=== PATIENT | female | born 1975 | race Caucasian/White ===

== ENCOUNTER 2025-03-15 09:39 | Outpatient (OUT) | payer OTHER, SELFPAY ==
[2025-03-15 10:03] LABS: Basophils Percent Auto 0.3 % (0.2-2.0); Eosinophils Absolute Auto 0.2 10^3/uL (0.0-0.7); Eosinophils Percent Auto 1.8 % (0.9-7.0); Hematocrit 34.8 % (36.0-48.0); Hemoglobin 11.6 g/dL (12.0-16.0); Immature Granulocytes Abs Auto 0.03 10^3/uL (0.00-0.03); Immature Granulocytes Pct Auto 0.3 % (0.0-0.5); Lymphocytes Percent Auto 34.4 % (20.5-60.0); Mean Corpuscular HGB Conc 33.3 g/dL (29.9-35.2); Mean Corpuscular Hemoglobin 28.9 pg (26.7-34.0); Mean Corpuscular Volume 86.6 fL (81.0-99.0); Mean Platelet Volume 9.9 fL (9.5-13.5); Monocytes Absolute Auto 0.4 10^3/uL (0.3-0.8); Monocytes Percent Auto 4.2 % (1.7-12.0); Neutrophils Absolute Auto 5.2 10^3/uL (1.4-6.5); Platelet Count 254 10^3/uL (150-450); Red Blood Count 4.02 10^6/uL (4.20-5.40); Red Cell Distribution Width 14.3 % (11.0-15.0); White Blood Count 8.8 10^3/uL (4.0-11.0)
[2025-03-15 10:27] LABS: Alanine Aminotransferase 31 U/L (14-59); Albumin Globulin Ratio 0.9; Albumin Level 3.1 g/dL (3.4-5.0); Alkaline Phosphatase 91 U/L (46-116); Anion Gap 11.4; Aspartate Amino Transferase 18 U/L (15-37); Bilirubin Total 0.3 mg/dL (0.2-1.0); Calcium 8.6 mg/dL (8.5-10.1); Carbon Dioxide 28.8 mmol/L (21.0-32.0); Chloride 105 mmol/L (98-107); Chol HDL Ratio 2.9; Cholesterol 168 mg/dL (<=200); Estimated GFR (African America >60 (>=60 mL/min/1.73m^2); Estimated GFR (Non-African Ame >60 (>=60 mL/min/1.73m^2); Globulin 3.4 g/dL; Glucose 112 mg/dL (74-106); HDL Cholesterol 57 mg/dL (40-60); LDL Cholesterol Calculated 90.8 mg/dL; Potassium 4.2 mmol/L (3.5-5.1); Sodium 141 mmol/L (136-145); Total Protein 6.5 g/dL (6.4-8.2); Triglycerides 101 mg/dL (<=150); VLDL CHOLESTEROL 20.2 mg/dL
== END 2025-03-15 09:40 | disposition home or self-care (01) ==
LOC: LAB 09:43
PROVIDERS: PCP Family Medicine; Visit Provider Physician Assistant
DX: Z13.1 Encounter for screening for diabetes mellitus (principal); Z13.0 Encounter for screening for diseases of the blood and blood-forming organs and certain disorders involving the immune mechanism; Z13.6 Encounter for screening for cardiovascular disorders
CPT/HCPCS: 36415; 80053; 80061; 85025

== ENCOUNTER 2025-09-03 23:17 | Emergency (ER) | payer OTHER, SELFPAY ==
[2025-09-03 23:27] VITALS: BP 167/80; PULSE 82; TEMP 36.8; O2SAT 98; BMI 46.2
--- OUTSIDE RECORDS SUMMARY | 2025-09-03 23:31 | XMS_ITS | CCD ---
Author Organization [facility] Team Providers Care Stonework Supervisor Name Role Phone JOHNNY CAMILO Attending Unavailable ELMIRA, DR KERN Primary Care Unavailable TON, JOHNNY Admitting Unavailable BURBANK, DR STEFANIA Mccloud Consulting Unavailable JOHNNY CAMILO Consulting Unavailable MISC, DR ELIAS Attending Unavailable MISC, DR ELIAS Consulting Unavailable ELMIRA, DR KERN Primary Care Unavailable MISC, DR ELIAS Admitting Unavailable Johnny Camilo Unavailable DO Cornelio Ku Primary Care Provider ULISSES Ibarra Attending Provider Cornelio Ku Unavailable DO Cornelio Ku Primary Care Provider [phone] DO Cornelio Ku Attending Provider Unavailable Unavailable Tawnya, Dr. Katarzyna Randall Admitting Unava ilmariangel Hopson, Dr. Katarzyna Randall Attending Unava bindu Cummins Jr, Dr. Mary Winkler Referring U navailable Elmira, Dr. Cornelio Segovia Primary Care Unavaila anjel Hopson, Dr. Katarzyna Randall Attending Unava ilmariangel Ku, Dr. Cornelio Segovia Primary Care Unavaila anjel Hopson, Dr. Katarzyna Randall Attending Unava ilmariangel Ku, Dr. Cornelio Segovia Primary Care Unavaila anjel Ku, Dr. Cornelio Segovia Primary Care Unavaila anjel Hopson, Dr. Katarzyna Randall Attending Unava ilable Taty, Ms. Judd Novoa Attending Un available Elmira, Dr. Cornelio Segovia Primary Care Unavailtiffani Hopson, Dr. Katarzyna Randall Referring Unava ilable Strange-Gierlach, Ms. Judd Novoa Attending Un available Elmira, Dr. Cornelio Segovia Primary Care Unavaila ble Tawnya, Dr. Katarzyna Randall Referring Unava ilable Strange-Gierlach, MsRadha Judd E Attending Un available Placido Disla, Dr. Mary Winkler Referring U navailable Elmira, Dr. Cornelio Segovia Primary Care Unavaila ble Tawnya, Dr. Katarzyna Randall Referring Unava ilable Strange-Gierlach, MsRadha Judd E Attending Un available Elmira, Dr. Cornelio Segovia Primary Care Unavaila ble Strange-Gierlach, MsRadha Hunterie E Attending Un available Elmira, Dr. Cornelio Segovia Primary Care Unavaila ble Tawnya, Dr. Katarzyna Randall Referring Unava ilable Tawnya, Dr. Katarzyna Randall Attending Unava ilable Elmira, Dr. Cornelio Segovia Primary Care Unavaila ble Tawnya, Dr. Katarzyna Randall Attending Unava ilable Elmira, Dr. Cornelio Segovia Primary Care Unavaila ble Tawnya, Dr. Katarzyna Randall Attending Unava ilable Elmira, Dr. Cornelio Segovia Primary Care Unavaila ble Tawnya, Dr. Katarzyna Randall Attending Unava ilable Elmira, Dr. Cornelio Segovia Primary Care Unavaila ble Tawnya, Dr. Katarzyna Randall Referring Unava ilable Tawnya, Dr. Katarzyna Randall Attending Unava ilable Placido Disla, Dr. Mary Winkler Referring U navailable Elmira, Dr. Cornelio Segovia Primary Care Unavaila ble Tawnya, Dr. Katarzyna Randall Referring Unava ilable Tawnya, Dr. Katarzyna Randall Attending Unava ilable Elmira, Dr. Cornelio Segovia Primary Care Unavaila ble JAVIER PEARSON Attending Unavailable Stefania Bartlett Unavailable MD Stefania Bartlett Attending Provider DO Cornelio Ku Primary Care Provider [phone] CORNELIO KU Referring Unavailable CORNELIO KU Attending Unavailable Cornelio Ku DO Primary Care Provider [phone] DO Cornelio Ku Primary Care Provider DO Richie Ku Attending Provider [phone] Cornelio Ku DO Primary Care Provider Matoe Grover Unavailable Adrienne Lerma RN Unavailable Unavailable DEIDRA ENCISO Attending Unavailable CORNELIO KU [facility] Unavailable KATARZYNA HOPSON Attending Unavailable CORNELIO KU Primary Care Unavailable DO Cornelio Ku Primary Care Provider DO Cornelio Ivy Attending Provider Cornelio Ku [facility] Care Unavailable Richie Ku Admitting Unavailable Richie Ku Attending Unavailable Stefania Bartlett Attending Unavailable Cornelio Ku [facility] Unavailable Stefania Bartlett Admitting Unavailable Stefania Bartlett Attending Unavailable Cornelio Ku [facility] Care Unavailable Stefania Bartlett Admitting Unavailable Cornelio Ivy Admitting Unavailable Cornelio Ivy Attending Unavailable Cornelio Ku [facility] Unavailable Cornelio Ku DO Unavailable Edwardo Nielsen DO Unavailable DEIDRA ENCISO Admitting Unavailable DEIDRA ENCISO Attending Unavailable CORNELIO KU [facility] Unavailable DEIDRA ENCISO Referring Unavailable CORNELIO KU [facility] Unavailable DEIDRA ENCISO Referring Unavailable ELMIRACORNELIO [facility] Unavailable [place] CORNELIO LUCA [facility] Unavailable DEIDRA ENCISO Attending Unavailable CORNELIO KU [facility] Unavailable JUDD SPEARS Attending UnavaCORNELIO [facility] Unavailable RICHIE KU Referring Unavailable JAMES, MATEO Valenzuela Attending Unavailable IBARRA, MATEO M Referring Unavailable CORNELIO KU Attending Unavailable RICHIE KU Attending Unavailable CORNELIO KU Attending Unavailable CORNELIO IVY Attending Unavailable [facility] Attending Unavailable IBARRA, MATEO M Referring Unavailable LALA GALINDO Attending Unavailable IBARRA, MATEO M Referring Unavailable IBARRA, MATEO M Attending Unavailable [facility] Attending Unavailable IBARRA, MATEO M Referring Unavailable TIFFANI CHANDRA Attending Unavailable IBARRA, MATEO M Referring Unavailable CORNELIO KU Attending Unavailable IBARRA, MATEO Valenzuela Attending Unavailable TIFFANI CHANDRA Attending Unavailable IBARRA, MATEO M Referring Unavailable LALA GALINDO Attending Unavailable IBARRA, MATEO M Referring Unavailable [facility] Attending Unavailable IBARRA, MATEO M Referring Unavailable KELBLEY, TIFFANI Attending Unavailable IBARRA, MATEO M Referring Unavailable RUSHER, HORACIO S Attending Unavailable IBARRA, MATEO M Referring Unavailable RUSHER, HORACIO S Referring Unavailable RUSHER, HORACIO S Referring Unavailable BRLALA MARC Attending Unavailable IBARRA, MATEO M Referring Unavailable KELBLEY, TIFFANI Attending Unavailable IBARRA, MATEO M Referring Unavailable KELBLEY, TIFFANI Attending Unavailable IBARRA, MATEO M Referring Unavailable KELBLEY, TIFFANI Attending Unavailable IBARRA, MATEO M Referring Unavailable RUSHER, HORACIO S Attending Unavailable IBARRA, MATEO M Attending Unavailable IBARRA, MATEO M Referring Unavailable Chucky Cárdenas. Attending Unavailable Cornelio Ku DO Primary Care Provider [phone] JAMILA GOMEZ Attending Unavailable CORNELIO KU Referring Unavailable CORNELIO KU Primary Care Unavailable CORNELIO KU Referring Unavailable CORNELIO KU Primary Care Unavailable Allergies Allergy Classification Reported Allergen(s) Allergy Type Date of Onset Reaction(s) Facility Macrolides (antibiotic) (1 source) Erythromycin; Translations: [ERYTHROMYCIN] Drug Allergy 08-22-20 23 [facility] 3 Repository NSAIDs (1 source) Diclofenac; Translations: [DICLOFENAC SODIUM] Drug Allergy 08-26-20 23 [facility] 3 Repository Sulfonamides (antibiotic) (1 source) Sulfonamides (Antibiotic); Translations: [SULFA (SULFONAMIDE ANTIBIOTICS)] Drug Allergy 08-22-20 23 [facility] 3 Repository (20 sources) Erythromycin; Translations: [ERYTHROMYCIN BASE] Drug Allergy 07-17-20 13 Rash [facility] Repository (1 source) Sulfonamides (Antibiotic) Drug allergy (disorder) 07-17-20 13 [facility] Repository (20 sources) Erythromycin; Translations: [ERYTHROMYCIN] Drug Allergy 03-14-20 16 Rash [facility] (3 sources) Sulfamethoxazole Drug Allergy 09-03-20 23 Unknown [facility] (19 sources) Sulfonamides (Antibiotic); Translations: [Sulfa (Sulfonamide Antibiotics)] Allergy to substance 03-14-20 16 Unknown, Swelling, Other (See Comments) [facility] (20 sources) Diclofenac; Translations: [DICLOFENAC SODIUM] Drug Allergy 08-26-20 23 GI intolerance, GI Disturbance [facility] (20 sources) Sulfonamides (Antibiotic) Drug Allergy 03-14-20 16 Swelling, Unknown [facility] (1 source) Erythromycin Drug Allergy 09-03-20 [facility] Repository (1 source) Sulfamethoxazole Drug Allergy 09-03-20 [facility] Repository (1 source) Sulfonamides (Antibiotic); Translations: [sulfa drugs] Propensity to adverse reactions (disorder) [facility] Repository Medications Current Medications Medication Drug Class(es) Dates Sig (Normalized) Sig (Original) acetaminophen 325 mg oral tablet (15 sources) Start: 01-17-2024 take 1.5 tablets by mouth every six hours for pain acetaminophen (Tylenol) 325 mg tablet Indications: Cervical radiculopathy Take 1.5 tablets (487.5 mg) by mouth every 6 hours if needed for moderate pain (4 - 6). 30 tablet 01/17/2024 Active Start: 01-16-2024 take 1 tablet by chris th every six hours 650 mg, oral, Every 6 hours, First dose on Bernice 01/16/24 at 1700, Phase II/On Unit If ordered PRN for pain, nurse is permitted to administer this medication for higher pain scores based on patient preference? Yes Start: 12-07-2023 End: 12-07-2023 acetaminophen (Tylenol) tabl et 650 mg Start: 01-16-2018 End: 01-17-2024 acetaminophen (Tylenol) 325 mg tablet Take 500 mg by mouth every 4 hours if needed for moderate pain (4 - 6). 0 01/16/2018 01/17/2024 Discontinued (Reorder) Start: 01-16-2018 take 2 tablets by mo hih every four hours Acetaminophen (Tylenol) 325 mg Tablet Active 650 MG PO Q4H January 16, 2018 1:00am acetaminophen 325 mg / butalbital 50 mg / caffeine 40 mg oral capsule (6 sources) Barbiturate, Central Nervous System Stimulant, Methylxanthine Start: 01-16-2018 take 1 capsule by mouth every four hours Cvxjxtcgjw-Powlbvjzhdpmg-Yivr Active 1 CAP PO Q4H January 16, 2018 1:00am benzocaine 15 mg / menthol 3.6 mg oral lozenge (1 source) Standardized Chemical Allergen Start: 01-16-2024 1 lozenge, Mouth/Throat, Maureen ry 2 hour PRN, sore throat, Starting on Bernice 01/16/24 at 1632, Phase II/On Unit cetirizine hydrochloride 10 mg oral tablet (20 sources) Histamine-1 Receptor Antagonist Start: 08-12-2024 End: 07-20-2025 take 1 tablet by mouth in the morning cetirizine (ZyrTEC) 10 mg tablet Take 1 tablet (10 mg total) by mouth in the morning. 07/20/2025 Active Start: 08-05-2023 End: 08-04-2024 take 1 tablet by mouth in the morning cetirizine (ZyrTEC) 10 MG tablet Indications: History of seasonal allergies Take 1 tablet (10 mg) by mouth in the morning. 90 tablet 3 08/05/2023 08/04/2024 Active Start: 10-12-2022 Cetirizine HCl - 10 MG Oral Tablet Quantity: 90 Refills: 0 Ordered: 18-Apr-2023 DO Start : 12-Oct-2022 Active citalopram 20 mg oral tablet (20 sources) Serotonin Reuptake Inhibitor Start: 01-16-2024 take 40 mg by mouth once daily 40 mg, oral, Daily, First dose on Bernice 01/16/24 at 1700, Phase II/On Unit Start: 12-20-2022 Citalopram Hyd robromide 40 MG Oral Tablet Quantity: 90 Refills: 0 Ordered: 05-Apr-2023 DO Start : 20-Dec-2022 Active Start: 01-16-2018 take 40 mg by mouth once daily Citalopram Active 40 MG PO Daily January 16, 2018 1:00am take 0.5 tablet by m outh every twenty-four hours Citalopram Hydrobromide 40 MG 0.5 tablet Orally Once a day Active cyclobenzaprine hydrochloride 10 mg oral tablet (20 sources) Muscle Relaxant Start: 02-03-2025 End: 08-04-2025 cyclobenzaprine (Flexeril) 10 MG tablet Indications: Muscle spasm Take 1 tablet (10 mg) by mouth 3 (three) times a day as needed for muscle spasms (q8hrs) 30 tablet 02/03/2025 08/04/2025 Discontinued Start: 01-16-2024 take 1 tablet by [facility] three times daily as needed for muscle spasms cyclobenzaprine (Flexeril) 10 mg tablet Indications: muscle spasm Take 1 tablet (10 mg) by mouth 3 times a day as needed for muscle spasms. 30 tablet 01/17/2024 Active Start: 07-10-2022 End: 12-07-2023 cyclobenzaprine (Flexeril) t ablet 10 mg take 2 tablets by mo ut three times daily as needed for muscle spasms cyclobenzaprine (FLEXERIL) 5 mg tablet Take 2 tablets (10 mg total) by mouth 3 (three) times a day as needed for muscle spasms. Active docusate sodium 50 mg / sennosides, longterm 8.6 mg oral tablet (4 sources) Start: 01-16-2024 take 2 tablets by mouth twice daily for pain sennosides-docusate sodium (Hawa-Colace) 8.6-50 mg tablet Indications: Cervical radiculopathy Take 2 tablets by mouth 2 times a day. Take while using oxycodone for post operative pain to prevent GI upset 30 tablet 01/17/2024 Active fluticasone propionate 0.05 mg/actuat metered dose nasal spray (20 sources) Corticosteroid Start: 11-09-2024 take 1-2 spray(s) nasal route in the morning fluticasone propionate (FLONASE) 50 mcg/actuation nasal spray Administer 1-2 sprays into each nostril in the morning. 11/09/2024 Active glucagon (rdna) 1 mg injection (1 source) Antihypoglycemic Agent Start: 01-16-2024 1 mg, intramuscular, Every 15 min PRN, low blood sugar - see comments, For blood glucose less than or equal to 70 mg/dL and no IV access, Starting on Bernice 01/16/24 at 1632, Phase II/On Unit Give until blood glucose is 100 mg/dL or greater. If patient DOES NOT HAVE secure IV access & patient is unconscious, NPO or is unable to eat or drink. 50 ml glucose 500 mg/ml prefilled syringe (2 sources) Start: 01-16-2024 25 g, intravenous, Every 15 min PRN, For blood glucose less than or equal to 40 mg/dL, Starting on Bernice 01/16/24 at 1632, Phase II/On Unit May repeat until blood glucose level reaches 100 mg/dL or greater. Push 2 - 3 mL/minute if patient has secure IV access. Start: 01-16-2024 0.3 g/kg/hr 11 2 kg (336 mL/hr), intravenous, Once as needed, For blood glucose less than 70 mg/dL after 30 minutes of intervention. Discontinue once blood glucose reaches 100 mg/dL., Starting on Bernice 01/16/24 at 1632, For 1 dose, Phase II/On Unit Discontinue once blood glucose reaches 100 mg/dL. 1 ml heparin sodium, porcine 5000 unt/ml injection (1 source) Unfractionated Heparin, Anti-coagulant Start: 01-17-2024 inject 5000 [IU] by subcutaneous injection every eight hours 5,000 Units, subcutaneous, Every 8 hours scheduled, First dose on Sat01/17/24 at 0600, Phase II/On Unit hydroCHLOROthiazide 25 mg oral tablet (7 sources) Thiazide Diuretic Start: 01-17-2024 hydroCHLOROthiazide (HYDRODiuril) tablet 12.5 mg Start: 12-29-2020 take 25 mg by mouth once [place] chlorothiazide Active 25 MG PO Once December 29, 2020 1:00am hydroCHLOROthiazide 25 mg / lisinopril 20 mg oral tablet (3 sources) Thiazide Diuretic, Angiotensin Converting Enzyme Inhibitor End: 11-09-2024 lisinopril-hydroCHLOROthiazi de 20-25 MG tablet 1 (one) time each day at the same time 11/09/2024 Discontinued take 1 tablet by chris every twenty-four hours Lisinopril-hydroCHLOROthiazide 10-12.5 M G 1 tablet Orally Once a day Active hydroCHLOROthiazide 12.5 mg / losartan potassium 100 mg oral tablet (20 sources) Thiazide Diuretic, Angiotensin 2 Receptor Sahil Start: 03-22-2025 take 1 tablet by mouth once in the morning losartan-hydroCHLOROthiazide (HYZAAR) 100-12.5 mg per tablet Take 1 tablet by mouth in the morning. 03/22/2025 Active Start: 03-22-2025 losartan-hydro CHLOROthiazide (Hyzaar) 100-12.5 MG tablet Indications: Primary hypertension TAKE 1 TABLET DAILY 90 tablet 3 03/22/2025 Active Start: 02-28-2024 losartan-hydro CHLOROthiazide (Hyzaar) 100-12.5 MG tablet Indications: Primary hypertension (CMS/HCC) TAKE 1 TABLET DAILY 90 tablet 3 02/28/2024 Active Start: 12-11-2023 take 1 tablet by chris once daily losartan-hydroCHLOROthiazide (Hyzaar) 100-12.5 MG tablet Indications: Primary hypertension (CMS/HCC) 1 tablet po once a day 30 tablet 0 12/11/2023 Active Start: 02-27-2023 Losartan Gulshan porter-HCTZ 100-12.5 MG Oral Tablet Quantity: 90 Refills: 0 Ordered: 27-Feb-2023 DO Start : 27-Feb-2023 Active 1 ml HYDROmorphone hydrochloride 1 mg/ml cartridge (2 sources) Opioid Agonist Start: 01-16-2024 take 0.2 mg intravenously every four hours as needed 0.2 mg, intravenous, Every 4 hours PRN, pain breakthrough, use oral first and only use IV if oral is ineffective or cannot take oral. Use as first line if no PO med ordered., Starting on Bernice 01/16/24 at 1632, Phase II/On Unit Start: 01-16-2024 End: 01-16-2024 HYDROmorphone (Dilaudid) inj ection 0.5 mg hydrOXYzine hydrochloride 25 mg oral tablet (20 sources) Antihistamine Start: 08-16-2025 take 1 tablet by mouth once daily as needed for anxiety hydrOXYzine (ATARAX) 25 mg tablet Take 1 tablet (25 mg total) by mouth daily as needed for anxiety. 08/16/2025 Active Start: 09-18-2023 hydrOXYzine HC l (Atarax) 25 MG tablet 1-2 tabs as needed for anxiety 09/18/2023 Active hyoscyamine sulfate 0.125 mg sublingual tablet (20 sources) Start: 04-23-2024 take 1 tablet by mouth every six hours hyoscyamine (Levsin/SL) 0.125 MG SL tablet Indications: Abdominal cramping Take 1 tablet (125 mcg) by mouth every 6 (six) hours if needed for cramping or diarrhea 45 tablet 1 04/23/2024 Active ibuprofen 800 mg oral tablet (13 sources) Nonsteroidal Anti-inflammatory Drug Start: 01-16-2018 End: 01-17-2024 Ibuprofen Active 800 MG PO As Directed January 16, 2018 1:00am lamoTRIgine 200 mg oral tablet (20 sources) Mood Stabilizer, Anti-epileptic Agent Start: 01-20-2023 lamoTRIgine 200 MG Oral Tablet Quantity: 90 Refills: 0 Ordered: 20-Jan-2023 DO Start : 20-Jan-2023 Active Start: 01-16-2018 take 200 mg by mouth once marcelle y Lamotrigine Active 200 MG PO Daily January 16, 2018 1:00am take 1 tablet by chris th every twenty-four hours lamoTRIgine ER 200 MG 1 tablet Orally Once a day Active lidocaine hydrochloride 20 mg/ml mucous membrane topical solution (6 sources) Antiarrhythmic, Amide Local Anesthetic Start: 08-25-2024 End: 08-30-2024 lidocaine (Xylocaine) 2 % solution Indications: Tongue pain Take 1.3 mL by mouth in the morning and 1.3 mL at noon and 1.3 mL in the evening. Take before meals. Do all this for 5 days. 20 mL 08/25/2024 08/30/2024 Active Start: 01-16-2024 apply 1 dose transde rmal route once daily 1 patch, transdermal, Administer over 12 Hours, Daily, First dose on Bernice 01/16/24 at 1700, Phase II/On Unit Apply to posterior neck. Patch will remain on for 12 hours, then removed for [address] patch directly over any surgical incisions or wounds. Start: 12-07-2023 lidocaine 4 % patch 1 patch loratadine 10 mg oral tablet (1 source) Start: 01-16-2024 take 10 mg by mouth once daily 10 mg, oral, Daily, First dose on Bernice 01/16/24 at 1700, Phase II/On Unit losartan potassium 100 mg oral tablet (1 source) Angiotensin 2 Receptor Sahil Start: 01-17-2024 losartan (Cozaar) tablet 100 mg lurasidone hydrochloride 40 mg oral tablet (8 sources) Atypical Antipsychotic Start: 01-16-2018 take 1 tablet by mouth once daily at bedtime Lurasidone (Latuda) 40 mg tablet Active 40 MG PO Daily at bedtime January 16, 2018 1:00am meloxicam 15 mg oral tablet (20 sources) Nonsteroidal Anti-inflammatory Drug Start: 07-29-2024 End: 07-29-2025 take 1 tablet by mouth in the morning meloxicam (MOBIC) 15 mg tablet Take 1 tablet (15 mg total) by mouth in the morning. 06/09/2025 Active 24 hr metFORMIN hydrochloride 750 mg extended release oral tablet (20 sources) Biguanide Start: 06-28-2025 End: 06-28-2026 take 1 tablet by mouth once daily at breakfast metFORMIN XR (GLUCOPHAGE XR) 750 mg 24 hr tablet Take 1 tablet (750 mg total) by mouth daily with breakfast. 06/28/2025 06/28/2026 Active Start: 06-28-2025 End: 06-28-2026 take 1 tablet by mouth every twenty-four hours at mealtime metFORMIN XR (Glucophage-XR) 750 MG 24 hr tablet Indications: Pre-diabetes Take 1 tablet (750 mg) by mouth in the evening. Take with meals Do not crush, chew, or split. 90 tablet 1 06/28/2025 06/28/2026 Active Start: 03-26-2025 End: 03-26-2026 take 1 tablet by mouth in the morning metFORMIN (Glucophage) 500 MG tablet Indications: Pre-diabetes Take 1 tablet (500 mg) by mouth in the morning and 1 tablet (500 mg) in the evening. Take with meals. 60 tablet 2 03/26/2025 06/28/2025 Discontinued (Med list cleanup) Start: 01-16-2018 End: 05-12-2020 take 500 mg by mouth twice daily Metformin Discontinue d 500 MG PO Twice daily January 16, 2018 1:00am May 12, 2020 11:38pm 24 hr mirabegron 25 mg extended release oral tablet (20 sources) beta3-Adrenergic Agonist Start: 04-24-2022 Myrbe triq 25 MG Oral Tablet Extended Release 24 Hour Quantity: 90 Refills: 0 Ordered: 18-Apr-2023 DO Start : 24-Apr-2022 Active Start: 01-16-2018 End: 07-29-2024 Myrbetriq 25 MG 24 hr tablet Indications: Urinary urgency TAKE 1 TABLET DAILY 90 tablet 3 07/22/2023 07/29/2024 Discontinued montelukast 10 mg oral tablet (6 sources) Leukotriene Receptor Antagonist Start: 01-16-2018 take 10 mg by mouth once daily Montelukast Active 10 MG PO Daily January 16, 2018 1:00am Naloxone (1 source) Opioid Antagonist Start: 01-16-2024 0.2 mg, intravenous, Every 5 min PRN, respiratory depression, Starting on Bernice 01/16/24 at 1632, Phase II/On Unit If respiratory rate is less than 8 breaths/minute or patient is difficult to arouse stop any narcotics and contact physician. Administer slow IV push. Repeat as ordered until patient's respiratory rate is greater than 12 breaths/minute. omeprazole 40 mg delayed release oral capsule (20 sources) Proton Pump Inhibitor Start: 11-13-2024 End: 11-13-2025 take 1 capsule by mouth once daily before breakfast omeprazole (PriLOSEC) 40 mg capsule Take 1 capsule (40 mg total) by mouth every morning before breakfast. 11/13/2024 11/13/2025 Active Start: 10-05-2024 take 1 capsule by mo uth before mealtime omeprazole (PriLOSEC) [address] capsule Indications: Gastroesophageal reflux disease without esophagitis Take 1 capsule (40 mg) by mouth in the morning. Take before meals. Do not crush or chew.. 14 capsule 10/05/2024 Active Start: 10-14-2023 End: 10-13-2024 omeprazole (PriLOSEC) [address] capsule Indications: Gastroesophageal reflux disease without esophagitis TAKE 1 CAPSULE IN THE MORNING BEFORE A MEAL (DO NOT CRUSH OR CHEW) 90 capsule 3 04/13/2024 Active take 1 capsule by mo uth once daily omeprazole (PriLOSEC) [address] capsule Take 1 capsule (10 mg) by mouth once daily. Active Ondansetron (1 source) Serotonin-3 Receptor Antagonist Start: 01-16-2024 take 1 tablet by mouth every eight hours as needed ondansetron (Zofran) tablet 4 mg oxybutynin chloride 5 mg oral tablet (1 source) Cholinergic Muscarinic Antagonist Start: 01-16-2024 take 5 mg by mouth twice daily 5 mg, oral, 2 times daily, First dose on Bernice 01/16/24 at 2100, Phase II/On Unit oxyCODONE hydrochloride 5 mg oral tablet (7 sources) Opioid Agonist Start: 01-16-2024 take 1 tablet by mouth every four hours as needed 10 mg, oral, Every 4 hours PRN, pain severe (7-10), first line, Starting on Bernice 01/16/24 at 1632, Phase II/On Unit If ordered PRN for pain, nurse is permitted to administer this medication for higher pain scores based on patient preference? Yes Start: 01-16-2024 take 1 tablet by chris th every four hours as needed 5 mg, oral, Every 4 hours PRN, pain moderate (4-6), first line, Starting on Bernice 01/16/24 at 1632, Phase II/On Unit If ordered PRN for pain, nurse is permitted to administer this medication for higher pain scores based on patient preference? Yes Start: 01-16-2024 take 1 tablet by chris th every four hours as needed 2.5 mg, oral, Every 4 hours PRN, pain mild (1-3), first line, Starting on Bernice 01/16/24 at 1632, Phase II/On Unit If ordered PRN for pain, nurse is permitted to administer this medication for higher pain scores based on patient preference? Yes Start: 01-16-2024 End: 01-16-2024 take 1 tablet by mouth every six hours for pain oxyCODONE (Roxicodone) 5 mg immediate release tablet Indications: Cervical radiculopathy Take 1 tablet (5 mg) by mouth every 6 hours if needed for severe pain (7 - 10) (ICD 10: G89.18). 28 tablet 01/17/2024 Active oxygen (O2) therapy (1 source) Start: 01-16-2024 inhalation, Continuous PRN - O2/gases, other, Starting on Bernice 01/16/24 at 1632, Phase II/On Unit Titrate supplemental oxygen to maintain SpO2 greater than or equal to 92 Device: Nasal Cannula Rate in liters per minute: 2 LPM Keep O2 Sat Above: 92% pantoprazole 20 mg delayed release oral tablet (1 source) Proton Pump Inhibitor Start: 01-17-2024 take 20 mg by mouth once daily before breakfast 20 mg, oral, Daily before breakfast, First dose on Sat01/17/24 at 0700, Phase II/On Unit Do not crush, chew, or split. polyethylene glycol 3350 69274 mg powder for oral solution (1 source) Osmotic Laxative Start: 01-16-2024 17 g, oral, 2 times daily, First dose on Bernice 01/16/24 at 2100, Phase II/On Unit Bowel Regimen - for prevention of constipation. predniSONE 10 mg oral tablet (10 sources) Start: 07-15-2025 End: 08-04-2025 take 1 tablet by mouth three times daily at mealtime predniSONE (Deltasone) 10 MG tablet Indications: Spasm of thoracic back muscle 1 po tid with food x 4 days 12 tablet 07/15/2025 08/04/2025 Discontinued Start: 02-03-2025 End: 02-09-2025 take 2 tablets by mouth once daily, then take 1 tablet by mouth once daily predniSONE (Deltasone) 20 MG tablet Indications: Chronic left shoulder pain Take 2 tablets (40 mg) by mouth Daily for 4 days, THEN 1 tablet (20 mg) Daily for 3 days. 11 tablet 02/03/2025 02/09/2025 Active predniSONE Activ e Promethazine (1 source) Phenothiazine Start: 01-16-2024 take 1 tablet by mouth every six hours as needed promethazine (Phenergan) tablet 25 mg Completed/Discontinued Medications Medication Drug Class(es) Dates Sig (Normalized) Sig (Original) calcium carbonate 1250 mg oral tablet (6 sources) Start: 8 End: 0 take 1 tablet by mouth once daily Calcium Carbonate (Calcium 500) 500 mg calcium (1,250 mg) Tablet Discontinued 500 MG PO Daily January 16, 2018 1:00am May 12, 2020 11:37pm calcium chloride 0.0014 meq/ml / potassium chloride 0.004 meq/ml / sodium chloride 0.103 meq/ml / sodium lactate 0.028 meq/ml injectable solution (1 source) Start: 4 End: 4 lactated Ringer's infusion chlorhexidine gluconate 1.2 mg/ml mouthwash (3 sources) Start: 4 End: 4 chlorhexidine (Peridex) 0.12 % solution Indications: Preoperative examination Swish and spit 15 mL night before surgery and morning of surgery 473 mL 0 12/30/2023 01/17/2024 Discontinued (Stop Taking at Discharge) 12 hr dextromethorphan hydrobromide 60 mg / guaiFENesin 1200 mg extended release oral tablet (4 sources) Uncompetitive U-kxnmgh-N-asparta te Receptor Antagonist, Sigma-1 Agonist Start: 4 End: 5 dextromethorphan-guai FENesin (MUCINEX DM MAX STRENGTH) 60-1200 MG 12 hr tablet Indications: Viral upper respiratory infection Take 1 tablet by mouth every 12 (twelve) hours if needed (BID) 20 tablet 11/09/2024 02/03/2025 Discontinued methylPREDNISolone (18 sources) Corticosteroid Start: 4 End: 5 methylPREDNISolone (Medrol Dospak) 4 MG tablets Indications: Posterior tibial tendinitis of right lower extremity Take as directed on package. 21 tablet 09/18/2024 02/03/2025 Discontinued Start: 09-18-2024 methylPREDNISo lone (Medrol Dospak) 4 MG tablets Indications: Posterior tibial tendinitis of right lower extremity Take as directed on package. 21 tablet 09/18/2024 Active Psyllium (2 sources) Metamucil 1 tab Oral Not-Taking 1000 ml sodium chloride 9 mg/ml injection (1 source) Start: 01-16-20 End: 01-17-20 24 take 75 mL intravenously every hour 75 mL/hr, intravenous, Continuous, Starting on Bernice 01/16/24 at 1700, For 12 hours, Phase II/On Unit Convert IV to saline lock when taking oral fluids. traMADol hydrochloride 50 mg oral tablet (6 sources) Opioid Agonist Start: 01-25-20 End: 05-12-20 20 take 50 mg by mouth every four hours Tramadol Discontinued 50 MG PO Q4H 30 January 24, 2018 1:00am May 12, 2020 11:38pm Triamcinolone (1 source) Corticosteroid Start: 09-28-20 21 Kenalog -40 mg Sep, 40 mg Problems Active Problems Problem Classification Problem Date Documented Da te Episodic/Chronic Abdominal pain (20 sources) Abdominal pain; Translations: [Abdominal pain, unspecified site] Onset: 4 05-13-2020 Episodic Acquired foot deformities (4 sources) Acquired varus deformity of right ankle; Translations: [Valgus deformity, not elsewhere classified, right ankle] 09-18-2024 Episodic Anxiety disorders (20 sources) Social phobia; Translations: [Social phobia] Onset: 4 01-16-2024 Chronic Diabetes mellitus without complication (4 sources) Prediabetes; Translations: [Prediabetes] 03-26-2025 Episodic Diseases of mouth; excluding dental (4 sources) Inflammatory disease of mucous membrane; Translations: [Oral mucositis (ulcerative), unspecified] 08-25-2024 Episodic Esophageal disorders (20 sources) Gastroesophageal reflux disease; Translations: [Gastro-esophageal reflux disease without esophagitis] Onset: 0 04-29-2023 Chronic Essential hypertension (20 sources) Hypertensive disorder; Translations: [Essential (primary) hypertension] Onset: 1 12-29-2020 Chronic Mood disorders (20 sources) Mood disorder; Translations: [Mood disorder NOS] Onset: 6 Resolved: 3 Chronic Osteoarthritis (2 sources) Primary gonarthrosis, bilateral; Translations: [Bilateral primary osteoarthritis of knee] 05-31-2025 Chronic Other circulatory disease (8 sources) Feeling of lump in throat; Translations: [Other symptoms involving head and neck] Episodic Other connective tissue disease (1 source) Calcific tendinitis of left shoulder; Translations: [Calcific tendinitis of left shoulder] Onset: 3 Episodic Other connective tissue disease (1 source) Pain in left arm; Translations: [Pain in left arm] 12-07-2023 Episodic Other connective tissue disease (4 sources) Tendinitis of right posterior tibial tendon; Translations: [Posterior tibial tendinitis, right leg] 09-18-2024 Episodic Other connective tissue disease (2 sources) Spasm; Translations: [Other muscle spasm] 02-03-2025 Episodic Other connective tissue disease (2 sources) Lateral epicondylitis of right humerus; Translations: [Lateral epicondylitis, right elbow] 08-04-2025 Episodic Other ear and sense organ disorders (20 sources) Sensorineural hearing loss, unilateral, left ear, with unrestricted hearing on the contralateral side; Translations: [Sensorineural hearing loss (SNHL) of left ear with unrestricted hearing of right ear] Onset: 3 Chronic Other ear and sense organ disorders (20 sources) Cochlear prosthesis in situ; Translations: [Other postprocedural status] Onset: 4 04-21-2024 Chronic Other ear and sense organ disorders (1 source) Sensorineural hearing loss, bilateral; Translations: [Sensorineural hearing loss, bilateral] Onset: 3 Chronic Other ear and sense organ disorders (3 sources) Cochlear implant status; Translations: [Cochlear implant status] Onset: 3 Chronic Other ear and sense organ disorders (1 source) Unspecified sensorineural hearing loss; Translations: [Unspecified sensorineural hearing loss] Onset: 3 Chronic Other ear and sense organ disorders (20 sources) Hearing difficulty; Translations: [Unspecified hearing loss, bilateral] Onset: 3 04-29-2023 Chronic Other ear and sense organ disorders (20 sources) Unspecified hearing loss, left ear; Translations: [Unspecified hearing loss] Onset: 3 04-29-2023 Chronic Other gastrointestinal disorders (2 sources) Irritable bowel syndrome; Translations: [IBS (irritable bowel syndrome)] Chronic Other gastrointestinal disorders (20 sources) Irritable bowel syndrome with diarrhea; Translations: [Irritable bowel syndrome with diarrhea] Onset: 4 05-20-2024 Chronic Other gastrointestinal disorders (2 sources) Diarrhea, unspecified; Translations: [DIARRHEA UNSPECIFIED] Onset: 1 Episodic Other gastrointestinal disorders (2 sources) Constipation; Translations: [Constipation, unspecified] Episodic Other gastrointestinal disorders (2 sources) Diarrhea; Translations: [Diarrhea] Episodic Other gastrointestinal disorders (2 sources) Difficulty swallowing solids; Translations: [Dysphagia, unspecified] 08-04-2025 Episodic Other gastrointestinal disorders (2 sources) Dysphagia; Translations: [Dysphagia, unspecified] 08-09-2025 Episodic Other gastrointestinal disorders (2 sources) Heartburn; Translations: [Heartburn] Onset: 5 08-26-2025 Episodic Other injuries and conditions due to external causes (14 sources) H/O: fracture; Translations: [Personal history of (healed) traumatic fracture] 08-27-2024 Episodic Other lower respiratory disease (2 sources) Cough; Translations: [Cough, unspecified type] 11-09-2024 Episodic Other nervous system disorders (1 source) Other chronic pain; Translations: [Other chronic pain] Onset: 3 Chronic Other nervous system disorders (2 sources) Difficulty walking; Translations: [Difficulty in walking, not elsewhere classified] 09-18-2024 Chronic Other nervous system disorders (1 source) Other symbolic dysfunctions; Translations: [Other symbolic dysfunctions] Onset: 3 Episodic Other non-traumatic joint disorders (19 sources) Chronic ankle pain; Translations: [Pain in right ankle and joints of right foot] 08-25-2024 Episodic Other non-traumatic joint disorders (2 sources) Instability of joint of right ankle; Translations: [Other instability, right ankle] 09-18-2024 Episodic Other non-traumatic joint disorders (2 sources) Chronic pain of left upper limb; Translations: [Pain in left shoulder] 02-03-2025 Episodic Other non-traumatic joint disorders (2 sources) Pain in elbow; Translations: [Pain in right elbow] 08-04-2025 Episodic Other nutritional; endocrine; and metabolic disorders (1 source) Morbid (severe) obesity due to excess calories; Translations: [Morbid (severe) obesity due to excess calories] Onset: 3 Chronic Other nutritional; endocrine; and metabolic disorders (2 sources) Body mass index (BMI) 40.0-44.9, adult; Translations: [Body mass index [BMI] 40.0-44.9, adult] Onset: 3 Chronic Other nutritional; endocrine; and metabolic disorders (5 sources) Body mass index 40+ - severely obese; Translations: [Body mass index (BMI) 40.0-44.9, adult] 05-31-2025 Chronic Other nutritional; endocrine; and metabolic disorders (20 sources) Morbid obesity; Translations: [Morbid (severe) obesity due to excess calories] Onset: 3 04-29-2023 Chronic Other screening for suspected conditions (not mental disorders or infectious disease) (20 sources) Patient encounter status; Translations: [Encounter for screening for malignant neoplasm of colon] Onset: 4 05-20-2024 Episodic Other upper respiratory disease (20 sources) Seasonal allergic rhinitis; Translations: [Other seasonal allergic rhinitis] Onset: 1 04-29-2023 Chronic Other upper respiratory infections (4 sources) Sore throat symptom; Translations: [Acute pharyngitis, unspecified] 11-09-2024 Episodic Residual codes; unclassified (20 sources) Obstructive sleep apnea syndrome; Translations: [Obstructive sleep apnea (adult) (pediatric)] Onset: 3 04-29-2023 Chronic Residual codes; unclassified (1 source) Sleep apnea; Translations: [Sleep apnea, unspecified] Chronic Residual codes; unclassified (1 source) Obstructive sleep apnea (adult) (pediatric) Chronic Residual codes; unclassified (1 source) Obstructive sleep apnea (adult)(pediatric); Translations: [Obstructive sleep apnea (adult) (pediatric)] Onset: 3 Chronic Residual codes; unclassified (1 source) Other specified health status Episodic Residual codes; unclassified (1 source) Family history of epilepsy and other diseases of the nervous system Episodic Unclassified (3 sources) CONTACT W/AND (SUSP) EXPOS COVID-19; Translations: [CONTACT W/AND (SUSP) EXPOS COVID-19] Onset: 1 Unclassified (4 sources) Patient has spine surgery Onset: 4 12-16-2023 Unclassified (1 source) Encounter for screening mammogram for malignant neoplasm of breast; Translations: [Encounter for screening mammogram for malignant neoplasm of breast] Onset: 4 Unclassified (1 source) Autogenerated Problem Onset: 5 08-26-2025 Past or Other Problems Problem Classification Problem Date Documented Date Episodic/Chronic Allergic reactions (1 source) Allergy status to sulfonamides status; Translations: [Allergy status to sulfonamides] Onset: 01-02-2023 Episodic Complications of surgical procedures or medical care (20 sources) Under anesthesia; Translations: [Unintended awareness under general anesthesia during procedure, initial encounter] Onset: 01-16-2024 01-16-2024 Episodic Genitourinary symptoms and ill-defined conditions (20 sources) Genuine stress incontinence; Translations: [Stress incontinence (female) (male)] Onset: 04-23-2017 Resolved: 04-08-2024 04-29-2023 Chronic Genitourinary symptoms and ill-defined conditions (20 sources) Dysuria; Translations: [Dysuria] Onset: 04-10-2021 Resolved: 05-10-2025 04-29-2023 Episodic Headache; including migraine (20 sources) Chronic headache disorder; Translations: [Chronic headache disorder] Onset: 04-23-2024 12-29-2020 Episodic Menstrual disorders (20 sources) Dysmenorrhea; Translations: [Dysmenorrhea, unspecified] Onset: 01-07-2018 Resolved: 04-08-2024 04-29-2023 Chronic Other ear and sense organ disorders (20 sources) Asymmetrical sensorineural hearing loss; Translations: [Sensorineural hearing loss, asymmetrical] Onset: 08-22-2023 Resolved: 04-08-2024 08-22-2023 Chronic Other ear and sense organ disorders (20 sources) Sudden idiopathic hearing loss; Translations: [Sudden idiopathic hearing loss, left ear] Onset: 04-29-2023 04-29-2023 Episodic Other ear and sense organ disorders (20 sources) Tinnitus of left ear; Translations: [Tinnitus, left ear] Onset: 04-29-2023 04-29-2023 Episodic Other nervous system disorders (20 sources) Symbolic dysfunction; Translations: [Other symbolic dysfunction] Onset: 08-22-2023 Resolved: 05-10-2025 08-22-2023 Episodic Other non-traumatic joint disorders (20 sources) Pain in left shoulder; Translations: [Pain in joint, shoulder region] Onset: 09-28-2021 Resolved: 09-28-2021 Episodic Other non-traumatic joint disorders (20 sources) Hip pain; Translations: [Pain in left hip] Onset: 04-23-2024 04-13-2022 Episodic Otitis media and related conditions (20 sources) Acute serous otitis media of left ear; Translations: [Acute serous otitis media, left ear] Onset: 04-29-2023 04-29-2023 Episodic Residual codes; unclassified (1 source) Acquired absence of other specified parts of digestive tract; Translations: [Acquired absence of other specified parts of digestive tract] Onset: 01-02-2023 Episodic Residual codes; unclassified (1 source) Acquired absence of both cervix and uterus; Translations: [Acquired absence of both cervix and uterus] Onset: 01-02-2023 Episodic Spondylosis; intervertebral disc disorders; other back problems (20 sources) Radiculopathy, cervical region; Translations: [Pain in thoracic spine] Onset: 09-28-2021 Resolved: 11-04-2021 Episodic Unclassified (1 source) CONTACT W/AND (SUSP) EXPOS COVID-19; Translations: [CONTACT W/AND (SUSP) EXPOS COVID-19] Onset: 10-31-2021 Results Test Name Value Interpretation Reference Range Facility ALL CBC WITH AUTO DIFFon BASOPHILS ABSOLUTE AUTO 0 [facility] Basophils/100 WBC (Bld) 0.3 % 0.2 - 2.0 % [facility] Eosinophils/100 WBC (Bld) 1.8 % 0.9 - 7.0 % [facility] Erythrocyte distribution width (RBC) [Ratio] 14.3 % 11.0 - 15.0 % [facility] Hematocrit (Bld) [Volume fraction] 34.8 % Low 36.0 - 48.0 % [facility] Hemoglobin (Bld) [Mass/Vol] 11.6 g/dL Low 12.0 - 16.0 g/dL [facility] IMMATURE GRANULOCYTES ABS AUTO 0.03 [facility] Immature granulocytes/100 WBC (Bld) 0.3 % 0.0 - 0.5 % [facility] Interpretation and review of laboratory results Abnormal [facility] LYMPHOCYTES ABSOLUTE AUTO 3 [facility] Lymphocytes/100 WBC (Bld) 34.4 % 20.5 - 60.0 % [facility] MCH (RBC) [Entitic mass] 28.9 pg 26.7 - 34.0 pg [facility] MCHC (RBC) [Mass/Vol] 33.3 g/dL 29.9 - 35.2 g/dL [facility] MCV (RBC) [Entitic vol] 86.6 fL 81.0 - 99.0 fL [facility] MONOCYTES ABSOLUTE AUTO 0.4 [facility] Monocytes/100 WBC (Bld) 4.2 % 1.7 - 12.0 % [facility] NEUTROPHILS ABSOLUTE AUTO 5.2 [facility] Neutrophils/100 WBC (Bld) 59 % 43.0 - 75.0 % [facility] Platelet mean volume (Bld) [Entitic vol] 9.9 fL 9.5 - 13.5 fL [facility] TBH EO # 0.2 [facility]H PLT [address] [facility] RBC 4.02 Low [facility] TB WBC 8.8 [facility] XR SHOULDER 2+ VIEWS LEFTon 02-03-2025 XR SHOULDER 2+ VIEWS LEFT Exam: XR SHOULDER 2+ VIEWS LEFT Reason for exam: Chronic left pain, no injury Prior comparative studies: None Findings: No separation or dislocation is apparent. No fracture, malalignment or subluxation is apparent. Osseous density is normal. Impression: 1. No acute osseous abnormality identified. Dictated on: 02/03/2025 3:40 PM This report has been electronically signed and approved by the interpreting radiologist. Normal Not Available BI MAMMOGRAM SCREENING TOMOS YNTHESIS BILATERALon 01-08-2025 BI MAMMOGRAM SCREENING TOMOSYNTHESIS BILATERAL This is a summary report. The complete report is available in the patient's medical record. If you cannot access the medical record, please contact the sending organization for a detailed fax or copy. Examination: BI MAMMOGRAM SCREENING TOMOSYNTHESIS BILATERAL Clinical History: screening Technique: Screening digital mammography study of both breasts was performed with 2-D and 3-D tomosynthesis imaging. Study was compared to the prior exam dated 12/19/2023. Findings: There is no evidence of interval dominant spiculated mass, grouped microcalcifications, or skin thickening which would be suggestive of malignancy. Scattered benign-appearing nodular densities bilaterally similar to the prior study. A few benign-appearing calcifications are noted bilaterally. Axillary lymph nodes are noted bilaterally and appear grossly unremarkable IMPRESSION: Impression: No specific evidence of malignancy seen in either breast. BIRADS 2 - Benign Findings DENSITY: There are scattered areas of fibroglandular density. FOLLOW-UP: Routine Screening Mammogram ELECTRONICALLY SIGNED BY: Sriram Harris M.D. Normal Not Available Comment on above: Order Comment: Us or spot compression prn Laboratory - Microbiology an d Antimicrobial susceptibilityon 11-09-2024 SARS-CoV-2 (COVID-19) RNA JAE+probe Ql (Unsp spec) Negative [facility] S. pyogenes Ag Ql (Throat) Negative Negative, None Detected [facility] No Panel Informationon 11-09 FLU A Negative [facility] FLU B Negative [facility] Interpretation and review of laboratory results Normal [facility] Interpretation and review of laboratory results Normal [facility] No Panel Informationon 09-18 Radiology Study observation (narrative) [facility] XR Ankle - right 2 [facility] 1 Imaging Result: AP and lateral views reveal no acute fractures or dislocations. Talus appears well seated within the ankle mortise. There is an ossicle over the anterior lateral fibula consistent with previous injury. Decreased calcaneal inclination and increased talar declination, N/C J fault. Large enthesophyte at the insertion of the plantar fascia. Os trigonum noted over the posterior talar process. First ray elevation. Mild osteophyte over the dorsal 1st metatarsal head. [facility] XR Foot - right 3 [facility] Imaging Result: AP, medial oblique, calcaneal axial views are weight-bearing. Slight rearfoot valgus of about 5 degrees. Approximately 60 percent talar head uncoverage. No fractures or dislocations noted. [facility] Saeed 07-23-2024 L Specimen: [id number] Received: 07/23/24 Status: YESICA Panda Num: [id number] Spec Type: Surgical Subm Dr: Cornelio Ivy DO Tissues: A Colon Biopsy (RNDM COL BX) Procedures: HE/2, Gross/Micro L4 Age/ Patient Sex Location Account Attending Physician Darvin Chaves 49/F [place] [id number] Cornelio Ivy DO SPEC NUM: [id number] RECD: 07/23/24 STATUS: YESICA PANDA NUM: [id number] SANGEETHA: 07/23/[address]: Cornelio Ivy DO ENTERED: 07/23/[address] [facility] [address]: Nilay [facility] SPEC TYPE: Surgical DEPT: S ENTERED BY: [id number] RECV BY: [id number] ORDERED: HE/2, Gross/Micro L4 ORDERED: HE/2, Gross/Micro L4 Pathological Diagnosis Random colon biopsy: -Benign colonic mucosa without microscopic colitis, glandular dysplasia, or any other specific type colitis identified Clinical Information Diarrhea, IBS Gross Description The specimen was received in formalin with the patient's name and random colon biopsy are 4 underwood portions of soft tissue ranging in size from 0.2 to 0.4 cm in greatest dimension. The specimen is entirely submitted in cassette A1. Microscopic Description Microscopic examinations are performed supporting the above interpretation Specimen: [id number] Received: 07/23/24 Status: YESICA Panda Num: [id number] Spec Type: Surgical Subm Dr: Cornelio Ivy DO Tissues: A Colon Biopsy (RNDM COL BX) Procedures: CONCHITA/Crow, Gross/Micro L4 Patient: Darvin Chaves [id number] (Continued) Specimen: [id number] Received: 07/23/24 (Continued) Signed (signature on file) Arsen Leary MD 08/03/24 1935 Specimen: [id number] Received: 07/23/24 Status: YESICA Panda Num: [id number] Spec Type: Surgical Subm Dr: Cornelio Ivy DO Tissues: A Colon Biopsy (RNDM COL BX) Procedures: Eleno VALENCIA/Gil L4 Patient: Darvin Chaves [id number] (Continued) Specimen: [id number] Received: 07/23/24 (Continued) CPT Codes 04962 Specimen: [id number] Received: 07/23/24 Status: YESIAC Panda Num: [id number] Spec Type: Surgical Subm Dr: Cornelio Ivy DO Tissues: A Colon Biopsy (RNDM COL BX) Procedures: Eleno VALENCIA/Micro L4 Patient: Darvin Chaves [id number] (Continued) Signed (signature on file) Rachid-Angel Leary MD 08/03/24 193 Normal [facility] Basic metabolic 2000 panelon 01-17-2024 Anion gap [Moles/Vol] 11 mmol/L 10 - 2 0 mmol/L [facility] Calcium [Mass/Vol] 8.7 mg/dL 8.6 - 10. 6 mg/dL [facility] Chloride [Moles/Vol] 104 mmol/L 98 - 10 7 mmol/L [facility] CO2 [Moles/Vol] 29 mmol/L 21 - 32 mmol/L [facility] Creatinine [Mass/Vol] 0.66 mg/dL 0.50 - 1.05 mg/dL [facility] eGFR - PINF [facility] Comment on above: Calculations of atif mated GFR are performed using the 2020 CKD-EPI Study Refit equation without the race variable for the IDMS-Traceable creatinine methods. https://jasn.asnjournals.org/content//ASN.75637 06709 Glucose [Mass/Vol] 110 mg/dL High 74 - 99 mg/dL [facility] Interpretation and review of laboratory results Abnormal [facility] Potassium [Moles/Vol] 3.9 mmol/L 3.5 - 5.3 mmol/L [facility] Sodium [Moles/Vol] 140 mmol/L 136 - 145 mmol/L [facility] Urea nitrogen [Mass/Vol] 10 mg/dL 6 - 23 mg/dL [facility] Anion gap [Moles/Vol] 11 mmol/L Normal 10-20 [facility] Comment on above: Performed By: #### 2 4321-2 #### YUE Delarosa ([id number]) [facility] ([facility]) [id number] [place] [address] 10953 Calcium [Mass/Vol] 8.7 mg/dL Normal 8.6-10.6 [facility] Comment on above: Performed By: #### 2 4321-2 #### YUE Delarosa ([id number]) [facility] ([facility]) [id number] [place] [address] 17944 Chloride [Moles/Vol] 104 mmol/L Normal 98-107 [facility] Comment on above: Performed By: #### 2 4321-2 #### YUE Delarosa ([id number]) [facility] ([facility]) [id number] [place] [address] 34291 CO2 [Moles/Vol] 29 mmol/L Normal 21-32 [facility] Comment on above: Performed By: #### 2 4321-2 #### YUE Delarosa ([id number]) [facility] ([facility]) [id number] [place] [address] 11191 Creatinine [Mass/Vol] 0.66 mg/dL Normal 0.50-1.05 [facility] Comment on above: Performed By: #### 2 4321-2 #### YUE Delarosa ([id number]) [facility] [facility] ([facility]) [address] [place] [address] 54868 GFR/1.73 sq M.predicted MDRD (S/P/Bld) [Vol rate/Area] mL/min/{1.73_m2} Normal >60 [facility] Comment on above: Result Comment: Calc ulations of estimated GFR are performed using the 2020 CKD-EPI Study Refit equation without the race variable for the IDMS-Traceable creatinine methods. https://jasn.asnjournals.org/content//ASN.47368 81517 Performed By: #### 2 4321-2 #### YUE Delarosa ([id number]) [facility] ([facility]) [address] [place] [address] Glucose [Mass/Vol] 110 mg/dL High 74-99 [facility] Comment on above: Performed By: #### 2 4321-2 #### YUE Delarosa ([id number]) [facility] ([facility]) [address] [place] [address] 83937 Potassium [Moles/Vol] 3.9 mmol/L Normal 3.5-5.3 [facility] Comment on above: Performed By: #### 2 4321-2 #### YUE WOOD L ([id number]) [facility] ([facility]) [id number] [place] [address] 66885 Sodium [Moles/Vol] 140 mmol/L Normal 136-145 [facility] Comment on above: Performed By: #### 2 4321-2 #### YUE WOOD L ([id number]) [facility] ([facility]) [address] [place] [address] 31824 Urea nitrogen [Mass/Vol] 10 mg/dL Normal 6-23 [facility] Comment on above: Performed By: #### 2 4321-2 #### YUE WOOD L ([id number]) [facility] ([facility]) [address] [place] [address] 93838 CBC panel Auto (Bld)on 01-17 Erythrocyte distribution width (RBC) [Ratio] 13.3 % 11.5 - 14.5 % [facility] [place] [facility] Hematocrit (Bld) [Volume fraction] 33.2 % Low 36.0 - 46.0 % [facility] [place] [facility] Hemoglobin (Bld) [Mass/Vol] 11.0 g/dL Low 12.0 - 16.0 g/dL [facility] [place] [facility] Interpretation and review of laboratory results Abnormal [facility] MCH (RBC) [Entitic mass] 29.8 pg 26.0 - 34.0 pg [facility] [place] [facility] MCHC (RBC) [Mass/Vol] 33.1 g/dL 32.0 - 36.0 g/dL [facility] [place] [facility] MCV (RBC) [Entitic vol] 90 fL 80 - 100 fL [facility] [place] [facility] Nucleated RBC/100 WBC (Bld) [Ratio] 0.0 % [facility] [place] [facility] Platelets (Bld) [#/Vol] 287 10*3/uL [facility] [place] [facility] RBC (Bld) [#/Vol] 3.69 10*6/uL Low [facility] WBC (Bld) [#/Vol] 12.6 10*3/uL High [facility] Erythrocyte distribution width (RBC) [Ratio] 13.3 % Normal 11.5-14.5 [facility] Comment on above: Performed By: #### 3 4529-8 #### YUE Delarosa ([id number]) [facility] ([facility]) [address] [place] [address] 73987 Hematocrit (Bld) [Volume fraction] 33.2 % Low 36.0-46.0 [facility] Comment on above: Performed By: #### 3 4529-8 #### YUE Delarosa ([id number]) [facility] ([facility]) [address] [place] [address] 44785 Hemoglobin (Bld) [Mass/Vol] 11.0 g/dL Low 12.0-16.0 [facility] Comment on above: Performed By: #### 3 4529-8 #### YUE Delarosa ([id number]) [facility] ([facility]) [address] [place] [address] 84094 MCH (RBC) [Entitic mass] 29.8 pg Normal 26.0-34.0 [facility] Comment on above: Performed By: #### 3 4529-8 #### YUE Delarosa ([id number]) [facility] ([facility]) [address] [place] [address] MCHC (RBC) [Mass/Vol] 33.1 g/dL Normal 32.0-36.0 [facility] Comment on above: Performed By: #### 3 4529-8 #### YUE Delarosa ([id number]) [facility] ([facility]) [address] [place] [address] 25052 MCV (RBC) [Entitic vol] 90 fL Normal 80-100 [facility] Comment on above: Performed By: #### 3 4529-8 #### YUE Delarosa ([id number]) [facility] ([facility]) [address] [place] [address] 03398 Nucleated RBC/100 WBC (Bld) [Ratio] 0.0 /100 WBCs Normal 0.0-0.0 [facility] Comment on above: Performed By: #### 3 4529-8 #### YUE Delarosa ([id number]) [facility] ([facility]) [address] [place] [address] 15935 Platelets (Bld) [#/Vol] 287 x10*3/uL Normal 150-450 [facility] Comment on above: Performed By: #### 3 4529-8 #### YUE Delarosa ([id number]) [facility] ([facility]) [address] [place] [address] 41321 RBC (Bld) [#/Vol] 3.69 x10*6/uL Low 4.00-5.20 [facility] Comment on above: Performed By: #### 3 4529-8 #### YUE Delarosa ([id number]) [facility] ([facility]) [address] [place] [address] 79200 WBC (Bld) [#/Vol] 12.6 x10*3/uL High 4.4-11.3 [facility] Comment on above: Performed By: #### 3 4529-8 #### YUE Delarosa ([id number]) [facility] ([facility]) [address] [place], [place] [id number] CT CERVICAL SPINE WO IV CONT Stefani 01-16-2024 CT CERVICAL SPINE WO IV CONTRAST Interpreted By: Barrie Osborne and Tonny Rojas STUDY: CT CERVICAL SPINE WO IV CONTRAST; 01/16/2024 4:26 pm INDICATION: Signs/Symptoms:cervical foraminotomy. COMPARISON: MRI cervical spine 10/23/2023. ACCESSION NUMBER(S): [id number] ORDERING CLINICIAN: ARNALDO MUNROE TECHNIQUE: Axial noncontrast images of the cervical, thoracic and lumbar spine with coronal and sagittal reconstructed images. FINDINGS: CRANIOCERVICAL JUNCTION: Intact. ALIGNMENT: There is mild straightening of the normal cervical lordosis. Alignment is otherwise maintained. VERTEBRAE: There is interval postoperative change corresponding to left C6-C7 partial facetectomy with far left lateral laminectomy and suspected discectomy/C7 foraminotomy. No acute fracture. Vertebral body heights are maintained. SPINAL CANAL/INTERVERTEBRAL DISCS/NEURAL FORAMINA: Beam hardening artifact limits delineation of the thecal sac within the mid and lower cervical regions. There is similar posterior disc osteophyte components involving the C4-C7 levels with varying degrees of spinal stenosis, better assessed on comparison MRI examination. Aforementioned postoperative change with likely mild residual osseous neural foraminal narrowing at the left C6-C7 level. PREVERTEBRAL SOFT TISSUES: Scattered foci of subcutaneous emphysema and stranding within the posterior paraspinal soft tissues at the level of C4 through C6, likely postsurgical. Partially visualized left cochlear implant. IMPRESSION: Postoperative change corresponding to left C6-C7 partial facetectomy, laminectomy, and reported foraminotomy. Suspect mild residual osseous neural foraminal narrowing secondary to disc osteophyte components. No acute osseous abnormality. I personally reviewed the images/study and I agree with the findings as stated by Resident Bob Lancaster. This study was interpreted at [facility], [place], [place]. MACRO: None. Signed by: Barrie Osborne 01/16/2024 7:03 PM Dictation workstation: [id number] Normal [facility] CT Cervical spine WO contras ton 01-16-2024 Postoperative change corresponding to left C6-C7 partial facetectomy, laminectomy, and reported foraminotomy. Suspect mild residual osseous neural foraminal narrowing secondary to disc osteophyte components. No acute osseous abnormality. I personally reviewed the images/study and I agree with the findings as stated by Resident Bob Lancaster. This study was interpreted at [facility], [place], [place]. MACRO: None. Signed by: Barrie Osborne 01/16/2024 7:03 PM Dictation workstation: [id number] MMODAL Interpreted By: Barrie Lazo and Ebai Jerky STUDY: CT CERVICAL SPINE WO IV CONTRAST; 01/16/2024 4:26 pm INDICATION: Signs/Symptoms:cervical foraminotomy. COMPARISON: MRI cervical spine 10/23/2023. ACCESSION NUMBER(S): [id number] ORDERING CLINICIAN: ARNALDO MUNROE TECHNIQUE: Axial noncontrast images of the cervical, thoracic and lumbar spine with coronal and sagittal reconstructed images. FINDINGS: CRANIOCERVICAL JUNCTION: Intact. ALIGNMENT: There is mild straightening of the normal cervical lordosis. Alignment is otherwise maintained. VERTEBRAE: There is interval postoperative change corresponding to left C6-C7 partial facetectomy with far left lateral laminectomy and suspected discectomy/C7 foraminotomy. No acute fracture. Vertebral body heights are maintained. SPINAL CANAL/INTERVERTEBRAL DISCS/NEURAL FORAMINA: Beam hardening artifact limits delineation of the thecal sac within the mid and lower cervical regions. There is similar posterior disc osteophyte components involving the C4-C7 levels with varying degrees of spinal stenosis, better assessed on comparison MRI examination. Aforementioned postoperative change with likely mild residual osseous neural foraminal narrowing at the left C6-C7 level. PREVERTEBRAL SOFT TISSUES: Scattered foci of subcutaneous emphysema and stranding within the posterior paraspinal soft tissues at the level of C4 through C6, likely postsurgical. Partially visualized left cochlear implant. MMODAL Barrie Osborne MD - 01/16/2024 Interpreted By: Barrie Osborne and Ebai Jerky STUDY: CT CERVICAL SPINE WO IV CONTRAST; 01/16/2024 4:26 pm INDICATION: Signs/Symptoms:cervical foraminotomy. COMPARISON: MRI cervical spine 10/23/2023. ACCESSION NUMBER(S): [id number] ORDERING CLINICIAN: ARNALDO MUNROE TECHNIQUE: Axial noncontrast images of the cervical, thoracic and lumbar spine with coronal and sagittal reconstructed images. FINDINGS: CRANIOCERVICAL JUNCTION: Intact. ALIGNMENT: There is mild straightening of the normal cervical lordosis. Alignment is otherwise maintained. VERTEBRAE: There is interval postoperative change corresponding to left C6-C7 partial facetectomy with far left lateral laminectomy and suspected discectomy/C7 foraminotomy. No acute fracture. Vertebral body heights are maintained. SPINAL CANAL/INTERVERTEBRAL DISCS/NEURAL FORAMINA: Beam hardening artifact limits delineation of the thecal sac within the mid and lower cervical regions. There is similar posterior disc osteophyte components involving the C4-C7 levels with varying degrees of spinal stenosis, better assessed on comparison MRI examination. Aforementioned postoperative change with likely mild residual osseous neural foraminal narrowing at the left C6-C7 level. PREVERTEBRAL SOFT TISSUES: Scattered foci of subcutaneous emphysema and stranding within the posterior paraspinal soft tissues at the level of C4 through C6, likely postsurgical. Partially visualized left cochlear implant. IMPRESSION: Postoperative change corresponding to left C6-C7 partial facetectomy, laminectomy, and reported foraminotomy. Suspect mild residual osseous neural foraminal narrowing secondary to disc osteophyte components. No acute osseous abnormality. I personally reviewed the images/study and I agree with the findings as stated by Resident Bob Lancaster. This study was interpreted at [place], [place]. MACRO: None. Signed by: Barrie Osborne 01/16/2024 7:03 PM Dictation workstation: [id number] [facility] [place] [facility] Work Phone: Radiology Study observation (narrative) [facility] [place] [facility] Work Phone: CT Cervical spine WO contras tOrdered By: Barrie Osborne on 01-16-2024 [facility] [place] [facility] Work Phone: FL FLUORO IMAGES NO CHARGEon 01-16-2024 FL FLUORO IMAGES NO CHARGE These images are not reportable by radiology and will not be interpreted by Radiologists. Normal [facility] XR tomography Unspecified xin dy regionon 01-16-2024 These images are not reportable by radiology and will not be interpreted by Radiologists. IMAGING ALL CBC WITH AUTO DIFFon Erythrocyte distribution width (RBC) [Ratio] 13.5 % 11.5 - 14.5 % [facility] Hematocrit (Bld) [Volume fraction] 39.8 % 36.0 - 46.0 % [facility] Hemoglobin (Bld) [Mass/Vol] 13.0 g/dL 12.0 - 16.0 g/dL [facility] MCH (RBC) [Entitic mass] 29.5 pg 26.0 - 34.0 pg [facility] MCHC (RBC) [Mass/Vol] 32.7 g/dL 32.0 - 36.0 g/dL [facility] MCV (RBC) [Entitic vol] 90 fL 80 - 100 fL [facility] NUCLEATED RBC 0.0 [facility] PLT 310 [facility] RBC 4.41 [facility] WBC 8.9 [facility] Original Ordering Provider: CHIARA WEEKS CLINISYMALENA [facility] Basic metabolic 2000 panelon 12-30-2023 Anion gap [Moles/Vol] 16 mmol/L Normal 10-20 [facility] Comment on above: Performed By: #### 2 4321-2 #### YUE Delarosa ([id number]) [facility] ([facility]) [address] [place] [address] 12893 Calcium [Mass/Vol] 9.5 mg/dL Normal 8.6-10.6 [facility] Comment on above: Performed By: #### 2 4321-2 #### YUE Delarosa ([id number]) [facility] ([facility]) [address] [place] [address] 13932 Chloride [Moles/Vol] 101 mmol/L Normal 98-107 [facility] Comment on above: Performed By: #### 2 4321-2 #### YUE Delarosa ([id number]) [facility] ([facility]) [address] [place] [address] 18175 CO2 [Moles/Vol] 30 mmol/L Normal 21-32 [facility] Comment on above: Performed By: #### 2 4321-2 #### YUE Delarosa ([id number]) [facility] ([facility]) [address] [place] [address] Creatinine [Mass/Vol] 0.64 mg/dL Normal 0.50-1.05 [facility] Comment on above: Performed By: #### 2 4321-2 #### YUE Delarosa ([id number]) [facility] ([facility]) [address] [place] [address] 42690 GFR/1.73 sq M.predicted MDRD (S/P/Bld) [Vol rate/Area] mL/min/{1.73_m2} Normal >60 [facility] Comment on above: Result Comment: Calc ulations of estimated GFR are performed using the 2020 CKD-EPI Study Refit equation without the race variable for the IDMS-Traceable creatinine methods. https://jasn.asnjournals.org/content/early/ASN.83416 55115 Performed By: #### 2 4321-2 #### YUE Delarosa ([id number]) [facility] ([facility]) [address] [place] [address] 68689 Glucose [Mass/Vol] 103 mg/dL High 74-99 [facility] Comment on above: Performed By: #### 2 4321-2 #### YUE Delarosa ([id number]) [facility] ([facility]) [address] [place] [address] 71976 Potassium [Moles/Vol] 4.3 mmol/L Normal 3.5-5.3 [facility] Comment on above: Performed By: #### 2 4321-2 #### YUE Delarosa ([id number]) [facility] ([facility]) [address] [place] [address] 77222 Sodium [Moles/Vol] 143 mmol/L Normal 136-145 [facility] Comment on above: Performed By: #### 2 4321-2 #### YUE Delarosa ([id number]) [facility] ([facility]) [address] [place] [address] 65067 Urea nitrogen [Mass/Vol] 16 mg/dL Normal 6-23 [facility] Comment on above: Performed By: #### 2 4321-2 #### YUE SCHMOTZER L ([id number]) [facility] ([facility]) [address] [place] [address] 91536 Blood type and Indirect anti body screen panel (Bld)on 12-30-2023 ABO group Nom (Bld) O Normal [facility] Comment on above: Order Comment: Revie w your Rh Negative female patient's potential need for Rh Immune Globulin (RhIg)administration. Performed By: #### 3 4532-2 #### YUE Delarosa ([id number]) [facility] ([facility]) [address] [place] [address] 14572 Blood group antibody screen Ql Negative [facility] Comment on above: Order Comment: Revie w your Rh Negative female patient's potential need for Rh Immune Globulin (RhIg)administration. Performed By: #### 3 4532-2 #### YUE Delarosa ([id number]) [facility] ([facility]) [address] [place] [address] 36708 D Ag Ql (Bld) Negative Normal [facility] Comment on above: Order Comment: Revie w your Rh Negative female patient's potential need for Rh Immune Globulin (RhIg)administration. Performed By: #### 3 4532-2 #### YUE Delarosa ([id number]) [facility] ([facility]) [address] [place] [address] 91295 CBC panel Auto (Bld)on 12-30 Erythrocyte distribution width (RBC) [Ratio] 13.5 % Normal 11.5-14.5 [facility] Comment on above: Performed By: #### 5 8410-2 #### YUE Delarosa ([id number]) [facility] ([facility]) [address] [place] [address] 75184 Hematocrit (Bld) [Volume fraction] 39.8 % Normal 36.0-46.0 [facility] Comment on above: Performed By: #### 5 8410-2 #### YUE Delarosa ([id number]) [facility] ([facility]) [address] [place] [address] 35360 Hemoglobin (Bld) [Mass/Vol] 13.0 g/dL Normal 12.0-16.0 [facility] Comment on above: Performed By: #### 5 8410-2 #### YUE Delarosa ([id number]) [facility] ([facility]) [address] [place] [address] 68263 MCH (RBC) [Entitic mass] 29.5 pg Normal 26.0-34.0 [facility] Comment on above: Performed By: #### 5 8410-2 #### YUE Delarosa ([id number]) [facility] ([facility]) [address] [place] [address] 48661 MCHC (RBC) [Mass/Vol] 32.7 g/dL Normal 32.0-36.0 [facility] Comment on above: Performed By: #### 5 8410-2 #### YUE Delarosa ([id number]) [facility] ([facility]) [address] [place] [address] 66311 MCV (RBC) [Entitic vol] 90 fL Normal 80-100 [facility] Comment on above: Performed By: #### 5 8410-2 #### YUE Delarosa ([id number]) [facility] ([facility]) [address] [place] [address] 99500 Nucleated RBC/100 WBC (Bld) [Ratio] 0.0 /100 WBCs Normal 0.0-0.0 [facility] Comment on above: Performed By: #### 5 8410-2 #### YUE Delarosa ([id number]) [facility] ([facility]) [address] [place] [address] 17040 Platelets (Bld) [#/Vol] 310 x10*3/uL Normal 150-450 [facility] Comment on above: Performed By: #### 5 8410-2 #### YUE Delarosa ([id number]) [facility] ([facility]) [address] [place] [address] 49771 RBC (Bld) [#/Vol] 4.41 x10*6/uL Normal 4.00-5.20 [facility] Comment on above: Performed By: #### 5 8410-2 #### YUE Delarosa ([id number]) [facility] ([facility]) [address] [place] [address] WBC (Bld) [#/Vol] 8.9 x10*3/uL Normal 4.4-11.3 [facility] Comment on above: Performed By: #### 5 8410-2 #### YUE Delarosa ([id number]) [facility] ([facility]) [address] [place] [address] HbA1c (Bld) [Mass fraction]o n 12-30-2023 Average glucose Estimated from glycated hemoglobin (Bld) [Mass/Vol] 103 mg/dL Normal Not Established [facility] Comment on above: Order Comment: Diagn osis of Diabetes-Adults Non-Diabetic: < or = 5.6% Increased risk for developing diabetes: 5.7-6.4% Diagnostic of diabetes: > or = 6.5% Monitoring of Diabetes Age (y)....................... Therapeutic Goal (%) Adults: >18.........................<7.0 Pediatrics: 13-18...................<7.5 Pediatrics: 7-12....................<8.0 Pediatrics: 0-6..................... 7.5-8.5 [employer]. Diabetes Care 33(S1), Nov 2009 Performed By: #### 4 548-4 #### YUE Delarosa ([id number]) [facility] ([facility]) [address] [place] [address] Hemoglobin A1c/Hemoglobin.to daniel 12-30-2023 HbA1c (Bld) [Mass fraction] 5.2 % Normal see below [facility] Comment on above: Order Comment: Diagn osis of Diabetes-Adults Non-Diabetic: < or = 5.6% Increased risk for developing diabetes: 5.7-6.4% Diagnostic of diabetes: > or = 6.5% Monitoring of Diabetes Age (y)....................... Therapeutic Goal (%) Adults: >18.........................<7.0 Pediatrics: 13-18...................<7.5 Pediatrics: 7-12....................<8.0 Pediatrics: 0-6..................... 7.5-8.5 [employer]. Diabetes Care 33(S1)Nov 2009 Performed By: #### 4 548-4 #### YUE Delarosa ([id number]) [facility] ([facility]) [address] [place] [address] 78708 PT and aPTT panel Coag (PPP) on 12-30-2023 aPTT Coag (PPP) [Time] 36 s Normal 27-38 [facility] Comment on above: Order Comment: The A PTT is no longer used for monitoring Unfractionated Heparin Therapy. For monitoring Heparin Therapy, use the Heparin Assay. Performed By: #### 3 4529-8 #### YUE Delarosa ([id number]) [facility] ([facility]) [address] [place] [address] 15784 INR Coag (PPP) [Relative time] 1.0 Normal 0.9-1.1 [facility] Comment on above: Order Comment: The A PTT is no longer used for monitoring Unfractionated Heparin Therapy. For monitoring Heparin Therapy, use the Heparin Assay. Performed By: #### 3 4529-8 #### YUE Delarosa ([id number]) [facility] ([facility]) [address] [place] [address] PT Coag (PPP) [Time] 11.3 s Normal 9.8-12.8 [facility] Comment on above: Order Comment: The A PTT is no longer used for monitoring Unfractionated Heparin Therapy. For monitoring Heparin Therapy, use the Heparin Assay. Performed By: #### 3 4529-8 #### YUE Delarosa ([id number]) [facility] ([facility]) [address] [place] [address] Staphylococcus aureus.methic illin resistant isolateon 12-30-2023 MRSA isol Org specific cx Ql (Nose) Test: Staphylococcus aureus/MRSA colonization, Culture Specimen Source: Nares/Axilla/Groin Specimen Type: Swab Specimen Date: 12/30/2023 11:01 AM Result Date: 01/01/2024 7:38 AM Result Status: Final result Abnormal: No Resulting Lab: [facility] [address] [place] [address] CULTURE No Staphylococcus aureus isolated Normal [facility] Comment on above: Performed By: #### 5 2969-3 #### YUE Delarosa ([id number]) [facility] ([facility]) [address] [place], [place] [address] Urinalysis complete W Reflex Culture panel (U)on 12-30-2023 Appearance (U) Clear Normal Clear [facility] Comment on above: Performed By: #### 5 8077-9 #### YUE Delarosa ([id number]) [facility] ([facility]) [address] [place], [place] [address] Bilirubin (U) [Mass/Vol] Negative Normal NEGATIVE [facility] Comment on above: Performed By: #### 5 8077-9 #### YUE Delarosa ([id number]) [facility] ([facility]) [address] [place], [place] [address] Color (U) Yellow Normal Straw, Yellow [facility] Comment on above: Performed By: #### 5 8077-9 #### YUE Delarosa ([id number]) [facility] ([facility]) [address] [place] [address] 15644 Glucose Auto test strip (U) [Mass/Vol] Negative Normal NEGATIVE [facility] Comment on above: Performed By: #### 5 8077-9 #### YUE Delarosa ([id number]) [facility] ([facility]) [address] [place] [address] 91222 Ketones (U) [Mass/Vol] 5 (TRACE) Abnormal NEGATIVE Un [facility] Comment on above: Performed By: #### 5 8077-9 #### YUE Delarosa ([id number]) [facility] ([facility]) [address] [place] [address] 07649 Leukocyte esterase Auto test strip Ql (U) Negative Normal NEGATIVE [facility] Comment on above: Performed By: #### 5 8077-9 #### YUE Delarosa ([id number]) [facility] ([facility]) [address] [place] [address] 58002 Nitrite Auto test strip Ql (U) Negative Normal NEGATIVE [facility] Comment on above: Performed By: #### 5 8077-9 #### YUE Delarosa ([id number]) [facility] ([facility]) [address] [place] [address] 50957 pH (U) 5.0 [pH] Normal 5.0, 5.5, 6.0, 6.5, 7.0, 7.5, 8.0 [facility] Comment on above: Performed By: #### 5 8077-9 #### YUE Delarosa ([id number]) [facility] ([facility]) [address] [place] [address] 12604 Protein (U) [Mass/Vol] Negative Normal NEGATIVE [facility] Comment on above: Performed By: #### 5 8077-9 #### YUE Delarosa ([id number]) [facility] ([facility]) [address] [place] [address] 24928 RBC (U) [#/Vol] Negative Normal NEGATIVE [facility] Comment on above: Performed By: #### 5 8077-9 #### YUE Delarosa ([id number]) [facility] ([facility]) [id number] [place] [address] Specific gravity (U) [Rel density] 1.025 Normal 1.005-1.035 [facility] Comment on above: Performed By: #### 5 8077-9 #### YUE BENNETTMOTZER L ([id number]) [facility] ([facility]) [address] [place] [address] 27896 Urobilinogen (U) [Mass/Vol] mg/dL Normal <2.0 [facility] Comment on above: Performed By: #### 5 8077-9 #### YUE BENNETTMOTZER L ([id number]) [facility] ([facility]) [address] [place] [address] 13744 MM screening mammo BI w/CADo n 12-19-2023 MM screening mammo BI w/CAD [facility] [place] [address] [place] [address] Mammography Report Signed Patient: Darvin Chaves MR#: [id number] 44 : 1975 Acct:[id number] Age/Sex: 48 / F ADM Date: 12/19/23 Loc: MD Room: Type: [facility] Attending Dr: Richie Ku DO Copies to: DO Richie Erazo DO Ordering Provider: Richie Ku DO Date of Service: 12/19/23 MM/MM screening mammo BI w/CAD: SCREENING BILATERAL Screening Full Field digital mammogram with 3-D imaging. Full field digital CC and MLO imaging performed. CAD utilized. COMPARISON: 09/14/2022 HISTORY: Annual screening BREAST COMPOSITION: Scattered fibroglandular densities of the breast parenchyma identified BENIGN BREAST CALCIFICATIONS: Present VASCULAR CALCIFICATIONS: None DEVELOPING ARCHITECTURAL DISTORTION: None DEVELOPING BREAST NODULE: None DEVELOPING MALIGNANT CALCIFICATIONS: None AXILLARY LYMPH NODES: Normal POSTSURGICAL CHANGES: None MM/MM screening mammo BI w/CAD IMPRESSION: No mammographic evidence of malignancy. Routine follow-up recommended in one year. RESULT CODE: 2 Benign Findings(s) DENSITY CODE: 2 (approximately 25-50% glandular) FOLLOW UP: 1YR THE FALSE-NEGATIVE RATE OF MAMMOGRAPHY IS APPROXIMATELY 10%. IMAGING OF A PALPABLE ABNORMALITY MUST BE BASED ON CLINICAL GROUNDS. PATIENT WAS ENTERED INTO A REMINDER SYSTEM WITH A TARGET DUE DATE FOR THE NEXT MAMMOGRAM. Impression dictated by: David Medina M.D.12/19/2023 3:49 PM Dictation Location: [facility] Transcribed By: [facility] 12/19/23 1549 Dictated By: David Medina DO 12/19/23 1548 Signed By: 12/19/23 1549 Normal [facility] No Panel Informationon 12-07 Radiology Study observation (narrative) [facility] Work Phone: XR Cervical spine 4 or 5 Vie wson 12-07-2023 No acute osseous abnormality of the cervical spine. Mild multilevel degenerative changes of the cervical spine. I personally reviewed the images/study and I agree with the findings as stated by Tiffany Garrison MD. This study was interpreted at [place], [place]. MACRO: None Signed by: Pawel Olson 12/07/2023 6:18 PM Dictation workstation: [id number] [facility] Interpreted By: Pawel Kiran and Calo Sean-Matthew STUDY: XR CERVICAL SPINE COMPLETE 4-5 VIEWS; ; 12/07/2023 5:01 pm INDICATION: Signs/Symptoms:L UE decreased ROM. COMPARISON: MR cervical spine 10/23/2020 ACCESSION NUMBER(S): [id number] ORDERING CLINICIAN: AYDEE BERNSTEIN TECHNIQUE: 6 views of the cervical spine were provided. FINDINGS: No acute fracture. There is straightening of normal cervical lordosis which may be related to positioning or muscle spasm. Vertebral body heights are maintained. There is mild multilevel disc height loss, most pronounced at C4-C5 and C5-C6 with associated endplate degenerative changes and osteophyte formation. The prevertebral and paraspinal soft tissues are within normal limits. The visualized lungs are clear. A right cochlear implant device is noted. [facility] Pawel Olson MD - 12/07/2023 Interpreted By: Pawel Olson and Calo Sean-Matthew STUDY: XR CERVICAL SPINE COMPLETE 4-5 VIEWS; ; 12/07/2023 5:01 pm INDICATION: Signs/Symptoms:L UE decreased ROM. COMPARISON: MR cervical spine 10/23/2020 ACCESSION NUMBER(S): [id number] ORDERING CLINICIAN: AYDEE BERNSTEIN TECHNIQUE: 6 views of the cervical spine were provided. FINDINGS: No acute fracture. There is straightening of normal cervical lordosis which may be related to positioning or muscle spasm. Vertebral body heights are maintained. There is mild multilevel disc height loss, most pronounced at C4-C5 and C5-C6 with associated endplate degenerative changes and osteophyte formation. The prevertebral and paraspinal soft tissues are within normal limits. The visualized lungs are clear. A right cochlear implant device is noted. IMPRESSION: No acute osseous abnormality of the cervical spine. Mild multilevel degenerative changes of the cervical spine. I personally reviewed the images/study and I agree with the findings as stated by Tiffany Garrison MD. This study was interpreted at [place], [place]. MACRO: None Signed by: Pawel Olson 12/07/2023 6:18 PM Dictation workstation: [id number] [facility] [place] [facility] Work Phone: XR Cervical spine 4 or 5 Vie wsOrdered By: Pawel Olson on 12-07-2023 [facility] Work Phone: XR Shoulder - left 2 Viewson 12-07-2023 Findings which may b e seen in the setting of calcific tendinitis. Mild osteoarthrosis of the acromioclavicular and glenohumeral joints. I personally reviewed the images/study and I agree with the findings as stated by Tiffany Garrison MD. This study was interpreted at [place], [place]. MACRO: None Signed by: Pawel Olson 12/07/2023 6:19 PM Dictation workstation: [id number] [facility] Interpreted By: Pawel Kiran and Calo Sean-Matthew STUDY: XR SHOULDER LEFT 2+ VIEWS; ; 12/07/2023 5:01 pm INDICATION: Signs/Symptoms:L shoulder pain. COMPARISON: None. ACCESSION NUMBER(S): [id number] ORDERING CLINICIAN: AYDEE BERNSTEIN TECHNIQUE: Three views of the left shoulder were provided. FINDINGS: No acute fracture or malalignment. Glenohumeral and acromioclavicular alignment is maintained. There are mild degenerative changes of the glenohumeral and clavicular joints. The coracoclavicular distance is within normal limits. There are coarse calcifications about the greater tuberosity of the humerus. The visualized left lung is clear. No radiopaque foreign body. [facility] Pawel Olson MD - 12/07/2023 Interpreted By: Pawel Olson and Calo Sean-Matthew STUDY: XR SHOULDER LEFT 2+ VIEWS; ; 12/07/2023 5:01 pm INDICATION: Signs/Symptoms:L shoulder pain. COMPARISON: None. ACCESSION NUMBER(S): [id number] ORDERING CLINICIAN: AYDEE BERNSTEIN TECHNIQUE: Three views of the left shoulder were provided. FINDINGS: No acute fracture or malalignment. Glenohumeral and acromioclavicular alignment is maintained. There are mild degenerative changes of the glenohumeral and clavicular joints. The coracoclavicular distance is within normal limits. There are coarse calcifications about the greater tuberosity of the humerus. The visualized left lung is clear. No radiopaque foreign body. IMPRESSION: Findings which may be seen in the setting of calcific tendinitis. Mild osteoarthrosis of the acromioclavicular and glenohumeral joints. I personally reviewed the images/study and I agree with the findings as stated by Tiffany Garrison MD. This study was interpreted at [place], [place]. MACRO: None Signed by: Pawel Olson 12/07/2023 6:19 PM Dictation workstation: [id number] [facility] [place] [facility] Work Phone: [facility] Work Phone: MR Cervical spine WO contras ton 10-24-2023 Degenerative changes most pronounced at C4-7. MACRO: None Signed by: Adam Colby 10/24/2023 10:52 AM Dictation workstation: [id number] MMODAL Interpreted By: Adam Mata, STUDY: MR CERVICAL SPINE WO IV CONTRAST; 10/23/2023 8:13 pm INDICATION: Signs/Symptoms: Cervical radiculopathy. COMPARISON: None. ACCESSION NUMBER(S): [id number] ORDERING CLINICIAN: TIARRA MULLER TECHNIQUE: Sagittal T1, T2, STIR, axial T1 and axial T2 weighted images were acquired through the cervical spine. Image quality is degraded by susceptibility artifact and RIZWAN limitations related to the patient's cochlear implant. FINDINGS: Alignment: There is straightening of the normal cervical lordosis, the alignment is preserved. Vertebrae/Intervertebral Discs: The vertebral bodies demonstrate expected height. Degenerative endplate changes without associated marrow edema. Multilevel loss of normal disc T2 signal and disc height. Cord: Multilevel mild mass effect on the ventral cord, no abnormal cord signal at any level. C1-C2: The cervicomedullary junction appears unremarkable. There is no central canal stenosis. C2-C3: Disc osteophyte complex with mild spinal canal narrowing. C3-C4: Disc osteophyte complex and facet and uncovertebral hypertrophy with moderate spinal canal narrowing and mild left neural foramen narrowing. C4-C5: Disc osteophyte complex and facet and uncovertebral hypertrophy with severe spinal canal narrowing as well as mild left and moderate right neural foramen narrowing. C5-C6: Disc osteophyte complex and facet and uncovertebral hypertrophy with severe spinal canal narrowing and mild bilateral neural foramen narrowing. C6-C7: Disc osteophyte complex and facet and uncovertebral hypertrophy with moderate spinal canal narrowing and severe left neural foramen narrowing. C7-T1: There is no posterior disc contour abnormality. There is no significant central canal or neural foraminal stenosis. The upper thoracic vertebrae and spinal canal are unremarkable. The prevertebral and posterior paraspinous soft tissues are within normal limits. MMODAL Adam Colby M D PhD - 10/24/2023 Interpreted By: Adam Colby, STUDY: MR CERVICAL SPINE WO IV CONTRAST; 10/23/2023 8:13 pm INDICATION: Signs/Symptoms: Cervical radiculopathy. COMPARISON: None. ACCESSION NUMBER(S): [id number] ORDERING CLINICIAN: TIRARA MULLER TECHNIQUE: Sagittal T1, T2, STIR, axial T1 and axial T2 weighted images were acquired through the cervical spine. Image quality is degraded by susceptibility artifact and RIZWAN limitations related to the patient's cochlear implant. FINDINGS: Alignment: There is straightening of the normal cervical lordosis, the alignment is preserved. Vertebrae/Intervertebral Discs: The vertebral bodies demonstrate expected height. Degenerative endplate changes without associated marrow edema. Multilevel loss of normal disc T2 signal and disc height. Cord: Multilevel mild mass effect on the ventral cord, no abnormal cord signal at any level. C1-C2: The cervicomedullary junction appears unremarkable. There is no central canal stenosis. C2-C3: Disc osteophyte complex with mild spinal canal narrowing. C3-C4: Disc osteophyte complex and facet and uncovertebral hypertrophy with moderate spinal canal narrowing and mild left neural foramen narrowing. C4-C5: Disc osteophyte complex and facet and uncovertebral hypertrophy with severe spinal canal narrowing as well as mild left and moderate right neural foramen narrowing. C5-C6: Disc osteophyte complex and facet and uncovertebral hypertrophy with severe spinal canal narrowing and mild bilateral neural foramen narrowing. C6-C7: Disc osteophyte complex and facet and uncovertebral hypertrophy with moderate spinal canal narrowing and severe left neural foramen narrowing. C7-T1: There is no posterior disc contour abnormality. There is no significant central canal or neural foraminal stenosis. The upper thoracic vertebrae and spinal canal are unremarkable. The prevertebral and posterior paraspinous soft tissues are within normal limits. IMPRESSION: Degenerative changes most pronounced at C4-7. MACRO: None Signed by: Adam Colby 10/24/2023 10:52 AM Dictation workstation: [id number] [facility] Work Phone: MR Cervical spine WO contras tOrdered By: Adam Colby on 10-24-2023 [facility] Work Phone: MR Cervical spine WO contras ton 10-23-2023 Radiology Study observation (narrative) [facility] Work Phone: XR CHEST PORTABLEon 08-10-20 23 XR CHEST PORTABLE EXAMINATION: ONE XRAY VIEW OF THE CHEST; TWO XRAY VIEWS OF THE LEFT SCAPULA 08/08/2023 7:44 am COMPARISON: None HISTORY: ORDERING SYSTEM PROVIDED HISTORY: pain left upper scapula area TECHNOLOGIST PROVIDED HISTORY: Pain left upper scapula area Reason for Exam: Anterior chest pain and posterior left shoulder pain FINDINGS: Chest: Heart size and pulmonary vessels are within normal limits. Lungs appear clear. No focal infiltrates are seen. No significant pleural effusions. There is minimal calcification adjacent to the left humeral head suggesting rotator cuff calcific tendinitis. Left scapula: No convincing evidence of acute fracture. There may be minimal spurring of the coracoid. Bone mineralization appears intact. IMPRESSION: No acute cardiopulmonary process. No acute osseous abnormality of the left scapula. Suspect calcific tendinitis of the left rotator cuff. Interpreted by: MD Manuel Junior MD Ravi P Kodali, MD Signed by: Manuel Nick MD 08/10/23 Final result Normal [facility] XR SCAPULA LEFT (COMPLETE)on 08-10-2023 XR SCAPULA LEFT (COMPLETE) EXAMINATION: ONE XRAY VIEW OF THE CHEST; TWO XRAY VIEWS OF THE LEFT SCAPULA 08/08/2023 7:44 am COMPARISON: None HISTORY: ORDERING SYSTEM PROVIDED HISTORY: pain left upper scapula area TECHNOLOGIST PROVIDED HISTORY: Pain left upper scapula area Reason for Exam: Anterior chest pain and posterior left shoulder pain FINDINGS: Chest: Heart size and pulmonary vessels are within normal limits. Lungs appear clear. No focal infiltrates are seen. No significant pleural effusions. There is minimal calcification adjacent to the left humeral head suggesting rotator cuff calcific tendinitis. Left scapula: No convincing evidence of acute fracture. There may be minimal spurring of the coracoid. Bone mineralization appears intact. IMPRESSION: No acute cardiopulmonary process. No acute osseous abnormality of the left scapula. Suspect calcific tendinitis of the left rotator cuff. Interpreted by: Manuel Nick MD Signed by: Manuel Nick MD 08/10/23 Final result Normal [facility] Troponinon 08-08-2023 Troponin, High Sens <6 Normal 0-14 [facility] Comment on above: Result Comment: High Sensitivity Troponin values cannot be compared with other Troponin methodologies. Performed By: #### T ALVERTO #### [facility] [address] 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 Monitor home program. Patient instructed to call if problems. Assessment Patient was seen today for an aural rehab therapy post cochlear implant activation on 01/15/23. SEVERE auditory skills deficits Therapy is warranted to increase auditory skills to improve overall communication skills. Patient uses bilateral cochlear implants. Left Cochlear Implant Surgery: 01/02/23 Left Cochlear Implant Activation: 01/15/23 Surgeon: Dr. Katarzyna Hopson Reason For Visit An interactive audio and video telecommunication system which permits real time communications between the patient (at the originating site) and provider (at the distant site) was utilized to provide this telehealth service. Verbal consent was requested and obtained from DARVIN CHAVES on this date, 07/17/2023 03:30 PM , for a telehealth visit. Adult Risk Screening There are no spiritual/cultural practices/values/needs that are important to know Initial Fall Risk Screening: DARVIN has not fallen in the last 6 months. Insurance Insurance reviewed Visit number: 5 Onset Date: 2022 Subjective Living Environment: home - patient lives with , 2 kids. Patient arrival: independent Patient arrived on time to today's appointment. Patient continues to practice home programming by streaming CI to phone and talking to her sister. Patient reports she is able to follow 50-75% of the conversation. Patient reports her sister tends to talk fast at times and will give her verbal reminders to slow down, which helps. Patient reports wearing CI during all waking hours. 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 Objective Progress to date: group home goals: Patient will increase awareness of speech sounds during conversation with 70% accuracy in 6 months. Short term goals: Goal 1: Patient will repeat words from a known category in quiet with 70% accuracy in 3-6 months. Established: 03/26/23 Progress: Goal Mastered Status: Goal Mastered Goal 2: Patient will comprehend phrases in quiet with 70% accuracy in 3-6 months. Established: 03/26/23 Progress: Unknown topic without background noise- 70%, with background noise- 50% Status: Newly introduced Goal 3: Patient will Identify minimal pairs differing in manner, voice, and place of articulation in quiet with 70% accuracy in 3-6 months. Established: 03/26/23 Progress: Did not target Status: NA Treatment Time in clinic started at 3:30 pm Time in clinic ended at 4:15 pm Total time in clinic is 45 minutes. Provided to: patient Home programming: Apps (HEARoes), CHEPE Talks, Streaming with sister on phone- 04/30/23, 05/29/23 Streaming when appropriate, plugging R ear when possible at home- 05/29/23 Setting up TV streamer, CHEPE talks, and audio books 07/17/23 Response to education: verbalized understanding and demonstrated understanding Patient/caregiver verbalized understanding and agreement: yes CPT Code 88552 Treatment of speech, language AND voice MX 95 Signatures Jade Jensen M.A., CCC-UNISAW OPERATOR [facility] Cert. 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 Monitor home program. Patient instructed to call if problems. Assessment Patient was seen today for an aural rehab therapy post cochlear implant activation on 01/15/23. SEVERE auditory skills deficits Therapy is warranted to increase auditory skills to improve overall communication skills. Patient uses bilateral cochlear implants. Left Cochlear Implant Surgery: 01/02/23 Left Cochlear Implant Activation: 01/15/23 Surgeon: Dr. Katarzyna Hopson Reason For Visit An interactive audio and video telecommunication system which permits real time communications between the patient (at the originating site) and provider (at the distant site) was utilized to provide this telehealth service. Verbal consent was requested and obtained from DARVIN CHAVES on this date, 2023 03:45 PM , for a telehealth visit. Adult Risk Screening There are no spiritual/cultural practices/values/needs that are important to know Initial Fall Risk Screening: DARVIN has not fallen in the last 6 months. Insurance Insurance reviewed Visit number: 4 Onset Date: 2022 Subjective Living Environment: home - patient lives with , 2 kids. Patient arrival: independent Patient arrived on time to today's appointment. Patient reports wearing CI during all waking hours. Patient continues to practice streaming with CI during daily phone calls with sister. Patient reports beginning to take phone calls with streaming to CI at work. Patient reports using forward focus in loud environments, reports it is helping with speech/language comprehension. Patient notes an increase since last session. Clinician noted a big increase in understanding during streaming on this date (with no visual cues). Clinician continues to educate the patient on the importance of wear time, following up with appointments, and practicing home programming. 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 Short term goals: Goal 1: Patient will repeat words from a known category in quiet with 70% accuracy in 3-6 months. Established: 03/26/23 Progress: 60% Status: Newly initiated Goal 2: Patient will comprehend phrases in quiet with 70% accuracy in 3-6 months. Established: 03/26/23 Progress: known topic- 70%; unknown topic: 60% with repetition, clinician observed an increase in speech understanding on this date. Status: Newly introduced Goal 3: Patient will Identify minimal pairs differing in manner, voice, and place of articulation in quiet with 70% accuracy in 3-6 months. Established: 03/26/23 Progress: Did not target Status: NA Treatment Time in clinic started at 3:45 pm Time in clinic ended at 4:25 pm Total time in clinic is 40 minutes. Provided to: patient Home programming: Apps (HEARoes), CHEPE Talks, Streaming with sister on phone- 04/30/23, 05/29/23 Streaming when appropriate, plugging R ear when possible at home- 05/29/23 Response to education: verbalized understanding and demonstrated understanding Patient/caregiver verbalized understanding and agreement: yes CPT Code 12941 Treatment of speech, language AND voice MX 95 Signatures Jade Jensen M.A., CCC-UNISAW OPERATOR [facility] Cert. 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 Monitor home program. Patient instructed to call if problems. Assessment Patient was seen today for an aural rehab therapy post cochlear implant activation on 01/15/23. SEVERE auditory skills deficits Therapy is warranted to increase auditory skills to improve overall communication skills. Patient uses bilateral cochlear implants. Left Cochlear Implant Surgery: 01/02/23 Left Cochlear Implant Activation: 01/15/23 Surgeon: Dr. Katarzyna Hopson Reason For Visit An interactive audio and video telecommunication system which permits real time communications between the patient (at the originating site) and provider (at the distant site) was utilized to provide this telehealth service. Verbal consent was requested and obtained from DARVIN CHAVES on this date, 06/12/2023 03:45 PM , for a telehealth visit. Adult Risk Screening There are no spiritual/cultural practices/values/needs that are important to know Initial Fall Risk Screening: DARVIN has not fallen in the last 6 months. Insurance Insurance reviewed Visit number: 3 Onset Date: 2022 Subjective Living Environment: home - patient lives with , 2 kids. Patient arrival: independent Patient arrived on time to today's appointment. Patient reports practicing streaming by having phone conversations with sister. Patient reports seeing an increase in understanding during streaming when topic is known. Patient reports most recent audiology visit went well, requested to turn down the implant. Patient reports an increase in word understanding from prior audiology appointments (went from 12% to 24%). Patient reports overall understanding speech better with implant. Objective Progress to date: group home goals: Patient will increase awareness of speech sounds during conversation with 70% accuracy in 6 months. Short term goals: Goal 1: Patient will repeat words from a known category in quiet with 70% accuracy in 3-6 months. Established: 03/26/23 Progress: Targeted- streamed- 66%, Known topics: colors, food, animals (lists of 3). Status: Newly initiated Goal 2: Patient will comprehend phrases in quiet with 70% accuracy in 3-6 months. Established: 03/26/23 Progress: Common Phrases in quiet- 85%, patient knew topic Status: Newly introduced Goal 3: Patient will Identify minimal pairs differing in manner, voice, and place of articulation in quiet with 70% accuracy in 3-6 months. Established: 03/26/23 Progress: Not targeting at this time. Patient targeted spondees; 100% in quiet Status: NA Treatment Time in clinic started at 3:45 pm Time in clinic ended at 4:25 pm Total time in clinic is 40 minutes. Provided to: patient Home programming: Apps ([email or web address]), CHEPE Talks, Streaming with sister on phone- 04/30/23, 05/29/23 Streaming when appropriate, plugging R ear when possible at home- 05/29/23 Response to education: verbalized understanding and demonstrated understanding Patient/caregiver verbalized understanding and agreement: yes CPT Code 72704 Treatment of speech, language AND voice MX 95 Signatures Jade Jensen M.A. CCC-UNISAW OPERATOR [facility] Cert. AVEd Electronically signed by : Jade Jensen CCC-UNISAW OPERATOR; Jun 12 2023 4:39PM EST (Author) Normal US Toxicology Office Visit (Audiology)on 06-03-2023 Follow-up visit Diagnoses/Problems Sensorineural hearing loss (SNHL) of left ear with unrestricted hearing of right ear (389.15) (H90.42) Cochlear implant status (V45.89) (Z96.21) Patient Discussion/Summary Positive stimulation was obtained on electrodes 1-22. A reliable psychophysical map was defined in the CAROLYN speech processing strategy. Appropriate behavior was observed when the Maps were tested. Patient was encouraged to direct stream or use a contralateral earplug when participating in auditory training techniques. Performance verification reveals satisfactory aided benefit from the cochlear implant system. Will email Cochlear to [employer] for TV Streamer to be sent directly to recipient. TREATMENT PLAN 1.Utilize the Nucleus CI632 Cochlear Implant System and the [id number] speech processor daily using the most tolerated program. 2.Return for remapping and optimization of the [id number] speech processor as scheduled in approximately 6 months in order to optimize the psychophysical CAROLYN map. 3.Utilize aural rehabilitation/auditory training techniques at home to improve speech understanding ability. Continue formal auditory training through this facility as directed. 4.Return to Dr. Hopson as directed for medical management. [id number] Chief Complaint Cochlear implant - fourth stimulation Adult Risk ScreeningThere are no spiritual/cultural practices/values/needs that are important to know Initial Fall Risk Screening: DARVIN has not fallen in the last 6 months. DARVIN does not have a fear of falling. She does not need assistance with sitting, standing or walking. Does not need assistance walking in her home. She does not need assistance in an unfamiliar setting. The patient is not using an assistive device. Reference Documentation See scanned note Procedure Note: audiogram. History of Present Illness Darvin Chaves was seen for the fourth stimulation and programming of her Nucleus CI632 cochlear implant at the left ear, used in conjunction with the [id number] ear level speech processor. She presents with a unilateral left sudden hearing loss. Ms. Chaves underwent the surgical implantation of the CI632 cochlear implant at the left ear on 01/02/2023. Post operative course remains unremarkable. Please see medical records for further medical history. Ms. Chaves reports there is a background humming sound that is too loud. SHe reports holding a phone call with her sister successfully streaming to the implant only. Ms. Chaves would like to redeem her Plus One for a TV Streamer. Patient's preferred language: [place]an Preferred language of the parent, legal guardian or surrogate decision-maker of this minor or incapacitated patient: [place]an No overt signs of domestic violence/neglect/abuse. Pain not interfering with optimal level of function or ability to assess and/or treat. Pain Scale rank: 0/10 No referral made to primary care provider (PCP). Factors/Barriers influencing patient's ability to complete assessment or learn: none. Person taught: patient. Readiness to learn: no barriers. Results of Teaching/Counseling: verbalize recall / understanding and teaching complete. 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) Sensorineural hearing loss (SNHL) of left ear with unrestricted hearing of right ear (389.15) (H90.42) Sensorineural hearing loss, asymmetrical (389.16) (H90.3) Allergies No Known Drug Allergies Recorded By: Yue Slade; 10/30/2022 4:29:20 PM Current Meds Medication NameInstruction Cetirizine HCl - 10 MG Oral Tablet Citalopram Hydrobromide 40 MG Oral Tablet lamoTRIgine 200 MG Oral Tablet Losartan Potassium-HCTZ 100-12.5 MG Oral Tablet Myrbetriq 25 MG Oral Tablet Extended Release 24 Hour Prevnar 13 Intramuscular Suspensionadminister as directed Results/Data Impedances were evaluated using the ear level [id number] speech processor for intra-cochlear electrodes 1-22 in common ground (CG), Monopolar 1 (MP1), Monopolar 2 (MP2) and MP1+2 stimulation modes. Satisfactory impedances were found for all electrodes, in each stimulation mode. The [id number] processor remains programmed in an MP1+2 stimulation mode using an CAROLYN speech processing strategy, 8 cindy and a 900 Hz stimulation rate. Electrodes 1-22 remain activated. Using standard techniques, a psychophysical map was created with good reliability. No facial nerve stimulation was observed. C- levels increased slightly overall. T-levels were reduced globally due to complaint of constant humming sound. Patient reported improved comfort following adjustments. Functional gain was assessed while patient wore the [id number] processor in P1 following reprogramming. Responses to narrowband noise ranged from 20-40 dBHL for 250-6000 Hz. Word discrimination was assessed using CNC words and [employer] sentences presented at 55 dBHL via re (more content not included)... 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 Monitor home program. Patient instructed to call if problems. Assessment Patient was seen today for an aural rehab therapy post cochlear implant activation on 01/15/23. SEVERE auditory skills deficits Therapy is warranted to increase auditory skills to improve overall communication skills. Patient uses bilateral cochlear implants. Left Cochlear Implant Surgery: 2/8/23 Left Cochlear Implant Activation: 01/15/23 Surgeon: Dr. Katarzyna Hopson Reason For Visit An interactive audio and video telecommunication system which permits real time communications between the patient (at the originating site) and provider (at the distant site) was utilized to provide this telehealth service. Verbal consent was requested and obtained from DARVIN CHAVES on this date, 05/29/2023 03:45 PM , for a telehealth visit. Adult Risk Screening There are no spiritual/cultural practices/values/needs that are important to know Initial Fall Risk Screening: DARVIN has not fallen in the last 6 months. Insurance Insurance reviewed Visit number: 2 Onset Date: 2022 Subjective Living Environment: home - patient lives with , 2 kids. Patient arrival: independent Patient arrived on time to today's session. Patient reports picking up more sound with CI. Clinician and patient reviewed home programming practices- such as: calling sister, streaming, and practicing target words with a known subject. Patient has appointment with Audiology on the to review TV streamer. Clinician recommended following up with Cochlear as well for technology assistance. Patient further reports wearing CI during all waking hours- with some listening breaks prior to bed. Patient reports no issues with charging or changes at home. Today's session was the first session with streaming- trouble shooting occurred. Objective Progress to date: group home goals: Patient will increase awareness of speech sounds during conversation with 70% accuracy in 6 months. Short term goals: Goal 1: Patient will repeat words from a known category in quiet with 70% accuracy in 3-6 months. Established: 03/26/23 Progress: Targeted- streamed- 60% food categories, fruit categories, animal categories; continuing to practice at home Status: Newly initiated Goal 2: Patient will comprehend phrases in quiet with 70% accuracy in 3-6 months. Established: 03/26/23 Progress: Did not target Status: NA Goal 3: Patient will Identify minimal pairs differing in manner, voice, and place of articulation in quiet with 70% accuracy in 3-6 months. Established: 03/26/23 Progress: Did not target due to time, continue to target at home with apps and calling sister Status: Newly introduced Treatment Time in clinic started at 3:45 pm Time in clinic ended at 4:35 pm Total time in clinic is 50 minutes. Provided to: patient Home programming: Apps ([employer]), CHEPE Talks, Streaming with sister on phone- 04/30/23, 05/29/23 Streaming when appropriate, plugging R ear when possible at home- 05/29/23 Response to education: verbalized understanding and demonstrated understanding Patient/caregiver verbalized understanding and agreement: yes CPT Code 46655 Treatment of speech, language AND voice Signatures Jade Jensen M.A., CCC-UNISAW OPERATOR [facility] Cert. 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 Monitor home program. Patient instructed to call if problems. Assessment Patient was seen today for an aural rehab therapy post cochlear implant activation on 01/15/23. SEVERE auditory skills deficits Therapy is warranted to increase auditory skills to improve overall communication skills. Patient uses bilateral cochlear implants. Left Cochlear Implant Surgery: 01/02/23 Left Cochlear Implant Activation: 01/15/23 Surgeon: Dr. Katarzyna Hopson Allergies Medication No Known Drug Allergies Recorded By: Yue Slade; 10/30/2022 4:29:20 PM Adult Risk Screening There are no spiritual/cultural practices/values/needs that are important to know Initial Fall Risk Screening: DARVIN has not fallen in the last 6 months. Insurance Insurance reviewed Visit number: 1 Onset Date: 2022 Subjective Living Environment: home - patient lives with , 2 kids. Patient arrival: independent Patient arrived on time for today's appointment. Today's appointment was scheduled for a virtual visit due to patient's distance and streaming abilities. Patient was seen in person due to forgetting the appointment was virtual. Patient reports beginning to hear sounds and some words with implant. Patient reports using apps have improved ability to identify or notice sounds with implanted ear. Patient reports wearing CI majority of the day- sometime taking off during phone conversations. Patient reports inconsistent connection with CI and phone during phone calls. Clinician recommended deleting and re- loading tyrel to phone. Patient did not bring phone to session on this date. Clinician recommended additional follow up with audiology if issue persists. Patient brought mini mkie to session on this date- mini mike was . Clinician educated patient on the importance of using the mini mike in everyday activities to support implant. Clinician continues to recommend home programming with apps, CHEPE Talks, and phone conversations (streaming) with sister. Patient scheduled follow up appointment to be virtual- in order to stream to CI. Objective Progress to date: group home goals: Patient will increase awareness of speech sounds during conversation with 70% accuracy in 6 months. Short term goals: Goal 1: Patient will repeat words from a known category in quiet with 70% accuracy in 3-6 months. Established: 03/26/23 Progress: Did not target Status: NA Goal 2: Patient will comprehend phrases in quiet with 70% accuracy in 3-6 months. Established: 03/26/23 Progress: Did not target Status: NA Goal 3: Patient will Identify minimal pairs differing in manner, voice, and place of articulation in quiet with 70% accuracy in 3-6 months. Established: 03/26/23 Progress: in quiet: 80% with repetition. Patient showed increased difficulty identifying minimal pairs differing by place of articulation. Status: Newly introduced Treatment Time in clinic started at 4:30 pm Time in clinic ended at 5:15 pm Total time in clinic is 45 minutes. Provided to: patient Home programming: Apps ([employer]), CHEPE Talks, Streaming with sister on phone- 04/30/23 Response to education: verbalized understanding and demonstrated understanding Patient/caregiver verbalized understanding and agreement: yes CPT Code 76211 Treatment of speech, language AND voice Signatures Jade Jensen M.A. CCC-UNISAW OPERATOR [facility] Cert. AVEd Electronically signed by : Jade Jensen CCC-UNISAW OPERATOR; May 01 2023 1:04PM EST (Author) Normal Touchworks Established Visit (Otolaryng ology)on 04-23-2023 Established Visit (Otolaryngology) Diagnoses/Problems Cochlear implant status (V45.89) (Z96.21) Sensorineural hearing loss, asymmetrical (389.16) (H90.3) Globus sensation (784.99) (R09.89) Patient Discussion/Summary Welcome to Dr. Hopson?s clinic. We are here to assist you through your ENT care at [facility]. Dr. Hopson is an Ear surgeon. This means that she specializes in taking care of patients with complex ear problems. Dr. Hopson's office number is [phone]. While you may see her at a satellite office, she has a team committed to help meet your healthcare needs at [facility]'s [facility]. This number is the most direct way to communicate with the office. Samantha is Dr. Hopson?s statistical secretary and she answers the office phone from 8am-4pm Sat-Sat. She can help you with many general questions and information. Questions that she cannot answer will be directed to the appropriate staff. You may need to leave a message. In this case, someone from the team will call you back. Joseluis is Dr. Hopson?s primary nurse and can be reached by calling the office. Joseluis is in clinic with Dr. Santos on Mondays and Tuesdays. Non-urgent calls will be returned on non-clinic days typically . Sometimes, other team members will also be involved in your care. These people may include dieticians, social workers, speech therapists, quiller machine fixer, neurologist, and physical therapist. Dr. Hopson will provide these referrals as needed. Please let her know if you would like to request a specific referral. For your convenience, Dr. Hopson sees patients at several [facility] locations including [facility] and [facility] at the main campus of [facility]. While we try to make your appointments as convenient as possible, occasionally a visit to another location may be necessary to provide the best care for you. We look forward to working with you to meet your healthcare goals. Dr. Hopson makes every effort to run on time for your appointments. Therefore, if you are more than 30 minutes late unrelated to a scan or another appointment such therapy or audio you will have to reschedule. This note is prepared by Juanita Alegria acting as Katarzyna Hopson MD. All medical record entries made by the Scribe were at my direction and personally dictated by me. I have reviewed the chart and agree that the record accurately reflects my personal performance of the history, physical exam, assessment, plan, and diagnosis. I have also personally directed, reviewed, and agree with the discharge instructions. Katarzyna Hopson MD. Provider Impressions 47 year old female with a history of left sensorineural hearing loss s/p left cochlear implant on 01/02/23. She is starting to brass pickler words with her implant. She does have a globus sensation when she wakes up each morning, she typically coughs until she's able to bring up the mucous. - Would bring up globus sensation/cough to primary care provider - Advised to get mole skin to put on battery compartment of cochlear implant, it is pushing on her cartilage - RTC in 1 year, can be done virtually This note was scribed by Juanita Alegria. I have reviewed the documentation and approve the documentation. Chief Complaint left cochlear implant management History of Present IllnessDarvin is a 47 year old female with a hx of left sensorineural hearing loss s/p left cochlear implant on 01/02/23. She is starting to brass pickler words, she was at a satding Saturday evening and picked someone up from across the room. She's waking up daily with a globus sensation, she typically coughs until she's able to bring it up. She doesn't feel it's in her chest but rather her throat. Recall 01/15/23: Darvin is a 47 year old female with a history of left sensorineural hearing loss s/p left cochlear implant on 01/02/23. No major issues since surgery. She does have numbness of the upper auricle and discomfort/soreness into the left posterior neck. Denies any fevers or drainage from the incision site. Has an appointment with audiology following today's visit. Recall 10/30/22: Darvin is a 47 yo female referred here today by Dr. Mary Cummins for CI evaluation. She reports developed sudden SNHL in the left ear earlier this year. She has been seen and evaluated by Dr. Vela who prescribed oral steroids and performed 3 separate intratympanic injections of the ear without improvement. She reports difficulty in speech understanding. She denies otalgia, otorrhea, prior ear surgery, prior ear issues. Had some balance issues at the time of hearing loss that resolved. MRI negative for retrocochlear pathology. Review of Systems ENT and Constitutional systems have been reviewed and are negative for complaint except what is stated in the HPI and/or Past Medical History. 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 Short term goals: Goal 1: Patient will repeat words from a known category in quiet with 70% accuracy in 3-6 months. Established: 03/26/23 Progress: NA Status: NA Goal 2: Patient will comprehend phrases in quiet with 70% accuracy in 3-6 months. Established: 03/26/23 Progress: NA Status: NA Goal 3: Patient will Identify minimal pairs differing in manner, voice, and place of articulation in quiet with 70% accuracy in 3-6 months. Established: 03/26/23 Progress: NA Status: NA Recommendations for therapeutic intervention: Patient given home program targeting goal(s) 1, 2. Prognosis: good Factors affecting prognosis: none Discussed plan of care with: patient Discussed risks/benefits with patient/caregiver Patient/caregiver agreeable with plan of care Motivation/Expectations: Patient/caregiver was educated regarding appropriate motivation and expectations for a cochlear implant and cochlear implant process and demonstrates appropriate motivation and expectations regarding follow-up with therapy and possible outcomes following a cochlear implant. Plan of care was developed with input and agreement by the patient. Assessment Assessment Summary: Patient was seen today for an aural rehab evaluation post cochlear implant activation on 01/15/23. SEVERE auditory skills deficits Therapy is warranted to increase auditory skills to improve overall communication skills. 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 DARVIN does not have a fear of falling. She does not need assistance with sitting, standing or walking. Does not need assistance walking in her home. She does not need assistance in an unfamiliar setting. The patient is not using an assistive device. Pain Scale: On a scale of 0 to 10, the patient rates the pain at 0. Insurance Insurance reviewed Visit number: EVALUATION Onset Date: 2022 Subjective Living Environment: home - patient lives with and two kids. Language at home: Spoken [place]an Surgical Dressing Maker present: no Patient arrival: independent Evaluation: Reason for referral: Patient was seen today for an aural rehab evaluation post cochlear implant activation on 01/15/23. Referring Provider: Audiology: Dr. Judd Jesus, ENT: Dr. Katarzyna Hopson Prior level of function: decreased function Baseline observations: Hearing loss: sudden (happened all at once) Duration of hearing loss: Since May 2022 Current Amplification: worn during evaluation, see below Left ear: cochlear implant (initial stimulation date: 01/15/23) Right ear: none Amplification worn: whenever awake Objective Auditory skill assessment: Amplification used: left Pre-feature identification contrasts (PRE FICS): 1 vs 2 Syllables 100 % 1 vs 3 Syllables 100 % Same Number Syllables 100 % Presence vs Absence 100 % Continuous vs Interrupted 100 % Long vs Short 100 % Total Percentage = 100 % [employer] rehabilitation manual screening and exercises: Sentence length identification 100 % Phrase length identification 100 % Common phrases test(CPT): 100 % in quiet 90 % in environmental noise 90 % in competing speech noise Minimal pairs test (MPT): Voicing 7/8 [address]anner 7/[address] 6/[address] 7/8 Vowel height 7/8 Total score 34/40 Speech articulation assessment: Speech articulation was not formally tested secondary to no concerns. Informal assessment revealed no errors Patient arrived to today's evaluation on time. Patient has unilateral SNHL and uses a CI on her left side. Patient plugged right ear during today's evaluation. Clinician sat on patient's CI side and used mini mike. Patient reported hearing some sound through plugged ear. Clinician and patient discussed follow up therapy through virtual services/telehealth due to distance and streaming. Patient is in agreement with plan of care. Clinician provided categories, fill in the blank sentences, and common questions for home programming. Patient discussed practicing home programming with (more content not included)... Normal [place] Toxicology Office Visit (Audiology)on 03-06-2023 Follow-up visit Diagnoses/Problems Sensorineural hearing loss (SNHL) of left ear with unrestricted hearing of right ear (389.15) (H90.42) Cochlear implant status (V45.89) (Z96.21) Patient Discussion/Summary Positive stimulation was obtained on electrodes 1-22. A reliable psychophysical map was defined in the CAROLYN speech processing strategy. Appropriate behavior was observed when the Maps were tested. Patient was encouraged to direct stream or use a contralateral earplug when participating in auditory training techniques. Recommendations for auditory training at home were discussed, as well as making an appointment for formal auditory training through this facility. This is scheduled for 03/26/23. Reviewed and demonstrated Mini Microphone again today for direct streaming and isolating the cochlear implant ear. TREATMENT PLAN 1.Utilize the Nucleus CI632 Cochlear Implant System and the [id number] speech processor daily using the most tolerated program. 2.Return for remapping and optimization of the [id number] speech processor as scheduled in approximately 3 months in order to optimize the psychophysical CAROLYN map. 3.Utilize aural rehabilitation/auditory training techniques at home to improve speech understanding ability. Initiate formal auditory training through this facility as discussed. Scheduled on .Return to Dr. Hopson as directed for medical management. [id number] Chief Complaint Cochlear implant - third stimulation Adult Risk ScreeningThere are no spiritual/cultural practices/values/needs that are important to know Initial Fall Risk Screening: DARVIN has not fallen in the last 6 months. DARVIN does not have a fear of falling. She does not need assistance with sitting, standing or walking. Does not need assistance walking in her home. She does not need assistance in an unfamiliar setting. The patient is not using an assistive device. Reference Documentation See scanned note Procedure Note: audiogram. History of Present Illness Darvin Chaves was seen for the third stimulation and programming of her Nucleus CI632 cochlear implant at the left ear, used in conjunction with the [id number] ear level speech processor. She presents with a unilateral left sudden hearing loss. Ms. Chaves underwent the surgical implantation of the CI632 cochlear implant at the left ear on 01/02/2023. Post operative course remains unremarkable. Please see medical records for further medical history. Ms. 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 She reports improved retention of the processor with the 5i magnet recently requested. Ms. Chaves reports she has heard a few words through the implant recently, but it feeling somewhat discouraged with her progress thus far. Patient's preferred language: [place] Preferred language of the parent, legal guardian or surrogate decision-maker of this minor or incapacitated patient: [place] No overt signs of domestic violence/neglect/abuse. Pain not interfering with optimal level of function or ability to assess and/or treat. Pain Scale rank: 0/10 No referral made to primary care provider (PCP). Factors/Barriers influencing patient's ability to complete assessment or learn: none. Person taught: patient. Readiness to learn: no barriers. Results of Teaching/Counseling: verbalize recall / understanding and teaching complete. Active Problems Blood tests prior to treatment or procedure (V72.63) (Z01.812) Cochlear implant status (V45.89) (Z96.21) Sensorineural hearing loss (SNHL) of left ear with unrestricted hearing of right ear (389.15) (H90.42) Allergies No Known Drug Allergies Recorded By: Yue Slade; 10/30/2022 4:29:20 PM Current Meds Medication NameInstruction Prevnar 13 Intramuscular Suspensionadminister as directed Results/Data Impedances were evaluated using the ear level [id number] speech processor for intra-cochlear electrodes 1-22 in common ground (CG), Monopolar 1 (MP1), Monopolar 2 (MP2) and MP1+2 stimulation modes. Satisfactory impedances were found for all electrodes, in each stimulation mode. The [id number] processor remains programmed in an MP1+2 stimulation mode using an CAROLYN speech processing strategy, 8 cindy and a 900 Hz stimulation rate. Electrodes 1-22 remain activated. Using standard techniques, a psychophysical map was created with good reliability. No facial nerve stimulation was observed. T- and C- levels increased significantly overall. Patient reported improved sound detection following adjustments. Functional gain was assessed while patient wore the [id number] processor in P1 following reprogramming. Responses to narrowband noise ranged from 25-35 dBHL for 250-6000 Hz. Word discrimination was assessed using CNC words presented at 55 dBHL via recorded text. A score of 12% correct was obtained for CNC words. [address] via insert earphone. Datalogging = 11 hrs/day mostly in loudest P4 Signatures Electronically sign (more content not included)... Normal [place] Toxicology Office Visit (Audiology)on 02-06-2023 Follow-up visit Diagnoses/Problems Sensorineural hearing loss (SNHL) of left ear with unrestricted hearing of right ear (389.15) (H90.42) Cochlear implant status (V45.89) (Z96.21) Patient Discussion/Summary Positive stimulation was obtained on electrodes 1-22. A reliable psychophysical map was defined in the CAROLYN speech processing strategy. Appropriate behavior was observed when the Maps were tested. Restarting the patient's Android phone seemed to improve connectivity to the [employer] Tyrel. SHe was encouraged to uninstall and reinstall the Tyrel should further issues arise. Patient was encouraged to direct stream or use a contralateral earplug when participating in auditory training techniques. Recommendations for auditory training at home were discussed, as well as making an appointment for formal auditory training through this facility. Will order a 5i magnet with cover to be sent directly to patient for swap, as 4i is not strong enough. TREATMENT PLAN 1.Utilize the Nucleus CI632 Cochlear Implant System and the [id number] speech processor daily moving through progressive programs P1-P4 as tolerated. 2.Return for remapping and optimization of the [id number] speech processor as scheduled in approximately 4 weeks in order to optimize the psychophysical CAROLYN map. 3.Utilize aural rehabilitation/auditory training techniques at home to improve speech understanding ability. Initiate formal auditory training through this facility as discussed. Will attempt to coordinate visit on 03/06. 4.Return to Dr. Hopson as directed for medical management. [id number] Chief Complaint Cochlear implant - second stimulation Adult Risk ScreeningThere are no spiritual/cultural practices/values/needs that are important to know Initial Fall Risk Screening: DARVIN has not fallen in the last 6 months. DARVIN does not have a fear of falling. She does not need assistance with sitting, standing or walking. Does not need assistance walking in her home. She does not need assistance in an unfamiliar setting. The patient is not using an assistive device. History of Present Illness Darvin Chaves was seen for the second stimulation and programming of her Nucleus CI632 cochlear implant at the left ear, used in conjunction with the YK8984 ear level speech processor. She presents with a unilateral left sudden hearing loss. Ms. Chaves underwent the surgical implantation of the CI632 cochlear implant at the left ear on 01/02/2023. Post operative course remains unremarkable. Please see medical records for further medical history. Ms. 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 She reports difficulty with retention of the processor. Ms. Chaves reports she is not hearing words or speech yet, only sounds. She further reports the [employer] Tyrel connection has been intermittent. Patient's preferred language: [place] Preferred language of the parent, legal guardian or surrogate decision-maker of this minor or incapacitated patient: [place] No overt signs of domestic violence/neglect/abuse. Pain not interfering with optimal level of function or ability to assess and/or treat. Pain Scale rank: 0/10 No referral made to primary care provider (PCP). Factors/Barriers influencing patient's ability to complete assessment or learn: none. Person taught: patient. Readiness to learn: no barriers. Results of Teaching/Counseling: verbalize recall / understanding and teaching complete. Active Problems Blood tests prior to treatment or procedure (V72.63) (Z01.812) Cochlear implant status (V45.89) (Z96.21) Sensorineural hearing loss (SNHL) of left ear with unrestricted hearing of right ear (389.15) (H90.42) Allergies No Known Drug Allergies Recorded By: Yue Slade; 10/30/2022 4:29:20 PM Current Meds Medication NameInstruction Prevnar 13 Intramuscular Suspensionadminister as directed Results/Data Impedances were evaluated using the ear level [id number] speech processor for intra-cochlear electrodes 1-22 in common ground (CG), Monopolar 1 (MP1), Monopolar 2 (MP2) and MP1+2 stimulation modes. Satisfactory impedances were found for all electrodes, in each stimulation mode. The [id number] processor remains rogrammed in an MP1+2 stimulation mode using an CAROLYN speech processing strategy, 8 cindy and a 900 Hz stimulation rate. Electrodes 1-22 remain activated. Using standard techniques, a psychophysical map was created with good reliability. No facial nerve stimulation was observed. Progressive maps were created and programmed with increments of 3 clinical units. C-levels were swept for comfort in loudest listening program. Datalogging = 11.3 hrs/day mostly in loudest P4 Signatures Electronically signed by : Candi Jenkins; Feb 06 2023 1:49PM EST (Author) Normal [place] Toxicology Established Visit (Otolaryng ology)on 01-15-2023 Established Visit (Otolaryngology) Diagnoses/Problems Sensorineural hearing loss (SNHL) of left ear with unrestricted hearing of right ear (389.15) (H90.42) Cochlear implant status (V45.89) (Z96.21) Patient Discussion/Summary Welcome to Dr. Hopson?s clinic. We are here to assist you through your ENT care at [facility]. Dr. Hopson is an Ear surgeon. This means that she specializes in taking care of patients with complex ear problems. Dr. Hopson's office number is [phone]. While you may see her at a satellite office, she has a team committed to help meet your healthcare needs at [facility]'s main campus. This number is the most direct way to communicate with the office. Samantha is Dr. Hopson?s statistical secretary and she answers the office phone from 8am-4pm Sat-Sat. She can help you with many general questions and information. Questions that she cannot answer will be directed to the appropriate staff. You may need to leave a message. In this case, someone from the team will call you back. Joseluis is Dr. Hopson?s primary nurse and can be reached by calling the office. Joseluis is in clinic with Dr. Santos on Mondays and Tuesdays. Non-urgent calls will be returned on non-clinic days typically . Sometimes, other team members will also be involved in your care. These people may include dieticians, social workers, speech therapists, quiller machine fixer, neurologist, and physical therapist. Dr. Hopson will provide these referrals as needed. Please let her know if you would like to request a specific referral. For your convenience, Dr. Hopson sees patients at several [facility] locations including [facility] and [facility] at the main campus [facility]. While we try to make your appointments as convenient as possible, occasionally a visit to another location may be necessary to provide the best care for you. We look forward to working with you to meet your healthcare goals. Dr. Hopson makes every effort to run on time for your appointments. Therefore, if you are more than 30 minutes late unrelated to a scan or another appointment such therapy or audio you will have to reschedule. Provider Impressions 47 year old female with a history of left sensorineural hearing loss s/p left cochlear implant(CI632) on 01/02/23. Expected post-op resolving dizziness and auricle numbness. -Follow up with audiology as scheduled for activation -Follow up in 3 months -Ok to return to work Chief Complaint postoperative visit History of Present IllnessDarvin is a 47 year old female with a history of left sensorineural hearing loss s/p left cochlear implant on 01/02/23. No major issues since surgery. She does have numbness of the upper auricle and discomfort/soreness into the left posterior neck. Denies any fevers or drainage from the incision site. Has an appointment with audiology following today's visit. Recall 10/30/22: Darvin is a 47 yo female referred here today by Dr. Mary Cummins for CI evaluation. She reports developed sudden SNHL in the left ear earlier this year. She has been seen and evaluated by Dr. Vela who prescribed oral steroids and performed 3 separate intratympanic injections of the ear without improvement. She reports difficulty in speech understanding. She denies otalgia, otorrhea, prior ear surgery, prior ear issues. Had some balance issues at the time of hearing loss that resolved. MRI negative for retrocochlear pathology. Review of Systems ENT and Constitutional systems have been reviewed and are negative for complaint except what is stated in the HPI and/or Past Medical History. Active Problems Blood tests prior to treatment or procedure (V72.63) (Z01.812) Sensorineural hearing loss (SNHL) of left ear with unrestricted hearing of right ear (389.15) (H90.42) Allergies No Known Drug Allergies Recorded By: Yue Slade; 10/30/2022 4:29:20 PM Current Meds Medication NameInstruction Prevnar 13 Intramuscular Suspensionadminister as directed Physical Exam Constitutional General appearance: Healthy-appearing, well-nourished, well groomed, in no acute distress. Ability to communicate: Normal communication without aids, normal voice quality. Head and face: Atraumatic with no masses, lesions, or scarring. Facial strength: Normal strength and symmetry, no synkinesis or facial tic. Ears Otoscopic examination: Right: TM intact, no middle ear effusion Left: hemotympanum present, postauricular incision c/d/i, no erythema or drainage, slight proptosis Attending Note Trainee role: Resident Trainee discussed patient with Dr. Hopson I saw and evaluated the patient. I personally obtained the nesbitt and critical portions of the history and physical exam or was physically present for nesbitt and critical portions performed by the trainee. I reviewed the trainee's documentation and discussed the patient with the trainee. I agree with the trainee's medical decision making, as documented on the trainee's note. 'Score (more content not included)... Normal [facility] Office Visit (Audiology)on 0 01-15-2023 Follow-up visit Diagnoses/Problems Sensorineural hearing loss (SNHL) of left ear with unrestricted hearing of right ear (389.15) (H90.42) Cochlear implant status (V45.89) (Z96.21) Patient Discussion/Summary Positive stimulation was obtained on electrodes 1-22. A reliable psychophysical map was defined in the CAROLYN speech processing strategy. Appropriate behavior was observed when the Maps were tested. Ms. Chaves and her were oriented to the speech processor, remote control and accessories. She was also given written and recorded instructional materials. All equipment will be registered electronically. The Nucleus Smart Tyrel was downloaded on patient's Android phone and the processor was paired and connected. Use of the Tyrel was reviewed today. The Mini Microphone was paired and reviewed today as well. Patient was encouraged to direct stream or use a contralateral earplug when participating in auditory training techniques. TREATMENT PLAN 1.Utilize the Nucleus CI632 Cochlear Implant System and the ZF0850 speech processor daily moving through progressive programs P1-P4 as tolerated. 2.Return for remapping and optimization of the [id number] speech processor as scheduled in approximately 3 weeks in order to optimize the psychophysical CAROLYN map. 3.Utilize aural rehabilitation/auditory training techniques at home to improve speech understanding ability. Initiate formal auditory training through this facility as discussed. 4.Return to Dr. Hopson as directed for medical management. [id number] Chief Complaint Cochlear implant - initial activation Adult Risk ScreeningThere are no spiritual/cultural practices/values/needs that are important to know Initial Fall Risk Screening: DARVIN has not fallen in the last 6 months. DARVIN does not have a fear of falling. She does not need assistance with sitting, standing or walking. Does not need assistance walking in her home. She does not need assistance in an unfamiliar setting. The patient is not using an assistive device. History of Present Illness Darvin Chaves was seen for the initial stimulation and programming of her Nucleus CI632 cochlear implant at the left ear, used in conjunction with the CB4133 ear level speech processor. She presents with a unilateral left sudden hearing loss. Ms. Chaves underwent the surgical implantation of the CI632 cochlear implant at the left ear on 01/02/2023. Post operative course remains unremarkable. Please see medical records for further medical history. Ms. 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 Patient's preferred language: [place] Preferred language of the parent, legal guardian or surrogate decision-maker of this minor or incapacitated patient: [place] No overt signs of domestic violence/neglect/abuse. Pain not interfering with optimal level of function or ability to assess and/or treat. Pain Scale rank: 0/10 No referral made to primary care provider (PCP). Factors/Barriers influencing patient's ability to complete assessment or learn: none. Person taught: patient. Readiness to learn: no barriers. Results of Teaching/Counseling: verbalize recall / understanding and teaching complete. Active Problems Blood tests prior to treatment or procedure (V72.63) (Z01.812) Cochlear implant status (V45.89) (Z96.21) Sensorineural hearing loss (SNHL) of left ear with unrestricted hearing of right ear (389.15) (H90.42) Allergies No Known Drug Allergies Recorded By: Yue Slade; 10/30/2022 4:29:20 PM Current Meds Medication NameInstruction Prevnar 13 Intramuscular Suspensionadminister as directed Results/Data Impedances were evaluated using the [employer] [id number] speech processor for intra-cochlear electrodes 1-22 in common ground (CG), Monopolar 1 (MP1), Monopolar 2 (MP2) and MP1+2 stimulation modes. Satisfactory impedances were found for all electrodes, in each stimulation mode. The [id number] processor and remote control were dispensed with all associated equipment and accessories. The processor was programmed in an MP1+2 stimulation mode using an CAROLYN speech processing strategy, 8 cindy and a 900 Hz stimulation rate. Electrodes 1-22 were activated. Using population mean, a map was created. No facial nerve stimulation was observed. Progressive maps were created and programmed with increments of 5 clinical units. C-levels were swept for comfort in loudest listening program. Signatures Electronically signed by : Candi Jenkins CCC-A; Jan 15 2023 12:50PM EST (Author) Normal [place] Toxicology Tobacco Screening.on 023 Adult depression screening assessment No [facility] 5391 Work Phone: Fall risk assessment a) No falls within the last year [facility] 5991 Work Phone: Tobacco use status [facility] b) No [facility]-Otolaryn [facility]ology-[facility] 1766 Work Phone: Order Reconciliationon 01-02 Order Reconciliation Page 1 Discharge Reconciliation Document Reconciliation Type: Discharge requested on behalf of Mo Anne (Resident) done by Mo Anne ( (Resident)) Discharge - Reconciliation: 02-Jan-2023 10:39 by: Mo Anne ( (Resident)) Current OrdersDateHOME MEDICATIONS AT DISCHARGE DateReconciliation Comment/ Additional Information Acetaminophen Tablet (TYLENOL)DOSE = 650 mg Oral Every 4 Hours, PRN Pain - Mild (1-3) (PACU) when able to take OralStop After 1 DosesClinician Notes: Hawa-operative order ONLY 02-Jan-2023 07:47 Acetaminophen is not required HYDROmorphone Injectable (DILAUDID)DOSE = 0.2 mg IntraVenous Push Every 5 Minutes, PRN Pain - Mod (4-6) (PACU) if unable to take oralClinician Notes: Hawa-operative order ONLYMax total of 4 mg regardless of dose. 02-Jan-2023 07:47 HYDROmorphone Injectable is not required HYDROmorphone Injectable (DILAUDID)DOSE = 0.4 mg IntraVenous Push Every 5 Minutes, PRN Pain - Severe (7-10) (PACU)Clinician Notes: Hawa-operative order ONLYMax total of 4 mg regardless of dose. 02-Jan-2023 07:47 HYDROmorphone Injectable is not required Lactated Ringers Infusion IV Bag Volume = 1,000 mL Run at: 50 mL/hr IntraVenous Clinician Notes: [facility]a-operative order ONLY 02-Jan-2023 07:47 Lactated Ringers Infusion is not required Ondansetron Injectable (ZOFRAN)DOSE = 4 mg IntraVenous Push Once, PRN PONV, first lineClinician Notes: [facility]a-operative order ONLY 02-Jan-2023 07:47 Ondansetron Injectable is not required oxyCODONE Immediate Release Tablet (OXYIR, ROXICODONE)DOSE = 5 mg Oral Every 4 Hours, PRN Pain - Mod (4-6) (PACU) when able to take OralStop After 1 DosesClinician Notes: Hawa-operative order ONLY 02-Jan-2023 07:47 oxyCODONE Immediate Release is not required Promethazine IV Piggy Back in Sodium Chloride 0.9% 50 mL (PHENERGAN)DOSE = 6.25 mg Once, PRN persistent PONV if first line ineffectiveRecommended Infusion Time: 15 minute(s)Clinician Notes: [facility]a-operative order ONLY 02-Jan-2023 07:47 Promethazine IV Piggy Back is not required Home Medications Added During Discharge Reconciliation Activity as Tolerated 02-Jan-2023, Routine, Assistance Level: None, Restrictions: None, Limit your activities and rest today. Additional Patient Instructions Additional post-operative instructions were given to the patient by the provider in the pre-op office visit Additional Patient Instructions Do not consume alcoholic beverages for 24 hours. Additional Patient Instructions Do not engage in sports, heavy work or lifting. Additional Patient Instructions Do not make important decisions or sign any important documents for the next 24 hours. Additional Patient Instructions Do not smoke for 24 hours. Additional Patient Instructions It is recommended that a responsible adult remain with you for the next 24 hours as you may be light headed/dizzy. Additional Patient Instructions Please follow instructions on post-op handout. Additional Patient Instructions Remove Dressing. Call Physician For: excessive bleeding (slow general oozing that completely soaks dressing or fresh bright red bleeding) or bleeding that will not stop. Apply pressure to the area and elevate. Call Physician For: persistant nausea and/or vomiting Over 24 hours Call Physician For: signs and sypmtoms of infection Increased redness or swelling at incision site, increased pain/tenderness at surgical site, increased temperature greater than 100 degress, increasing and/or progressive drainage from surgical site, and/or unusual odor from surgical site. cephalexin 500 mg oral tablet 1 tab(s) orally 2 times a day Diet Regular Special Instructions: Liquids and light meals today, regular diet tomorrow. Discharge Discharge Diagnosis< H90.5 Acquired sensorineural hearing loss Discharge Provider, Katarzyna Hopson Discharge Disposition : .Home Condition at Discharge: Satisfactory Discharge Communication Instructions for Nursing Only: Remove IV prior to discharge from hospital. Do not remove any midline, if present, without an order from the provider. Discharge Instructions - PHR After your discharge from the hospital, two Summary of Care Documents will be available online in your Personal Health Record (PHR). 1.Consolidated-Clinical Document Architecture (C-CDA) Patient Discharge Summary This document is a summary of your hospital stay to be kept for your reference.2.C-CDA Visit Summary This document is a summary of your hospital stay to be shared with your follow-up providers (doctor, supervisor dried yeast, physical therapist, etc.). Follow Up with Dr. Hopson in 2 Weeks 01/15 at 9:45am at [facility] May shower Do not submerge incision/ear underwater. Post Procedure Discharge Criteria Criteria: Easily arousable / responding appropriately; Significant complications are absent; SpO2 = or > 92%, or if SpO2 < 92%, maintains within 2% of baseline; (more content not included)... Normal [facility] Patient Profile - Preop v3on 01-02-2023 Patient Profile - Preop v3 Patient Profile - Preop: Initial Info: Patient DemographicsName: DARVIN CHAVES Date: 1975 [address] [place] [address] Primary Phone [phone] How to be AddressedSue Spoken Language PreferredEnglish Stated Reason for Admission left side cochlear implant Primary Contact Name and NumberJerio Chaves [phone] Medications Brought to Hospitalno General Health: Weight in kg117.5 kilogram(s) Weight in lnl299 pound(s) Weight Methodactual (measured) Scale Typestanding Height in feet5 feet Height in inches5.94 inch(es) Height in cm167.4 centimeter(s) Height Methodstated BMI (kg/m2)41.93 square meter Patient or Family Member Reaction to Anesthesiano previous reaction Blood Avoidance/Restrictionsnon e Previous Transfusion Reactionnot applicable Health Mgmt: Symptoms/Conditions Managed at HomeHEENT (head, eyes, ears, nose, throat); cardiovascular; respiratory Are You no (1) Are You Currently Breastfeedingno Barriers to Managing Healthnone Relationship/Environ: Lives Withspouse; dependent child(phuong) Living Arrangementshouse Resource/Environmental Concernsnone Anticipated [facility] [facility] Anticipated at Transitionnone Tobacco Use: Tobacco Useno Pre-op Checklist: Arrival [id number] Arrival Time06:55 Procedure Typeleft cochlear implant NPOyes Last Food [id number] 00:00 Last Clear Fluid [id number] 00:00 ID Band On Patientpatient ID (name), allergy Consent Signedpending H&P Completepending Anesthesia Assessment Completedpending EKG Performedsee results tab Chest X-Ray Performedsee results tab Preop Antibioticsnot ordered Beta-sahil Commentn/a COVID 19 Results in Last 7 daysn/a Glucose Resultn/a Type and Screen Resultedn/a HCG Urine TestN/A Chlorhexadine Bath Givennot applicable Nasal Antiseptic Appliednot applicable Soap and Water Bath the Night Before Surgerynot applicable Hair Washed with Shampoonot applicable Bowel Prepno Surgical Site Infection Preventionyes Pain Scales and Managementyes Additional Information: Information Review: Allergies, Home Meds and Significant Events have been Reviewed and Verified with Patient/Familyyes Significant Events: 02-Jan-2023 sensorineural hearing loss: Past Medical History, Active 02-Jan-2023 obstructive sleep apnea: Past Medical History, Active 02-Jan-2023 Hypertension (HTN): Past Medical History, Active Electronic Signatures: Douglas Reddy (GERRY) (Signed 02-Jan-2023 07:22) Authored: Initial Info, General Health, Health Mgmt, Relationship/Environ, Tobacco Use, Pre-op Checklist, Additional Information Last Updated: 02-Jan-2023 07:22 by Douglas Reddy (GERRY) References: 1. Data Referenced From History and Physical - Surgery > 30 days 02-Jan-2023 06:14 Normal [facility] Activated partial thrombopla stin time (aPTT) in platelet poor plasma by coagulation aOrdered By: Cornelio Ku on 12-28-2022 aPTT Coag (PPP) [Time] 32.4 s 25.1-36.5 [facility] Albumin [Mass/volume] in Ser um or PlasmaOrdered By: Cornelio Ku on 12-28-2022 Albumin [Mass/Vol] 3.6 g/dL 3.2-5.5 [facility] Basophils Auto (Bld) [#/Vol] Ordered By: Cornelio Ku on 12-28-2022 Basophils (Bld) [#/Vol] 0.1 10*3/uL 0.0-0.2 [facility] Basophils/100 WBC Auto (Bld) Ordered By: Cornelio Ku on 12-28-2022 Basophils/100 WBC (Bld) 0.5 % . [facility] Creatinine and Glomerular fi ltration rate.predicted panel (S/P/Bld)Ordered By: Cornelio Ku on 12-28-2022 Creatinine [Mass/Vol] 0.69 mg/dL 0.44-1.03 [facility] Eosinophils Auto (Bld) [#/Vo l]Ordered By: Cornelio Ku on 12-28-2022 Eosinophils (Bld) [#/Vol] 0.2 10*3/uL 0.0-0.45 [facility] Eosinophils/100 WBC Auto (Bl d)Ordered By: Cornelio Ku on 12-28-2022 Eosinophils/100 WBC (Bld) 2.2 % . [facility] Erythrocyte distribution wid th Auto (RBC) [Ratio]Ordered By: Cornelio Ku on 12-28-2022 Erythrocyte distribution width (RBC) [Ratio] 15.0 % 11.9-15.3 [facility] Estimated glomerular filtrat ion rate (GFR) non- AmericanOrdered By: Cornelio Ku on 12-28-2022 GFR/1.73 sq M.predicted among non-blacks MDRD (S/P/Bld) [Vol rate/Area] > 60 mL/Min [facility] Globulin Calc (S) [Mass/Vol] Ordered By: Cornelio Ku on 12-28-2022 Globulin (S) [Mass/Vol] 2.6 g/dL [facility] Hematocrit Auto (Bld) [Volum e fraction]Ordered By: Cornelio Ku on 12-28-2022 Hematocrit (Bld) [Volume fraction] 36.3 % 34.0-46.4 [facility] Hemoglobin [Mass/volume] in BloodOrdered By: Cornelio Ku on 12-28-2022 Hemoglobin (Bld) [Mass/Vol] 12.2 g/dL 11.8-15.4 [facility] Laboratory - CoagulationOrde red By: Cornelio Ku on 12-28-2022 PT Coag (PPP) [Time] 11.7 s 9.0-12.9 [facility] Leukocytes [#/volume] correc chepe for nucleated erythrocytes in Blood by Automated counOrdered By: Cornelio Ku on 12-28-2022 WBC corrected for nucl RBC Auto (Bld) [#/Vol] 10.5 10*3/uL 3.8-11.6 [facility] Lymphocytes Auto (Bld) [#/Vo l]Ordered By: Cornelio Ku on 12-28-2022 Lymphocytes (Bld) [#/Vol] 4.4 10*3/uL 1.00-4.8 [facility] Lymphocytes/100 WBC Auto (Bl d)Ordered By: Cornelio Ku on 12-28-2022 Lymphocytes/100 WBC (Bld) 42.2 % . [facility] MCH Auto (RBC) [Entitic mass ]Ordered By: Cornelio Ku on 12-28-2022 MCH (RBC) [Entitic mass] 29.0 pg 24.7-34.3 [facility] MCHC Auto (RBC) [Mass/Vol]Or dered By: Cornelio Ku on 12-28-2022 MCHC (RBC) [Mass/Vol] 33.7 g/dL 32.0-35.0 [facility] MCV Auto (RBC) [Entitic vol] Ordered By: Cornelio Ku on 12-28-2022 MCV (RBC) [Entitic vol] 86.0 fL 80-100 [facility] Monocytes Auto (Bld) [#/Vol] Ordered By: Cornelio Ku on 12-28-2022 Monocytes (Bld) [#/Vol] 0.4 10*3/uL 0.0-0.8 [facility] Monocytes/100 WBC Auto (Bld) Ordered By: Cornelio Ku on 12-28-2022 Monocytes/100 WBC (Bld) 3.5 % . [facility] Neutrophils Auto (Bld) [#/Vo l]Ordered By: Cornelio Ku on 12-28-2022 Neutrophils (Bld) [#/Vol] 5.4 10*3/uL 1.8-7.7 [facility] Neutrophils/100 WBC Auto (Bl d)Ordered By: Cornelio Ku on 12-28-2022 Neutrophils/100 WBC (Bld) 51.6 % . [facility] No Panel InformationOrdered By: Cornelio Ku on 12-28-2022 Estimated GFR () > 60 mL/Min [facility] Comment on above: GFR estimated refere nce range: According to KDOQI guidelines, <60 ml/min/1.73m2 is sufficient to diagnose a patient with chronic kidney disease. Pharmacy Creatinine Clearance (Chem N/A [facility] Nucleated erythrocytes [Pres ence] in Blood by Automated countOrdered By: Cornelio Ku on 12-28-2022 Nucleated RBC Auto Ql (Bld) 0.0 /100{WBC} 0-0.5 [facility] Platelet mean volume Auto (B ld) [Entitic vol]Ordered By: Cornelio Ku on 12-28-2022 Platelet mean volume (Bld) [Entitic vol] 8.5 fL 6.3-10.7 [facility] Platelet poor plasma interna tional normalized ratio (INR) by coagulation assay (relatOrdered By: Cornelio Ku on 12-28-2022 INR Coag (PPP) [Relative time] 1.0 {INR} [facility] Comment on above: INR Therapeutic Rang e A) Pre- and Peroperative OAT started two weeks before surgery. NOT HIP SURGERY: 1.5 - 2.5 HIP SURGERY: 2 - 3B) Primary and secondary prevention of venous THROMBOSIS: 2 - 3C) Active venous thrombosis, pulmonary embolismand prevention of recurrent venous thrombosis: 2 - 3D) Prevention of arterial thromboembolismincluding patients with mechanical heart valves: 3 - 4.5 Platelets Auto (Bld) [#/Vol] Ordered By: Cornelio Ku on 12-28-2022 Platelets (Bld) [#/Vol] 291 10*3/uL 150-450 [facility] Protein [Mass/volume] in Ser um or PlasmaOrdered By: Cornelio Ku on 12-28-2022 Protein [Mass/Vol] 6.2 g/dL 6.1-7.9 [facility] RBC Auto (Bld) [#/Vol]Ordere d By: Cornelio Ku on 12-28-2022 RBC (Bld) [#/Vol] 4.22 10*6/uL 3.60-5.00 [facility] Serum or plasma alanine mathews otransferase measurement without P-5'-P (enzymatic activiOrdered By: Cornelio Ku on 12-28-2022 ALT No additional P-5'-P [Catalytic activity/Vol] 19 U/L 10-60 [facility] Serum or plasma albumin/glob ulin mass ratioOrdered By: Cornelio Ku on 12-28-2022 Albumin/Globulin [Mass ratio] 1.4 {ratio} [facility] Serum or plasma alkaline aly sphatase measurement (enzymatic activity/volume)Ordered By: Cornelio Ku on 12-28-2022 ALP [Catalytic activity/Vol] 80 U/L 32-92 [facility] Serum or plasma anion gap de terminationOrdered By: Cornelio Ku on 12-28-2022 Anion gap [Moles/Vol] 9.8 mmol/L 6.0-15.0 [facility] Serum or plasma aspartate am inotransferase measurement (enzymatic activity/volume)Ordered By: Cornelio Ku on 12-28-2022 AST [Catalytic activity/Vol] 14 U/L 10-42 [facility] Serum or plasma calcium paul urement (mass/volume)Ordered By: Cornelio Ku on 12-28-2022 Calcium [Mass/Vol] 8.8 mg/dL 8.2-10.2 [facility] Serum or plasma chloride megan surement (moles/volume)Ordered By: Cornelio Ku on 12-28-2022 Chloride [Moles/Vol] 101 mmol/L 95-114 [facility] Serum or plasma glucose paul urement (mass/volume)Ordered By: Cornelio Ku on 12-28-2022 Glucose [Mass/Vol] 106 mg/dL 70-100 [facility] Comment on above: ADA recommended refe rence rangeRandom Glucose Reference Range is dependent on time and content of last meal. Glucose of more than 200 mg/dL in a nonstressed, ambulatory subject supports the diagnosis of Diabetes Mellitus. Serum or plasma potassium me asurement (moles/volume)Ordered By: Cornelio Ku on 12-28-2022 Potassium [Moles/Vol] 4.3 mmol/L 3.5-5.1 [facility] Serum or plasma sodium measu rement (moles/volume)Ordered By: Cornelio Ku on 12-28-2022 Sodium [Moles/Vol] 135 mmol/L 136-146 [facility] Serum or plasma total biliru bin measurement (mass/volume)Ordered By: Cornelio Ku on 12-28-2022 Bilirubin [Mass/Vol] 0.4 mg/dL 0.3-1.2 [facility] Serum or plasma total carbon dioxide measurement (moles/volume)Ordered By: Cornelio Ku on 12-28-2022 CO2 [Moles/Vol] 28.5 mmol/L 22.0-30.0 [facility] Serum or plasma urea nitroge n measurement (mass/volume)Ordered By: Cornelio Ku on 12-28-2022 Urea nitrogen [Mass/Vol] 12 mg/dL 9-23 [facility] WBC Auto (Bld) [#/Vol]Ordere d By: Cornelio Ku on 12-28-2022 WBC (Bld) [#/Vol] 10.5 10*3/uL 3.8-11.6 [facility] Initial Visit (Otolaryngolog y)on 10-30-2022 Initial Visit (Otolaryngology) Diagnoses/Problems Sensorineural hearing loss (SNHL) of left ear with unrestricted hearing of right ear (389.15) (H90.42) Orders Start: Prevnar 13 Intramuscular Suspension (Prevnar 13 Intramuscular Suspension); administer as directed Patient Discussion/Summary Welcome to Dr. Hopson?s clinic. We are here to assist you through your ENT care at [facility]. Dr. Hopson is an Ear surgeon. This means that she specializes in taking care of patients with complex ear problems. Dr. Hopson's office number is [phone]. While you may see her at a satellite office, she has a team committed to help meet your healthcare needs at [facility]'s main campus. This number is the most direct way to communicate with the office. Samantha is Dr. Hopson?s statistical secretary and she answers the office phone from 8am-4pm Mon-Fri. She can help you with many general questions and information. Questions that she cannot answer will be directed to the appropriate staff. You may need to leave a message. In this case, someone from the team will call you back. Joseluis is Dr. Hopson?s primary nurse and can be reached by calling the office. Joseluis is in clinic with Dr. Santos on Mondays and Tuesdays. Non-urgent calls will be returned on non-clinic days typically . Sometimes, other team members will also be involved in your care. These people may include dieticians, social workers, speech therapists, quiller machine fixer, neurologist, and physical therapist. Dr. Hopson will provide these referrals as needed. Please let her know if you would like to request a specific referral. For your convenience, Dr. Hopson sees patients at several [facility] locations including [facility] and [facility] at the main campus [facility]. While we try to make your appointments as convenient as possible, occasionally a visit to another location may be necessary to provide the best care for you. We look forward to working with you to meet your healthcare goals. Dr. Hopson makes every effort to run on time for your appointments. Therefore, if you are more than 30 minutes late unrelated to a scan or another appointment such therapy or audio you will have to reschedule. Provider Impressions 47 yo female referred here today by Dr. Mary Cummins for CI evaluation. She has a history of sudden sensorineural hearing loss which has been unresponsive to oral and intratympanic steroids. Otoscopic examination is normal. Her audiogram shows a severe-profound SNHL in the affected ear with 0% WRS. We discussed alternatives including cross hearing aid, BAHA and CI. She had a BAHA and CI evaluation earlier today and states that she still struggled with speech understanding with a BAHA. She is a good candidate for a CI to restore hearing and sound localization. We discussed risks including bleeding, infection, changes in balance or hearing, device failure, change in taste. She would like to proceed with a left CI. I will see her at the time of surgery. Chief Complaint cochlear implant evaluation History of Present IllnessDarvin is a 47 yo female referred here today by Dr. Mary Cummins for CI evaluation. She reports developed sudden SNHL in the left ear earlier this year. She has been seen and evaluated by Dr. Vela who prescribed oral steroids and performed 3 separate intratympanic injections of the ear without improvement. She reports difficulty in speech understanding. She denies otalgia, otorrhea, prior ear surgery, prior ear issues. Had some balance issues at the time of hearing loss that resolved. MRI negative for retrocochlear pathology. PMH: FRANCISCO on CPAP, bipolar, HTN PSH: Cervical ablation, hysterectomy, cholecystectomy All: erythromycin (rash), sulfa (swelling) FamHx: Mom with hearing aids Review of Systems A comprehensive 10-point review of systems was obtained including constitutional, neurological, HEENT, pulmonary, cardiovascular, genito-urinary, and other pertinent systems and was negative except as noted in the HPI. Active Problems Sensorineural hearing loss (SNHL) of left ear with unrestricted hearing of right ear (389.15) (H90.42) Allergies No Known Drug Allergies Recorded By: Yue Slade; 10/30/2022 4:29:20 PM Vitals Vital Signs Recorded: [id number] 03:14PM Height5 ft 6 in Rrmxdb247 lb BMI Zzogqbbgdm76.8 kg/m2 BSA Calculated2.23 Tobacco Useb) No PHQ-2 #1. Over the last 2 weeks have you felt down, depressed or hopeless? (If yes, answer PHQ-9 below)No PHQ-2 #2. Over the last 2 weeks have you felt little interest or pleasure in doing things? (If yes, answer PHQ-9 below)No Falls Screening (Age 18+)a) No falls within the last year Physical Exam Constitutional General appearance: Healthy-appearing, well-nourished, well groomed, in no acute distress. Ability to communicate: Normal communication without aids, normal voice quality. Head and face: Atraumatic with no masses, lesions, or scarring. Facial strength: Normal s (more content not included)... Normal [facility] Office Visit (Audiology)on 12-31-2021 Follow-up visit Diagnoses/Problems Sensorineural hearing loss (SNHL) of left ear with unrestricted hearing of right ear (389.15) (H90.42) Patient Discussion/Summary Ms. Chaves has a well-documented profound sensorineural hearing loss in the left ear. Due to the lack of benefit from appropriate amplification, she has expressed interest in a cochlear implant. Testing shows poor sentence and word understanding, even with an appropriately programmed hearing aid indicating a severe to profound functional impairment on the left side. The audiologic findings demonstrate that Ms. Chaves has partial residual hearing for tonal stimuli and speech detection with a hearing aid at the left ear, demonstrating that the auditory cranial nerve can be stimulated. However, a hearing aid is not strong enough to provide benefit for speech understanding due to the severity of the hearing loss. On this basis, Ms. Chaves is judged to be an audiologic candidate for a cochlear implant in the LEFT ear. She and her sister have been counseled regarding the post-operative cochlear implant protocol and are properly motivated and able to participate in the post cochlear implant rehabilitation program. Reasonable Expectations and Cochlear Implant Enrollment check sheet were discussed with the patient. She has been given written and recorded information regarding cochlear implant candidacy and protocol. Physical device examples were demonstrated today. Patient is interested in the Cochlear [place] N8 system, likely in [facility]. Final device selection was not completed today, as patient wanted to look over materials. Patient was counseled on the treatment options for single sided deafness (SSD) including a CROS aid system, a BAHA implant or a cochlear implant. She is interested in pursuing a cochlear implant for SSD. Ms. Chaves wishes to achieve a more balanced sound and attempt to restore hearing in her left ear to achieve binaural hearing again. Due to the recent loss of hearing in his right ear, her prognosis with a cochlear implant is favorable. Ms. Chaves also feels due to the challenging listening environments of her job a cochlear implant would provide the most benefit. TREATMENT PLAN: 1.Follow-up with Dr. Hopson regarding test results. 2.From an audiologic standpoint, patient is a candidate for a cochlear implant in the LEFT ear. 3.Further recommendations following surgical consult. [id number] Chief Complaint Cochlear implant evaluation Adult Risk ScreeningThere are no spiritual/cultural practices/values/needs that are important to know Initial Fall Risk Screening: DARVIN has fallen in the last 6 months. She has fallen due to off balance when hearing loss occured. Her fall did not result in injury. DARVIN does not have a fear of falling. She does not need assistance with sitting, standing or walking. Does not need assistance walking in her home. She does not need assistance in an unfamiliar setting. The patient is not using an assistive device. Reference Documentation See scanned note Procedure Note: audiogram and CIQOL AND Resonable expectations. History of Present Illness Darvin Chaves was seen by the Audiology Department for a Cochlear Implant evaluation and counseling. She presents as a 47-year old female with a reported history of sudden left sided hearing loss with onset of 5-6 months ago. Underwent 3 injections at an outside facility with no improvement in hearing noted. Reported left tinnitus with onset of sudden hearing loss, however this has since dissipated. No hearing concerns with right ear. Patient and her sister are here today to learn more about cochlear implants and to determine if she is a candidate. Please refer to medical records for significant medical history Patient's preferred language: [place] Preferred language of the parent, legal guardian or surrogate decision-maker of this minor or incapacitated patient: [place] No overt signs of domestic violence/neglect/abuse. Pain not interfering with optimal level of function or ability to assess and/or treat. Pain Scale rank: 0/10 No referral made to primary care provider (PCP). Factors/Barriers influencing patient's ability to complete assessment or learn: none. Person taught: patient. Readiness to learn: no barriers. Results of Teaching/Counseling: verbalize recall / understanding and teaching complete. Results/Data Otoscopy revealed clear canals bilaterally. Immittance testing revealed normal middle ear function bilaterally. Acoustic reflexes were present at 500 Hz only and were absent at 5403-0147 Hz in the left ear; present at 500-4000 Hz in the right ear. Distortion product otoacoustic emissions (DPOAE?s) were absent for 5487-0872 Hz in the left ear, present for 4554-9285 Hz in the right ear. Responses to pure tone stimuli under insert earphones reveal a severe to profound sensorineural hearing loss in the left ear and normal hearing sensitivity in the right ear. Word discrimination is poor in the left ear (more content not included)... Normal [place] Toxicology Tobacco Screening.on 022 Adult depression screening assessment No [facility] Work Phone: Fall risk assessment a) No falls within the last year [facility] Work Phone: Tobacco use status [facility] b) No [facility] Work Phone: COVID-19 Detected/Not Detect edOrdered By: Mateo Ibarra on 08-30-2022 SARS-CoV-2 (COVID-19) RNA JAE+non-probe Ql (Nph) Not detected Not Detecte [facility] Comment on above: This is a duplicate RP2.1 COVID (PCR) result to be used for statistical tracking purpose only. No Panel InformationOrdered By: Mateo Ibarra on 08-30-2022 Respiratory Panel (PCR) [facility] Covid-19 PCR (CVDTBH)on SARS-CoV-2 (COVID-19) RNA JAE+probe Ql (Unsp spec) Not detected Normal NOT DETECTED [facility] Comment on above: Result Comment: This test is not yet approved or cleared by the [place] FDA. When there are no FDA-approved or cleared tests available, and other criteria are met, FDA can make tests available under an emergency access mechanism called an Emergency Use Authorization (EUA). The EUA for this test is supported by the [place] of Health and Human Service's (HHS's) declaration that circumstances exist to justify the emergency use of in vitro diagnostics for the detection and/or diagnosis of the virus that causes COVID-19. This EUA will remain in effect (meaning this test can be used) for the duration of the COVID-19 declaration justifying emergency of IVDs, unless it is terminated or revoked by FDA (after which the test may no longer be used). When diagnostic testing is negative, the possibility of a false negative should be considered in the context of a patient's recent exposures and the presence of clinical signs and symptoms consistent with SARS-CoV-2. Performed By: #### [facility] #### [facility] [address] [place] [address] Dr. Cristel Leary Vital Signs Date Time Vital Sign Value Performing Clinician Facility 08-26-2025 09:27-0400 Body height 167.6 cm Jamila WAN Work Phone: [facility] 08-26-2025 09:27-0400 Body mass index (BMI) [Ratio] 46.23 kg/m2 Jamila WAN Work Phone: [facility] 08-26-2025 09:27-0400 Body weight 129.91 kg Jamila Gomez 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 Phone: [facility] 08-26-2025 09:27-0400 Diastolic blood pressure 77 mm[Hg] Jamila Gomez 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 Phone: [facility] 08-26-2025 09:27-0400 Heart rate 89 /min Jamila Gomez 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 Phone: [facility] 08-26-2025 09:27-0400 Systolic blood pressure 134 mm[Hg] Jamila Gomez 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 Phone: [facility] 08-04-2025 09:00-0400 Body height 167.6 cm Mateo Ibarra PA Work Phone: [facility] 08-04-2025 09:00-0400 Body mass index (BMI) [Ratio] 46.32 kg/m2 Mateo Ibarra PA Work Phone: [facility] 08-04-2025 09:00-0400 Body temperature 97.59 [degF] Mateo Ibarra PA Work Phone: [facility] 08-04-2025 09:00-0400 Body weight 130.18 kg Mateo Ibarra PA Work Phone: [facility] 08-04-2025 09:00-0400 Diastolic blood pressure 78 mm[Hg] Mateo Ibarra PA Work Phone: [facility] 08-04-2025 09:00-0400 Heart rate 85 /min Mateo Ibarra PA Work Phone: [facility] 08-04-2025 09:00-0400 SaO2% (BldA) [Mass fraction] 96 % Mateo Ibarra PA Work Phone: [facility] 08-04-2025 09:00-0400 Systolic blood pressure 126 mm[Hg] Mateo Ibarra PA Work Phone: [facility] 07-15-2025 14:41-0400 Body height 167.6 cm Cornelio Ku DO Work Phone: [facility] 07-15-2025 14:41-0400 Body mass index (BMI) [Ratio] 46.48 kg/m2 Cornelio Ku DO Work Phone: [facility] 07-15-2025 14:41-0400 Body temperature 97.81 [degF] Cornelio Elmira DO Work Phone: [facility] 07-15-2025 14:41-0400 Body weight 130.64 kg Cornelio Elmira DO Work Phone: [facility] 07-15-2025 14:41-0400 Diastolic blood pressure 70 mm[Hg] Cornelio Elmira DO Work Phone: [facility] 07-15-2025 14:41-0400 Heart rate 92 /min Cornelio Elmira DO Work Phone: [facility] 07-15-2025 14:41-0400 SaO2% (BldA) [Mass fraction] 100 % Cornelio Elmira DO Work Phone: [facility] 07-15-2025 14:41-0400 Systolic blood pressure 128 mm[Hg] Cornelio Elmira DO Work Phone: [facility] 06-28-2025 08:52-0400 Body height 167.6 cm Cornelio Ku DO Work Phone: [facility] 06-28-2025 08:52-0400 Body mass index (BMI) [Ratio] 46.65 kg/m2 Cornelio Elmira DO Work Phone: [facility] 06-28-2025 08:52-0400 Body temperature 98.01 [degF] Cornelio Elmira DO Work Phone: [facility] 06-28-2025 08:52-0400 Body weight 131.09 kg Cornelio Elmira DO Work Phone: [facility] 06-28-2025 08:52-0400 Diastolic blood pressure 80 mm[Hg] Cornelio Ku DO Work Phone: [facility] 06-28-2025 08:52-0400 Heart rate 76 /min Cornelio Ku DO Work Phone: [facility] 06-28-2025 08:52-0400 Systolic blood pressure 122 mm[Hg] Cornelio Ku DO Work Phone: [facility] 05-10-2025 09:48-0400 Body height 167.6 cm Richie Ku DO Work Phone: [facility] 05-10-2025 09:48-0400 Body mass index (BMI) [Ratio] 46.81 kg/m2 Richie Ku DO Work Phone: [facility] 05-10-2025 09:48-0400 Body weight 131.54 kg Richie Ku DO Work Phone: [facility] 05-10-2025 09:48-0400 Diastolic blood pressure 82 mm[Hg] Richie Ku DO Work Phone: [facility] 05-10-2025 09:48-0400 Systolic blood pressure 130 mm[Hg] Richie Ku DO Work Phone: [facility] 03-26-2025 14:28-0400 Body height 167.6 cm Cornelio Ku DO Work Phone: [facility] 03-26-2025 14:28-0400 Body mass index (BMI) [Ratio] 46.48 kg/m2 Cornelio Ku DO Work Phone: [facility] 03-26-2025 14:28-0400 Body temperature 97.39 [degF] Cornelio Ku DO Work Phone: [facility] 03-26-2025 14:28-0400 Body weight 130.64 kg Cornelio Ku DO Work Phone: [facility] 03-26-2025 14:28-0400 Diastolic blood pressure 68 mm[Hg] Cornelio Ku DO Work Phone: [facility] 03-26-2025 14:28-0400 Heart rate 87 /min Cornelio Ku DO Work Phone: [facility] 03-26-2025 14:28-0400 SaO2% (BldA) [Mass fraction] 96 % Cornelio Ku DO Work Phone: [facility] 03-26-2025 14:28-0400 Systolic blood pressure 126 mm[Hg] Cornelio Ku DO Work Phone: [facility] 02-03-2025 15:03-0400 Body height 167.6 cm Mateo Ibarra PA Work Phone: [facility] 02-03-2025 15:03-0400 Body mass index (BMI) [Ratio] 46.81 kg/m2 Mateo Ibarra PA Work Phone: [facility] 02-03-2025 15:03-0400 Body temperature 97.9 [degF] Mateo Ibarra PA Work Phone: [facility] 02-03-2025 15:03-0400 Body weight 131.54 kg Mateo Ibarra PA Work Phone: [facility] 02-03-2025 15:03-0400 Diastolic blood pressure 72 mm[Hg] Mateo Ibarra PA Work Phone: [facility] 02-03-2025 15:03-0400 Heart rate 75 /min Mateo Ibarra PA Work Phone: [facility] 02-03-2025 15:03-0400 SaO2% (BldA) [Mass fraction] 96 % Mateo Ibarra PA Work Phone: [facility] 02-03-2025 15:03-0400 Systolic blood pressure 126 mm[Hg] Mateo Ibarra PA Work Phone: [facility] 11-09-2024 08:41-0500 Body height 167.6 cm Mateo Ibarra PA Work Phone: [facility] 11-09-2024 08:41-0500 Body mass index (BMI) [Ratio] 44.87 kg/m2 Mateo Ibarra PA Work Phone: [facility] 11-09-2024 08:41-0500 Body temperature 97.81 [degF] Mateo Ibarra PA Work Phone: [facility] 11-09-2024 08:41-0500 Body weight 126.1 kg Mateo Ibarra PA Work Phone: [facility] 11-09-2024 08:41-0500 Diastolic blood pressure 76 mm[Hg] Mateo Ibarra PA Work Phone: [facility] 11-09-2024 08:41-0500 Heart rate 81 /min Mateo Ibarra PA Work Phone: [facility] 11-09-2024 08:41-0500 SaO2% (BldA) [Mass fraction] 98 % Mateo Ibarra PA Work Phone: [facility] 11-09-2024 08:41-0500 Systolic blood pressure 130 mm[Hg] Mateo Ibarra PA Work Phone: [facility] 10-20-2024 15:31-0500 Body height 167.6 cm Horacio Sweet DPM Work Phone: [facility] 10-20-2024 15:31-0500 Body mass index (BMI) [Ratio] 43.58 kg/m2 Horacio Rusher DPM Work Phone: [facility] 10-20-2024 15:31-0500 Body weight 122.47 kg Horacio Knighther DPM Work Phone: [facility] 09-18-2024 08:48-0400 Body height 167.6 cm Horacio Rusher DPM Work Phone: [facility] 09-18-2024 08:48-0400 Body mass index (BMI) [Ratio] 43.58 kg/m2 Horacio Rusher DPM Work Phone: [facility] 09-18-2024 08:48-0400 Body weight 122.47 kg Horacio Sweet DPM Work Phone: [facility] 08-25-2024 11:26-0400 Body height 167.6 cm Mateo Ibarra PA Work Phone: [facility] 08-25-2024 11:26-0400 Body mass index (BMI) [Ratio] 44.06 kg/m2 Mateo Ibarra PA Work Phone: [facility] 08-25-2024 11:26-0400 Body temperature 98.4 [degF] Mateo Ibarra PA Work Phone: [facility] 08-25-2024 11:26-0400 Body weight 123.83 kg Mateo Ibarra PA Work Phone: [facility] 08-25-2024 11:26-0400 Diastolic blood pressure 72 mm[Hg] Mateo Ibarra PA Work Phone: [facility] 08-25-2024 11:26-0400 Heart rate 79 /min Mateo Ibarra PA Work Phone: [facility] 08-25-2024 11:26-0400 SaO2% (BldA) [Mass fraction] 99 % Mateo Ibarra PA Work Phone: [facility] 08-25-2024 11:26-0400 Systolic blood pressure 126 mm[Hg] Mateo Ibarra PA Work Phone: [facility] 07-29-2024 10:27-0400 Body height 167.6 cm Mateo Ibarra PA Work Phone: [facility] 07-29-2024 10:27-0400 Body mass index (BMI) [Ratio] 43.58 kg/m2 Mateo Ibarra PA Work Phone: [facility] 07-29-2024 10:27-0400 Body temperature 97.2 [degF] Mateo Ibarra PA Work Phone: [facility] 07-29-2024 10:27-0400 Body weight 122.47 kg Mateo Ibarra PA Work Phone: [facility] 07-29-2024 10:27-0400 Diastolic blood pressure 78 mm[Hg] Mateo Ibarra PA Work Phone: [facility] 07-29-2024 10:27-0400 Heart rate 76 /min Mateo Ibarra PA Work Phone: [facility] 07-29-2024 10:27-0400 SaO2% (BldA) [Mass fraction] 97 % Mateo Ibarra PA Work Phone: [facility] 07-29-2024 10:27-0400 Systolic blood pressure 120 mm[Hg] Mateo Ibarra PA Work Phone: [facility] 02-19-2024 15:04-0400 Body height 167.6 cm Deidra Enciso MD Work Phone: [facility] 02-19-2024 15:04-0400 Body mass index (BMI) [Ratio] 40.84 kg/m2 Deidra Enciso MD Work Phone: [facility] 02-19-2024 15:04-0400 Body weight 114.76 kg Deidra Enciso MD Work Phone: [facility] 02-19-2024 15:04-0400 Diastolic blood pressure 68 mm[Hg] Deidra Enciso MD Work Phone: [facility] 02-19-2024 15:04-0400 Heart rate 84 /min Deidra Enciso MD Work Phone: [facility] 02-19-2024 15:04-0400 Respiratory rate 20 /min Deidra Enciso MD Work Phone: [facility] 02-19-2024 15:04-0400 Systolic blood pressure 111 mm[Hg] Deidra Enciso MD Work Phone: [facility] 01-17-2024 08:17-0500 Body temperature 96.4 [degF] Deidra Enciso MD Work Phone: [facility] 01-17-2024 08:17-0500 Diastolic blood pressure 73 mm[Hg] Deidra Enciso MD Work Phone: [facility] 01-17-2024 08:17-0500 Heart rate 55 /min Deidra Enciso MD Work Phone: [facility] 01-17-2024 08:17-0500 Respiratory rate 18 /min Deidra Enciso MD Work Phone: [facility] 01-17-2024 08:17-0500 SaO2% (BldA) [Mass fraction] 98 % Deidra Enciso MD Work Phone: [facility] 01-17-2024 08:17-0500 Systolic blood pressure 115 mm[Hg] Deidra Enciso MD Work Phone: [facility] 01-16-2024 17:00-0500 Body mass index (BMI) [Ratio] 40.03 kg/m2 Deidra Enciso MD Work Phone: [facility] 01-16-2024 17:00-0500 Body weight 112.49 kg Deidra Enciso MD Work Phone: [facility] 12-07-2023 20:00-0500 Diastolic blood pressure 74 mm[Hg] Lenora Lagos MD Work Phone: [facility] 12-07-2023 20:00-0500 Heart rate 82 /min Lenora Lagos MD Work Phone: [facility] 12-07-2023 20:00-0500 Respiratory rate 18 /min Lenora Lagos MD Work Phone: [facility] 12-07-2023 20:00-0500 SaO2% (BldA) [Mass fraction] 98 % Lenora Lagos MD Work Phone: [facility] 12-07-2023 20:00-0500 Systolic blood pressure 116 mm[Hg] Lenora Lagos MD Work Phone: [facility] 12-07-2023 14:44-0500 Body height 167.6 cm Lenora Lagos MD Work Phone: [facility] 12-07-2023 14:44-0500 Body mass index (BMI) [Ratio] 40.03 kg/m2 Lenora Lagos MD Work Phone: [facility] 12-07-2023 14:44-0500 Body temperature 98.6 [degF] Lenora Lagos MD Work Phone: [facility] 12-07-2023 14:44-0500 Body weight 112.49 kg Lenora Lagos MD Work Phone: [facility] 09-03-2023 08:30-0400 Body height 165.1 cm Stefania Bartlett Other [employer] Other 09-03-2023 08:30-0400 Body mass index (BMI) [Ratio] 44.76 kg/m2 Stefania Dhruv Other [employer] Other 09-03-2023 08:30-0400 Body weight 122.02 kg Stefania Dhruv Other [employer] Other 09-03-2023 08:30-0400 Diastolic blood pressure 78 mm[Hg] Stefania Dhruv Other [facility] Other 09-03-2023 08:30-0400 SaO2% (BldA) [Mass fraction] 98 % Stefania Dhruv Other [employer] Other 09-03-2023 08:30-0400 Systolic blood pressure 140 mm[Hg] Stefania Dhruv Other [employer] Other 04-23-2023 15:20-0400 Body height 167.64 cm Cornelio Ku Work Phone: [facility] Work Phone: 04-23-2023 15:20-0400 Body mass index (BMI) [Ratio] 42.5 kg/m2 Cornelio Ku Work Phone: [facility]jl[facility] Work Phone: 04-23-2023 15:20-0400 Body surface area Derived from formula 2.25 m2 Cornelio Ku Work Phone: IZ[facility]pcvie[facility] Work Phone: 04-23-2023 15:20-0400 Body temperature 97.6 [degF] Cornelio Ku Work Phone: HP[facility]rcw[facility]ifmsdby[facility] Work Phone: 04-23-2023 15:20-0400 Body weight 119.43 kg Cornelio Ku Work Phone: LG[facility]yrhlwuudywjzf[facility] Work Phone: 01-15-2023 09:47-0500 Body height 167.64 cm Cornelio Ku Work Phone: LB[facility]iivgmdenyldjg-Tg[facility] Work Phone: 01-15-2023 09:47-0500 Body mass index (BMI) [Ratio] 41.97 kg/m2 Cornelio Ku Work Phone: AZ[facility]chdyhsekljir[facility] Work Phone: 01-15-2023 09:47-0500 Body surface area Derived from formula 2.24 m2 Cornelio Ku Work Phone: YE[facility]hpfqhkthaeean[facility] Work Phone: 01-15-2023 09:47-0500 Body temperature 98.7 [degF] Cornelio Ku Work Phone: MV-Fazteqdmjplpfl-Ct[facility] 4[facility] Work Phone: 01-15-2023 09:47-0500 Body weight 117.94 kg Cornelio Ku Work Phone: UQ-Tyygcnkagpunrb-Sc[facility] 4[facility] Work Phone: 10-30-2022 15:14-0500 Body height 167.64 cm Cornelio Ku Work Phone: DC-Ttcmevdjo-Afrnwfq 4200 Work Phone: 10-30-2022 15:14-0500 Body mass index (BMI) [Ratio] 41.8 kg/m2 Cornelio Ku Work Phone: CX-Fopidwevb-Zzcrbhd 4200 Work Phone: 10-30-2022 15:14-0500 Body surface area Derived from formula 2.23 m2 Cornelio Ku Work Phone: NK-Rklexrnez-Mxzsvpg 4200 Work Phone: 10-30-2022 15:14-0500 Body weight 117.48 kg Cornelio Ku Work Phone: AG-Hwhgehejb-Bopyfoz 4200 Work Phone: 09-28-2021 15:30-0400 Body height 165.1 cm Johnny Olexa Other [employer] Other 09-28-2021 15:30-0400 Body mass index (BMI) [Ratio] 43.49 kg/m2 Johnny Olexa Other [facility] Other 09-28-2021 15:30-0400 Body weight 118.57 kg Johnny Olexa Other [employer] Other Encounters Encounter Date Encounter Type Care Provider Facility Start: 09-01-2025 End: 09-01-2025 ambulatory CORNELIO KU [facility] Start: 08-26-2025 End: 08-26-2025 Office outpatient new 30 minutes [facility] 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 Phone: [facility] Comment on above: Upper abdominal pain (Primary Dx); Heartburn Start: 08-26-2025 End: 08-26-2025 ambulatory formerly [facility] Start: 08-16-2025 ambulatory Chucky Aguilera lity:Brittany YAO Start: 08-09-2025 End: 08-09-2025 Orders Only Mateo IRENE Work Phone: [facility] 230 Comment on above: Gastroesophageal ref lux disease without esophagitis (Primary Dx); Dysphagia, unspecified type Start: 08-05-2025 ambulatory Chucky Cornejosalas Facilit y:Brittany DH Start: 08-04-2025 End: 08-04-2025 Bamboo flowsheet Mateo Ibarra PA Work Phone: [facility] Start: 08-04-2025 End: 08-04-2025 Bamboo flowsheet Mateo Ibarra PA Work Phone: [facility] Start: 08-04-2025 End: 08-04-2025 Office outpatient visit 25 minutes Mateo IRENE Work Phone: [facility] 230 Comment on above: Right elbow pain (Pr imary Dx); Lateral epicondylitis of right elbow; Left upper quadrant abdominal pain Start: 08-04-2025 End: 08-04-2025 Orders Only Mateo IRENE Work Phone: [facility] 230 Comment on above: Gastroesophageal ref lux disease without esophagitis (Primary Dx); Left upper quadrant abdominal pain; Difficulty swallowing solids Start: 07-19-2025 End: 07-19-2025 Telephone encounter Cornelio Ku DO Work Phone: [facility] [address] Start: 07-15-2025 End: 07-15-2025 Office outpatient visit 25 minutes Cornelio Ku DO Work Phone: [facility] 230 Comment on above: Spasm of thoracic ba ck muscle (Primary Dx) Start: 07-15-2025 End: 07-15-2025 ambulatory CORNELIO KU Not Available Start: 07-15-2025 End: 07-15-2025 Bamboo flowsheet Cornelio Ku DO Work Phone: [facility] [address] Start: 07-15-2025 End: 07-15-2025 Bamboo flowsheet Cornelio Ku DO Work Phone: [facility] [address] Start: 06-28-2025 End: 06-28-2025 Bamboo flowsheet Cornelio Ku DO Work Phone: [facility] Start: 06-28-2025 End: 06-28-2025 Bamboo flowsheet Cornelio Ku DO Work Phone: [facility] Start: 06-28-2025 End: 06-28-2025 Patient encounter status Cornelio Ku DO Work Phone: [facility] Work Phone: Start: 06-28-2025 End: 06-28-2025 Periodic preventive med est patient 40-64yrs Cornelio Ku DO Work Phone: [facility] 230 Comment on above: Routine medical exam (Primary Dx); Pre-diabetes; Obesity, morbid, BMI 40.0-49.9 ([facility]); Primary hypertension Start: 06-28-2025 End: 06-28-2025 ambulatory CORNELIO KU Not Available Start: 05-10-2025 End: 05-10-2025 Patient encounter status Richie Ku DO Work Phone: [facility] Start: 05-10-2025 End: 05-10-2025 Periodic preventive med est patient 40-64yrs Richie Elan Ku DO Work Phone: [facility] Comment on above: Encounter for gyneco logical examination without abnormal finding; Encounter for Papanicolaou smear of vagina; Breast cancer screening by mammogram Start: 05-10-2025 End: 05-10-2025 ambulatory RICHIE KU Not Available Start: 03-26-2025 End: 03-26-2025 Office outpatient visit 25 minutes Cornelio Ku DO Work Phone: [facility] 230 Comment on above: Primary osteoarthrit is of both knees (Primary Dx); Obesity, morbid, BMI 40.0-49.9 ([facility]); Pre-diabetes Start: 03-26-2025 End: 03-26-2025 ambulatory CORNELIO KU Not Available Start: 03-26-2025 End: 03-26-2025 Bamboo flowsheet Cornelio Ku DO Work Phone: [facility] 230 Start: 03-26-2025 End: 03-26-2025 Bamboo flowsheet Cornelio Ku DO Work Phone: [facility] 230 Start: 03-15-2025 End: 03-15-2025 Clinisync Result Encounter Generic External Data Provider [facility] External Department Unsolicited Start: 03-15-2025 End: 03-15-2025 Clinisync Result Encounter Generic External Data Provider [facility] External Department Unsolicited Start: 02-03-2025 End: 02-03-2025 Office outpatient visit 25 minutes [facility] Comment on above: History of neck surg bishop (Primary Dx); Chronic left shoulder pain; Muscle spasm; Screening for deficiency anemia; Screening for diabetes mellitus (DM); Screening for cardiovascular condition; Dysfunction of both eustachian tubes Start: 02-03-2025 End: 02-03-2025 ambulatory MATEO IBARRA Not Available Start: 01-08-2025 End: 01-08-2025 ambulatory RICHIE KU Not Available Start: 12-07-2024 End: 12-07-2024 ambulatory [facility] Start: 11-09-2024 End: 11-09-2024 Bamboo flowsheet Mateo Ibarra PA [facility] Start: 11-09-2024 End: 11-09-2024 Bamboo flowsheet Mateo Ibarra PA [facility] Start: 11-09-2024 End: 11-09-2024 Office outpatient visit 15 minutes Mateo Ibarra PA Work Phone: [facility] 230 Comment on above: Viral upper respirat ory infection (Primary Dx); Sore throat; Cough, unspecified type Start: 11-09-2024 End: 11-09-2024 ambulatory MATEO IBARRA Not Available Start: 10-20-2024 End: 10-20-2024 ambulatory HORACIO SWEET Not Available Start: 10-20-2024 End: 10-20-2024 Office outpatient visit 15 minutes Horacio Sweet DPM Work Phone: [facility] Comment on above: Valgus deformity, no t elsewhere classified, right ankle (Primary Dx); Posterior tibial tendinitis of right lower extremity Start: 10-20-2024 End: 10-20-2024 Bamboo flowsheet Horacio Sweet DPM Work Phone: [facility] Start: 10-20-2024 End: 10-20-2024 Bamboo flowsheet Horacio Sweet DPM Work Phone: [facility] Start: 10-05-2024 End: 10-05-2024 Orders Only Mateo Ibarra PA Work Phone: [facility] 230 Comment on above: Gastroesophageal ref lux disease without esophagitis Start: 10-01-2024 End: 10-01-2024 ambulatory Tiffani Kelbley [employer] [facility] Comment on above: Chronic pain of righ t ankle (Primary Dx); History of fracture of right ankle Start: 09-29-2024 End: 09-29-2024 ambulatory Tiffani Kelbley [employer] [facility] Comment on above: Chronic pain of righ t ankle (Primary Dx); History of fracture of right ankle Start: 09-29-2024 End: 09-29-2024 Bamboo flowsheet Tiffani Kelbley [employer] [employer] [facility] Start: 09-29-2024 End: 09-29-2024 Bamboo flowsheet Tiffani Kelbley [employer] [employer] [facility] Start: 09-24-2024 End: 09-24-2024 ambulatory Tiffani Kelbley [employer] [facility] Comment on above: Chronic pain of righ t ankle (Primary Dx); History of fracture of right ankle Start: 09-24-2024 End: 09-24-2024 Bamboo flowsheet Tiffani Kelbley [employer] [employer] Start: 09-24-2024 End: 09-24-2024 Bamboo flowsheet Tiffani Kelbley [employer] [employer] Start: 09-21-2024 End: 09-21-2024 Bamboo flowsheet Lala Brink [employer] [employer] Start: 09-21-2024 End: 09-21-2024 Bamboo flowsheet Lala Brink [employer] [employer] Start: 09-21-2024 End: 09-21-2024 ambulatory Lala Brink [employer] [facility] Comment on above: Chronic pain of righ t ankle (Primary Dx); History of fracture of right ankle Start: 09-18-2024 End: 09-18-2024 Office outpatient new 45 minutes Horacio Sweet DPM Work Phone: [facility] Comment on above: Posterior tibial ten dinitis of right lower extremity (Primary Dx); Chronic pain of right ankle; Valgus deformity, not elsewhere classified, right ankle; Instability of right ankle joint; Difficulty walking Start: 09-18-2024 End: 09-18-2024 ambulatory HORACIO Luis KONG Not Available Start: 09-17-2024 End: 09-17-2024 Bamboo flowsheet Horacio Sweet DPM Work Phone: [facility] Start: 09-17-2024 End: 09-17-2024 Bamboo flowsheet Horacio Sweet DPM Work Phone: [facility] Start: 09-17-2024 End: 09-17-2024 ambulatory Tiffani Chandra [employer] [facility] Comment on above: Chronic pain of righ t ankle (Primary Dx); History of fracture of right ankle Start: 09-14-2024 End: 09-14-2024 Bamboo flowsheet Luh Almonte PT Work Phone: [facility] Start: 09-14-2024 End: 09-14-2024 Bamboo flowsheet Luh Almonte PT Work Phone: [facility] Start: 09-14-2024 End: 09-14-2024 ambulatory Luh Almonte PT Work Phone: [facility] Comment on above: Chronic pain of righ t ankle (Primary Dx); History of fracture of right ankle Start: 09-07-2024 End: 09-07-2024 Bamboo flowsheet Lala Galindo [employer] [employer] Start: 09-07-2024 End: 09-07-2024 Bamboo flowsheet Lala Galindo [employer] [employer] Start: 09-07-2024 End: 09-07-2024 ambulatory Lala Galindo [employer] [facility] Comment on above: Chronic pain of righ t ankle (Primary Dx); History of fracture of right ankle Start: 09-03-2024 End: 09-03-2024 ambulatory Tiffani Chandra [employer] [facility] Comment on above: Chronic pain of righ t ankle (Primary Dx); History of fracture of right ankle Start: 09-03-2024 End: 09-03-2024 Bamboo flowsheet Tiffani Mcallisterbley [employer] [facility] Start: 09-03-2024 End: 09-03-2024 Bamboo flowsheet Tiffani Mcallisterbley [employer] [employer] Start: 09-01-2024 End: 09-01-2024 ambulatory Tiffani Amayay [employer] [facility] [facility] Comment on above: Chronic pain of righ t ankle (Primary Dx); History of fracture of right ankle Start: 09-01-2024 End: 09-01-2024 Bamboo flowsheet Tiffani Amayay [employer] [employer] Start: 09-01-2024 End: 09-01-2024 Bamboo flowsheet Tiffani Mcallisterbley [employer] [facility] [employer] [facility] Start: 08-27-2024 End: 08-27-2024 ambulatory Luh Almonte PT Work Phone: [facility] Comment on above: Chronic pain of righ t ankle (Primary Dx); History of fracture of right ankle Start: 08-27-2024 End: 08-27-2024 Bamboo flowsheet Luh Almonte PT Work Phone: [facility] Start: 08-27-2024 End: 08-27-2024 Bamboo flowsheet Luh Almonte PT Work Phone: [facility] Start: 08-25-2024 End: 08-25-2024 Bamboo flowsheet Mateo Ibarra PA Work Phone: [facility] Start: 08-25-2024 End: 08-25-2024 Bamboo flowsheet Mateo Ibarra PA Work Phone: [facility] Start: 08-25-2024 End: 08-25-2024 Orders Only Mateo Ibarra PA Work Phone: [facility] Comment on above: Chronic pain of righ t ankle (Primary Dx) Start: 08-25-2024 End: 08-25-2024 Office outpatient visit 15 minutes Mateo IRENE Work Phone: [facility] Comment on above: Chronic pain of righ t ankle (Primary Dx); Mucositis; Gastroesophageal reflux disease without esophagitis; Tongue pain Start: 08-24-2024 End: 08-24-2024 Bamboo flowsheet Lala Brink [employer] [employer] [facility] Start: 08-24-2024 End: 08-24-2024 Bamboo flowsheet Lala Brink [employer] [facility] [employer] Start: 08-24-2024 End: 08-24-2024 ambulatory Lala Brink [employer] [facility] Comment on above: Chronic pain of righ t ankle (Primary Dx); History of fracture of right ankle Start: 08-19-2024 End: 08-19-2024 Bamboo flowsheet Luh Jimenezton PT Work Phone: [facility] Start: 08-19-2024 End: 08-19-2024 Bamboo flowsheet Luh T Blackston PT Work Phone: [facility] Start: 08-19-2024 End: 08-19-2024 ambulatory Luh Alise Barbaraton PT Work Phone: [facility] Comment on above: Chronic pain of righ t ankle (Primary Dx); History of fracture of right ankle Start: 08-13-2024 End: 08-13-2024 Postop follow up visit related to original px Cornelio Ivy DO Work Phone: [facility] Comment on above: Irritable bowel synd laurie with diarrhea (Primary Dx) Start: 08-13-2024 End: 08-13-2024 ambulatory CORNELIO IVY Not Available Start: 07-29-2024 End: 07-29-2024 Bamboo flowsheet Mateo Ibarra PA Work Phone: [facility] Start: 07-29-2024 End: 07-29-2024 Bamboo flowsheet Mateo IRENE Work Phone: [facility] Start: 07-29-2024 End: 07-29-2024 Office outpatient visit 15 minutes Mateo IRENE Work Phone: [facility] 230 Comment on above: Chronic pain of righ t ankle (Primary Dx); History of fracture of right ankle Start: 07-23-2024 End: 07-23-2024 ambulatory DO Cornelio Ku Work Phone: [facility] Work Phone: Start: 07-23-2024 End: 07-23-2024 Departed Referred DO Cornelio Ku Work Phone: 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 (Primary Dx); Cochlear implant in place Start: 02-19-2024 End: 02-19-2024 Postop follow up visit related to original px Deidra Enciso MD Work Phone: [facility] [place] Comment on above: Cervical disc disord er with radiculopathy (Primary Dx) Start: 02-19-2024 End: 02-19-2024 ambulatory DEIDRA Del Angel [facility] Start: 01-29-2024 End: 01-29-2024 ambulatory CORNELIO SEGOVIA [facility] Start: 01-16-2024 End: 01-16-2024 Subsequent hospital visit by physician Chioma [id number] Neurodg Ip Schedule [facility] [place] Start: 01-16-2024 End: 01-16-2024 ambulatory DEIDRA ENCISO [facility] Start: 01-16-2024 End: 01-17-2024 ambulatory DEIDRA Del Angel [facility] Start: 01-16-2024 End: 01-17-2024 Evaluation and management of inpatient Deidra Enciso MD Work Phone: [facility] Florian Saenz Comment on above: Cervical radiculopat hy (Primary Dx); Cervical disc disorder with radiculopathy Start: 12-30-2023 Clinisync Result Encounter Gen edu External Data Provider [facility] External Department Unsolicited Start: 12-30-2023 Clinisync Result Encounter Gen edu External Data Provider [facility] External Department Unsolicited Start: 12-30-2023 End: 12-30-2023 ambulatory DEIDRA Del Angel [facility] Start: 12-30-2023 End: 12-30-2023 Encounter for other preprocedural examination DEIDRA Del Angel [facility] Start: 12-19-2023 End: 12-19-2023 Patient encounter procedure DO Cornelio Ku Work Phone: [facility] Work Phone: Start: 12-19-2023 End: 12-19-2023 ambulatory DO Cornelio Ku Work Phone: [facility] Work Phone: Start: 12-10-2023 End: 12-11-2023 ambulatory DEIDRA Del Angel [facility] Start: 12-07-2023 End: 12-08-2023 Emergency department patient visit Lenora Lagos MD Work Phone: [facility] Comment on above: Left arm pain (Prima ry Dx) Start: 10-23-2023 End: 10-23-2023 Subsequent hospital visit by physician [facility] Comment on above: Radiculopathy, cervi gabriela region Start: 10-14-2023 End: 10-14-2023 ambulatory CORNELIO KU Not Available Start: 09-18-2023 End: 09-18-2023 Patient encounter procedure DO Cornelio Ku Work Phone: [facility] Work Phone: Start: 09-18-2023 End: 09-18-2023 ambulatory DO Cornelio Ku Work Phone: [facility] Work Phone: Start: 09-03-2023 Office outpatient ne w 45 minutes Stefania Bartlett [facility] Start: 09-03-2023 End: 09-03-2023 Patient encounter procedure DO Cornelio Ku Work Phone: [facility] Work Phone: Start: 09-03-2023 End: 09-03-2023 ambulatory DO Cornelio Ku Work Phone: [facility] Other Start: 08-08-2023 End: 08-08-2023 Emergency department patient visit PARMA Elan [facility] Start: 07-17-[address] Cornelio Ku Facility:[id number] Start: 07-17-2023 Patient encounter procedure [facility] [place] Work Phone: Start: [address] Katarzyna Hopson Facility:[id number] Start: 2023 Patient encounter procedure Cornelio Ku Work Phone: [facility] [place] Work Phone: Start: 06-12-2023 Patient encounter procedure [facility]elio Ku [facility] [address] [place] Work Phone: Start: 06-12-[address] Katarzyna Hopson Facility:[id number] Start: 06-03-2023 Patient encounter procedure Cornelio Ku Work Phone: OB-Lkgjhownt-Dthyzxm 4200 Work Phone: Start: 06-03-2023 ambulatory Ms. Judd BrandtCrystalariadne Facility:[id number] Start: 05-29-[address] Katarzyna Hopson Facility:[id number] Start: 04-30-[address] Katarzyna Hopson Facility:[id number] Start: 04-30-2023 Patient encounter procedure Cornelio Ku Work Phone: [facility] Work Phone: Start: 04-23-2023 Office outpatient vi sit 15 minutes Cornelio Ku Work Phone: [facility] Work Phone: Start: 04-23-2023 Patient encounter procedure Cornelio Ku Work Phone: [facility] Work Phone: Start: 04-23-[address] Katarzyna Hopson Facility:[id number] Start: 03-26-2023 FQ visit new patient Cornelio Ku Work Phone: [facility] Work Phone: Start: 03-26-[address] Katarzyna Hopson Facility:[id number] Start: 03-06-2023 Follow-up encounter Cornelio romero Work Phone: IG-Oljiddsqx-Owewoyp 4200 Work Phone: Start: 03-06-2023 ambulatory Ms. Judd GreenealexajermaineRodneyJenycatherineariadne Facility:[id number] Start: 02-06-2023 Follow-up encounter Cornelio romero Work Phone: NE-Mednmgicp-Povthgg 4200 Work Phone: Start: 02-06-2023 ambulatory Ms. Judd BrandtRodneyEdin Facility:[id number] Start: 01-15-2023 Postop follow up vis it related to original px Cornelio Ku Work Phone: IB[facility]onawykgxyjjpt[facility] Work Phone: Start: 01-15-[address] Katarzyna Hopson Facility:[id number] Start: 01-02-2023 End: 01-02-[address] Katarzyna Hopson Facility:[facility] Start: 12-28-2022 End: 12-28-2022 ambulatory DO Cornelio Ku Work Phone: [facility] Work Phone: Start: 12-28-2022 End: 12-28-2022 Patient encounter procedure DO Cornelio Ku Work Phone: [facility]ro[facility] Work Phone: Start: 12-10-2022 AUDIT Cornelio Ku Work Phone: UJ-Ifhwtuepqzkniy-Qecq ell 3300A Work Phone: Start: 10-30-[address] Katarzyna Hopson Facility:[id number] Start: 10-30-2022 [facility] visit new patient Cornelio Ku Work Phone: MG-Tnrozkylp-Ywkwffz 4200 Work Phone: Start: 10-30-2022 ambulatory Ms. Judd BrandtChristinadharmesh Facility:[id number] Start: 08-30-2022 End: 08-30-2022 ambulatory DO Cornelio Ku Work Phone: [facility] Work Phone: Start: 08-30-2022 End: 08-30-2022 Patient encounter procedure DO Cornelio Ku Work Phone: [facility] [place] Start: 10-31-2021 End: 10-31-[address] DOCTOR SOLARES Facility:H1 Start: 09-28-2021 End: 09-29-2021 ambulatory JOHNNY CAMILO Facility:H1 Start: 09-28-2021 Office outpatient ne w 45 minutes Johnny Camilo [facility] [place] [facility] Evaluation finding Cornelio Ku Work Phone: JW-Ucgepvxzecbthh-Sije ell 3300A Work Phone: Procedures Date Procedure Procedure Detail Performing Clinician Start: 03-15-2025 ALL CBC WITH AUTO DIFF Generic External Data Provider Start: 01-08-2025 Mammography Mateo IRENE Work Phone: Start: 11-09-2024 STATUS COVID-19/FLU Mateo IRENE Work Phone: Start: 11-09-2024 Iaadiadoo streptococcus group a Mateo IRENE Work Phone: Start: 09-18-2024 Radiologic examination ankle 2 views Horacio Sweet DPM Work Phone: Start: 07-23-2024 Colonoscopy Richie Ku DO Work Phone: Start: 01-17-2024 INITIATE EXTENDED RECOVERY DEIDRA ENCSIO Start: 01-17-2024 DISCHARGE PATIENT DEIDRA ECNISO Start: 01-17-2024 ACTIVITY DEIDRA ENCISO Start: 01-17-2024 ADULT DISCHARGE DIET DEIDRA ENCISO Start: 01-17-2024 DISCHARGE ACTIVITY DEIDRA ENCISO Start: 01-17-2024 DISCHARGE INSTRUCTIONS DEIDRA ENCISO Start: 01-17-2024 NOTIFY PROVIDER (DO NOT PROMPT FOR PARAMETERS) DEIDRA ENCISO Start: 01-17-2024 Basic metabolic 2000 panel - Serum or Plasma DEIDRA ENCISO Start: 01-17-2024 CBC panel - Blood by Automated count DEIDRA ENCISO Start: 01-17-2024 Basic metabolic panel calcium total Arnaldo Munroe MD Work Phone: Start: 01-16-2024 FULL CODE DEIDRA ENCISO Start: 01-16-2024 CT CERVICAL SPINE WO IV CONTRAST DEIDRA ENCISO Start: 01-16-2024 ADMIT TO INPATIENT DEIDRA ENCISO Start: 01-16-2024 Ct cervical spine w/o contrast material Arnaldo Munroe MD Work Phone: Start: 01-16-2024 PULSE OXIMETRY, CONTINUOUS DEIDRA ENCISO Start: 01-16-2024 FL FLUORO IMAGES NO CHARGE DEIDRA ENCISO Start: 01-16-2024 IOM DEIDRA ENCISO Start: 01-16-2024 PULSE OXIMETRY, CONTINUOUS Gregorylinnjeannette Ansari Work Phone: Start: 01-16-2024 XR tomography Unspecified body region Arnaldo Munroe MD Work Phone: Start: 01-16-2024 End: 01-16-2024 Robertson facetectomy & foramotomy 1 segment cervical Deidra Enciso MD Work Phone: Start: 12-30-2023 Basic metabolic 2000 panel - Serum or Plasma DEIDRA ENCISO Start: 12-30-2023 CBC panel - Blood by Automated count DEIDRA ENCISO Start: 12-30-2023 COAGULATION SCREEN DEIDRA ENCISO Start: 12-30-2023 EXTRA URINE CHING TUBE DEIDRA ENCISO Start: 12-30-2023 Hemoglobin A1c/Hemoglobin.total in Blood DEIDRA ENCISO Start: 12-30-2023 STAPHYLOCOCCUS AUREUS/MRSA COLONIZATION, CULTURE DEIDRA ENCISO Start: 12-30-2023 TYPE AND SCREEN DEIDRA ENCISO Start: 12-30-2023 URINALYSIS WITH REFLEX CULTURE AND MICROSCOPIC DEIDRA ENCISO Start: 12-30-2023 REQUEST FOR PRE-ADMISSION TESTING VISIT DEIDRA ENCISO Start: 12-30-2023 ALL CBC WITH AUTO DIFF Generic External Data Provider Start: 12-19-2023 End: 12-19-2023 Screening mammography of bilateral breasts DO Cornelio uK Work Phone: Start: 12-10-2023 CASE REQUEST OPERATING ROOM DEIDRA ENCISO Start: 12-07-2023 Radex spine cervical 4 or 5 views Aydee Bernstein MD Work Phone: Start: 10-23-2023 Mri spinal canal cervical w/o contrast trina Muller DO Work Phone: Start: 09-14-2022 Mammography [facility] 3 H/O: surgery History of neck surgery Mateo IRENE Work Phone: Respiratory Panel (PCR) DO Orion Ku Work Phone: Plan of Treatment Date Care Activity Detail Author Start: 07-23-2034 Screening for malignant neoplasm of colon [facility] Start: 08-26-2026 Adult BMI Screening Adult BMI Screening [facility] Start: 08-26-2026 Tobacco Screening Tobacco Screening [facility] Start: 05-16-2026 End: 05-16-2026 Patient encounter procedure [facility] Start: 01-09-2026 End: 07-10-2026 DBT Breast - bilateral screening Bilateral screening mammogram with tomosynthesis Imaging Routine Breast cancer screening by mammogram Expected: 01/09/2026, Expires: 07/10/2026 [facility] Comment on above: Expected: 01/09/2026, Expires: Start: 01-08-2026 Screening for malignant neoplasm of breast Mammogram [facility] Start: 12-04-2025 DTaP,Tdap and Td Vaccines (2 - Td or Tdap) DTaP,Tdap and Td Vaccines (2 - Td or Tdap) [facility] Start: 12-04-2025 DTaP/Tdap/Td Vaccines (2 - Td or Tdap) DTaP/Tdap/Td Vaccines (2 - Td or Tdap) [facility] Start: 10-08-2025 End: 10-08-2025 Patient encounter procedure 10/08/2025 2:20 PM EST Off ice Visit [facility] [address] [place] [address] Cornelio Ku, [address] [place] [address] [facility] Start: 10-05-2025 End: 10-05-2025 Patient encounter procedure 10/05/2025 8:40 AM EST Off ice Visit [facility] [address] [place] [address] Cornelio Ku, [address] [place] [address] [facility] Start: 09-27-2025 End: 06-28-2026 Comprehensive metabolic 2000 panel - Serum or Plasma Comprehensive metabolic panel Lab Routine Routine medical exam Primary hypertension Expected: 09/27/2025 (Approximate), Expires: 06/28/2026 [facility] Comment on above: Expected: 09/27/2025 (Approximate), Expi res: 06/28/2026 Start: 09-27-2025 End: 06-28-2026 Hemoglobin a1c with eag Hemoglobin a1c with eag Lab Routine Pre-diabetes Expected: 09/27/2025 (Approximate), Expires: 06/28/2026 [facility] Comment on above: Expected: 09/27/2025 (Approximate), Expi res: 06/28/2026 Start: 09-27-2025 End: 06-28-2026 HEMOGRAM CBC WITHOUT DIFF ([facility]) HEMOGRAM CBC WITHOUT DIFF ([facility]) Lab Routine Routine medical exam Primary hypertension Expected: 09/27/2025 (Approximate), Expires: 06/28/2026 [facility] Work Phone: Comment on above: Expected: 09/27/2025 (Approximate), Expi res: 06/28/2026 Start: 09-27-2025 End: 06-28-2026 Lipid 1996 panel - Serum or Plasma Lipid panel Lab Routine Routine medical exam Primary hypertension Expected: 09/27/2025 (Approximate), Expires: 06/28/2026 [facility] Comment on above: Expected: 09/27/2025 (Approximate), Expi res: 06/28/2026 Start: 09-27-2025 End: 06-28-2026 Microalbumin/Creatinine panel in random Urine Microalbumin / creatinine, urine ratio Lab Routine Pre-diabetes Expected: 09/27/2025 (Approximate), Expires: 06/28/2026 [facility] Comment on above: Expected: 09/27/2025 (Approximate), Expi res: 06/28/2026 Start: 09-09-2025 End: 09-09-2025 Admission to same day surgery center 09/09/2025 8:30 AM EDT - 09/09/2025 9:00 AM EDT Surgery [facility] - Surgery [address] [place] [phone] Denilson Green, [address] [place] [id number] ESOPHAGOGASTRODUODENOSCOPY DIAGNOSTIC [90722 (CPT )] [facility] Comment on above: ESOPHAGOGASTRODUODENOSCOPY DIAGNOSTIC [4 3235 (CPT )] Start: 09-09-2025 End: 09-09-2025 Esophagogastroduodenoscopy transoral diagnostic ESOPHAGOGASTRODUODENOSCOPY DIAGNOSTIC upper abdominal pain 09/09/2025 8:30 AM EDT [facility] Start: 09-09-2025 Subsequent hospital visit by physician 09/09/2025 8:30 AM EDT Hospital Encounter [facility] [address] [place] [phone] Denilson Green DO [address] [place] [id number] [facility] Start: 09-02-2025 End: 09-02-2025 ambulatory 09/02/2025 2:30 PM EDT Suppo rt Visit [facility] Admit [address] [place] [phone] [facility] Pre Admit Start: 08-04-2025 End: 08-04-2025 Patient encounter procedure 08/04/2025 9:00 AM EDT Off [facility] Visit [facility] [address] [place] [address] Mateo Ibarra PA [address] [place] [address] Arrived [facility] 230 Comment on above: Arrived Start: 07-26-2025 COVID-19 Vaccine ( season) COVID-19 Vaccine ( season) [facility] Start: 07-26-2025 Influenza vaccination [facility] Start: 07-15-2025 End: 07-15-2025 Patient encounter procedure 07/15/2025 2:40 PM EDT Off ice Visit [facility] [place] [facility] [address] [place] [phone] Cornelio Ku, DO [address] [place] [address] Arrived [facility] [place] [facility] 230 Comment on above: Arrived Start: 06-28-2025 End: 06-28-2025 Patient encounter procedure [facility] 230 Comment on above: Arrived Start: 05-10-2025 End: 05-10-2025 Patient encounter procedure 05/10/2025 10:00 AM EDT Of fice Visit [facility] [address] [place] [phone] Richie Ku, DO [address] [place] [address] [facility] Start: 03-26-2025 End: 03-26-2025 Patient encounter procedure 03/26/2025 2:20 PM EDT Off ice Visit [facility] [address] [place] [phone] Cornelio Ku, DO [address] [place] [address] Arrived [facility] 230 Comment on above: Arrived Start: 02-03-2025 End: 02-03-2026 CBC W Auto Differential panel - Blood CBC and differential Lab Routine Screening for deficiency anemia Expected: 02/03/2025 (Approximate), Expires: 02/03/2026 [facility] Work Phone: Comment on above: Expected: 02/03/2025 (Approximate), Expi res: 02/03/2026 Start: 02-03-2025 End: 02-03-2026 Comprehensive metabolic 2000 panel - Serum or Plasma Comprehensive metabolic panel Lab Routine Screening for diabetes mellitus (DM) Expected: 02/03/2025 (Approximate), Expires: 02/03/2026 [facility] Comment on above: Expected: 02/03/2025 (Approximate), Expi res: 02/03/2026 Start: 02-03-2025 End: 02-03-2026 Lipid 1996 panel - Serum or Plasma Lipid panel Lab Routine Screening for cardiovascular condition Expected: 02/03/2025 (Approximate), Expires: 02/03/2026 [facility] Comment on above: Expected: 02/03/2025 (Approximate), Expi res: 02/03/2026 Start: 02-03-2025 End: 02-03-2026 XR Shoulder - left 2 Views [facility] Comment on above: Expected: 02/03/2025, Expires: Start: 01-08-2025 End: 01-08-2025 Professional / ancillary services management 01/08/2025 3:00 PM EST Ancillary Procedure [facility] [place] [address] [place] [phone] [facility] [place] Start: 12-30-2024 Diabetes mellitus screening Diabetes Screening [facility] Start: 12-19-2024 Screening for malignant neoplasm of breast Mammogram [facility] Start: 12-07-2024 End: 12-07-2024 Clinical Support 12/07/2024 10:30 AM EST Clinical Support [facility] [address] [facility] [address] [place] [address] Judd Spears, AUD, CCC-A [address] [facility] [place] [address] [facility] Start: 11-09-2024 End: 11-09-2024 Patient encounter procedure 11/09/2024 8:40 AM EST Off ice Visit [facility] [address] [place] [phone] Mateo Ibarra PA [address] [place] [address] Arrived [facility] 230 Comment on above: Arrived Start: 10-19-2024 End: 10-19-2024 Patient encounter procedure 10/19/2024 9:45 AM EST Off ice Visit [facility] [address] [place] [phone] Horacio Sweet, DPM [address] [place] [address] [facility] Start: 10-01-2024 End: 10-01-2024 ambulatory 10/01/2024 3:00 PM EST Treatment [facility] [address] [place] [address] Tiffani Chandra, [employer] [facility] Start: 09-29-2024 End: 09-29-2024 ambulatory 09/29/2024 3:00 PM EST Treatment [facility] [address] [place] [address] Tiffani Chandra, [employer] [facility] Start: 09-24-2024 End: 09-24-2024 ambulatory 09/24/2024 3:00 PM EDT Treatment [facility] [address] [place] [address] Tiffani Chandra, [employer] [facility] [facility] Start: 09-21-2024 End: 09-21-2024 ambulatory 09/21/2024 8:00 AM EDT Treatment [facility] [address] [facility] [address] [place] [address] Lala Galindo, [employer] [facility] [facility] Start: 09-18-2024 End: 09-18-2024 Patient encounter procedure 09/18/2024 8:45 AM EDT Off ice Visit [facility] [address] [place] [phone] Horacio Sweet, MARLOM [address] [place] [address] [facility] Start: 09-17-2024 End: 09-17-2024 ambulatory 09/17/2024 11:30 AM EDT Treatment [facility] [address] [place] [address] Tiffani Chandra, [employer] [facility] [facility] Start: 09-14-2024 End: 09-14-2024 ambulatory 09/14/2024 1:00 PM EDT Treatment [facility] [address] [place] [address] Luh Almonte, PT [address] [place] [address] [facility] Start: 09-07-2024 End: 09-07-2024 ambulatory 09/07/2024 9:30 AM EDT Treatment [facility] [address] [place] [address] Lala Galindo, [employer] [facility] [facility] Start: 09-03-2024 End: 09-03-2024 ambulatory [facility] Comment on above: Chronic pain of right ankle (Primary Dx) ; History of fracture of right ankle Start: 09-01-2024 End: 09-01-2024 ambulatory [facility] Comment on above: Arrived Start: 08-27-2024 End: 08-27-2024 ambulatory [facility] Comment on above: Arrived Start: 08-24-2024 End: 08-24-2024 ambulatory [facility] Comment on above: Arrived Start: 08-19-2024 End: 08-19-2024 ambulatory [facility] Comment on above: Chronic pain of right ankle; History of fracture of right ankle Start: 07-30-2024 End: 07-30-2024 Patient encounter procedure 07/30/2024 4:00 PM EDT Off ice Visit [facility] [address] [facility] [address] [place] [phone] Cornelio Ivy, [address] [facility] [address] [place] [address] [facility] Start: 07-29-2024 End: 09-04-2025 XR Ankle - right 3 Views [facility] Work Phone: Comment on above: Expected: 07/29/2024, Expires: Start: 07-26-2024 Influenza vaccination [facility] Start: 2024 Administration of varicella zoster vaccine Zoster (Shingles) Vaccine (1 of 2) [facility] Start: 2024 Zoster Vaccines (1 of 2) Zoster Vaccines (1 of 2) [facility] Start: 05-04-2024 End: 05-04-2024 Patient encounter procedure 05/04/2024 10:00 AM EDT Of fice Visit [facility] [facility] [address] [place] [address] Richie Ku, DO [address] [place] [address] [facility] Start: 04-21-2024 End: 04-21-2024 Telemedicine consultation with patient [facility] Start: 04-21-2024 REGINA, Provider: Jasmine Schafer, Status: Pen, Time: 8:00 AM REGINA, Provider: Jasmine Schafer, Status: Pen, Time: 8:00 AM MG-Otolaryngol ogy-Chagrin [facility] 4100 Work Phone: Start: 02-17-2024 End: 02-17-2024 Patient encounter procedure 02/17/2024 2:30 PM EDT Off ice Visit [place] [address] [place] [id number] [place] [address] [address] Department [place] [address] [facility] Start: 01-29-2024 End: 01-29-2024 Clinical Support 01/29/2024 10:45 AM EST Clinical Support [facility] [address] [address] [facility] 5th [place] [id number] [facility] Start: 01-06-2024 End: 01-06-2024 Patient encounter procedure 01/06/2024 9:00 AM EST Off ice Visit [facility] [address] [place] [id number] [place] [address] [address] Department [place] [address] [facility] Start: 12-03-2023 CIADVANCED, Provider: Judd Spears, Status: Pen, Time: 10:30 AM CIADVANCED, Provider: Judd Spears, Status: Pen, Time: 10:30 AM WE-Togeousxi-S hagrin 4200 Work Phone: Start: 12-03-2023 End: 12-03-2023 Clinical Support 12/03/2023 10:30 AM EST Clinical Support [facility] [address] [facility] [address] [place] [id number] Judd Spears, CANDI, [facility] 3[address] [facility][1] Audiology Services, [facility] [address] [place] [address] [facility] Start: 09-14-2023 Screening for malignant neoplasm of breast Mammogram [facility] Start: 07-26-2023 COVID-19 Vaccine ( season) COVID-19 Vaccine ( season) [facility] Start: 07-26-2023 Influenza vaccination Influenza Vaccine (#1) [facility] Start: 06-12-2023 REGINA, Provider: Jade Jensen, Status: Pen, Time: 3:45 PM REGINA, Provider: Jade Jensen, Status: Pen, Time: 3:45 PM IU-Xbrkwkgvj-K hagrin 4200 Work Phone: Start: 06-03-2023 CIADVANCED, Provider: Judd Spears, Status: Pen, Time: 10:30 AM CIADVANCED, Provider: Judd Spears, Status: Pen, Time: 10:30 AM ER-Wtmuavafd-I hagrin 4200 Work Phone: Start: 05-31-2023 VIRFUVHOME, Provider: Jade Jensen, Status: Pen, Time: 8:30 AM VIRFUVHOME, Provider: Jade Jensen, Status: Pen, Time: 8:30 AM [facility]4 Work Phone: Start: 04-30-2023 VIRFUVTATEE, Provider: Jade Jensen, Status: Pen, Time: 4:30 PM VIRFUVHOME, Provider: Jade Jensen, Status: Pen, Time: 4:30 PM [facility] Work Phone: Start: 04-23-2023 FUV, Provider: Katarzyna Hopson, Status: Pen, Time: 3:15 PM FUV, Provider: Katarzyna Hopson, Status: Pen, Time: 3:15 PM CL-Pvgfcqsyh-K hagrin 4200 Work Phone: Start: 04-16-2023 FUV, Provider: Katarzyna Hopson, Status: Pen, Time: 8:15 AM FUV, Provider: Katarzyna Hopson, Status: Pen, Time: 8:15 AM MG-Otolaryngol [facility] 4100 Work Phone: Start: 03-26-2023 CIEVAL, Provider: Jade Jensen, Status: Pen, Time: 1:00 PM CIEVAL, Provider: Jade Jensen, Status: Pen, Time: 1:[address]-Kgrdbsgae-C hagrin 4200 Work Phone: Start: 03-06-2023 CIAMILA, Provider: Judd Spears, Status: Pen, Time: 2:30 PM CIADVANCED, Provider: Judd Spears, Status: Pen, Time: 2:30 PM MG-Otolaryngol ogy-[place] [id number] Work Phone: Start: 02-06-2023 CIADVANCED, Provider: Judd Spears, Status: Pen, Time: 1:00 PM CIADVANCED, Provider: Judd Spears, Status: Pen, Time: 1:00 PM MG-Otolaryngol ogy-[place] 3300A Work Phone: Start: 01-15-2023 CIADVANCED, Provider: Judd Spears, Status: Pen, Time: 10:00 AM CIADVANCED, Provider: Judd Spears, Status: Pen, Time: 10:00 AM MG-Otolaryngol ogy-[place] 3300A Work Phone: Start: 01-15-2023 POV, Provider: Katarzyna Hopson, Status: Pen, Time: 9:45 AM POV, Provider: Katarzyna Hopson, Status: Pen, Time: 9:45 AM MG-Otolaryngol ogy-[place] 3300A Work Phone: Start: 01-02-2023 SURGCMC, Provider: Katarzyna Hopson, Status: Pen, Time: 9:00 AM SURGCMC, Provider: Katarzyna Hopson, Status: Pen, Time: 9:00 AM MG-Otolaryngol ogy-[place] [id number] Work Phone: Start: 11-30-2021 COVID-19 Vaccine (4 - Moderna series) COVID-19 Vaccine (4 - Moderna series) [facility] Start: 1995 Screening for malignant neoplasm of cervix [facility] Start: 1993 Hepatitis B Vaccines (1 of 3 - 19+ 3-dose series) Hepatitis B Vaccines (1 of 3 - 19+ 3-dose series) [facility] Start: 1992 Adult BMI Follow Up Plan Adult BMI Follow Up Plan [facility] Start: 1992 Diabetes mellitus screening Diabetes Screening [facility] Start: 1992 Hepatitis C screening Hepatitis C Screening [facility] Start: 1986 Depression Screening Depression Screening [facility] Start: 1975 MMR Vaccines (1 of 1 - Standard series) MMR Vaccines (1 of 1 - Standard series) [facility] Start: 1974 Hepatitis B Vaccines (1 of 3 - 3-dose series) Hepatitis B Vaccines (1 of 3 - 3-dose series) [facility] Start: 1974 HIV screening HIV Screening [facility] Start: 1974 Lipid panel Lipid Panel [facility] Start: 1974 Screening for malignant neoplasm of colon [facility] Start: 1974 Yearly Adult Physical Yearly Adult Physical [facility] End: 01-19-2024 Basic metabolic 2000 panel - Serum or Plasma Basic metabolic panel Lab Routine Morning draw (Lab) for 3 Occurrences starting 01/17/2024 until 01/19/2024, 1 completed [facility] Work Phone: Comment on above: Morning draw (Lab) for 3 Occurrences sta rting 01/17/2024 until 01/19/2024, 1 completed End: 01-19-2024 CBC panel - Blood by Automated count CBC Lab Routine Morning draw (Lab) for 3 Occurrences starting 01/17/2024 until 01/19/2024, 1 completed [facility] Work Phone: Comment on above: Morning draw (Lab) for 3 Occurrences sta rting 01/17/2024 until 01/19/2024, 1 completed End: 08-26-2026 Esophagogastroduodenoscopy EGD GI Routine Upper abdomi nal pain Heartburn 1 Occurrences starting 08/26/2025 until 08/26/2026 [employer] Work Phone: Comment on above: 1 Occurrences starting 08/26/2025 until 08/26/2026 Glucose [Mass/volume ] in Serum or Plasma POCT Glucose Point of Care Testing - Docked Device Routine As needed (Lab) until discontinued starting 01/16/2024 [facility] Work Phone: Comment on above: As needed (Lab) until discontinued start ing 01/16/2024 IGP,rfxAptima HPV all,16/18,45 I GP,rfxAptima HPV all,16/18,45 Pathology and Cytology Routine Encounter for Papanicolaou smear of vagina Ordered: 05/10/2025 [facility] Work Phone: Comment on above: Ordered: 05/10/2025 End: 01-16-2024 Incentive spirometry Instruct Incentive spirometry Ins truct Respiratory Care Routine Once for 1 Occurrences starting 01/16/2024 until 01/16/2024 [facility] Work Phone: Comment on above: Once for 1 Occurrences starting 01/16/20 24 until 01/16/2024 End: 01-16-2024 Interoperative Monitoring - IOM [facility] Service Area Work Phone: Comment on above: Once for 1 Occurrences starting 01/16/20 24 until 01/16/2024 End: 10-23-2023 MR Cervical spine WO contrast [facility] Servi ce Area Work Phone: Comment on above: Once for 1 Occurrences starting 10/23/20 23 until 10/23/2023 End: 01-16-2024 Pulse oximetry, continuous Pulse oximetry, continuous Respiratory Care Routine Continuous until discontinued starting 01/16/2024 [facility] Service Area Work Phone: Comment on above: Continuous until discontinued starting 0 01/16/2024 Immunizations Immunization Date Immunization Notes Care Provider Fa cility 12-10-2022 influenza, injectabl e, quadrivalent, preservative free [address] Work Phone: 12-10-2022 Pneumococcal conjuga te vaccine, 20-valent (PREVNAR 20) [address] Work Phone: 12-10-2022 influenza virus vaccine, unspecified formulation [address] Work Phone: 10-30-2022 pneumococcal vaccine , unspecified formulation Cornelio Ku Work Phone: OO[facility]Rvlgedwca[facility]Efvm[facility] [address] Work Phone: 03-29-2021 Moderna SARS-CoV-2 Vaccination Mateo IRENE Work Phone: [facility] 03-28-2021 Moderna SARS-CoV-2 Vaccination Generic Provider [facility] 03-01-2021 Moderna SARS-CoV-2 Vaccination Mateo IRENE Work Phone: [facility] 02-28-2021 Moderna SARS-CoV-2 Vaccination Generic Provider [facility] 12-04-2015 influenza, seasonal, injectable, preservative free [address] Work Phone: 12-04-2015 tetanus toxoid, redu caryn diphtheria toxoid, and acellular pertussis vaccine, adsorbed [address] Work Phone: Payers Date Payer Category Payer Self-pay [id number] 2022 Commercial Managed C are - [employer] [id number] 2022 Private Health Insurance [employer] [id number]. [id number] 2022 Unknown 1974 Unknown [id number] 2.16840.1.029325.3.579.2. 593 1974 Unknown [id number] 2.840.1.171129.3.579.2. 593 1974 Unknown [id number] 2.840.1.529669.3.579.2. 356 1974 Unknown [id number] 2.840.1.079697.3.579.2. 356 1974 Unknown [id number] 2.840.1.427780.3.579.2. 356 1974 Unknown [id number] 2.840.1.064031.3.579.2. 356 1974 Unknown [id number] 2.840.1.335302.3.579.2. 356 1974 Unknown [id number] 2.840.1.423864.3.579.2. 356 1974 Unknown [id number] 2.840.1.741741.3.579.2. 356 1974 Unknown [id number] 2.840.1.864965.3.579.2. 356 1974 Unknown [id number] 2.840.1.660755.3.579.2. 356 1974 Unknown [id number] 2.840.1.523762.3.579.2. 356 1974 Unknown [id number] 2.840.1.025545.3.579.2. 356 1974 Unknown [id number] 2.840.1.465983.3.579.2. 356 1974 Unknown [id number] 2.840.1.965804.3.579.2. 356 1974 Unknown [id number] 2.840.1.485692.3.579.2. 356 1974 Unknown [id number] 2.16840.1.803777.3.579.2. 356 1974 Unknown [id number] 2.840.1.685134.3.579.2. 176 1974 Unknown [id number] 2.840.1.140237.3.579.2. 1259 1974 Unknown [id number] 2.840.1.958704.3.579.2. 1244 1974 Unknown [id number] 2.840.1.043438.3.579.2. 4 1974 Unknown [id number] 2840.1.113688.3.579.2. 1244 1974 Unknown [id number] 2840.1.080585.3.579.2. 124 1974 Unknown [id number] 20.1.174805.3.579.2. 1244 1974 Unknown [id number] 2840.1.195697.3.579.2. 1244 1974 Unknown [id number] 2840.1.694523.3.579.2. 124 1974 Unknown [id number] 2840.1.808549.3.579.2. 1245 1974 Unknown [id number] 2.840.1.715224.3.579.2. 9 1974 Unknown [id number] 2.840.1.697651.3.579.2. 1259 1974 Unknown [id number] 2.840.1.616920.3.579.2. 1259 1974 Unknown [id number] .840.1.079903.3.579.2. 1258 1974 Unknown [id number] .840.1.260113.3.579.2. 1258 1974 Unknown [id number] 2.840.1.069775.3.579.2. 1258 1974 Unknown [id number] .840.1.945356.3.579.2. 1258 1974 Unknown [id number] .840.1.879462.3.579.2. 1258 1974 Unknown [id number] .0.1.214335.3.579.2. 1258 1974 Unknown [id number] .840.1.606263.3.579.2. 1258 1974 Unknown [id number] 01.10.840.1.165336.3.579.2. 1258 1974 Unknown [id number] 01.10.840.1.940959.3.579.2. 1258 1974 Unknown [id number] 01.10.840.1.533625.3.579.2. 1258 1974 Unknown [id number] .840.1.117986.3.579.2. 1258 1974 Unknown [id number] 840.1.361907.3.579.2. 1258 1974 Unknown [id number] .840.1.064992.3.579.2. 1258 1974 Unknown [id number] 840.1.230645.3.579.2. 1258 1974 Unknown [id number] 840.1.145664.3.579.2. 1258 1974 Unknown [id number] 840.1.246954.3.579.2. 1258 1974 Unknown [id number] 2.16.840.1.585751.3.579.2. 1258 1974 Unknown [id number] 2.16.840.1.553767.3.579.2. 1258 1974 Unknown [id number] 2.16.840.1.215367.3.579.2. 1258 1974 Unknown [id number] 2.840.1.584084.3.579.2. 1258 1974 Unknown [id number] 2.840.1.462461.3.579.2. 1258 1974 Unknown [id number] 2.840.1.451072.3.579.2. 1258 1974 Unknown [id number] 2.840.1.522989.3.579.2. 1258 1974 Unknown [id number] 2.840.1.022050.3.579.2. 1258 1974 Unknown [id number] 2.840.1.174592.3.579.2. 727 1974 Unknown [id number] 2.840.1.641639.3.579.2. 1285 1974 Unknown [id number] 2.840.1.139226.3.579.2. 1286 1959 Unknown [id number] Unknown [id number] 2.840.1.742881.3.579.2. 531 Unknown [id number] .840.1.052264.3.579.2. 531 Unknown [id number] 2.840.1.546104.3.579.2. 531 Unknown [id number] 2.840.1.908289.3.579.2. 531 Social History Date Type Detail Facility Start: 11-14-2023 End: 08-26-2025 Sex Assigned At [facility] Start: 04-13-2022 End: 08-26-2025 Tobacco smoking status NHIS Never smoked tobacco (finding) [facility] Start: 1975 Sex Assigned At Female [facility] Tobacco smoking status [email or web address] Tobacco smoking consumption unknown [facility] Work Phone: Start: 1975 Sex Assigned At Not on file [facility] Work Phone: Start: 10-13-2023 End: 02-19-2024 Exposure to SARS-CoV-2 (event) Not sure [facility] Start: 08-26-2023 End: 08-26-2025 Tobacco use and exposure Smokeless tobacco non-user [facility] Start: 11-14-2023 Alcohol intake Lifetime non-d alesha (finding) [facility] Start: 11-14-2023 End: 08-26-2025 History of Social function [facility] Within the last year , have you been afraid of your partner or ex-partner? No [facility] Are you now , , , , never or living with a partner? [facility] How often to you hav e a drink containing alcohol? Never [facility] How many standard drinks containing alcohol do you have on a typical day? Patient does not drink [facility] Do you feel stress - tense, restless, nervous, or anxious, or unable to sleep at night because your mind is troubled all the time - these days [OSQ] Only a little [facility] (I/We) worried whether (my/our) food would run out before (I/we) got money to buy more. Never true [facility] Start: 04-25-2023 Alcohol Comment caffeine intake: non e [facility] Start: 01-16-2024 End: 04-21-2024 Alcohol intake Ex-drinker (finding) [facility] Work Phone: How often to you hav e a drink containing alcohol? Monthly or less [facility] How many standard drinks containing alcohol do you have on a typical day? 1 or 2 [facility] Work Phone: How often do you hav e 6 or more drinks on 1 occasion? Less than monthly [facility] Work Phone: At any time in the past 12 months, were you homeless or living in group home [including now]? Yes [facility] Work Phone: Start: 12-23-2023 Alcohol Comment Occasional [facility] Work Phone: Start: 04-11-2024 End: 04-21-2024 Exposure to SARS-CoV-2 (event) Unable to assess [facility] Start: 07-29-2024 End: 08-26-2025 Alcoholic beverage intake Current drinker of alcohol (finding) [facility] Start: 08-26-2025 Alcohol Comment socially [facility] Start: 06-30-2015 Sex Female (finding) [facility] Start: 09-19-2021 Gender identity Identifies as female gender (finding) [facility] Start: 09-19-2021 Sexual orientation Heterosexual (fin ding) [facility] NEGATED: Highlighted rowStart: NINF History of tobacco use Passive smoker [facility] Medical Equipment Procedure Code Equipment Code Equipment Origin al Text Equipment Identifier Dates Hysterectomy, vaginal, total, with laparoscopy assistance if indicated [employer] FDA Start: 01-23-2018 Hysterectomy, vaginal, total, with laparoscopy assistance if indicated [employer] FDA Start: 01-23-2018 Hysterectomy, vaginal, total, with laparoscopy assistance if indicated [employer] FDA Start: 01-23-2018 Hysterectomy, vaginal, total, with laparoscopy assistance if indicated [employer] FDA Start: 01-23-2018 Hysterectomy, vaginal, total, with laparoscopy assistance if indicated [employer] FDA Start: 01-23-2018 Hysterectomy, vaginal, total, with laparoscopy assistance if indicated [employer] FDA Start: 01-23-2018 Cochlear Implant-01/02/2023 [id number] Start: 01-02-2023 Goals Date Patient Goal Desired Activity /State Personal health goal Personal health goal Functional Status Date Assessment Result Facility 08-04-2025 Patient Health Quest ionnaire 2 item (PHQ-2) [Reported] [facility] 07-15-2025 Patient Health Quest ionnaire 2 item (PHQ-2) [Reported] [facility] 05-10-2025 Total score [AUDIT-C] 1 05/10/20 9:48 AM ISAIT Claudia Manuel MA [facility] 05-10-2025 Patient Health Quest ionnaire 2 item (PHQ-2) [Reported] [facility] 03-26-2025 Patient Health Quest ionnaire 2 item (PHQ-2) [Reported] [facility] Clinical Notes 06-23-2014 to 08-26-2025 Jamila Gomez APRN-DENTAL MECHANIC - 08/26/2025 9:30 AM MARIA VICTORIA Guerrero - 08/09/2025 8:51 AM MARIA VICTORIA Guerrero - 08/04/2025 9:55 AM MARIA VICTORIA Guerrero - 08/04/2025 9:00 AM EDTDischarge Instructions Note Date & Type Note Facility 08-26-2025 History of Present illness Narrative Images from the original note were not included. Chief Complaint: Upper abdominal pain History of Present Illness Darvin Chaves is a 50 y.o. female who presents to the office for upper abdominal pain. Symptoms started at the end of May. The pain is worse when she goes to lay down at night. She states her appetite has decreased, but she denies nausea/vomiting. She takes omeprazole 40 mg daily. This controls her symptoms but she does have occasional breakthrough heartburn. She also notes intermittent dysphagia. She drinks 2 cups of coffee daily. She takes meloxicam for tendonitis. She does not smoke. She has a history of cholecystectomy. She has never had an EGD. She is up-to-date on colonoscopy. Reports IBS. Review of Systems Constitutional: Negative for fever and unexpected weight change. HENT: Positive for trouble swallowing. Respiratory: Negative for shortness of breath. Cardiovascular: Negative for chest pain. Gastrointestinal: Positive for abdominal pain. Negative for nausea, vomiting and blood in stool. Heartburn Genitourinary: Negative for dysuria and difficulty urinating. Musculoskeletal: Negative for gait problem. Skin: Negative for rash and wound. Neurological: Negative for dizziness, weakness and light-headedness. Hematological: Does not bruise/bleed easily. Psychiatric/Behavioral: Negative for confusion. Past Medical History: Diagnosis Date Allergies Anxiety Bipolar disorder ([facility]) Deaf, left cochclear implant, ideopathic sensory hearing loss Depression HPV in female Hypertension Past Surgical History: Procedure Laterality Date CERVIX SURGERY cancerous cells removed for HPV CHOLECYSTECTOMY 2005 COCHLEAR IMPLANT Left 2022 COLONOSCOPY 2013 COLONOSCOPY 2023 HYSTERECTOMY 2014 LASER ABLATION OF THE CERVIX SPINE SURGERY 2023 Allergies Allergen Reactions Diclofenac Sodium GI Disturbance Sulfa (Sulfonamide Antibiotics) Swelling and Other (See Comments) Other Reaction(s): Swelling of the Eye Eye Swelling Erythromycin Base Rash Current Outpatient Medications: cetirizine (ZyrTEC) 10 mg tablet, Take 1 tablet (10 mg total) by mouth in the morning., Disp: , Rfl: citalopram (CeleXA) 40 mg tablet, Take 1 tablet (40 mg total) by mouth in the morning., Disp: , Rfl: cyclobenzaprine (FLEXERIL) 5 mg tablet, Take 2 tablets (10 mg total) by mouth 3 (three) times a day as needed for muscle spasms., Disp: , Rfl: fluticasone propionate (FLONASE) 50 mcg/actuation nasal spray, Administer 1-2 sprays into each nostril in the morning., Disp: , Rfl: hydrOXYzine (ATARAX) 25 mg tablet, Take 1 tablet (25 mg total) by mouth daily as needed for anxiety., Disp: , Rfl: lamoTRIgine (LaMICtal) 200 mg tablet, Take 1 tablet (200 mg total) by mouth in the morning., Disp: , Rfl: losartan-hydroCHLOROthiazide (HYZAAR) 100-12.5 mg per tablet, Take 1 tablet by mouth in the morning., Disp: , Rfl: meloxicam (MOBIC) 15 mg tablet, Take 1 tablet (15 mg total) by mouth in the morning., Disp: , Rfl: metFORMIN XR (GLUCOPHAGE XR) 750 mg 24 hr tablet, Take 1 tablet (750 mg total) by mouth daily with breakfast., Disp: , Rfl: omeprazole (PriLOSEC) 40 mg capsule, Take 1 capsule (40 mg total) by mouth every morning before breakfast., Disp: , Rfl: Social History Socioeconomic History Marital status: Spouse name: Not on file Number of children: Not on file Years of education: Not on file Highest education level: Not on file Occupational History Not on file Tobacco Use Smoking status: Never Smokeless tobacco: Never Vaping Use Vaping status: Never Used Substance and Sexual Activity Alcohol use: Yes Comment: socially Drug use: Never Sexual activity: Never control/protection: Surgical Other Topics Concern Not on file Social History Narrative Not on file Social Drivers of Health Financial Resource Strain: Low Risk (02/02/2025) Received from [facility] Overall Financial Resource Strain (CARDIA) Difficulty of Paying Living Expenses: Not hard at all Food Insecurity: No Food Insecurity (08/26/2025) Hunger Screening Food Insecurity - Worry: Never True Food Insecurity - Inability: Never True Transportation Needs: No Transportation Needs (02/02/2025) Received from [facility] PRAPARE - Transportation Lack of Transportation (Medical): No Lack of Transportation (Non-Medical): No Physical Activity: Inactive (02/02/2025) Received from [facility] Exercise Vital Sign Days of Exercise per Week: 0 days Minutes of Exercise per Session: 0 min Stress: No Stress Concern Present (02/02/2025) Received from [facility] [employer] [place] [employer] - Occupational Stress Questionnaire Feeling of Stress : Only a little Social Connections: Moderately Integrated (02/02/2025) Received from [facility] Social Connection and Isolation Panel [NHANES] Frequency of Communication with Friends and Family: More than three times a week Frequency of Social Gatherings with Friends and Family: More than three times a week Attends Jain Services: 1 to 4 times per year Active Member of Clubs or Organizations: No Attends Club or Organization Meetings: Never Marital Status: Interpersonal Safety: Not At Risk (11/14/2023) Received from [facility] Humiliation, Afraid, Rape, and Kick questionnaire Fear of Current or Ex-Partner: No Emotionally Abused: No Physically Abused: No Sexually Abused: No Housing Instability: Low Risk (02/02/2025) Received from [facility] Housing Stability Vital Sign Unable to Pay for Housing in the Last Year: No Number of Times Moved in the Last Year: 0 Homeless in the Last Year: No Family History Problem Relation Age of Onset Heart disease Mother Diabetes Mother Hearing loss Mother Breast cancer Mother Hypertension Father Hyperlipidemia Father Hearing loss Father Heart disease Father Lupus Father Macular degeneration Father Rheum arthritis Father Objective Physical Exam Constitutional: General: She is not in acute distress. Appearance: Normal appearance. She is not ill-appearing. HENT: Head: Normocephalic and atraumatic. Mouth/Throat: Mouth: Mucous membranes are moist. Eyes: Pupils: Pupils are equal, round, and reactive to light. Cardiovascular: Rate and Rhythm: Normal rate. Pulmonary: Effort: Pulmonary effort is normal. No respiratory distress. Abdominal: General: There is no distension. Palpations: Abdomen is soft. Tenderness: There is no abdominal tenderness. Musculoskeletal: General: Normal range of motion. Skin: General: Skin is warm and dry. Neurological: Mental Status: She is alert and oriented to person, place, and time. Mental status is at baseline. Vital Signs: Blood pressure 134/77, pulse 89, height 167.6 cm (5' 6 ), weight 129.9 kg (286 lb 6.4 oz). Respiratory Source: No data recorded Admission Weight: Weight: 129.9 kg (286 lb 6.4 oz) Labs No results found for: WBC , HGB , HCT , MCV , PLT No results found for: GLU , CALCIUM , NA , K , CO2 , CL , BUN , CREATININE No results found for: AMYLASE No results found for: LIPASE No results found for: ALT , AST , GGT , ALKPHOS , LABBILI No results found for: INR , PROTIME Assessment Darvin Chaves is a 50 y.o.female with upper abdominal pain, heartburn rule out gastritis, ulcer. History of cholecystectomy. Plan Dietary and lifestyle modifications - cut back on caffeine intake, avoid spicy/acidic/tomato based products, avoid NSAIDs, eat smaller portions sizes, do not eat 2-3 hours prior to bed. Increase PPI to twice daily. Schedule EGD. Evaluation included: Preparing to see the patient (e.g., review of tests) Obtaining and/or reviewing separately obtained history Performing a medically appropriate examination and/or evaluation Counseling and educating the patient/family/caregiver Referring and communicating with other health healthcare management Upper abdominal pain [R10.10] [facility] [place] This note was created with the assistance of a speech recognition program. While intending to generate a timely document that accurately reflects the content of the visit, no guarantee can be provided that every grammatical or spelling mistake has been or will be identified or corrected. Thank you for your understanding. SOCO Ruby 08/26/25 1007 documented in this encounter [facility] 08-09-2025 History of Present illness Narrative Referral sent. documented in this encounter [facility] 08-04-2025 History of Present illness Narrative Referral sent. documented in this encounter [facility] 08-04-2025 History of Present illness Narrative Images from the original note were not included. Subjective Nurse Notes: Darvin Chaves is a 50 y.o. year old female patient with complaints of Stomach pain. Pt presents for continued stomach issues and now right arm pain located near the elbow; performs repetitive motion of right elbow at work. Pt feels that this might a pinched nerve. Onset for this started about a week. Pt notes that the stomach pain has been going on longer. Pt notes that this started with her back pain but since the back pain has cleared up the stomach pain has stayed. Pt notes that the pain is located in the upper abdomin. Pt notes this does feel better with a warm rice bag. Abdominal Pain This is a new problem. The current episode started more than 1 month ago. The onset quality is gradual. The problem has been unchanged. The pain is located in the LUQ. The pain is moderate. The quality of the pain is sharp. The abdominal pain radiates to the epigastric region and RUQ. Pertinent negatives include no constipation, diarrhea, fever, hematochezia, myalgias, nausea or vomiting. Exacerbated by: unsure. The pain is relieved by Nothing. She has tried proton pump inhibitors for the symptoms. The treatment provided no relief. Prior diagnostic workup includes lower endoscopy. Arm Pain There was no injury mechanism. The pain is present in the right elbow. The quality of the pain is described as aching. The pain does not radiate. The pain is at a severity of 4/10. The pain has been Constant since the incident. Pertinent negatives include no chest pain, muscle weakness, numbness or tingling. She has tried heat for the symptoms. The treatment provided mild relief. Review of Systems Constitutional: Negative for chills and fever. Respiratory: Negative for shortness of breath. Cardiovascular: Negative for chest pain. Gastrointestinal: Positive for abdominal pain. Negative for constipation, diarrhea, hematochezia, nausea and vomiting. Musculoskeletal: Positive for joint swelling. Negative for myalgias and neck pain. Skin: Negative for rash. Neurological: Negative for tingling and numbness. All other systems reviewed and are negative. Objective Visit Vitals BP 126/78 Pulse 85 Temp 97.6 F Ht 5' 6 Wt 287 lb SpO2 96% BMI 46.32 kg/m OB Status Hysterectomy Smoking Status Never BSA 2.46 m Physical Exam Constitutional: General: She is not in acute distress. Appearance: Normal appearance. HENT: Head: Normocephalic and atraumatic. Mouth/Throat: Mouth: Mucous membranes are moist. Cardiovascular: Rate and Rhythm: Normal rate and regular rhythm. Pulses: Normal pulses. Heart sounds: No murmur heard. No friction rub. No gallop. Pulmonary: Effort: No respiratory distress. Breath sounds: Normal breath sounds. No wheezing, rhonchi or rales. Musculoskeletal: Right elbow: Swelling present. Normal range of motion. Tenderness present in lateral epicondyle. Left elbow: No swelling. Normal range of motion. No tenderness. Cervical back: No spasms or tenderness. Skin: General: Skin is warm and dry. Findings: No rash. Neurological: General: No focal deficit present. Mental Status: She is alert and oriented to person, place, and time. Psychiatric: Mood and Affect: Mood normal. Behavior: Behavior normal. Judgment: Judgment normal. Assessment/Plan Diagnoses and all orders for this visit: Right elbow pain Lateral epicondylitis of right elbow RICE therapy advised. Also recommend heat therapy, gentle massage, and gentle range of motion/stretching exercises, as alternate modalities for pain reduction. Pt may need further evaluation, if their pain worsens or does not resolve. We can also send a referral to physical therapy, if needed. Pt agreed to conservative treatment; no imaging or referral at this time. Left upper quadrant abdominal pain Will refer to GI; pt to call back with name of physician she would like to see. Pt advised on high acid food triggers such as caffeine products, fruits high in acid, spicy foods and to follow bland diet management measures for acute flare. Lifestyle changes include weight loss for overweight people; head-of-bed elevation; and avoidance of late-night eating if nocturnal symptoms are present. Take medication as prescribed; cont omeprazole at 40 MG. She has risk factors of increased stress and NSAID use. All questions answered. Call the office with any other questions or concerns. *I have reviewed and reconciled the history and medication list with the patient today documented in this encounter [facility] 07-19-2025 Telephone encounter Note Patient called stating that her back pain is a little better, however, she is still experiencing stomach pains. She wants to know what her next step would be? [facility] 07-19-2025 Miscellaneous Notes Patient called stating that her back pain is a little better, however, she is still experiencing stomach pains. She wants to know what her next step would be? documented in this encounter [facility] 07-15-2025 History of Present illness Narrative Images from the original note were not included. [place], [place] SUBJECTIVE: HPI: Darvin Chaves is a 50 y.o. female who presents with chief complaint of Back Pain Pt presents for middle back pain that radiates down her side. Onset about a month ago. Pt also notes that yesterday she woke up with a sore throat and this morning she now has noticed ear pain along with this. Pt notes that her back pain is more painful when she sits down and goes to get back up. Back Pain History of Present Illness The patient is a 50-year-old female who presents for evaluation of upper back pain, sore throat, and ear pain. She reports experiencing upper back pain localized to her side, which typically manifests at night after her workday and evening meal, making it uncomfortable for her to sit in her recliner. The onset of this pain was approximately 1.5 months ago. She also experiences intermittent stomach pain, leading her to suspect a possible ulcer. The pain is constant and often disrupts her sleep. Despite the pain, her appetite remains good. She has been applying ice to the affected area, which provides some relief, although it was ineffective last night. She has not taken any muscle relaxants. She recalls feeling particularly tense during her last visit to her massage therapist and has a follow-up appointment scheduled for Saturday. She began experiencing a sore throat last night, which was accompanied by ear pain before she left work. She reports no sneezing but does have a runny nose. She has previously used eardrops or nasal spray when she had fluid behind her ear, which typically results in drainage after 3 to 4 days. Diet: She typically eats at home, occasionally eating out, and consumes food from [employer] in the morning. Sleep: She reports disrupted sleep due to pain. FAMILY HISTORY The patient mentions that there is a risk of glaucoma in the family, with two or three siblings already having the condition. SUBJECTIVE: MEDICATIONS: ALLERGIES Current Outpatient Medications Medication Instructions cetirizine (ZYRTEC) 10 mg, Oral, Every morning citalopram (CeleXA) 40 MG tablet Every 24 hours cyclobenzaprine (FLEXERIL) 10 mg, Oral, 3 times daily PRN fluticasone (Flonase) 50 MCG/ACT nasal spray 1-2 sprays, Each Nostril, Daily, Shake gently. Before first use, prime pump. After use, clean tip and replace cap hydrOXYzine HCl (Atarax) 25 MG tablet 1-2 tabs as needed for anxiety hyoscyamine (LEVSIN/SL) 125 mcg, Oral, Every 6 hours PRN lamoTRIgine (LaMICtal) 200 MG tablet 1 tablet, Daily losartan-hydroCHLOROthiazide (Hyzaar) 100-12.5 MG tablet 1 tablet, Oral, Daily meloxicam (MOBIC) 15 mg, Oral, Daily metFORMIN XR (GLUCOPHAGE-XR) 750 mg, Oral, Daily with evening meal, Do not crush, chew, or split. omeprazole (PRILOSEC) 40 mg, Oral, Daily before breakfast predniSONE (Deltasone) 10 MG tablet 1 po tid with food x 4 days Allergies Allergen Reactions Diclofenac Sodium GI intolerance Sulfa Antibiotics Swelling and Unknown Other Reaction(s): Swelling of the Eye Erythromycin Rash Other Reaction(s): Unknown Erythromycin Base Rash Depression: Not at risk (07/15/2025) PHQ-2 PHQ-2 Score: 0 REVIEW OF SYMPTOMS: Review of Systems Musculoskeletal: Positive for back pain. OBJECTIVE: BP 128/70 Pulse 92 Temp 97.8 F Ht 5' 6 Wt 288 lb SpO2 100% BMI 46.48 kg/m No results found for this or any previous visit (from the past 6 weeks). Results GENERAL EXAM: Physical Exam Physical Exam Ears: Fluid noted behind the left ear. Right ear is normal. Nose: Nasal membranes are pale and the drainage is very clear. Mouth/Throat: No redness observed in the throat. Neck: No enlargement of lymph nodes. Musculoskeletal: Big spasm in the thoracic muscles. ASSESSMENT AND PLAN: Assessment/Plan Diagnoses and all orders for this visit: Spasm of thoracic back muscle - predniSONE (Deltasone) 10 MG tablet; 1 po tid with food x 4 days Assessment & Plan 1. Upper back pain: - The pain is more pronounced at night and wakes the patient up. It is associated with stomach pain at times. - Physical exam findings include a big spasm in the thoracic muscles and tenderness in the latissimus muscle. Ice has been used with some relief. - Discussed the possibility of a CT scan if external muscle treatments do not work. The patient has an upcoming massage appointment. - Prescription for 800 mg ibuprofen was requested. Muscle relaxant previously prescribed in 01/2025 was not taken. 2. Sore throat: - Physical exam findings show no redness in the throat and lymph nodes are not enlarged. The nasal passages are clear with pale membranes and clear drainage. - Discussed the possibility of congestion or postnasal drainage. No antibiotic needed. - Recommended the use of fluticasone nasal spray to help with congestion and postnasal drainage. 3. Ear pain: - Physical exam findings show a little bit of fluid behind the left ear. The right ear is fine. - Discussed the use of fluticasone nasal spray to help with congestion and postnasal drainage. - Recommended the use of fluticasone nasal spray. The patient already has this medication. No follow-ups on file. I have reviewed and reconciled the history and medication list with the patient today. documented in this encounter [facility] 06-28-2025 History of Present illness Narrative History of Present Illness The patient is a 50-year-old female who presents for prediabetes. She has been taking metformin 500 mg twice daily, with one dose in the morning and the other at night. She has enough supply of metformin 500 mg to last her for a week. She has been going to [facility] for her labs. She has already had her wellness visit this year. She reports that her weight has decreased by 1 pound since her last visit. FAMILY HISTORY Her mother has a history of back issues due to a fall. SUBJECTIVE: MEDICATIONS: ALLERGIES Current Outpatient Medications Medication Instructions cetirizine (ZYRTEC) 10 mg, Oral, Every morning citalopram (CeleXA) 40 MG tablet Every 24 hours cyclobenzaprine (FLEXERIL) 10 mg, Oral, 3 times daily PRN fluticasone (Flonase) 50 MCG/ACT nasal spray 1-2 sprays, Each Nostril, Daily, Shake gently. Before first use, prime pump. After use, clean tip and replace cap hydrOXYzine HCl (Atarax) 25 MG tablet 1-2 tabs as needed for anxiety hyoscyamine (LEVSIN/SL) 125 mcg, Oral, Every 6 hours PRN lamoTRIgine (LaMICtal) 200 MG tablet 1 tablet, Daily losartan-hydroCHLOROthiazide (Hyzaar) 100-12.5 MG tablet 1 tablet, Oral, Daily meloxicam (MOBIC) 15 mg, Oral, Daily metFORMIN XR (GLUCOPHAGE-XR) 750 mg, Oral, Daily with evening meal, Do not crush, chew, or split. omeprazole (PRILOSEC) 40 mg, Oral, Daily before breakfast Allergies Allergen Reactions Diclofenac Sodium GI intolerance Sulfa Antibiotics Swelling and Unknown Other Reaction(s): Swelling of the Eye Erythromycin Rash Other Reaction(s): Unknown Erythromycin Base Rash Depression: Not at risk (05/10/2025) PHQ-2 PHQ-2 Score: 0 REVIEW OF SYMPTOMS: Review of Systems OBJECTIVE: BP 122/80 Pulse 76 Temp 98 F Ht 5' 6 Wt 289 lb BMI 46.65 kg/m No results found for this or any previous visit (from the past 6 weeks). Results Labs - Cholesterol: 101 GENERAL EXAM: Physical Exam Physical Exam Other: Weight is 289 pounds. ASSESSMENT AND PLAN: Assessment/Plan Diagnoses and all orders for this visit: Routine medical exam - HEMOGRAM [place] WITHOUT DIFF [place] Future - Comprehensive metabolic panel; Future - Lipid panel; Future Pre-diabetes - Hemoglobin a1c with eag; Future - Microalbumin / creatinine, urine ratio; Future - metFORMIN XR (Glucophage-XR) 750 MG 24 hr tablet; Take 1 tablet (750 mg) by mouth in the evening. Take with meals Do not crush, chew, or split. Obesity, morbid, BMI 40.0-49.9 ([facility]) Primary hypertension - HEMOGRAM CBC WITHOUT DIFF [place] Future - Comprehensive metabolic panel; Future - Lipid panel; Future Assessment & Plan 1. Prediabetes. - Lab results indicate prediabetic range, necessitating intervention to prevent diabetes progression. - Cholesterol levels are commendable at 101, and weight has decreased by 1 pound to 289 pounds. - Discussed switching to metformin extended-release 750 mg once daily for consistent medication levels and fewer side effects. Advised to finish remaining metformin 500 mg tablets. - Lab order placed for [facility] for the week of 09/27/2025. Advised to avoid simple carbohydrates and high fructose corn syrup. Lab values to be reassessed in approximately 3 months. Follow-up: A follow-up appointment is scheduled for the week of 10/04/2025. No follow-ups on file. Darvin Chaves is a 50 y.o. female presents with chief complaint of No chief complaint on file. HPI: HPI Here for followup. Relastes she did not do well on Metformin. Forgot 2nd dose mosr days I have reviewed and reconciled the history and medication list with the patient today. documented in this encounter [facility] 05-10-2025 History of Present illness Narrative Images from the original note were not included. Richie Ku DO Obstetrics and Gynecology Darvin Kumari Andie 1975 05/10/25 [id number] Yearly Wellness Exam Chief Complaint Patient presents with Gynecologic Exam LMP: TLH 2017, BS 2014 HRT: None Last pap 05-04-24 neg. Last mammogram 01-08-25 [facility]. Denies breast, urinary, or bowel concerns. Dad Saturday. Visit Vitals BP 130/82 Ht 5' 6 Wt 290 lb BMI 46.81 kg/m OB Status Hysterectomy Smoking Status Never BSA 2.48 m OB History Para Term AB Living 2 2 2 SAB IAB Ectopic Multiple Live Births 2 # Outcome Date GA Lbr Marcelino/2nd Weight Sex Type Anes PTL Lv 2 Para 2005 Vag-Spont ESTRELLA 1 Para 2002 Vag-Spont ESTRELLA Obstetric Comments Heaviest weighed 8 lbs 7 oz Current Outpatient Medications Medication Sig Dispense Refill cetirizine (ZyrTEC) 10 MG tablet TAKE 1 TABLET IN THE MORNING 90 tablet 3 citalopram (CeleXA) 40 MG tablet 1 (one) time each day at the same time. cyclobenzaprine (Flexeril) 10 MG tablet Take 1 tablet (10 mg) by mouth 3 (three) times a day as needed for muscle spasms (q8hrs) 30 tablet 0 fluticasone (Flonase) 50 MCG/ACT nasal spray Administer 1-2 sprays into each nostril Daily Shake gently. Before first use, prime pump. After use, clean tip and replace cap 16 g 3 hydrOXYzine HCl (Atarax) 25 MG tablet 1-2 tabs as needed for anxiety hyoscyamine (Levsin/SL) 0.125 MG SL tablet Take 1 tablet (125 mcg) by mouth every 6 (six) hours if needed for cramping or diarrhea 45 tablet 1 lamoTRIgine (LaMICtal) 200 MG tablet Take 1 tablet by mouth in the morning. losartan-hydroCHLOROthiazide (Hyzaar) 100-12.5 MG tablet TAKE 1 TABLET DAILY 90 tablet 3 meloxicam (Mobic) 15 MG tablet Take 1 tablet (15 mg) by mouth Daily 90 tablet 3 metFORMIN (Glucophage) 500 MG tablet Take 1 tablet (500 mg) by mouth in the morning and 1 tablet (500 mg) in the evening. Take with meals. 60 tablet 2 omeprazole (PriLOSEC) [address] capsule Take 1 capsule (40 mg) by mouth in the morning. Take before meals. 90 capsule 3 No current facility-administered medications for this visit. Allergies Allergen Reactions Diclofenac Sodium GI intolerance Sulfa Antibiotics Swelling and Unknown Other Reaction(s): Swelling of the Eye Erythromycin Rash Other Reaction(s): Unknown Erythromycin Base Rash Past Surgical History: Procedure Laterality Date BREAST BIOPSY CERVICAL CONIZATION W/ LASER 1997 CHOLECYSTECTOMY 2005 Disease: Cholecystitis COCHLEAR IMPLANT 01/02/2023 COLONOSCOPY 07/23/2024 HYSTERECTOMY 01/23/2018 TLH, TVT-O HYSTEROSCOPY 2015 + BS, D+C, Ablation SPINE SURGERY TONSILLECTOMY 2008 Disease: Tonsillitis TUBAL LIGATION Past Medical History: Diagnosis Date Abnormal mammogram 09/06/2021 cyst RT Abnormal Pap smear of cervix Acute serous otitis media left ear Allergic Anemia Anxiety Arthritis 11/2023 Awareness under anesthesia 1998 Bipolar disorder (HCC) Adm to [facility] Discharged 03/16/2016 Cholecystitis LISA II (cervical intraepithelial neoplasia II) Depression 03/2013 Eczema 03/1995 Fibrocystic breast Fibroid GERD (gastroesophageal reflux disease) HPV (human papilloma virus) infection Hypertension Inflammatory bowel disease Irritable bowel syndrome Obesity Ovarian cyst PONV (postoperative nausea and vomiting) Spinal headache 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 Allergy: Denies medication reaction. Ocular: Denies visual acuity change. ENT: Denies hearing change. Endoc: Denies weight loss. Resp: Denies dyspnoea, wheezing. Cardiac: Denies angina, palpitations. GI: Denies nausea, vomiting. Haem: Denies bleeding. : Denies incontinence. MSK: Denies arthralgias, joint oedema. Derm: Denies rash, hair loss. Neuro: Denies ataxia, tremor. Also see HPI for elements of ROS documented therein and for details of positive findings, which shall supersede the foregoing. EXAM GENERAL EXAMINATION alert oriented well developed, well nourished. HEAD: normocephalic atraumatic. EYES: sclera anicteric. EARS: no obvious hearing deficit. NECK/THYROID: neck supple no cervical lymphadenopathy no thyromegaly. LYMPH NODES: no axillary, supraclavicular or inguinal adenopathy. SKIN: warm and dry. HEART: regular rate and rhythm. LUNGS: clear to auscultation bilaterally. CHEST:axillary nodes grossly normal. BREASTS:no masses palpable bilaterally, normal nipples bilaterally - everted -fatty replaced - dense - well supported- axilla negative. ABDOMEN: soft, nontender, nondistended, no masses palpable. BACK: no costovertebral angle tenderness, no obvious scoliosis/kyphosis. 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 EXTREMITIES no edema. NEUROLOGIC: alert and oriented. PSYCH: cooperative with exam. ICD-10-CM 1. Encounter for gynecological examination without abnormal finding Z01.419 Pelvic and breast exam completed. Findings of today's exam discussed with the patient. Continue MSBE. Ca/Vit D recommendations reviewed with the patient. The patient is to contact the office with any changes to her gynecological condition or any changes with breast or bleeding. The patient is to return in 1 year or as needed 2. Encounter for Papanicolaou smear of vagina Z12.72 IGP,rfxAptima HPV all,16/18,45 Thinprep collected. Will notify patient if results are abnormal. 3. Breast cancer screening by mammogram Z12.31 Bilateral screening mammogram with tomosynthesis Screening mammogram ordered. Patient to call and schedule. Her Father just passed on Saturday after a year of hospice. Entered by Jade Overton MA acting as scribe for Dr. Richie Ku. Signature Jade Overton MA Date 05/10/25 . Time 10:07 AM . The documentation recorded by the scribe accurately reflects the service(s) I personally performed and the decisions I made. Signature Maryjane Ku D.O. Date 05/10/25 Time 5:00PM. documented in this encounter [facility] 03-26-2025 History of Present illness Narrative Images from the original note were not included. [facility] SUBJECTIVE: HPI: Darvin Chaves is a 49 y.o. female who presents with chief complaint of Leg Pain Pt c/o left leg pain that started a few week ago when she messed her knee up. Pt states she re injured her knee not long ago and has been dealing with leg pain. Pt states she would like to discuss her lab work Leg Pain History of Present Illness The patient presents for evaluation of knee osteoarthritis, exogenous obesity, and prediabetes. Significant leg pain is reported, attributed to a knee injury sustained approximately 6 weeks ago, with a subsequent exacerbation 3 weeks later. The pain is described as severe, affecting the entire leg and impeding the ability to rise from a seated position without rocking back and forth. A recent incident at work involved colliding with a corner while turning her head, resulting in a sensation of instability and clumsiness. A previous fall at a fair is recalled, where she landed heavily on her leg while carrying a child on her hip. Efforts to increase physical activity by walking more have been made. Weight management issues have been a long-term struggle, despite various attempts at intervention. Previous use of metformin did not result in weight loss benefits. Adipex has not been tried for weight loss. Efforts to increase daily step count are ongoing. Concerns about potential hereditary conditions such as rheumatoid arthritis and lupus are expressed, given her father's medical history. Both parents have stage 3 kidney disease, though it is uncertain if this is age-related. FAMILY HISTORY Her mother is a diabetic. Her father has lupus, interstitial lung disease, rheumatoid arthritis, kidney disease, heart disease, and basal cell carcinoma. SUBJECTIVE: MEDICATIONS: ALLERGIES Current Outpatient Medications Medication Instructions cetirizine (ZYRTEC) 10 mg, Oral, Every morning citalopram (CeleXA) 40 MG tablet Every 24 hours cyclobenzaprine (FLEXERIL) 10 mg, Oral, 3 times daily PRN fluticasone (Flonase) 50 MCG/ACT nasal spray 1-2 sprays, Each Nostril, Daily, Shake gently. Before first use, prime pump. After use, clean tip and replace cap hydrOXYzine HCl (Atarax) 25 MG tablet 1-2 tabs as needed for anxiety hyoscyamine (LEVSIN/SL) 125 mcg, Oral, Every 6 hours PRN lamoTRIgine (LaMICtal) 200 MG tablet 1 tablet, Daily losartan-hydroCHLOROthiazide (Hyzaar) 100-12.5 MG tablet 1 tablet, Oral, Daily meloxicam (MOBIC) 15 mg, Oral, Daily metFORMIN (GLUCOPHAGE) 500 mg, Oral, 2 times daily with meals omeprazole (PRILOSEC) 40 mg, Oral, Daily before breakfast Allergies Allergen Reactions Diclofenac Sodium GI intolerance Sulfa Antibiotics Swelling and Unknown Other Reaction(s): Swelling of the Eye Erythromycin Rash Other Reaction(s): Unknown Erythromycin Base Rash Depression: Not at risk (05/10/2025) PHQ-2 PHQ-2 Score: 0 REVIEW OF SYMPTOMS: Review of Systems OBJECTIVE: BP 126/68 Pulse 87 Temp 97.4 F Ht 5' 6 Wt 288 lb SpO2 96% BMI 46.48 kg/m Recent Results (from the past 6 weeks) IGP,rfxAptima HPV all,,45 Collection Time: 05/10/25 12:00 AM Result Value Ref Range Diagnosis: Comment Specimen Adequacy: Comment Clinician Provided ICD10: Comment Performed By: Comment Cyto Comments . Note: Comment Test Methodology: Comment . Comment Results Labs - Blood work: Prediabetes GENERAL EXAM: Physical Exam Physical Exam Musculoskeletal: Knees are cool to touch, likely mechanical bone on bone. ASSESSMENT AND PLAN: Darvin was seen today for leg pain. Diagnoses and all orders for this visit: Primary osteoarthritis of both knees (Primary) Obesity, morbid, BMI 40.0-49.9 (CMS-HCC) Pre-diabetes - metFORMIN (Glucophage) 500 MG tablet; Take 1 tablet (500 mg) by mouth in the morning and 1 tablet (500 mg) in the evening. Take with meals. Assessment & Plan 1. Knee osteoarthritis. - The knees are not hot and show no significant inflammation, suggesting the pain is likely mechanical, possibly due to [id number] contact. - Physical examination indicates grinding in the knees, but no inflammatory signs. - Discussed the mechanical nature of the knee pain and the importance of weight loss to alleviate symptoms. - Advised to continue observing weight loss efforts and increase physical activity, such as walking. 2. Exogenous obesity. - Advised to monitor intake of simple carbohydrates and avoid high fructose corn syrup. - Physical activity, such as walking, is recommended to increase muscle use and aid in weight loss. - Discussed dietary modifications and the potential benefits of metformin for weight loss and metabolism improvement. - Metformin 500 mg twice a day will be started for 3 months. If metformin does not aid in weight loss, Adipex may be considered at the follow-up visit. 3. Prediabetes. - Blood work indicates prediabetes range. - Advised to watch intake of white sugar, white flour, white rice, and white bread, and to avoid high fructose corn syrup. - Discussed dietary modifications and the potential benefits of metformin for managing blood sugar levels. - Metformin 500 mg twice a day will be started for 3 months. A hemoglobin A1c test will be conducted during the next lab draw to monitor the condition. Follow-up - The patient will follow up in 3 months. No follow-ups on file. I have reviewed and reconciled the history and medication list with the patient today. documented in this encounter [facility] 02-03-2025 History of Present illness Narrative Images from the original note were not included. Subjective Patient ID: Darvin Chaves is a 49 y.o. female who presents for Shoulder Pain (Pt notes she has been having pain in her left shoulder/breast area. Pt notes that this has been going on for a few months. ), Earache (Pt notes some pain in her left ear along with her jaw. Over a month and a half.), and Leg Pain (Pt also notes pain and fatigue in her legs. She notes that has become difficult to go up and down stairs recently.). Shoulder Pain The pain is present in the left shoulder. This is a new problem. The current episode started more than 1 month ago. The problem occurs intermittently. The problem has been waxing and waning. The quality of the pain is described as sharp. The pain is moderate. Associated symptoms include joint swelling. Pertinent negatives include no fever, joint locking, limited range of motion or stiffness. The symptoms are aggravated by activity. She has tried NSAIDS for the symptoms. The treatment provided moderate relief. Earache There is pain in the left ear. This is a recurrent problem. The current episode started 1 to 4 weeks ago. The problem has been gradually worsening. There has been no fever. Associated symptoms include hearing loss. Pertinent negatives include no coughing, diarrhea, rash or vomiting. She has tried NSAIDs for the symptoms. The treatment provided mild relief. Her past medical history is significant for hearing loss. Review of Systems Constitutional: Negative for chills and fever. HENT: Positive for ear pain and hearing loss. Negative for congestion. Respiratory: Negative for cough. Cardiovascular: Negative for chest pain. Gastrointestinal: Negative for diarrhea, nausea and vomiting. Musculoskeletal: Negative for myalgias and stiffness. Skin: Negative for rash. All other systems reviewed and are negative. Objective Visit Vitals BP 126/72 Pulse 75 Temp 97.9 F Ht 5' 6 Wt 290 lb SpO2 96% BMI 46.81 kg/m OB Status Hysterectomy Smoking Status Never BSA 2.48 m Physical Exam Constitutional: General: She is not in acute distress. Appearance: Normal appearance. HENT: Head: Normocephalic and atraumatic. Right Ear: Ear canal normal. No tenderness. A middle ear effusion is present. Tympanic membrane is not erythematous. Left Ear: Ear canal normal. No tenderness. A middle ear effusion is present. Tympanic membrane is not erythematous. Mouth/Throat: Mouth: Mucous membranes are moist. Dentition: Normal dentition. No dental caries. Pharynx: No pharyngeal swelling or oropharyngeal exudate. Cardiovascular: Rate and Rhythm: Normal rate and regular rhythm. Pulses: Normal pulses. Heart sounds: No murmur heard. No friction rub. No gallop. Pulmonary: Effort: No respiratory distress. Breath sounds: Normal breath sounds. No wheezing, rhonchi or rales. Musculoskeletal: Right shoulder: No tenderness. Normal strength (5/5). Left shoulder: Tenderness (anterior) present. Decreased strength (4/5). Cervical back: Spasms and tenderness present. Skin: General: Skin is warm and dry. Findings: No rash. Neurological: General: No focal deficit present. Mental Status: She is alert and oriented to person, place, and time. Psychiatric: Mood and Affect: Mood normal. Behavior: Behavior normal. Judgment: Judgment normal. Assessment/Plan Diagnoses and all orders for this visit: History of neck surgery Chronic left shoulder pain - predniSONE (Deltasone) 20 MG tablet; Take 2 tablets (40 mg) by mouth Daily for 4 days, THEN 1 tablet (20 mg) Daily for 3 days. - XR shoulder 2+ views left; Future Muscle spasm - cyclobenzaprine (Flexeril) 10 MG tablet; Take 1 tablet (10 mg) by mouth 3 (three) times a day as needed for muscle spasms (q8hrs) New meds as directed. RICE therapy advised. Also recommend heat therapy, gentle massage, and gentle range of motion/stretching exercises, as alternate modalities for pain reduction. Pt may need further evaluation, if their pain worsens or does not resolve. Will contact pt with imaging results and determine appropriate f/u at that time. Screening for deficiency anemia - CBC and differential; Future Screening for diabetes mellitus (DM) - Comprehensive metabolic panel; Future Screening for cardiovascular condition - Lipid panel; Future Dysfunction of both eustachian tubes Advised pt that the narrow tubes in the middle ears are likely not draining well, which can lead to a build up of fluid behind the TM. Eustachian tube dysfunction can, in turn, cause some feelings of dizziness, nausea, lack of balance, etc. Typically follows a respiratory infection or may be related to allergies. We often recommend use of antihistamines, steroid nasal sprays, and/or a prednisone burst. Advised to sleep propped up or upright in chair, chew gum, and sip on fluids for conservative measures. RTO if no improvement or symptoms worsen. All questions answered. Call the office with any other questions or concerns. documented in this encounter [facility] 11-09-2024 History of Present illness Narrative Images from the original note were not included. Subjective Patient ID: Darvin Chaves is a 49 y.o. female who presents for URI (Pt presents for possible strep. S/s sore throat, pain with swallowing, chest congestion, cough, nasal congestion, left jaw pain. No COVID testing. OTC tea, Mucinex. Onset Saturday.). URI This is a new problem. The current episode started in the past 7 days. The problem has been unchanged. There has been no fever. Associated symptoms include congestion, coughing, ear pain and a sore throat. Pertinent negatives include no diarrhea, headaches, nausea, rash, sinus pain, vomiting or wheezing. Treatments tried: mucinex. The treatment provided mild relief. Review of Systems Constitutional: Positive for chills. Negative for fever. HENT: Positive for congestion, ear pain, postnasal drip and sore throat. Negative for sinus pain. Respiratory: Positive for cough. Negative for wheezing. Gastrointestinal: Negative for diarrhea, nausea and vomiting. Musculoskeletal: Positive for myalgias. Skin: Negative for rash. Neurological: Negative for headaches. All other systems reviewed and are negative. Objective Visit Vitals BP 130/76 Pulse 81 Temp 97.8 F Ht 5' 6 Wt 278 lb SpO2 98% BMI 44.87 kg/m OB Status Hysterectomy Smoking Status Never BSA 2.42 m Physical Exam Constitutional: General: She is not in acute distress. Appearance: She is ill-appearing (and coughing). HENT: Head: Normocephalic and atraumatic. Right Ear: Tympanic membrane and ear canal normal. Left Ear: Tympanic membrane and ear canal normal. Nose: Congestion (mild) present. Right Sinus: Frontal sinus tenderness present. No maxillary sinus tenderness. Left Sinus: Frontal sinus tenderness present. No maxillary sinus tenderness. Mouth/Throat: Mouth: Mucous membranes are moist. Pharynx: Posterior oropharyngeal erythema (mild) and postnasal drip present. No oropharyngeal exudate. Cardiovascular: Rate and Rhythm: Normal rate and regular rhythm. Pulses: Normal pulses. Heart sounds: No murmur heard. No friction rub. No gallop. Pulmonary: Effort: No respiratory distress. Breath sounds: Normal breath sounds. No wheezing, rhonchi or rales. Lymphadenopathy: Cervical: No cervical adenopathy. Skin: General: Skin is warm and dry. Neurological: General: No focal deficit present. Mental Status: She is alert. Psychiatric: Mood and Affect: Mood normal. Behavior: Behavior normal. Judgment: Judgment normal. Assessment/Plan Diagnoses and all orders for this visit: Viral upper respiratory infection - fluticasone (Flonase) 50 MCG/ACT nasal spray; Administer 1-2 sprays into each nostril Daily Shake gently. Before first use, prime pump. After use, clean tip and replace cap - dextromethorphan-guaiFENesin (MUCINEX DM MAX STRENGTH) 60-1200 MG 12 hr tablet; Take 1 tablet by mouth every 12 (twelve) hours if needed (BID) Sore throat - POCT rapid strep A manually resulted Cough, unspecified type - STATUS COVID-19/FLU Pt advised they have a viral illness. Advised on what OTC medications to take to treat fever, sore throat, body aches, sinus pain, cough, chest congestion, nose and sinus congestion, sneezing, runny nose, watery, itchy eyes, overall congestion relief, faster recovery and how to avoid spreading the illness. Call or RTO if worsening or not improving as expected. Discussed expectations (viral infections such as colds/flus do not respond to antibiotics and typically do not begin to improve until 7-10 days into the illness). All questions answered. Call the office with any other questions or concerns. Recent Results (from the past hour) POCT rapid strep A manually resulted Collection Time: 11/09/24 9:04 AM Result Value Ref Range Rapid Strep A Screen Negative Negative, None Detected STATUS COVID-19/FLU Collection Time: 11/09/24 9:05 AM Result Value Ref Range FLU A negative FLU B negative SARS COV 2 RNA negative documented in this encounter [facility] 10-20-2024 History of Present illness Narrative Images from the original note were not included. Subjective Patient ID: Darvin Chaves is a 49 y.o. female who presents for FUV (Darvin Chaves is a 49 y.o. female who presents for 1 month FUV Right Ankle Pain. Patient relates improvement.Patient continues to wear ASO and daily meloxicam for the ankle prescribed by PCP. SS9.5 ). HPI Established patient returns to clinic for follow up evaluation of posterior tibial tendinitis in the setting of pes planovalgus deformity. Patient completed oral anti-inflammatory regimen. She is doing stretching exercises and utilizing an ASO brace. She notes significant improvement in a longer has any pain on a daily basis. Review of Systems Constitutional: Negative for activity change and appetite change. Respiratory: Negative for chest tightness and shortness of breath. Cardiovascular: Negative for chest pain. Musculoskeletal: Positive for arthralgias. Skin: Negative for color change and wound. Neurological: Negative for weakness and numbness. Psychiatric/Behavioral: Negative for agitation and behavioral problems. Hematological: Does not bruise/bleed easily. Endocrine: Negative for cold intolerance and heat intolerance. Allergic/Immunologic: Negative for immunocompromised state. Past medical History Past Medical History: Diagnosis Date Abnormal mammogram 09/06/2021 cyst RT Abnormal Pap smear of cervix Acute serous otitis media left ear Allergic Anemia Anxiety Arthritis 11/2023 Awareness under anesthesia 1998 Bipolar disorder ([facility]) Adm to [facility] Discharged 03/16/2016 Cholecystitis LISA II (cervical intraepithelial neoplasia II) Depression ([facility]) 03/2013 Eczema 03/1995 Fibrocystic breast Fibroid GERD (gastroesophageal reflux disease) HPV (human papilloma virus) infection Hypertension (CMS/HCC) Inflammatory bowel disease Irritable bowel syndrome Obesity Ovarian cyst PONV (postoperative nausea and vomiting) Spinal headache 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 Urinary incontinence Urinary tract infection Varicella Visual impairment Medications Current Outpatient Medications: cetirizine (ZyrTEC) 10 MG tablet, TAKE 1 TABLET IN THE MORNING, Disp: 90 tablet, Rfl: 3 citalopram (CeleXA) 40 MG tablet, 1 (one) time each day at the same time., Disp: , Rfl: hydrOXYzine HCl (Atarax) 25 MG tablet, 1-2 tabs as needed for anxiety, Disp: , Rfl: hyoscyamine (Levsin/SL) 0.125 MG SL tablet, Take 1 tablet (125 mcg) by mouth every 6 (six) hours if needed for cramping or diarrhea, Disp: 45 tablet, Rfl: 1 lamoTRIgine (LaMICtal) 200 MG tablet, Take 1 tablet by mouth in the morning., Disp: , Rfl: losartan-hydroCHLOROthiazide (Hyzaar) 100-12.5 MG tablet, TAKE 1 TABLET DAILY, Disp: 90 tablet, Rfl: 3 meloxicam (Mobic) 15 MG tablet, Take 1 tablet (15 mg) by mouth Daily, Disp: 30 tablet, Rfl: 11 methylPREDNISolone (Medrol Dospak) 4 MG tablets, Take as directed on package., Disp: 21 tablet, Rfl: 0 omeprazole (PriLOSEC) [address] capsule, Take 1 capsule (40 mg) by mouth in the morning. Take before meals. Do not crush or chew.., Disp: 14 capsule, Rfl: 0 Allergies Diclofenac sodium, Sulfa antibiotics, Erythromycin, and Erythromycin base Past Surgical History Past Surgical History: Procedure Laterality Date BREAST BIOPSY CERVICAL CONIZATION W/ LASER 1997 CHOLECYSTECTOMY 2005 Disease: Cholecystitis COCHLEAR IMPLANT 01/02/2023 COLONOSCOPY 07/23/2024 HYSTERECTOMY 01/23/2018 [facility], TVT-O HYSTEROSCOPY 2014 + BS, D+C, Ablation SPINE SURGERY 12/2023 TONSILLECTOMY 2008 Disease: Tonsillitis TUBAL LIGATION Family History Family History Problem Relation Name Age of Onset Breast cancer Mother Amira 78 years old Diabetes Mother Amira Cancer Mother Amira Hearing loss Mother Amira Lupus Father Ed Heart disease Father Ed 79 years old Rheum arthritis Father Ed Alcohol abuse Father Ed Arthritis Father Ed Kidney disease Father Ed Hearing loss Father Ed Other (blood clot in brain) Sister America d/t bernie Migraines Sister [place] Thyroid disease Sister [place] Heart disease Maternal Grandfather Terence Heart disease Paternal Grandfather Deshawn Migraines Sister Deb Migraines Sister Sofía Objective Physical Exam Constitutional: Appearance: She is obese. Comments: Presents to clinic ambulating unassisted with a an ASO brace on the right foot. HENT: Head: Normocephalic and atraumatic. Cardiovascular: Pulses: Normal pulses. Pulmonary: Effort: Pulmonary effort is normal. No respiratory distress. Abdominal: Palpations: There is no mass. Musculoskeletal: Cervical back: No rigidity. Comments: Weightbearing examination reveals pes planovalgus deformity. Forefoot abduction and collapse of the medial longitudinal arch. Right foot: No tenderness to palpation over the posterior tibial tendon. There is still some fullness in this area consistent with chronic tendinopathy. Muscle strength 5/5 for all quadrants without tenderness. Ankle dorsiflexion 0 degrees with the knee extended, flexed. Skin: Capillary Refill: Capillary refill takes less than 2 seconds. Findings: No lesion or rash. Neurological: Mental Status: She is alert. Comments: No loss of protective sensation, gross sensation intact. Psychiatric: Mood and Affect: Mood normal. Behavior: Behavior normal. Assessment/Plan ICD-10-CM 1. Valgus deformity, not elsewhere classified, right ankle M21.071 2. Posterior tibial tendinitis of right lower extremity M76.821 Patient was examined and evaluated. Reviewed previous imaging studies in detail. Overall she has made significant improvement. I recommend continued use of power step orthotics and supportive shoes. Recommend ASO brace during periods of heavy activity. Recommend continued use of meloxicam as needed to suppress any mild symptomatology. If she develops recurrent flare I recommend close follow up with our office. Discussed possibility of surgical intervention in the future if she continues to have issues. For now I will see her back as needed. This note was created with the assistance of a speech recognition program. While intending to generate a timely document that accurately reflects the content of the visit, no guarantee can be provided that every grammatical or spelling mistake has been or will be identified or corrected. Thank you for your understanding. Horacio Sweet DPM documented in this encounter [facility] 10-05-2024 History of Present illness Narrative Rx sent to [facility] in [place]. documented in this encounter [facility] 09-18-2024 History of Present illness Narrative Images from the original note were not included. Subjective Patient ID: Darvin Chaves is a 49 y.o. female who presents for Ankle Pain (Darvin Chaves 49yo New patient presents with referral Landy Ibarra for Right Ankle pain. Pain started about 6 months ago, NKI. Patient was wearing OTC Copper fit compression brace. Discomfort when stepping up curbs. [employer] feet store inserts. Xrays, Physical therapy 1 month, 2x weekly, meloxicam. Slight improvement SS9.5 ). HPI This is a new patient who presents to clinic with concern right ankle pain. Patient states that this is been bothering her for about 6 months. She has attempted meloxicam without relief of symptoms. Symptoms seem to be worse with long periods of walking and standing. Described as sharp, aching in nature along the medial aspect of the right ankle. Review of Systems Constitutional: Positive for activity change. Negative for appetite change. Respiratory: Negative for chest tightness and shortness of breath. Cardiovascular: Negative for chest pain. Musculoskeletal: Positive for arthralgias and gait problem. Skin: Negative for color change and wound. Neurological: Negative for weakness and numbness. Psychiatric/Behavioral: Negative for agitation and behavioral problems. Hematological: Does not bruise/bleed easily. Endocrine: Negative for cold intolerance and heat intolerance. Allergic/Immunologic: Negative for immunocompromised state. Past medical History Past Medical History: Diagnosis Date Abnormal mammogram 09/06/2021 cyst RT Abnormal Pap smear of cervix Acute serous otitis media left ear Allergic Anemia Anxiety Arthritis 11/2023 Awareness under anesthesia 1998 Bipolar disorder ([facility]) Adm to [facility] Discharged 03/16/2016 Cholecystitis LISA II (cervical intraepithelial neoplasia II) Depression ([facility]) 03/2013 Eczema 03/1995 Fibrocystic breast Fibroid GERD (gastroesophageal reflux disease) HPV (human papilloma virus) infection Hypertension ([facility]/HCC) Inflammatory bowel disease Irritable bowel syndrome Obesity Ovarian cyst PONV (postoperative nausea and vomiting) Spinal headache 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 Urinary incontinence Urinary tract infection Varicella Visual impairment Medications Current Outpatient Medications: cetirizine (ZyrTEC) 10 MG tablet, TAKE 1 TABLET IN THE MORNING, Disp: 90 tablet, Rfl: 3 citalopram (CeleXA) 40 MG tablet, 1 (one) time each day at the same time., Disp: , Rfl: hydrOXYzine HCl (Atarax) 25 MG tablet, 1-2 tabs as needed for anxiety, Disp: , Rfl: hyoscyamine (Levsin/SL) 0.125 MG SL tablet, Take 1 tablet (125 mcg) by mouth every 6 (six) hours if needed for cramping or diarrhea, Disp: 45 tablet, Rfl: 1 lamoTRIgine (LaMICtal) 200 MG tablet, Take 1 tablet by mouth in the morning., Disp: , Rfl: losartan-hydroCHLOROthiazide (Hyzaar) 100-12.5 MG tablet, TAKE 1 TABLET DAILY, Disp: 90 tablet, Rfl: 3 meloxicam (Mobic) 15 MG tablet, Take 1 tablet (15 mg) by mouth Daily, Disp: 30 tablet, Rfl: 11 methylPREDNISolone (Medrol Dospak) 4 MG tablets, Take as directed on package., Disp: 21 tablet, Rfl: 0 omeprazole (PriLOSEC) [address] capsule, TAKE 1 CAPSULE IN THE MORNING BEFORE A MEAL (DO NOT CRUSH OR CHEW), Disp: 90 capsule, Rfl: 3 Allergies Diclofenac sodium, Sulfa antibiotics, Erythromycin, and Erythromycin base Past Surgical History Past Surgical History: Procedure Laterality Date BREAST BIOPSY CERVICAL CONIZATION W/ LASER 1997 CHOLECYSTECTOMY 2005 Disease: Cholecystitis COCHLEAR IMPLANT 01/02/2023 COLONOSCOPY 07/23/2024 HYSTERECTOMY 01/23/2018 [facility], TVT-O HYSTEROSCOPY 2014 + BS, D+C, Ablation SPINE SURGERY 12/2023 TONSILLECTOMY 2008 Disease: Tonsillitis TUBAL LIGATION Family History Family History Problem Relation Name Age of Onset Breast cancer Mother Amira 78 years old Diabetes Mother Amira Cancer Mother Amira Hearing loss Mother Amira Lupus Father Ed Heart disease Father Ed 79 years old Rheum arthritis Father Ed Alcohol abuse Father Ed Arthritis Father Ed Kidney disease Father Ed Hearing loss Father Ed Other (blood clot in brain) Sister America d/t bernie Migraines Sister [place] Thyroid disease Sister [place] Heart disease Maternal Grandfather Terence Heart disease Paternal Grandfather Deshawn Migraines Sister Deb Migraines Sister Sofía Objective Physical Exam Constitutional: Appearance: She is obese. HENT: Head: Normocephalic and atraumatic. Cardiovascular: Pulses: Normal pulses. Pulmonary: Effort: Pulmonary effort is normal. No respiratory distress. Abdominal: Palpations: There is no mass. Musculoskeletal: Cervical back: No rigidity. Comments: Weightbearing examination reveals pes planovalgus deformity. Forefoot abduction and collapse of the medial longitudinal arch. Right foot: Isolated tenderness to palpation over the posterior tibial tendon from the medial malleolus to its insertion on the navicular tuberosity. There is some mild warmth and edema in this area consistent with tendinitis. Muscle strength 5/5 for all quadrants with tenderness on resisted inversion. Ankle dorsiflexion 0 degrees with the knee extended, flexed. Subtalar range of motion smooth and painful with forced inversion. Skin: Capillary Refill: Capillary refill takes less than 2 seconds. Findings: No lesion or rash. Neurological: Mental Status: She is alert. Comments: No loss of protective sensation, gross sensation intact. Psychiatric: Mood and Affect: Mood normal. Behavior: Behavior normal. XR foot 3+ views right Imaging Result: AP, medial oblique, calcaneal axial views are weight-bearing. Slight rearfoot valgus of about 5 degrees. Approximately 60 percent talar head uncoverage. No fractures or dislocations noted. XR ankle 2 views right Imaging Result: AP and lateral views reveal no acute fractures or dislocations. Talus appears well seated within the ankle mortise. There is an ossicle over the anterior lateral fibula consistent with previous injury. Decreased calcaneal inclination and increased talar declination, N/C J fault. Large enthesophyte at the insertion of the plantar fascia. Os trigonum noted over the posterior talar process. First ray elevation. Mild osteophyte over the dorsal 1st metatarsal head. Assessment/Plan ICD-10-CM 1. Posterior tibial tendinitis of right lower extremity M76.821 XR foot 3+ views right XR ankle 2 views right methylPREDNISolone (Medrol Dospak) 4 MG tablets 2. Chronic pain of right ankle M25.571 Ambulatory referral to Podiatry G89.29 XR foot 3+ views right XR ankle 2 views right 3. Valgus deformity, not elsewhere classified, right ankle M21.071 XR foot 3+ views right XR ankle 2 views right 4. Instability of right ankle joint M25.371 5. Difficulty walking R26.2 Patient was examined and evaluated. I reviewed radiographs of the right ankle that she had previously but these are nonweightbearing and I recommend weight-bearing radiographs today. 3 views of the affected foot as well as 2 views of the affected ankle were taken in office today and I discussed my findings. Patient has severe pes planovalgus deformity which seems to be leading to the symptomatology consistent with posterior tibial tendinitis along the medial aspect of the right ankle. Causes and treatment options for progressive flatfoot deformity were discussed in detail. At this time I am recommending a home exercise program focusing on gastroc soleal contracture and periarticular ankle strengthening exercises. Program was printed off and given to the patient. Complete daily as instructed. I have recommended orthotic therapy to help control the foot structure and reduced valgus stresses across the midfoot. Patient already has orthotics from the [employer] [facility]. I did have her trial power steps today so that she would get a sense of which strength orthotic she needs to wear from the [employer] store. I have recommended an ASO brace for stabilization and limitation of motion of the ankle and rearfoot. Patient agreed and was fitted for the appropriate brace. Goals of therapy include prevent further injury, reduced valgus instability of the hindfoot into increased ability to a hypermobile foot. Anticipated time of use - indefinite. At the time of dispensing it is suitable and not substandard. Patient is able to apply the brace independently. It is comfortable to walk and fits inside the shoe. I also discussed surgical reconstruction if conservative care is unsuccessful. Recommend oral anti-inflammatory regimen to see if we can reduce inflammation within the posterior tibial tendon. Prescription for Medrol Dosepak sent to her pharmacy. She has meloxicam already and she will take daily for 3 weeks following completion of Medrol Dosepak. I would like to see her back in 1 month for follow up. She continues to have issues consider MRI, immobilization or surgical intervention. This note was created with the assistance of a speech recognition program. While intending to generate a timely document that accurately reflects the content of the visit, no guarantee can be provided that every grammatical or spelling mistake has been or will be identified or corrected. Thank you for your understanding. Horacio Sweet DPM documented in this encounter [facility] 09-14-2024 History of Present illness Narrative Physical Therapy Treatment Visit Patient Name: Darvin Chaves Today's Date: 09/14/24 Encounter Diagnoses Name Primary? Chronic pain of right ankle Yes History of fracture of right ankle Visit number: 6 Timed Code Treatment: 30 minutes Total Treatment Time: 55 minutes Time In: 1300 Time Out: 1355 History: Pt. Presents to PT with c/c of chronic right ankle pain which started 6 months ago. History of ankle fracture in the but has had chronic ankle pain for several years. Increased ankle pain while on her feet for long periods of time. Pain will be so back she is unable to put weight onto right ankle. Denies N/T. Arch support. X-ray: soft tissue swelling. Meloxicam helped to decrease pain but does take everyday. Precautions: cervical fusion at C5/6; December Subjective: Pt. Reports of increase medial ankle pain but did a lot of walk over the weekend. Pain increases the more she is on her feet. Pain: 2-9/10; worst on feet for long periods of time; medial/top Objective: PT Evaluation Right ankle AROM: dorsiflexion 5 deg, PF/EV/INV normal Joint: normal Flexibility: mild calf muscle tightness Palpation: TTP dorsum of ankle Strength: DF 4/5, INV 4-/5, PF 4-/5 unable to perform calf raise, EV 4/5 Test: overpronation with collapsing arch with sit to stand. Treatment: Manual Therapy: (10 minutes) Delivered manual ther STM to right medial ankle/foot to reduce inflammation and passive calf stretches. Therapeutic Exercise: (20 minutes supervised ) Guided pt through ther and flex exercises per grid to improve R LE foot ankle functional mobility and strength Therapeutic Activity: Exercises to improve dynamic activities, functional tasks, functional mobility to return to prior activity level Neuromuscular re-education: Balance Training, Muscle Facilitation, Dynamic Stability, Core Stabilization, and Blood Flow Restriction Training (BFRT) Modalities: (15 minutes) IFC with ice to ankle post session DN: 4x medial ankle, 10 minute rest Assessment: Pt has participated in 7 PT session with start of POC on 08/19/24 for overpronation of right arch resulting in ankle pain. Trial of DN treatment again today, pt. Tolerated all ther ex fair today. Ankle dorsiflexion still limited. PT treatment to continue to help decrease inflammation. Outcome Measure: 56/80 LEFS Short Term Goal: To be met in 2 weeks Goal 1: Pt to be instructed in home exercise program. Material Mixer Goals: To be met in 10 weeks Goal 1: Pt to report independence and compliance with home program. Goal 2: Pt. Will report of 0/10 right ankle pain while walking/standing for long periods of time to help improve her functional mobility. Goal 3: Pt. Will demonstrate 5/5 right ankle/foot strength to help improve arch support to improve her ability to stand for long periods of time. Goal 4: Pt. Will demonstrate normal calf muscle flexibility to help decrease ankle pain to improve her functional mobility. Goal 5: Pt. Will score 70 or greater on LEFS to help improve her functional mobility. Pt will benefit from skilled PT for 1-2x/week from 08/19/24 to 10/28/24 to address the above impairments. I hereby deem this POC medically necessary. Please sign below. Date: documented in this encounter [facility] 08-27-2024 History of Present illness Narrative Physical Therapy Treatment Visit Patient Name: Darvin Chaves Today's Date: 08/27/2024 Encounter Diagnoses Name Primary? Chronic pain of right ankle Yes History of fracture of right ankle Visit number: 3 Timed Code Treatment Minutes: 24 minutes Total Treatment Time: 40 minutes Time In: 1530 Time Out: 1610 History: Pt. Presents to PT with c/c of chronic right ankle pain which started 6 months ago. History of ankle fracture in the but has had chronic ankle pain for several years. Increased ankle pain while on her feet for long periods of time. Pain will be so back she is unable to put weight onto right ankle. Denies N/T. Arch support. X-ray: soft tissue swelling. Meloxicam helped to decrease pain but does take everyday. Precautions: cervical fusion at C5/6; December Subjective: pt reports of increased ankle pain today. Pain: 2-9/10; worst on feet for long periods of time; pain is in top of foot. Objective: PT Evaluation Right ankle AROM: dorsiflexion 5 deg, PF/EV/INV normal Joint: normal Flexibility: mild calf muscle tightness Palpation: TTP dorsum of ankle Strength: DF 4/5, INV 4-/5, PF 4-/5 unable to perform calf raise, EV 4/5 Test: overpronation with collapsing arch with sit to stand. Treatment: Education: HEP education with demonstration, Educated on Eval Findings and POC Manual Therapy: (held minutes) Performing STM to medial ankle/foot to reduce inflammation and passive calf stretches. Passive ROM, Joint mobilization, Soft Tissue Mobilization, Myofascial Release, Muscle Energy Technique, Neural Mobilization, Myofascial Cupping, Dry Needling, IASTM, and Scar mobilization Therapeutic Exercise: (24 minutes) exercises in grid; Strength, Endurance, Flexibility, ROM, HEP, Neural Mobilization, Power, and Core Stability Therapeutic Activity: Exercises to improve dynamic activities, functional tasks, functional mobility to return to prior activity level Neuromuscular re-education: Balance Training, Muscle Facilitation, Dynamic Stability, Core Stabilization, and Blood Flow Restriction Training (BFRT) Modalities: (15 minutes) IFC with ice to ankle; Heat, Ice, Electrical Stimulation, Ultrasound, Cervical Mechanical Traction, Lumbar Mechanical Traction, Iontophoresis, and Fluidotherapy Assessment: Pt. Has participated in 3 PT session with start of POC on 08/19/24 for overpronation of right arch resulting in ankle pain. Pt. Will benefit from skilled PT services. PT treatment to focus on improving ankle/foot strength and stability. Held most standing exercises due to increased ankle pain today. Performed open chain stretching and ended with e-stim to help decrease pain/inflammation. Outcome Measure: 56/80 LEFS Short Term Goal: To be met in 2 weeks Goal 1: Pt to be instructed in home exercise program. [facility] Goals: To be met in 10 weeks Goal 1: Pt to report independence and compliance with home program. Goal 2: Pt. Will report of 0/10 right ankle pain while walking/standing for long periods of time to help improve her functional mobility. Goal 3: Pt. Will demonstrate 5/5 right ankle/foot strength to help improve arch support to improve her ability to stand for long periods of time. Goal 4: Pt. Will demonstrate normal calf muscle flexibility to help decrease ankle pain to improve her functional mobility. Goal 5: Pt. Will score 70 or greater on LEFS to help improve her functional mobility. Pt will benefit from skilled PT for 1-2x/week from 08/19/24 to 10/28/24 to address the above impairments. I hereby deem this POC medically necessary. Please sign below. Date: documented in this encounter [facility] 08-25-2024 History of Present illness Narrative Referral sent. documented in this encounter [facility] 08-25-2024 History of Present illness Narrative Images from the original note were not included. Subjective Patient ID: Darvin Chaves is a 49 y.o. female who presents for Pain (Pt presents for tongue pain. Pt notes that since last Saturday she has been having pain and burning on her tongue. Pt notes that the only new anything is Meloxicam. She states that she does not take this everyday. Pt also notes that she does have a hx of dry mouth. ). Oral Pain This is a new problem. The current episode started in the past 7 days. The problem occurs constantly. The problem has been gradually worsening. The pain is moderate. Pertinent negatives include no difficulty swallowing, fever or oral bleeding. Treatments tried: oral rinse. The treatment provided no relief. Pt states GERD has glen worsening in the recent weeks. No other current complaints. Review of Systems Constitutional: Negative for chills and fever. HENT: Negative for facial swelling, sore throat and trouble swallowing. Respiratory: Negative for shortness of breath. Cardiovascular: Negative for chest pain. Gastrointestinal: Negative for diarrhea, nausea and vomiting. Musculoskeletal: Negative for myalgias. Skin: Negative for rash. All other systems reviewed and are negative. Objective Visit Vitals BP 126/72 Pulse 79 Temp 98.4 F Ht 5' 6 Wt 273 lb SpO2 99% BMI 44.06 kg/m OB Status Hysterectomy Smoking Status Never BSA 2.4 m Physical Exam Constitutional: General: She is not in acute distress. Appearance: Normal appearance. HENT: Head: Normocephalic and atraumatic. Mouth/Throat: Mouth: Mucous membranes are moist. No oral lesions. Tongue: No lesions. Pharynx: No pharyngeal swelling, oropharyngeal exudate or posterior oropharyngeal erythema. Tonsils: No tonsillar exudate. Cardiovascular: Rate and Rhythm: Normal rate and regular rhythm. Pulses: Normal pulses. Heart sounds: No murmur heard. No friction rub. No gallop. Pulmonary: Effort: No respiratory distress. Breath sounds: Normal breath sounds. No wheezing, rhonchi or rales. Skin: General: Skin is warm and dry. Findings: No rash. Neurological: General: No focal deficit present. Mental Status: She is alert and oriented to person, place, and time. Psychiatric: Mood and Affect: Mood normal. Behavior: Behavior normal. Judgment: Judgment normal. Assessment/Plan Diagnoses and all orders for this visit: Gastroesophageal reflux disease without esophagitis Tongue pain - lidocaine (Xylocaine) 2 % solution; Take 1.3 mL by mouth in the morning and 1.3 mL at noon and 1.3 mL in the evening. Take before meals PRN. Increase omeprazole to 40 MG qdaily. Pt advised on high acid food triggers such as caffeine products, fruits high in acid, spicy foods and to follow bland diet management measures for acute flare. Lifestyle changes include weight loss for overweight people; head-of-bed elevation; and avoidance of late-night eating if nocturnal symptoms are present. Take medication as prescribed. 6-8 week course of meds, call or RTO if symptoms return after med completion. All questions answered. Call the office with any other questions or concerns. documented in this encounter [facility] 08-19-2024 History of Present illness Narrative Physical Therapy Evaluation Visit Patient Name: Darvin Chaves Today's Date: 08/19/2024 Encounter Diagnoses Name Primary? Chronic pain of right ankle History of fracture of right ankle Visit number: 1 Timed Code Treatment Minutes: 50 minutes Total Treatment Time: 50 minutes Time In: 0900 Time Out: 09 History: Pt. Presents to PT with c/c of chronic right ankle pain which started 6 months ago. History of ankle fracture in the but has had chronic ankle pain for several years. Increased ankle pain while on her feet for long periods of time. Pain will be so back she is unable to put weight onto right ankle. Denies N/T. Arch support. X-ray: soft tissue swelling. Meloxicam helped to decrease pain but does take everyday. Precautions: cervical fusion at C5/6; December Subjective Pain: 2-9/10; worst on feet for long periods of time; pain is in top of foot. Objective: PT Evaluation Right ankle AROM: dorsiflexion 5 deg, PF/EV/INV normal Joint: normal Flexibility: mild calf muscle tightness Palpation: TTP dorsum of ankle Strength: DF 4/5, INV 4-/5, PF 4-/5 unable to perform calf raise, EV 4/5 Test: overpronation with collapsing arch with sit to stand. Treatment: PT evaluation (20 minutes) Education: HEP education with demonstration, Educated on Eval Findings and POC Manual Therapy: Passive ROM, Joint mobilization, Soft Tissue Mobilization, Myofascial Release, Muscle Energy Technique, Neural Mobilization, Myofascial Cupping, Dry Needling, IASTM, and Scar mobilization Therapeutic Exercise: (15 minutes) exercises in grid; Strength, Endurance, Flexibility, ROM, HEP, Neural Mobilization, Power, and Core Stability Therapeutic Activity: Exercises to improve dynamic activities, functional tasks, functional mobility to return to prior activity level Neuromuscular re-education: Balance Training, Muscle Facilitation, Dynamic Stability, Core Stabilization, and Blood Flow Restriction Training (BFRT) Modalities: Heat, Ice, Electrical Stimulation, Ultrasound, Cervical Mechanical Traction, Lumbar Mechanical Traction, Iontophoresis, and Fluidotherapy Assessment: Pt. Has participated in 1 PT session with start of POC on 08/19/24 for overpronation of right arch resulting in ankle pain. Pt. Will benefit from skilled PT services. PT treatment to focus on improving ankle/foot strength and stability. Added balance exercises next session. Outcome Measure: 56/80 LEFS Short Term Goal: To be met in 2 weeks Goal 1: Pt to be instructed in home exercise program. Material Mixer Goals: To be met in 10 weeks Goal 1: Pt to report independence and compliance with home program. Goal 2: Pt. Will report of 0/10 right ankle pain while walking/standing for long periods of time to help improve her functional mobility. Goal 3: Pt. Will demonstrate 5/5 right ankle/foot strength to help improve arch support to improve her ability to stand for long periods of time. Goal 4: Pt. Will demonstrate normal calf muscle flexibility to help decrease ankle pain to improve her functional mobility. Goal 5: Pt. Will score 70 or greater on LEFS to help improve her functional mobility. Pt will benefit from skilled PT for 1-2x/week from 08/19/24 to 10/28/24 to address the above impairments. I hereby deem this POC medically necessary. Please sign below. Date: documented in this encounter [facility] 08-13-2024 History of Present illness Narrative Images from the original note were not included. Darvin Chaves 1975 Darvin Chaves is a 49 y.o. female presents with chief complaint of 1st po - colonoscopy HPI: HPI Patient had no problems with colonoscopy. She is back to her normal bowel function. She has not having any blood in his stool. No abdominal pain. SUBJECTIVE: MEDICATIONS: ALLERGIES Current Outpatient Medications Medication Instructions cetirizine (ZYRTEC) 10 mg, Oral, Every morning citalopram (CeleXA) 40 MG tablet Every 24 hours hydrOXYzine HCl (Atarax) 25 MG tablet 1-2 tabs as needed for anxiety hyoscyamine (LEVSIN/SL) 125 mcg, Oral, Every 6 hours PRN lamoTRIgine (LaMICtal) 200 MG tablet 1 tablet, Oral, Daily losartan-hydroCHLOROthiazide (Hyzaar) 100-12.5 MG tablet TAKE 1 TABLET DAILY meloxicam (MOBIC) 15 mg, Oral, Daily omeprazole (PriLOSEC) [address] capsule TAKE 1 CAPSULE IN THE MORNING BEFORE A MEAL (DO NOT CRUSH OR CHEW) Allergies Allergen Reactions Diclofenac Sodium GI intolerance Sulfa Antibiotics Swelling and Unknown Other Reaction(s): Swelling of the Eye Erythromycin Rash Other Reaction(s): Unknown Erythromycin Base Rash PAST MEDICAL HISTORY: SOCIAL HISTORY SURGICAL HISTORY: Past Medical History: Diagnosis Date Abnormal mammogram 09/06/2021 cyst RT Abnormal Pap smear of cervix Acute serous otitis media left ear Allergic Anemia Anxiety Arthritis 11/2023 Awareness under anesthesia 1998 Bipolar disorder ([facility]) Adm to [facility] Discharged 03/16/2016 Cholecystitis LISA II (cervical intraepithelial neoplasia II) Depression ([facility]) 03/2013 Eczema 03/1995 Fibrocystic breast Fibroid GERD (gastroesophageal reflux disease) HPV (human papilloma virus) infection Hypertension ([facility]) Inflammatory bowel disease Irritable bowel syndrome Obesity Ovarian cyst PONV (postoperative nausea and vomiting) Spinal headache 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 Urinary incontinence Urinary tract infection Varicella Visual impairment Social History Tobacco Use Smoking status: Never Passive exposure: Never Smokeless tobacco: Never Vaping Use Vaping status: Never Used Substance Use Topics Alcohol use: Yes Alcohol/week: 2.0 standard drinks of alcohol Types: 2 Standard drinks or equivalent per week Comment: caffeine intake: none Drug use: Never Past Surgical History: Procedure Laterality Date BREAST BIOPSY CERVICAL CONIZATION W/ LASER 1997 CHOLECYSTECTOMY 2005 Disease: Cholecystitis COCHLEAR IMPLANT 01/02/2023 COLONOSCOPY 07/23/2024 HYSTERECTOMY 01/23/2018 [facility], TVT-O HYSTEROSCOPY 2014 + BS, D+C, Ablation SPINE SURGERY 12/2023 TONSILLECTOMY 2008 Disease: Tonsillitis TUBAL LIGATION REVIEW OF SYMPTOMS: Review of Systems OBJECTIVE: Visit Vitals OB Status Hysterectomy Smoking Status Never Physical Exam Constitutional: Appearance: Normal appearance. She is not ill-appearing. Cardiovascular: Rate and Rhythm: Regular rhythm. Abdominal: General: There is no distension. Tenderness: There is no abdominal tenderness. Media Information Document Information Lab: Pathology 2024-07-23 Colon Bx PCL 07/23/2024 Attached To: Appointment on 07/23/24 with Cornelio Ivy DO Source Information Kim Mukherjee [facility] Document History ASSESSMENT AND PLAN: Assessment/Plan Diagnoses and all orders for this visit: Irritable bowel syndrome with diarrhea Status post colonoscopy which was normal. I did take multiple random biopsies throughout to evaluate for microscopic colitis etcetera that was all negative. She appreciates the evaluation. Should have repeat colonoscopy 10 years unless she develops anemia or change in bowels with bleeding etcetera. otherwise she is discharged from my care. documented in this encounter [facility] 07-29-2024 History of Present illness Narrative Images from the original note were not included. Subjective Patient ID: Darvin Chaves is a 49 y.o. female who presents for Ankle Pain (Pt c/o right ankle pain that has been going on for abour 6 months. Pt states that the ankle brace does not seem to be helping anymore. ). Ankle Pain There was no injury mechanism. The pain is present in the right ankle. The quality of the pain is described as aching. The pain is moderate. The pain has been Fluctuating since onset. Pertinent negatives include no numbness or tingling. She reports no foreign bodies present. The symptoms are aggravated by weight bearing and movement. She has tried nothing for the symptoms. The treatment provided no relief. Review of Systems Constitutional: Negative for chills and fever. Respiratory: Negative for shortness of breath. Cardiovascular: Negative for chest pain. Gastrointestinal: Negative for diarrhea, nausea and vomiting. Musculoskeletal: Negative for myalgias. Skin: Negative for rash. Neurological: Negative for tingling and numbness. All other systems reviewed and are negative. Objective Visit Vitals BP 120/78 Pulse 76 Temp 97.2 F Ht 5' 6 Wt 270 lb SpO2 97% BMI 43.58 kg/m OB Status Hysterectomy Smoking Status Never BSA 2.38 m Physical Exam Constitutional: General: She is not in acute distress. Appearance: Normal appearance. HENT: Head: Normocephalic and atraumatic. Mouth/Throat: Mouth: Mucous membranes are moist. Eyes: Extraocular Movements: Extraocular movements intact. Cardiovascular: Rate and Rhythm: Normal rate and regular rhythm. Pulses: Normal pulses. Heart sounds: No murmur heard. No friction rub. No gallop. Pulmonary: Effort: No respiratory distress. Breath sounds: Normal breath sounds. No wheezing, rhonchi or rales. Musculoskeletal: Right lower leg: No edema. Left lower leg: No edema. Right ankle: Swelling (both medially and laterally) present. No ecchymosis. Tenderness present over the medial malleolus (anterior tibiotalar). Normal range of motion. Right Achilles Tendon: No tenderness. Left ankle: No swelling or ecchymosis. No tenderness. Normal range of motion. Left Achilles Tendon: No tenderness. Skin: General: Skin is warm and dry. Findings: No rash. Neurological: General: No focal deficit present. Mental Status: She is alert and oriented to person, place, and time. Psychiatric: Mood and Affect: Mood normal. Behavior: Behavior normal. Judgment: Judgment normal. Assessment/Plan Diagnoses and all orders for this visit: Chronic pain of right ankle - meloxicam (Mobic) 15 MG tablet; Take 1 tablet (15 mg) by mouth Daily - XR ankle 3+ views right; Future History of fracture of right ankle - meloxicam (Mobic) 15 MG tablet; Take 1 tablet (15 mg) by mouth Daily - XR ankle 3+ views right; Future New meds as directed. RICE therapy advised. Also recommend heat therapy, gentle massage, and gentle range of motion/stretching exercises, as alternate modalities for pain reduction. Pt may need further evaluation, if their pain worsens or does not resolve. All questions answered. Call with any further questions or concerns. Will contact pt with imaging results and determine appropriate f/u at that time. documented in this encounter [facility] 04-21-2024 History of Present illness Narrative An interactive audio and video telecommunication system which permits real time communications between the patient (at the originating site) and provider (at the distant site) was utilized to provide this telehealth service. Verbal consent was requested and obtained for a telehealth visit. History Of Present Illness: Darvin Chaves is a 48 y.o. female with a history of left sensorineural hearing loss s/p left cochlear implant on 01/02/23. She's doing well with her cochlear implant, she's wearing it most of the day with benefit. Recall 04/23/23: Darvin is a 47 year old female with a hx of left sensorineural hearing loss s/p left cochlear implant on 01/02/23. She is starting to brass pickler words, she was at a saturday evening and picked someone up from across the room. She's waking up daily with a globus sensation, she typically coughs until she's able to bring it up. She doesn't feel it's in her chest but rather her throat. Surgical History: She has a past surgical history that includes Gallbladder surgery; Hysterectomy; Incontinence surgery; Cochlear implant (01/02/2023); MR brain w and wo IV contrast (06/2022); Cholecystectomy; Tubal ligation; Endometrial ablation; and Colonoscopy. Allergies: Diclofenac sodium, Sulfa (sulfonamide antibiotics), and Erythromycin Medications: Current Outpatient Medications Medication Instructions acetaminophen (TYLENOL) 487.5 mg, oral, Every 6 hours PRN cetirizine (ZYRTEC) 10 mg, oral citalopram (CELEXA) 40 mg, oral cyclobenzaprine (FLEXERIL) 10 mg, oral, 3 times daily PRN ibuprofen 800 mg, oral, Every 8 hours PRN, DO NOT RESUME UNTIL 01/20/2024 lamoTRIgine (LAMICTAL) 200 mg, oral losartan-hydrochlorothiazide (Hyzaar) 100-12.5 mg tablet oral mirabegron (MYRBETRIQ) 25 mg, oral, Every 24 hours omeprazole (PRILOSEC) 10 mg, oral, Daily oxyCODONE (ROXICODONE) 5 mg, oral, Every 6 hours PRN sennosides-docusate sodium (Hawa-Colace) 8.6-50 mg tablet 2 tablets, oral, 2 times daily, Take while using oxycodone for post operative pain to prevent GI upset Review of Systems: A comprehensive 10-point review of systems was obtained including constitutional, neurological, HEENT, pulmonary, cardiovascular, genito-urinary, and other pertinent systems and was negative except as noted in the HPI. Physical Exam: Patient appeared healthy with no signs of acute distress, visit was conducted via video chat therefore a thorough physical exam was not preformed. Last Recorded Vitals: There were no vitals taken for this visit. Assessment/Plan 48 y.o. female with a history of left sensorineural hearing loss s/p left cochlear implant on 01/02/23. She continues to do well with her cochlear implant, she denies any recent magnet site tenderness or erythema. - RTC in 1 year A total of 10 min was spent with this patient. Scribe Attestation: By signing my name below, I, Juanita Alegria , Scribjermaine attest that this documentation has been prepared under the direction and in the presence of Katarzyna Hopson MD. I have reviewed the documentation as scribed by Juanita Alegria and agree with the notes. Katarzyna Hopson MD documented in this encounter [facility] Work Phone: 02-19-2024 History of Present illness Narrative 12-23-23 C6-7 Foraminotomy. Today is better than before surgery. Pain comes and goes. 48-year-old woman who underwent left-sided C6-7 foraminotomies for cervical radiculopathy returns for follow-up. She reports that her pain is much better than it was before surgery. She no longer has any pain shooting down her arm. She only has a little bit of pain by her scapula. On exam, she is alert and interactive. Her incision is clean and intact. There is no erythema or exudate. Strength is full. The patient is recovering well from her surgery and had a good response to nerve root decompression. She may start to slightly increase her activity as she cannot get back to full activity without restriction until 3 months after her surgery. I be happy to see her again if any new issues arise. documented in this encounter [facility] Work Phone: 01-17-2024 Hospital course Narrative Discharge Diagnosis Cervical disc disorder with radiculopathy Issues Requiring Follow-Up Wound healing Test Results Pending At Discharge Pending Labs No current pending labs. Hospital Course Patient is a 48 year old female with h/o HTN, FRANCISCO (on CPAP), GERD, L SNHL, depression/anxiety, bipolar disorder, p/w L C7 radiculopathy. Patient admitted for planned OR. Hospital course as follows: 01/16 s/p L C6-7 foraminotomy, post op CT anticipated POC and confirmed C6-7 foraminotomy. Patient mobilized post op and cleared for discharged on POD #1. Patient discharged to home with scheduled neurosurgery follow up. Physical exam on day of discharge as documented: General: in bed, awake, no distress HEENT: PERRL Neuro: Awake BUE 5/ BLE 5/ SILT Incision c/d/I Cardiac: regular rate and rhythm Resp: respirations easy and regular Abd: soft, non-tender, non-distended Extr: no edema; pulses palpable Skin: warm, dry, intact. Psych: appropriate and cooperative Pertinent Physical Exam At Time of Discharge Physical Exam - Please see above Vitals: 01/17/24 0817 BP: 115/73 Pulse: 55 Resp: 18 Temp: 35.8 C (96.4 F) SpO2: 98% Home Medications Medication List START taking these medications cyclobenzaprine 10 mg tablet; Commonly known as: Flexeril; Take 1 tablet (10 mg) by mouth 3 times a day as needed for muscle spasms. oxyCODONE 5 mg immediate release tablet; Commonly known as: Roxicodone; Take 1 tablet (5 mg) by mouth every 6 hours if needed for severe pain (7 - 10) (ICD 10: G89.18). sennosides-docusate sodium 8.6-50 mg tablet; Commonly known as: Hawa-Colace; Take 2 tablets by mouth 2 times a day. Take while using oxycodone for post operative pain to prevent GI upset CHANGE how you take these medications acetaminophen 325 mg tablet; Commonly known as: Tylenol; Take 1.5 tablets (487.5 mg) by mouth every 6 hours if needed for moderate pain (4 - 6).; What changed: how much to take, when to take this ibuprofen 800 mg tablet; Take 1 tablet (800 mg) by mouth every 8 hours if needed for mild pain (1 - 3). DO NOT RESUME UNTIL 01/20/2024; What changed: additional instructions CONTINUE taking these medications CeleXA 40 mg tablet; Generic drug: citalopram cetirizine 10 mg tablet; Commonly known as: ZyrTEC lamoTRIgine 200 mg tablet; Commonly known as: LaMICtal losartan-hydrochlorothiazide 100-12.5 mg tablet; Commonly known as: Hyzaar Myrbetriq 25 mg tablet extended release 24 hr 24 hr tablet; Generic drug: mirabegron omeprazole [address] capsule; Commonly known as: PriLOSEC STOP taking these medications chlorhexidine 0.12 % solution; Commonly known as: Peridex Outpatient Follow-Up Future Appointments Date Time Provider Department Center 01/29/2024 10:45 AM NE[facility]OSURGERY [facility] NURSE [id number] [facility] 02/17/2024 2:30 PM Deidra Enciso MD [id number] [facility] 04/21/2024 1:00 PM Katarzyna Hopson MD [id number] [facility] 12/07/2024 10:30 AM CANDI Kessler, CCC-A [id number] [facility] SOCO Camacho documented in this encounter [facility] Work Phone: 01-17-2024 Plan of care note Problem: Fall/Injury Goal: Not fall by end of shift Outcome: Progressing Goal: Be free from injury by end of the shift Outcome: Progressing Goal: Verbalize understanding of personal risk factors for fall in the hospital Outcome: Progressing Goal: Verbalize understanding of risk factor reduction measures to prevent injury from fall in the home Outcome: Progressing Goal: Use assistive devices by end of the shift Outcome: Progressing Goal: Pace activities to prevent fatigue by end of the shift Outcome: Progressing Problem: Pain Goal: Takes deep breaths with improved pain control throughout the shift Outcome: Progressing Goal: Turns in bed with improved pain control throughout the shift Outcome: Progressing Goal: Walks with improved pain control throughout the shift Outcome: Progressing Goal: Performs ADL's with improved pain control throughout shift Outcome: Progressing Goal: Participates in PT with improved pain control throughout the shift Outcome: Progressing Goal: Free from opioid side effects throughout the shift Outcome: Progressing Goal: Free from acute confusion related to pain meds throughout the shift Outcome: Progressing The patient's goals for the shift include remain free from injury The clinical goals for the shift include pt will have decreased pain this shift [facility] 01-17-2024 Miscellaneous Notes Problem: Fall/Injury Goal: Not fall by end of shift Outcome: Progressing Goal: Be free from injury by end of the shift Outcome: Progressing Goal: Verbalize understanding of personal risk factors for fall in the hospital Outcome: Progressing Goal: Verbalize understanding of risk factor reduction measures to prevent injury from fall in the home Outcome: Progressing Goal: Use assistive devices by end of the shift Outcome: Progressing Goal: Pace activities to prevent fatigue by end of the shift Outcome: Progressing Problem: Pain Goal: Takes deep breaths with improved pain control throughout the shift Outcome: Progressing Goal: Turns in bed with improved pain control throughout the shift Outcome: Progressing Goal: Walks with improved pain control throughout the shift Outcome: Progressing Goal: Performs ADL's with improved pain control throughout shift Outcome: Progressing Goal: Participates in PT with improved pain control throughout the shift Outcome: Progressing Goal: Free from opioid side effects throughout the shift Outcome: Progressing Goal: Free from acute confusion related to pain meds throughout the shift Outcome: Progressing The patient's goals for the shift include remain free from injury The clinical goals for the shift include pt will have decreased pain this shift The patient's goals for the shift include remain free from injury The clinical goals for the shift include Keep pain less than 8 Problem: Pain - Adult Goal: Verbalizes/displays adequate comfort level or baseline comfort level Outcome: Progressing Problem: Safety - Adult Goal: Free from fall injury Outcome: Progressing Problem: Discharge Planning Goal: Discharge to home or other facility with appropriate resources Outcome: Progressing Problem: Chronic Conditions and Co-morbidities Goal: Patient's chronic conditions and co-morbidity symptoms are monitored and maintained or improved Outcome: Progressing Problem: Fall/Injury Goal: Not fall by end of shift Outcome: Progressing Goal: Be free from injury by end of the shift Outcome: Progressing Goal: Verbalize understanding of personal risk factors for fall in the hospital Outcome: Progressing Goal: Verbalize understanding of risk factor reduction measures to prevent injury from fall in the home Outcome: Progressing Goal: Use assistive devices by end of the shift Outcome: Progressing Goal: Pace activities to prevent fatigue by end of the shift Outcome: Progressing Problem: Pain Goal: Takes deep breaths with improved pain control throughout the shift Outcome: Progressing Goal: Turns in bed with improved pain control throughout the shift Outcome: Progressing Goal: Walks with improved pain control throughout the shift Outcome: Progressing Goal: Performs ADL's with improved pain control throughout shift Outcome: Progressing Goal: Participates in PT with improved pain control throughout the shift Outcome: Progressing Goal: Free from opioid side effects throughout the shift Outcome: Progressing Goal: Free from acute confusion related to pain meds throughout the shift Outcome: Progressing The patient's goals for the shift include remain free from injury The clinical goals for the shift include Keep pain less than 8 Over the shift, the patient did not make progress toward the following goals. Barriers to progression include none. Recommendations to address these barriers include none Problem: Pain - Adult Goal: Verbalizes/displays adequate comfort level or baseline comfort level Outcome: Progressing Problem: Safety - Adult Goal: Free from fall injury Outcome: Progressing Problem: Discharge Planning Goal: Discharge to home or other facility with appropriate resources Outcome: Progressing Problem: Chronic Conditions and Co-morbidities Goal: Patient's chronic conditions and co-morbidity symptoms are monitored and maintained or improved Outcome: Progressing Problem: Fall/Injury Goal: Not fall by end of shift Outcome: Progressing Goal: Be free from injury by end of the shift Outcome: Progressing Goal: Verbalize understanding of personal risk factors for fall in the hospital Outcome: Progressing Goal: Verbalize understanding of risk factor reduction measures to prevent injury from fall in the home Outcome: Progressing Goal: Use assistive devices by end of the shift Outcome: Progressing Goal: Pace activities to prevent fatigue by end of the shift Outcome: Progressing Problem: Pain Goal: Takes deep breaths with improved pain control throughout the shift Outcome: Progressing Goal: Turns in bed with improved pain control throughout the shift Outcome: Progressing Goal: Walks with improved pain control throughout the shift Outcome: Progressing Goal: Performs ADL's with improved pain control throughout shift Outcome: Progressing Goal: Participates in PT with improved pain control throughout the shift Outcome: Progressing Goal: Free from opioid side effects throughout the shift Outcome: Progressing Goal: Free from acute confusion related to pain meds throughout the shift Outcome: Progressing . 1554-report given to GERRY Torre Patient is a 48 year old female with h/o HTN, FRANCISCO (on CPAP), GERD, L SNHL, depression/anxiety, bipolar disorder, p/w L C7 radiculopathy. Patient admitted for planned OR. Hospital course as follows: 01/16 s/p L C6-7 foraminotomy, post op CT anticipated POC and confirmed C6-7 foraminotomy. Patient mobilized post op and cleared for discharged on POD #1. Patient discharged to home with scheduled neurosurgery follow up. Physical exam on day of discharge as documented: General: in bed, awake, no distress HEENT: PERRL Neuro: Awake BUE 5/5 BLE 5/5 SILT Incision c/d/I Cardiac: regular rate and rhythm Resp: respirations easy and regular Abd: soft, non-tender, non-distended Extr: no edema; pulses palpable Skin: warm, dry, intact. Psych: appropriate and cooperative Foraminotomy (L) Operative Note Date: 01/16/2024 OR Location: [facility] OR Name: Darvin Chaves, : 1975, Age: 48 y.o., , Sex: female Diagnosis Pre-op Diagnosis * Cervical disc disorder with radiculopathy [M50.10] Post-op Diagnosis * Cervical disc disorder with radiculopathy [M50.10] Procedures Foraminotomy 32927 - ID ROBERTSON FACETECTOMY & FORAMOTOMY 1 VRT SGM CERVICAL Surgeons * Deidra Enciso - Primary Resident/Fellow/Other Pants Busheler: Surgeon(s) and Role: * Arnaldo Munroe MD - Resident - Assisting Procedure Summary Anesthesia: General ASA: III Anesthesia Staff: Anesthesiologist: Trudy Green MD C-AA: JOSSELIN Cast Capp Estimated Blood Loss: 50mL Intra-op Medications: Administrations occurring from 0925 to 1225 on 01/16/24: * No intraprocedure medications in log * Anesthesia Record Intraprocedure I/O Totals Intake electrolyte-A (Plasmalyte-A) 500.00 mL Propofol Drip 0.00 mL The total shown is the total volume documented since Anesthesia Start was filed. lactated Ringer's 500.00 mL Total Intake 1000 mL Output Est. Blood Loss 50 mL Total Output 50 mL Net Net Volume 950 mL Specimen: No specimens collected Staff: Shrimp Peeling Machine Operator: Maki Alamo RN Relief Shrimp Peeling Machine Operator: Sree Gore RN; Hue Leon RN Scrub Person: Meenakshi Delaney; Meghan Mercedes Drains and/or Catheters: * None in log * Implants: INDICATIONS FOR THE PROCEDURE: Darvin Chaves is an 48 y.o. female who is having surgery for Cervical disc disorder with radiculopathy [M50.10]. DESCRIPTION OF THE OPERATION: The patient was brought to the operating room theater. A verbal Huddle was performed confirming the patient by name, date of , medical record number, site of surgery. After all team members were in agreement, she underwent anesthesia induction without complication. Two large bore IVs were placed as well as endotracheal tube. Perioperative antibiotic administration was confirmed. Patient was flipped prone onto a Soy table and their neck was prepped and draped in a sterile fashion. Using lateral fluoroscopy we confirmed our level of interest and an incision was marked out in the midline. Due to patient's soft tissue affecting penetration of x-ray below level of C3-4, intraoperative fluoroscopic identification of C6-7 could not be directly obtained and was localized using C4 as a marker. The skin was then infiltrated with lidocaine with epinephrine and next began procedure by using a 10 blade. We incised the skin along the incision and using Bovie electrocautery and blunt dissection exposed the spinous processes of C6-7. After complete exposure we then confirmed our levels of interest with lateral fluoroscopy and hemostasis with bipolar electrocautery and FloSeal was achieved. We then exposed the left lateral laminae of C6 and C7 as well as the C6-7 joint line. A high speed drill was then used to thin bone overlying the left C6-7 foramen, and a Kerrison #1 was used to complete the removal of bone. The exiting C7 nerve root was exposed through its course in the foramen and freed of any surrounding compressive elements. Nerve hook was then used to verify that the nerve was free and there was no residual stenosis. Next the incision was thoroughly irrigated and hemostasis was achieved with floseal and bipolar cautery. The muscle and fascia were approximated with 0 vicryl sutures and then 2-0 vicryl sutures were placed into the dermal layers and josr placed into the skin. The patient was flipped into supine position and they were extubated and returned to PACU in stable condition. Disposition: PACU - hemodynamically stable. Condition: stable Attending Attestation: Associated attestation - Deidra Enciso MD - 01/17/2024 9:05 AM EST I was present during all critical and nesbitt portions of the procedure(s) and immediately available to furnish services the entire duration. See resident note for details. documented in this encounter [facility] Work Phone: 01-17-2024 History of Present illness Narrative Transitional Fish Agent Met with patient and introduced myself as Fish Agent and member of the discharge planning team. Patient is s/p cervical spine surgery. She plans to discharge to home today. No home care needs were identified. Crystal Yip RN Darvin Chaves is a 48 y.o. female on day 1 of admission presenting with Cervical disc disorder with radiculopathy. Subjective No events overnight, radiculopathy improved Objective Physical Exam Awake BUE 5/5 BLE 5/5 SILT Incision c/d/I Last Recorded Vitals Blood pressure 118/74, pulse 77, temperature 36.7 C (98.1 F), temperature source Temporal, resp. rate 17, weight 112 kg (248 lb), SpO2 96 %. Intake/Output last 3 Shifts: I/O last 3 completed shifts: In: 1100 (9.8 mL/kg) [I.V.:600 (5.3 mL/kg); IV Piggyback:500] Out: 50 (0.4 mL/kg) [Blood:50] Weight: 112.5 kg Relevant Results Assessment/Plan Principal Problem: Cervical disc disorder with radiculopathy Active Problems: Gastroesophageal reflux disease Awareness under anesthesia Anxiety Bipolar disorder (CMS/HCC) FRANCISCO (obstructive sleep apnea) HTN (hypertension) Depression Cervical radiculopathy Patient is a 48 year old female with h/o HTN, FRANCISCO (on CPAP), GERD, L SNHL, depression/anxiety, bipolar disorder, p/w L C7 radiculopathy, 01/16 s/p L C6-7 foraminotomy, CT CS POC Plan: Floor PTOT Possible dispo this AM Patrick Mandujano MD Associated attestation - Deidra Enciso MD - 01/17/2024 9:07 AM EST I saw and evaluated the patient. I personally obtained the nesbitt and critical portions of the history and physical exam or was physically present for nesbitt and critical portions performed by the resident/fellow. I reviewed the resident/fellow's documentation and discussed the patient with the resident/fellow. I agree with the resident/fellow's medical decision making as documented in the note. Patient reports improvement in arm pain. CT confirms surgery at the C6-7 level on the left. Regarding concern for instrument contamination during surgery, examination of sterilization records shows sterilization had not . documented in this encounter [facility] Work Phone: 01-16-2024 Plan of care note The patient's goals for the shift include remain free from injury The clinical goals for the shift include Keep pain less than 8 Problem: Pain - Adult Goal: Verbalizes/displays adequate comfort level or baseline comfort level Outcome: Progressing Problem: Safety - Adult Goal: Free from fall injury Outcome: Progressing Problem: Discharge Planning Goal: Discharge to home or other facility with appropriate resources Outcome: Progressing Problem: Chronic Conditions and Co-morbidities Goal: Patient's chronic conditions and co-morbidity symptoms are monitored and maintained or improved Outcome: Progressing Problem: Fall/Injury Goal: Not fall by end of shift Outcome: Progressing Goal: Be free from injury by end of the shift Outcome: Progressing Goal: Verbalize understanding of personal risk factors for fall in the hospital Outcome: Progressing Goal: Verbalize understanding of risk factor reduction measures to prevent injury from fall in the home Outcome: Progressing Goal: Use assistive devices by end of the shift Outcome: Progressing Goal: Pace activities to prevent fatigue by end of the shift Outcome: Progressing Problem: Pain Goal: Takes deep breaths with improved pain control throughout the shift Outcome: Progressing Goal: Turns in bed with improved pain control throughout the shift Outcome: Progressing Goal: Walks with improved pain control throughout the shift Outcome: Progressing Goal: Performs ADL's with improved pain control throughout shift Outcome: Progressing Goal: Participates in PT with improved pain control throughout the shift Outcome: Progressing Goal: Free from opioid side effects throughout the shift Outcome: Progressing Goal: Free from acute confusion related to pain meds throughout the shift Outcome: Progressing [facility] 01-16-2024 Plan of care note The patient's goals for the shift include remain free from injury The clinical goals for the shift include Keep pain less than 8 Over the shift, the patient did not make progress toward the following goals. Barriers to progression include none. Recommendations to address these barriers include none Problem: Pain - Adult Goal: Verbalizes/displays adequate comfort level or baseline comfort level Outcome: Progressing Problem: Safety - Adult Goal: Free from fall injury Outcome: Progressing Problem: Discharge Planning Goal: Discharge to home or other facility with appropriate resources Outcome: Progressing Problem: Chronic Conditions and Co-morbidities Goal: Patient's chronic conditions and co-morbidity symptoms are monitored and maintained or improved Outcome: Progressing Problem: Fall/Injury Goal: Not fall by end of shift Outcome: Progressing Goal: Be free from injury by end of the shift Outcome: Progressing Goal: Verbalize understanding of personal risk factors for fall in the hospital Outcome: Progressing Goal: Verbalize understanding of risk factor reduction measures to prevent injury from fall in the home Outcome: Progressing Goal: Use assistive devices by end of the shift Outcome: Progressing Goal: Pace activities to prevent fatigue by end of the shift Outcome: Progressing Problem: Pain Goal: Takes deep breaths with improved pain control throughout the shift Outcome: Progressing Goal: Turns in bed with improved pain control throughout the shift Outcome: Progressing Goal: Walks with improved pain control throughout the shift Outcome: Progressing Goal: Performs ADL's with improved pain control throughout shift Outcome: Progressing Goal: Participates in PT with improved pain control throughout the shift Outcome: Progressing Goal: Free from opioid side effects throughout the shift Outcome: Progressing Goal: Free from acute confusion related to pain meds throughout the shift Outcome: Progressing . [facility] Work Phone: 01-16-2024 Note Formatting of this n ote might be different from the original. 1554-report given to GERRY Torre [facility] 01-16-2024 Hospital Note Formatting of t his note might be different from the original. Patient is a 48 year old female with h/o HTN, FRANCISCO (on CPAP), GERD, L SNHL, depression/anxiety, bipolar disorder, p/w L C7 radiculopathy. Patient admitted for planned OR. Hospital course as follows: 01/16 s/p L C6-7 foraminotomy, post op CT anticipated POC and confirmed C6-7 foraminotomy. Patient mobilized post op and cleared for discharged on POD #1. Patient discharged to home with scheduled neurosurgery follow up. Physical exam on day of discharge as documented: General: in bed, awake, no distress HEENT: PERRL Neuro: Awake BUE 5/5 BLE 5/5 SILT Incision c/d/I Cardiac: regular rate and rhythm Resp: respirations easy and regular Abd: soft, non-tender, non-distended Extr: no edema; pulses palpable Skin: warm, dry, intact. Psych: appropriate and cooperative [facility] Work Phone: 01-16-2024 Note Formatting of this n ote is different from the original. Foraminotomy (L) Operative Note Date: 01/16/2024 OR Location: [facility] OR Name: Darvin Chaves, : 1975, Age: 48 y.o., , Sex: female Diagnosis Pre-op Diagnosis * Cervical disc disorder with radiculopathy [M50.10] Post-op Diagnosis * Cervical disc disorder with radiculopathy [M50.10] Procedures Foraminotomy 31032 - ID ROBERTSON FACETECTOMY & FORAMOTOMY 1 VRT SGM CERVICAL Surgeons * Deidra Enciso - Primary Resident/Fellow/Other Pants Busheler: Surgeon(s) and Role: * Arnaldo Munroe MD - Resident - Assisting Procedure Summary Anesthesia: General ASA: III Anesthesia Staff: Anesthesiologist: Trudy Green MD C-AA: JOSSELIN Cast Capp Estimated Blood Loss: 50mL Intra-op Medications: Administrations occurring from 0925 to 1225 on 01/16/24: * No intraprocedure medications in log * Anesthesia Record Intraprocedure I/O Totals Intake electrolyte-A (Plasmalyte-A) 500.00 mL Propofol Drip 0.00 mL The total shown is the total volume documented since Anesthesia Start was filed. lactated Ringer's 500.00 mL Total Intake 1000 mL Output Est. Blood Loss 50 mL Total Output 50 mL Net Net Volume 950 mL Specimen: No specimens collected Staff: Shrimp Peeling Machine Operator: Maki Alamo RN Relief Shrimp Peeling Machine Operator: Sree Gore RN; Hue Leon RN Scrub Person: Meenakshi Delaney; Meghan Mercedes Drains and/or Catheters: * None in log * Implants: INDICATIONS FOR THE PROCEDURE: Darvin Chaves is an 48 y.o. female who is having surgery for Cervical disc disorder with radiculopathy [M50.10]. DESCRIPTION OF THE OPERATION: The patient was brought to the operating room theater. A verbal Huddle was performed confirming the patient by name, date of , medical record number, site of surgery. After all team members were in agreement, she underwent anesthesia induction without complication. Two large bore IVs were placed as well as endotracheal tube. Perioperative antibiotic administration was confirmed. Patient was flipped prone onto a Soy table and their neck was prepped and draped in a sterile fashion. Using lateral fluoroscopy we confirmed our level of interest and an incision was marked out in the midline. Due to patient's soft tissue affecting penetration of x-ray below level of C3-4, intraoperative fluoroscopic identification of C6-7 could not be directly obtained and was localized using C4 as a marker. The skin was then infiltrated with lidocaine with epinephrine and next began procedure by using a 10 blade. We incised the skin along the incision and using Bovie electrocautery and blunt dissection exposed the spinous processes of C6-7. After complete exposure we then confirmed our levels of interest with lateral fluoroscopy and hemostasis with bipolar electrocautery and FloSeal was achieved. We then exposed the left lateral laminae of C6 and C7 as well as the C6-7 joint line. A high speed drill was then used to thin bone overlying the left C6-7 foramen, and a Kerrison #1 was used to complete the removal of bone. The exiting C7 nerve root was exposed through its course in the foramen and freed of any surrounding compressive elements. Nerve hook was then used to verify that the nerve was free and there was no residual stenosis. Next the incision was thoroughly irrigated and hemostasis was achieved with floseal and bipolar cautery. The muscle and fascia were approximated with 0 vicryl sutures and then 2-0 vicryl sutures were placed into the dermal layers and josr placed into the skin. The patient was flipped into supine position and they were extubated and returned to PACU in stable condition. Disposition: PACU - hemodynamically stable. Condition: stable Attending Attestation: Associated attestation - Deidra Enciso MD - 01/17/2024 9:05 AM EST I was present during all critical and nesbitt portions of the procedure(s) and immediately available to furnish services the entire duration. See resident note for details. [facility] Work Phone: 01-16-2024 Attending History and physical note H&P reviewed. The patient was examined and there are no changes to the H&P. Source Note - Chiara Weeks APRN-DENTAL MECHANIC - 12/30/2023 10:15 AM EST CPM/PAT Evaluation Name: Darvin Chaves (Darvin Chaves) /Age: 806/26/1975/48 y.o. Visit Type: In-Person Chief Complaint: cervical radiculopathy scheduled for surgery HPI: Patient is a 48-year-old female scheduled for left foraminotomy on January 16, 2024 for treatment of cervical disc disorder with radiculopathy. The patient is referred by Dr. Deidra Enciso for preoperative evaluation of anxiety, depression, bipolar disorder, cervical disc disease with radiculopathy, GERD, left ear hearing loss status post cochlear implant (100% hearing in the right ear), hypertension, overactive bladder, FRANCISCO compliant with CPAP. Past Medical History: Diagnosis Date Anxiety Awareness under anesthesia 1998 Bipolar disorder ([facility] F/W [facility] Cervical disc disorder with radiculopathy Neuro: ARACELI Santos 12/10/23 Depression Encounter for electrocardiogram EKG on 12/24/22 at [facility] GERD (gastroesophageal reflux disease) History of PFTs 05/2023 PFT on 06/17/23 at [facility] HL (hearing loss) s/p Cochlear implant to left ear Hypertension Managed by PCP Joint pain Overactive bladder Sleep apnea Uses CPAP machine Vision loss Wears glasses Past Surgical History: Procedure Laterality Date CHOLECYSTECTOMY COCHLEAR IMPLANT 01/02/2023 left cochlear implant COLONOSCOPY ENDOMETRIAL ABLATION NovaSure endometrial ablation GALLBLADDER SURGERY HYSTERECTOMY INCONTINENCE SURGERY Bladder sling MR BRAIN W AND WO CONTRAST 06/2022 Normal Brain/IAC. TUBAL LIGATION Patient has no history on file for sexual activity. Family History Problem Relation Name Age of Onset Diabetes Mother Other (htn) Mother Breast cancer Mother Other (heart disea) Father Lung disease Father Lupus Father Rheum arthritis Father Allergies Allergen Reactions Diclofenac Sodium GI intolerance Sulfa (Sulfonamide Antibiotics) Swelling Eye Swelling Erythromycin Rash Prior to Admission medications Medication Sig Start Date End Date Taking? Authorizing Provider acetaminophen (Tylenol) 325 mg tablet Take 500 mg by mouth every 4 hours if needed for moderate pain (4 - 6). 01/16/18 Historical Provider, cetirizine (ZyrTEC) 10 mg tablet Take 1 tablet (10 mg) by mouth. Historical Provider, chlorhexidine (Hibiclens) 4 % external liquid Apply topically 2 times a day for 5 days. 12/30/23 01/04/24 SOCO Frederick chlorhexidine (Peridex) 0.12 % solution Swish and spit 15 mL night before surgery and morning of surgery 12/30/23 SOCO Frederick citalopram (CeleXA) 40 mg tablet Take 1 tablet (40 mg) by mouth. Historical Provider, ibuprofen 800 mg tablet Take 1 tablet (800 mg) by mouth every 8 hours if needed for mild pain (1 - 3). Historical Provider, lamoTRIgine (LaMICtal) 200 mg tablet Take 1 tablet (200 mg) by mouth. Historical Provider, losartan-hydrochlorothiazide (Hyzaar) 100-12.5 mg tablet Take by mouth. Historical Provider, mirabegron (Myrbetriq) 25 mg tablet extended release 24 hr 24 hr tablet Take 1 tablet (25 mg) by mouth once every 24 hours. Historical Provider, omeprazole (PriLOSEC) [address] capsule Take 1 capsule (10 mg) by mouth once daily. Historical Provider, MD SOLIS ROS: Constitutional: neg Neuro/Psych: numbness (left arm) Eyes: neg Ears: neg Nose: neg Mouth: neg Throat: neg Neck: neg neck stiffness Cardio: neg Respiratory: neg Endocrine: neg GI: neg : neg Musculoskeletal: Hematologic: neg Skin: neg Physical Exam Vitals reviewed. Constitutional: Appearance: Normal appearance. HENT: Head: Normocephalic. Mouth/Throat: Mouth: Mucous membranes are dry. Eyes: Conjunctiva/sclera: Conjunctivae normal. Neck: Vascular: No carotid bruit. Cardiovascular: Rate and Rhythm: Normal rate and regular rhythm. Pulses: Normal pulses. Heart sounds: Normal heart sounds. Pulmonary: Effort: Pulmonary effort is normal. Breath sounds: Normal breath sounds. Abdominal: Palpations: Abdomen is soft. Tenderness: There is no abdominal tenderness. Musculoskeletal: General: Normal range of motion. Cervical back: Normal range of motion. Right lower leg: No edema. Left lower leg: No edema. Lymphadenopathy: Cervical: No cervical adenopathy. Skin: General: Skin is warm and dry. Capillary Refill: Capillary refill takes less than 2 seconds. Neurological: General: No focal deficit present. Mental Status: She is alert and oriented to person, place, and time. Psychiatric: Mood and Affect: Mood normal. Behavior: Behavior normal. Thought Content: Thought content normal. Judgment: Judgment normal. PAT AIRWAY: Airway: Mallampati:: IV Neck ROM:: Full normal Visit Vitals BP 116/79 Pulse 96 Temp 36.7 C (98.1 F) DASI Risk Score Flowsheet Row Most Recent Value DASI SCORE 28.7 METS Score (Will be calculated only when all the questions are answered) 6.3 Caprini DVT Assessment Flowsheet Row Most Recent Value DVT Score 8 Current Status Major surgery planned, lasting 2-3 hours History Prior major surgery Age 40-59 years BMI 31-40 (Obesity) Modified Frailty Index Flowsheet Row Most Recent Value Modified Frailty Index Calculator .0909 CHADS2 Stroke Risk Current as of 8 minutes ago N/A 3 - 100%: High Risk 2 - 3%: Medium Risk 0 - 2%: Low Risk Last Change: N/A This score determines the patient's risk of having a stroke if the patient has atrial fibrillation. This score is not applicable to this patient. Components are not calculated. Revised Cardiac Risk Index Flowsheet Row Most Recent Value Revised Cardiac Risk Calculator 0 Apfel Simplified Score Flowsheet Row Most Recent Value Apfel Simplified Score Calculator 4 Risk Analysis Index Results This Encounter No data found in the last 1 encounters. Stop Bang Score Flowsheet Row Most Recent Value Do you snore loudly? 1 Do you often feel tired or fatigued after your sleep? 1 Has anyone ever observed you stop breathing in your sleep? 1 Do you have or are you being treated for high blood pressure? 1 Recent BMI (Calculated) 39.9 Is BMI greater than 35 kg/m2? 1=Yes Age older than 50 years old? 0=No Is your neck circumference greater than 17 inches (Male) or 16 inches (Female)? 0 Gender - Male 0=No STOP-BANG Total Score 5 Assessment and Plan: Neuro: anxiety, depression and bipolar disorder managed on celexa and lamictal- both will be continued without interruption. The patient is at an increased risk for post operative delirium secondary to depression and duration of surgery. Preoperative brain exercise educational handout provided to patient. The patient is at an increased risk for perioperative stroke secondary to HTN, female sex general anesthesia and op time >2.5 hours. HEENT/Airway: left ear hearing loss status post cochlear implant (100% hearing in the right ear) SPEAK TO RIGHT EAR. Patient planning to leave cochlear implant at home so as not to lose it. Cardiovascular: HTN managed with losartan-hydrochlorothiazide- to be held 24 hours prior to surgery. EKG 08/08/23 NSR- in care everywhere. No additional preoperative testing is currently indicated. METS are 6.3 RCRI 0 which is 3.9% 30 day risk of MACE (risk for cardiac , nonfatal myocardial infarction, and nonfactal cardiac arrest SOPHIE score which indicates a 0.1% risk of intraoperative or 30-day postoperative MACE Pulmonary: FRANCISCO compliant with CPAP. Preoperative deep breathing educational handout provided to patient. ARISCAT: 16 points which is a low risk of in-hospital post-op pulmonary complications PRODIGY: 5 points which is a low risk of post op opioid induced respiratory depression episodes STOP BAN points which is a high risk for moderate to severe FRANCISCO Renal: overactive bladder managed on mirabegron to be held 24 hours prior to surgery. Endocrine: No diagnosis or significant findings on chart review or clinical presentation and evaluation. Hematologic: No diagnosis or significant findings on chart review or clinical presentation and evaluation. Preoperative DVT educational handout provided to patient. Caprini Score: 8 points which is a highest risk of perioperative VTE Gastrointestinal: GERD managed with omeprazole which will be continued uninterrupted. EAT-10 score of 0 - self-perceived oropharyngeal dysphagia scale (0-40) Apfel: 4 points 79% risk for post operative N/V Infectious disease: No diagnosis or significant findings on chart review or clinical presentation and evaluation. Musculoskeletal: cervical disc disease with radiculopathy scheduled for surgery managed with PRN pain relievers. Ibuprofen to be held 7 days prior to surgery. Labs ordered Results for orders placed or performed in visit on 12/30/23 (from the past 96 hour(s)) CBC Result Value Ref Range WBC 8.9 4.4 - 11.3 x10*3/uL nRBC 0.0 0.0 - 0.0 /100 WBCs RBC 4.41 4.00 - 5.20 x10*6/uL Hemoglobin 13.0 12.0 - 16.0 g/dL Hematocrit 39.8 36.0 - 46.0 % MCV 90 80 - 100 fL MCH 29.5 26.0 - 34.0 pg MCHC 32.7 32.0 - 36.0 g/dL RDW 13.5 11.5 - 14.5 % Platelets 310 150 - 450 x10*3/uL Basic Metabolic Panel Result Value Ref Range Glucose 103 (H) 74 - 99 mg/dL Sodium 143 136 - 145 mmol/L Potassium 4.3 3.5 - 5.3 mmol/L Chloride 101 98 - 107 mmol/L Bicarbonate 30 21 - 32 mmol/L Anion Gap 16 10 - 20 mmol/L Urea Nitrogen 16 6 - 23 mg/dL Creatinine 0.64 0.50 - 1.05 mg/dL eGFR >90 >60 mL/min/1.73m*2 Calcium 9.5 8.6 - 10.6 mg/dL Coagulation Screen Result Value Ref Range Protime 11.3 9.8 - 12.8 seconds INR 1.0 0.9 - 1.1 aPTT 36 27 - 38 seconds Type And Screen Result Value Ref Range ABO TYPE O Rh TYPE NEG ANTIBODY SCREEN NEG Hemoglobin A1C Result Value Ref Range Hemoglobin A1C 5.2 see below % Estimated Average Glucose 103 Not Established mg/dL Staphylococcus aureus/MRSA colonization, Culture Specimen: Nares/Axilla/Groin; Swab Result Value Ref Range Staph/MRSA Screen Culture No Staphylococcus aureus isolated Urinalysis with Reflex Culture and Microscopic Result Value Ref Range Color, Urine Yellow Straw, Yellow Appearance, Urine Clear Clear Specific Bath, Urine 1.025 1.005 - 1.035 pH, Urine 5.0 5.0, 5.5, 6.0, 6.5, 7.0, 7.5, 8.0 Protein, Urine NEGATIVE NEGATIVE mg/dL Glucose, Urine NEGATIVE NEGATIVE mg/dL Blood, Urine NEGATIVE NEGATIVE Ketones, Urine 5 (TRACE) (A) NEGATIVE mg/dL Bilirubin, Urine NEGATIVE NEGATIVE Urobilinogen, Urine <2.0 <2.0 mg/dL Nitrite, Urine NEGATIVE NEGATIVE Leukocyte Esterase, Urine NEGATIVE NEGATIVE Extra Urine Ching Tube Result Value Ref Range Extra Tube Hold for add-ons. [facility] Work Phone: 01-16-2024 History and physical note H&P reviewed. The patient was examined and there are no changes to the H&P. Source Note - SOCO Frederick - 12/30/2023 10:15 AM EST CPM/PAT Evaluation Name: Darvin Chaves (Darvin Chaves) /Age: 806/26/1975/48 y.o. Visit Type: In-Person Chief Complaint: cervical radiculopathy scheduled for surgery HPI: Patient is a 48-year-old female scheduled for left foraminotomy on January 16, 2024 for treatment of cervical disc disorder with radiculopathy. The patient is referred by Dr. Deidra Enciso for preoperative evaluation of anxiety, depression, bipolar disorder, cervical disc disease with radiculopathy, GERD, left ear hearing loss status post cochlear implant (100% hearing in the right ear), hypertension, overactive bladder, FRANCISCO compliant with CPAP. Past Medical History: Diagnosis Date Anxiety Awareness under anesthesia 1998 Bipolar disorder ([facility]) F/W [facility] Cervical disc disorder with radiculopathy Neuro: ARACELI Santos 12/10/23 Depression Encounter for electrocardiogram EKG on 12/24/22 at [facility] GERD (gastroesophageal reflux disease) History of PFTs 05/2023 PFT on [facility]/17/23 at [facility] HL (hearing loss) s/p Cochlear implant to left ear Hypertension Managed by PCP Joint pain Overactive bladder Sleep apnea Uses CPAP machine Vision loss Wears glasses Past Surgical History: Procedure Laterality Date CHOLECYSTECTOMY COCHLEAR IMPLANT 01/02/2023 left cochlear implant COLONOSCOPY ENDOMETRIAL ABLATION NovaSure endometrial ablation GALLBLADDER SURGERY HYSTERECTOMY INCONTINENCE SURGERY Bladder sling MR BRAIN W AND WO CONTRAST 06/2022 Normal Brain/IAC. TUBAL LIGATION Patient has no history on file for sexual activity. Family History Problem Relation Name Age of Onset Diabetes Mother Other (htn) Mother Breast cancer Mother Other (heart disea) Father Lung disease Father Lupus Father Rheum arthritis Father Allergies Allergen Reactions Diclofenac Sodium GI intolerance Sulfa (Sulfonamide Antibiotics) Swelling Eye Swelling Erythromycin Rash Prior to Admission medications Medication Sig Start Date End Date Taking? Authorizing Provider acetaminophen (Tylenol) 325 mg tablet Take 500 mg by mouth every 4 hours if needed for moderate pain (4 - 6). 01/16/18 Historical Provider, cetirizine (ZyrTEC) 10 mg tablet Take 1 tablet (10 mg) by mouth. Historical Provider, chlorhexidine (Hibiclens) 4 % external liquid Apply topically 2 times a day for 5 days. 12/30/23 01/04/24 [facility] Frederick chlorhexidine (Peridex) 0.12 % solution Swish and spit 15 mL night before surgery and morning of surgery 12/30/23 SOC[facility] Frederick citalopram (CeleXA) 40 mg tablet Take 1 tablet (40 mg) by mouth. Historical Provider, ibuprofen 800 mg tablet Take 1 tablet (800 mg) by mouth every 8 hours if needed for mild pain (1 - 3). Historical Provider, lamoTRIgine (LaMICtal) 200 mg tablet Take 1 tablet (200 mg) by mouth. Historical Provider, losartan-hydrochlorothiazide (Hyzaar) 100-12.5 mg tablet Take by mouth. Historical Provider, mirabegron (Myrbetriq) 25 mg tablet extended release 24 hr 24 hr tablet Take 1 tablet (25 mg) by mouth once every 24 hours. Historical Provider, omeprazole (PriLOSEC) [address] capsule Take 1 capsule (10 mg) by mouth once daily. Historical Provider, PAT ROS: Constitutional: neg Neuro/Psych: numbness (left arm) Eyes: neg Ears: neg Nose: neg Mouth: neg Throat: neg Neck: neg neck stiffness Cardio: neg Respiratory: neg Endocrine: neg GI: neg : neg Musculoskeletal: Hematologic: neg Skin: neg Physical Exam Vitals reviewed. Constitutional: Appearance: Normal appearance. HENT: Head: Normocephalic. Mouth/Throat: Mouth: Mucous membranes are dry. Eyes: Conjunctiva/sclera: Conjunctivae normal. Neck: Vascular: No carotid bruit. Cardiovascular: Rate and Rhythm: Normal rate and regular rhythm. Pulses: Normal pulses. Heart sounds: Normal heart sounds. Pulmonary: Effort: Pulmonary effort is normal. Breath sounds: Normal breath sounds. Abdominal: Palpations: Abdomen is soft. Tenderness: There is no abdominal tenderness. Musculoskeletal: General: Normal range of motion. Cervical back: Normal range of motion. Right lower leg: No edema. Left lower leg: No edema. Lymphadenopathy: Cervical: No cervical adenopathy. Skin: General: Skin is warm and dry. Capillary Refill: Capillary refill takes less than 2 seconds. Neurological: General: No focal deficit present. Mental Status: She is alert and oriented to person, place, and time. Psychiatric: Mood and Affect: Mood normal. Behavior: Behavior normal. Thought Content: Thought content normal. Judgment: Judgment normal. PAT AIRWAY: Airway: Mallampati:: IV Neck ROM:: Full normal Visit Vitals BP 116/79 Pulse 96 Temp 36.7 C (98.1 F) DASI Risk Score Flowsheet Row Most Recent Value DASI SCORE 28.7 METS Score (Will be calculated only when all the questions are answered) 6.3 Caprini DVT Assessment Flowsheet Row Most Recent Value DVT Score 8 Current Status Major surgery planned, lasting 2-3 hours History Prior major surgery Age 40-59 years BMI 31-40 (Obesity) Modified Frailty Index Flowsheet Row Most Recent Value Modified Frailty Index Calculator .0909 CHADS2 Stroke Risk Current as of 8 minutes ago N/A 3 - 100%: High Risk 2 - 3%: Medium Risk 0 - 2%: Low Risk Last Change: N/A This score determines the patient's risk of having a stroke if the patient has atrial fibrillation. This score is not applicable to this patient. Components are not calculated. Revised Cardiac Risk Index Flowsheet Row Most Recent Value Revised Cardiac Risk Calculator 0 Apfel Simplified Score Flowsheet Row Most Recent Value Apfel Simplified Score Calculator 4 Risk Analysis Index Results This Encounter No data found in the last 1 encounters. Stop Bang Score Flowsheet Row Most Recent Value Do you snore loudly? 1 Do you often feel tired or fatigued after your sleep? 1 Has anyone ever observed you stop breathing in your sleep? 1 Do you have or are you being treated for high blood pressure? 1 Recent BMI (Calculated) 39.9 Is BMI greater than 35 kg/m2? 1=Yes Age older than 50 years old? 0=No Is your neck circumference greater than 17 inches (Male) or 16 inches (Female)? 0 Gender - Male 0=No STOP-BANG Total Score 5 Assessment and Plan: Neuro: anxiety, depression and bipolar disorder managed on celexa and lamictal- both will be continued without interruption. The patient is at an increased risk for post operative delirium secondary to depression and duration of surgery. Preoperative brain exercise educational handout provided to patient. The patient is at an increased risk for perioperative stroke secondary to HTN, female sex general anesthesia and op time >2.5 hours. HEENT/Airway: left ear hearing loss status post cochlear implant (100% hearing in the right ear) SPEAK TO RIGHT EAR. Patient planning to leave cochlear implant at home so as not to lose it. Cardiovascular: HTN managed with losartan-hydrochlorothiazide- to be held 24 hours prior to surgery. EKG 08/08/23 NSR- in care everywhere. No additional preoperative testing is currently indicated. METS are 6.3 RCRI 0 which is 3.9% 30 day risk of MACE (risk for cardiac , nonfatal myocardial infarction, and nonfactal cardiac arrest SOPHIE score which indicates a 0.1% risk of intraoperative or 30-day postoperative MACE Pulmonary: FRANCISCO compliant with CPAP. Preoperative deep breathing educational handout provided to patient. ARISCAT: 16 points which is a low risk of in-hospital post-op pulmonary complications PRODIGY: 5 points which is a low risk of post op opioid induced respiratory depression episodes STOP BAN points which is a high risk for moderate to severe FRANCISCO Renal: overactive bladder managed on mirabegron to be held 24 hours prior to surgery. Endocrine: No diagnosis or significant findings on chart review or clinical presentation and evaluation. Hematologic: No diagnosis or significant findings on chart review or clinical presentation and evaluation. Preoperative DVT educational handout provided to patient. Caprini Score: 8 points which is a highest risk of perioperative VTE Gastrointestinal: GERD managed with omeprazole which will be continued uninterrupted. EAT-10 score of 0 - self-perceived oropharyngeal dysphagia scale (0-40) Apfel: 4 points 79% risk for post operative N/V Infectious disease: No diagnosis or significant findings on chart review or clinical presentation and evaluation. Musculoskeletal: cervical disc disease with radiculopathy scheduled for surgery managed with PRN pain relievers. Ibuprofen to be held 7 days prior to surgery. Labs ordered Results for orders placed or performed in visit on 12/30/23 (from the past 96 hour(s)) CBC Result Value Ref Range WBC 8.9 4.4 - 11.3 x10*3/uL nRBC 0.0 0.0 - 0.0 /100 WBCs RBC 4.41 4.00 - 5.20 x10*6/uL Hemoglobin 13.0 12.0 - 16.0 g/dL Hematocrit 39.8 36.0 - 46.0 % MCV 90 80 - 100 fL MCH 29.5 26.0 - 34.0 pg MCHC 32.7 32.0 - 36.0 g/dL RDW 13.5 11.5 - 14.5 % Platelets 310 150 - 450 x10*3/uL Basic Metabolic Panel Result Value Ref Range Glucose 103 (H) 74 - 99 mg/dL Sodium 143 136 - 145 mmol/L Potassium 4.3 3.5 - 5.3 mmol/L Chloride 101 98 - 107 mmol/L Bicarbonate 30 21 - 32 mmol/L Anion Gap 16 10 - 20 mmol/L Urea Nitrogen 16 6 - 23 mg/dL Creatinine 0.64 0.50 - 1.05 mg/dL eGFR >90 >60 mL/min/1.73m*2 Calcium 9.5 8.6 - 10.6 mg/dL Coagulation Screen Result Value Ref Range Protime 11.3 9.8 - 12.8 seconds INR 1.0 0.9 - 1.1 aPTT 36 27 - 38 seconds Type And Screen Result Value Ref Range ABO TYPE O Rh TYPE NEG ANTIBODY SCREEN NEG Hemoglobin A1C Result Value Ref Range Hemoglobin A1C 5.2 see below % Estimated Average Glucose 103 Not Established mg/dL Staphylococcus aureus/MRSA colonization, Culture Specimen: Nares/Axilla/Groin; Swab Result Value Ref Range Staph/MRSA Screen Culture No Staphylococcus aureus isolated Urinalysis with Reflex Culture and Microscopic Result Value Ref Range Color, Urine Yellow Straw, Yellow Appearance, Urine Clear Clear Specific Bath, Urine 1.025 1.005 - 1.035 pH, Urine 5.0 5.0, 5.5, 6.0, 6.5, 7.0, 7.5, 8.0 Protein, Urine NEGATIVE NEGATIVE mg/dL Glucose, Urine NEGATIVE NEGATIVE mg/dL Blood, Urine NEGATIVE NEGATIVE Ketones, Urine 5 (TRACE) (A) NEGATIVE mg/dL Bilirubin, Urine NEGATIVE NEGATIVE Urobilinogen, Urine <2.0 <2.0 mg/dL Nitrite, Urine NEGATIVE NEGATIVE Leukocyte Esterase, Urine NEGATIVE NEGATIVE Extra Urine Cihng Tube Result Value Ref Range Extra Tube Hold for add-ons. documented in this encounter [facility] Work Phone: 12-07-2023 Hospital Discharge instructions Santhosh Baldwin MD - 12/07/2023 11:20 PM EST Ms. Chaves, You came to the ED with weakness of your left arm. We had ortho spine see you and they suggested that we get imaging of your spine. The doctors have looked at the imaging and they dont think you require any acute intervention. They want to see you outpatient. Please call the number that is indicated in your paper for an appointment with Dr. Wren. documented in this encounter [facility] Work Phone: 12-07-2023 Emergency department Note Pt hasn't been able to move arm since Saturday, has compression in c2-7, is scheduled for consult with neurosurgery. documented in this encounter [facility] Work Phone: 12-07-2023 Emergency department Triage note Pt hasn't been able to move arm since Saturday, has compression in c2-7, is scheduled for consult with neurosurgery. [facility] 09-03-2023 Evaluation note Encounter Date Diagnosis Assessment Notes Aug, Obstructive sleep apnea (ICD-10 - G47.33) She has prior history of obstructive sleep apnea, and since the time of that original diagnosis she has gained significant weight. She has had observed apneas and experiences excessive daytime sleepiness. I reviewed the diagnosis and its implications and she does express good understanding. it is consequently very likely that obstructive sleep apnea is indeed present. We will order home sleep test based on high pretest probability, and she is comfortable with starting auto CPAP. Anticipate return for 31 to 90-day visit Aug, BMI 40.0-44.9, adult (ICD-10 - Z68.41) Aug, Intolerance of continuous positive airway pressure (CPAP) ventilation (ICD-10 - Z78.9) She was previously intolerant of positive airway pressure treatment. I am hopeful that modern interfaces, and especially the availability of auto CPAP, will significantly improve her toleration and outcomes. I reviewed the availability of Inspire Therapy and briefly discussed what it entails Aug, Essential hypertension (ICD-10 - I10) Control of sleep apnea will frequently have a positive effect on blood pressure control, and may additionally reduce blood pressure lability. Aug, Bipolar affective disorder in remission (ICD-10 - F31.70) Chart shows diagnoses of type II bipolar disorder, and medication list is consistent with that. However it does not appear this is substantially interfering with sleep quality or continuity under current treatment Aug, Family history of sleep apnea (ICD-10 - Z82.0) Aug, Other The diagnosis of Sleep Apnea was reviewed in detail, and handout materials were provided. The patient expresses good understanding, We also reviewed the medical and accident risks associated with sleep apnea and excessive fatigue. The patient is advised to adhere to a proper sleep hygiene schedule and to assure adequate total sleep time; The patient was advised to continue efforts at progressive weight loss, including decreased overall caloric intake quantity and better food choices.The patient was advised to call or return any difficulties arise, including changes in symptoms and/or problems with treatment [facility] Other 08-23-2023 Reason for visit Narrative* An interactive audio and video telecommunication system which permits real time communications between the patient (at the originating site) and provider (at the distant site) was utilized to providethis telehealth service. * Verbal consent was requested and obtained from DARVIN CHAVES on this date, 07/17/2023 03:30 PM , fora telehealth visit. [facility] [address] [place] Work Phone: [phone]) 836-774208-02-2023 Reason for visit Narrative* An interactive audio and video telecommunication system which permits real time communications between the patient (at the originating site) and provider (at the distant site) was utilized to providethis telehealth service. * Verbal consent was requested and obtained from DARVIN CHAVES on this date, 2023 03:45 PM , fora telehealth visit. [facility] [address] [place] Work Phone: 1([phone]) 180-697907-19-2023 Reason for visit Narrative* An interactive audio and video telecommunication system which permits real time communications between the patient (at the originating site) and provider (at the distant site) was utilized to providethis telehealth service. * Verbal consent was requested and obtained from DARVIN CHAVES on this date, 06/12/2023 03:45 PM , fora telehealth visit. [facility] [address] [place] Work Phone: [phone]) 188-913602-21-2023 History of Present illness Narrative* Assessment Summary: * Patient was seen today for an aural rehab evaluation post cochlear implant activation on 01/15/23. * SEVERE auditory skills deficits * Therapy is warranted to increase auditory skills to improve overall communication skills. [facility] Work Phone: 1(360) 937-200402-21-2023 History of Present illness Narrative* Patient was seen today for an aural rehab therapy post cochlear implant activation on 01/15/23. * SEVERE auditory skills deficits * Therapy is warranted to increase auditory skills to improve overall communication skills. [facility] Work Phone: [phone]) 356-537802-21-2023 History of Present illness Narrative* Patient was seen today for an aural rehab therapy post cochlear implant activation on 01/15/23. * SEVERE auditory skills deficits * Therapy is warranted to increase auditory skills to improve overall communication skills. * Patient uses bilateral cochlear implants. * Left Cochlear Implant Surgery: 01/02/23 * Left Cochlear Implant Activation: 01/15/23 * Surgeon: Dr. Katarzyna Hopson [facility] Work Phone: [phone]) [phone] History of Present illness Narrative* Patient was seen today for an aural rehab therapy post cochlear implant activation on 01/15/23. * SEVERE auditory skills deficits * Therapy is warranted to increase auditory skills to improve overall communication skills. * Patient uses bilateral cochlear implants. * Left Cochlear Implant Surgery: 01/02/23 * Left Cochlear Implant Activation: 01/15/23 * Surgeon: Dr. Katarzyna Hopson [facility] [address] [place] Work Phone: [phone] History of Present illness Narrative* Patient was seen today for an aural rehab therapy post cochlear implant activation on 01/15/23. * SEVERE auditory skills deficits * Therapy is warranted to increase auditory skills to improve overall communication skills. * Patient uses bilateral cochlear implants. * Left Cochlear Implant Surgery: 01/02/23 * Left Cochlear Implant Activation: 01/15/23 * Surgeon: Dr. Katarzyna Hopson [facility] [address] [place] Work Phone: [phone] History of Present illness Narrative* Darvin is a 47 year old female with a history of left sensorineural hearing loss s/p left cochlear implant on 01/02/23. No major issues since surgery. She does have numbness of the upper auricle and discomfort/soreness into the left posterior neck. Denies any fevers or drainage from the incision site.Has an appointment with audiology following today's visit. * Recall 10/30/22: * Darvin is a 47 yo female referred here today by Dr. Mary Cummins for CI evaluation. She reports developed sudden SNHL in the left ear earlier this year. She has been seen and evaluated by Dr. Vela who prescribed oral steroids and performed 3 separate intratympanic injections of the ear without improvement. She reports difficulty in speech understanding. She denies otalgia, otorrhea, prior ear surgery, prior ear issues. Had some balance issues at the time of hearing loss that resolved. MRI negative for retrocochlear pathology. [facility] [address] Work Phone: [phone] History of Present illness Narrative* Darvin Chaves was seen for the second stimulation and programming of her Nucleus CI632 cochlear implant at the left ear, used in conjunction with the [id number] ear level speech processor. She presents with a unilateral left sudden hearing loss. Ms. Chaves underwent the surgical implantation of the CI632 cochlear implant at the left ear on 01/02/2023. Post operative course remains unremarkable. Please see medical records for further medical history. Ms. 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 She reports difficulty with retention of the p rocessor. Ms. Chaves reports she is not hearing words or speech yet, only sounds. She further reports the [employer] Tyrel connection has been intermittent. * Patient's preferred language: [place]an * Preferred language of the parent, legal guardian or surrogate decision-maker of this minor or incapacitated patient: [place] * No overt signs of domestic violence/neglect/abuse. * Pain not interfering with optimal level of function or ability to assess and/or treat. * Pain Scale rank: 0/10 * No referral made to primary care provider (PCP). * Factors/Barriers influencing patient's ability to complete assessment or learn: none. * Person taught: patient. * Readiness to learn: no barriers. * Results of Teaching/Counseling: verbalize recall / understanding and teaching complete. [facility] [address] Work Phone: [phone] History of Present illness Narrative* Darvin Chaves was seen for the third stimulation and programming of her Nucleus CI632 cochlear implant at the left ear, used in conjunction with the [id number] ear level speech processor. She presents with a unilateral left sudden hearing loss. Ms. Chaves underwent the surgical implantation of the [id number] implant at the left ear on 01/02/2023. Post operative course remains unremarkable. Please see medical records for further medical history. Ms. 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 She reports improved retention of the processor with the 5i magnet recently requested. Ms. Chaves reports she has heard a few words through the implant recently, but it feeling somewhat discouraged with her progress thus far. * Patient's preferred language: [place]an * Preferred language of the parent, legal guardian or surrogate decision-maker of this minor or incapacitated patient: [place] * No overt signs of domestic violence/neglect/abuse. * Pain not interfering with optimal level of function or ability to assess and/or treat. * Pain Scale rank: 0/10 * No referral made to primary care provider (PCP). * Factors/Barriers influencing patient's ability to complete assessment or learn: none. * Person taught: patient. * Readiness to learn: no barriers. * Results of Teaching/Counseling: verbalize recall / understanding and teaching complete. [facility] [address] Work Phone: [phone]) [phone] History of Present illness Narrative* Darvin is a 47 year old female with a hx of left sensorineural hearing loss s/p left cochlear implant on 01/02/23. She is starting to brass pickler words, she was at a satding Saturday evening and picked someone up from across the room. * She's waking up daily with a globus sensation, she typically coughs until she's able to bring it up. She doesn't feel it's in her chest but rather her throat. * Recall 01/15/23: * Darvin is a 47 year old female with a history of left sensorineural hearing loss s/p left cochlear implant on 01/02/23. No major issues since surgery. She does have numbness of the upper auricle and discomfort/soreness into the left posterior neck. Denies any fevers or drainage from the incision site.Has an appointment with audiology following today's visit. * Recall 10/30/22: * Darvin is a 47 yo female referred here today by Dr. Mary Cummins for CI evaluation. She reports developed sudden SNHL in the left ear earlier this year. She has been seen and evaluated by Dr. Vela who prescribed oral steroids and performed 3 separate intratympanic injections of the ear without improvement. She reports difficulty in speech understanding. She denies otalgia, otorrhea, prior ear surgery, prior ear issues. Had some balance issues at the time of hearing loss that resolved. MRI negative for retrocochlear pathology. [facility] Work Phone: [phone] History of Present illness Narrative* Darvin is a 47 year old female with a hx of left sensorineural hearing loss s/p left cochlear implant on 01/02/23. She is starting to brass pickler words, she was at a wedding Saturday evening and picked someone up from across the room. * She's waking up daily with a globus sensation, she typically coughs until she's able to bring it up. She doesn't feel it's in her chest but rather her throat. * Recall 01/15/23: * Darvin is a 47 year old female with a history of left sensorineural hearing loss s/p left cochlear implant on 01/02/23. No major issues since surgery. She does have numbness of the upper auricle and discomfort/soreness into the left posterior neck. Denies any fevers or drainage from the incision site.Has an appointment with audiology following today's visit. * Recall 10/30/22: * Darvin is a 47 yo female referred here today by Dr. Mary Cummins for CI evaluation. She reports developed sudden SNHL in the left ear earlier this year. She has been seen and evaluated by Dr. Vela who prescribed oral steroids and performed 3 separate intratympanic injections of the ear without improvement. She reports difficulty in speech understanding. She denies otalgia, otorrhea, prior ear surgery, prior ear issues. Had some balance issues at the time of hearing loss that resolved. MRI negative for retrocochlear pathology. [facility] [address] Work Phone: [phone] History of Present illness Narrative* Darvin Chaves was seen for the fourth stimulation and programming of her Nucleus CI632 cochlear implant at the left ear, used in conjunction with the [id number] ear level speech processor. She presents with a unilateral left sudden hearing loss. Ms. Chaves underwent the surgical implantation of the CI632 cochlear implant at the left ear on 01/02/2023. Post operative course remains unremarkable. Please see medical records for further medical history. Ms. Chaves reports there is a background humming sound that is too loud. SHe reports holding a phone call with her sister successfully streaming to the [employer] only. Ms. Chaves would like to redeem her Plus One for a TV Streamer. * Patient's preferred language: [place]an * Preferred language of the parent, legal guardian or surrogate decision-maker of this minor or incapacitated patient: [place] * No overt signs of domestic violence/neglect/abuse. * Pain not interfering with optimal level of function or ability to assess and/or treat. * Pain Scale rank: 0/10 * No referral made to primary care provider (PCP). * Factors/Barriers influencing patient's ability to complete assessment or learn: none. * Person taught: patient. * Readiness to learn: no barriers. * Results of Teaching/Counseling: verbalize recall / understanding and teaching complete. [facility] [address] Work Phone: [phone] NotePROCEDURE DETAILS Preoperative Diagnosis: Sensorineural hearing loss, unilateral, unrestrictd contralateral side, H90.5 Postoperative Diagnosis: Sensorineural hearing loss, unilateral, unrestrictd contralateral side, H90.5 Surgeon: Katarzyna Hopson Resident/Fellow/Other Pants Busheler: Mo Anne Procedure: 1. Left Sided Cochlear Implant Anesthesia: Patito Gutierres Estimated Blood Loss: 5ml Findings: 632 implanted vis extended round window. RS above the muscle Operative Report: Findings: #### 1. Standard mastoidectomy performed and facial recess opened, round window visualized without issue 2. Round window insertion of CI532 implant from Nucleus, full insertion achieved 3. Appropriate position of cochlear implant electrode confirmed on post-op xray 4. Electrical conduction studies with audiology at end of case confirmed appropriate stimulation of the implant Operative Indications: Mrs Chaves is a 47 yo female with a history of profound left sensorineural hearing loss. Patient was counseled extensively regarding possible auditory rehabilitative options. Cochlear implant evaluation was completed. Patient was determined to be an appropriate audiometric candidate. Patient's temporal bone CT scan was obtained and did not demonstrate any anomalies. SHe was counseled regarding the expectations, motivation, and benefits, risks discussed included, but not limited to, bleeding, infection, device failure, facial paralysis, dizziness, taste disturbance, other unusual complications may occur as well. After this discussion he provided written informed consent to proceed. Procedure in Detail: The patient was seen in preop. Consent was obtained as described above. Correct site was marked. Patient was then taken back to the operative suite and laid supine on the operating table. Pre-operative huddle was performed by Dr. Hopson. Following induction of anesthesia, patient was intubated without any difficulty. Perioperative antibiotics were administered. The table was turned 180 degrees. Patient was supported to surgical bed with tapes and belts. The electrodes of the facial nerve monitoring system were inserted percutaneously in the corresponding position and adequate functioning of the circuit was confirmed. Hair was clipped from his postauricular area. The left ear was clearly exposed. A pre-incision timeout was performed by Dr. Hopson. The postauricular region was injected with a mixture of 1% lidocaine and 1:100,000 epinephrine. The skin was prepped and draped. A postauricular incision situated about 2 mm behind the postauricular sulcus measuring about 6cm was made using a 15 blade. An anteriorly based flap just superficial to the post-auricular muscle was raised. A posterior flap was also raised at a similar level. Then a muscular pericranial flap was outlined and elevated exposing the pars squamosa, the temporal bone and the mastoid. Next, using a combination of cutting and seth burs, the mastoidectomy was completed. The facial recess was opened with a small seth bur. Chorda tympani and facial nerve were identified and preserved, and the round window was visualized. an extended round window approach was drilled due to the orientation o f the RW. A 27g needle was used to howard the round window membrane. Irrigation was performed as well as hemostasis. A subperiosteal pocket was created postero-superiorly to place the internal intermediate manager stimulator. This was done by using blunt dissection, and the size was confirmed using the medium metal template. The internal intermediate manager stimulator was placed in the pocket. Another pocket was created anteriorly to house the extra temporal electrode. Following this, the implant was opened, the internal intermediate manager stimulator was placed in the pocket. The active electrode array was introduced into the round window and full insertion was achieved. No CSF pressure was seen. A muscle plug was inserted to cover the insertion site of the electrode into the round window. The ground electrode was placed in the extra temporal pocket. Smart seda confirmed appropriate position of the implant. The muscular flap was then closed over the mastoidectomy cavity and cochlear implant electrodes using interrupted 3-0 vicryl sutures. Dermal closure was done using buried interrupted 3-0 Vicryl, and skin was closed with dermabond. Steri-strips were applied to the skin. Impedances and neural response telemetries were checked and were adequate. Large Randolph mastoid dressing was applied. All needle and sponge counts were correct. The table was turned back towards the anesthesia team, and the patient was awakened and transferred to the PACU in stable condition. Dr. Hopson was present and participated in all critical portions of the procedure.. Electronic Signatures: Katarzyna Hopson) (Signed 02-Jan-2023 10:27) Authored: (more content not included)...[facility]02-08-2023 NoteHistory of Present Illness: /Lactating: Are You no Are You Currently Breastfeedingno History Present Illness: Reason for surgery: Left profound sensorineural hearing loss HPI: HPI: No significant changes to the medical history since last H/P PMH: reviewed in chart Fam Hx: negative for bleeding disorders Social Hx: Reviewed in EMR Allergies: NKDA ROS: negative except as above in HPI Physical Exam: Gen- NAD Resp- nonlabored on RA, symmetric chest rise Head/Face- NCAT, no masses or lesions Eyes- EOMI, clear sclera Ears- normal external ears, no gross lesions of EACs Nose- anterior nares clear, no bleeding or drainage Mouth- lips without lesions, no excessive drooling Neuro- alert and interactive Medications, imaging and pertinent labs reviewed in EMR A/P Proceed with planned surgery Home Medication Review: Home Medications Reviewed: yes Impression/Procedure: Impression and Planned Procedure: Left profound SNHL, proceed with left-sided cochlear implantation ERAS (Enhanced Recovery After Surgery): ERAS Patient: no Physical Exam by System: Respiratory/Thorax: Patent airways, normal breath sounds with good chest expansion, thorax symmetric Cardiovascular: Regular, rate and rhythm, 2+ equal pulses of the extremities Consent: COVID-19 Consent: COVID-19 Risk ConsentSurgeon has reviewed nesbitt risks related to the risk of nikolas COVID-19 and if they contract COVID-19 what the risks are. Attestation: Note Completion: I am a: Resident/Fellow Attending AttestationI saw and evaluated the patient. I personally obtained the nesbitt and critical portions of the history and physical exam or was physically present for nesbitt and critical portions performed by the resident/fellow. I reviewed the resident/fellows documentation and discussed the patient with the resident/fellow. I agree with the resident/fellows medical decision making as documented in the note. I personally evaluated the patient [id number] Electronic Signatures: Mo Anne (Resident)) (Signed 02-Jan-2023 06:20) Authored: History of Present Illness, Home Medication Review, Impression/Procedure, ERAS, Physical Exam, Consent, Note Completion Katarzyna Hopson) (Signed 02-Jan-2023 08:06) Authored: Note Completion Co-Signer: History of Present Illness, Home Medication Review, Impression/Procedure, ERAS, Physical Exam, Consent, Note Completion Last Updated: 02-Jan-2023 08:06 by Katarzyna Hopson)[facility] 07-09-2022 NotePROCEDURE: Mofang Signa HDXT 1.5 Sagittal T1, T2, STIR and axial T1 and T2 contiguous and cone down images through the lumbar spine were performed with and without contrast administration. HISTORY: Left sided hearing loss FINDINGS: No worrisome intra- or extra-axial mass lesions, mass effect or hemorrhage identified. No evidence of major vessel ischemia is noted. No abnormal areas of intraparenchymal, extradural or meningeal enhancement are identified. Periventricular and subcortical white matter is normal without significant small vessel ischemic or demyelination changes. Ventricular size is normal for this age, and commensurate with the cerebral sulci. Normal signal flow void and enhancement is present within the major cerebral vessels. Corpus callosum, lyndon, midbrain sellar contents and suprasellar cistern are normal. The 7th and 8th cranial nerve complexes, internal auditory canals are unremarkable. Calvarium, mastoid air cells, paranasal sinuses and orbital contents are unremarkable. IMPRESSION: Normal Brain/IAC. Report reported and signed by Luca Coreas on 07/09/2022 [id number] History of Present illness Narrative* Darvin Chaves was seen by the Audiology Department for a Cochlear Implant evaluation and counseling.She presents as a 47-year old female with a reported history of sudden left sided hearing loss withonset of 5-6 months ago. Underwent 3 injections at an outside facility with no improvement in hearing noted. Reported left tinnitus with onset of sudden hearing loss, however this has since dissipated. No hearing concerns with right ear. Patient and her sister are here today to learn more about cochlear implants and to determine if she is a candidate. Please refer to medical records for significant medical history * Patient's preferred language: [place]an * Preferred language of the parent, legal guardian or surrogate decision-maker of this minor or incapacitated patient: [place]an * No overt signs of domestic violence/neglect/abuse. * Pain not interfering with optimal level of function or ability to assess and/or treat. * Pain Scale rank: 0/10 * No referral made to primary care provider (PCP). * Factors/Barriers influencing patient's ability to complete assessment or learn: none. * Person taught: patient. * Readiness to learn: no barriers. * Results of Teaching/Counseling: verbalize recall / understanding and teaching complete. [id number] Work Phone: [phone] 940-705911-04-2021 NotePROCEDURE: XR SHOULDER LT 2V or > COMPARISON: None. HISTORY: Pain of left shoulder joint FINDINGS: BONES:No acute fracture or dislocation. Minimal calcific density along the greater tuberosity, calcific tendinitis SOFT TISSUES:Negative. No visible soft tissue swelling. EFFUSION:None visible. OTHER: Negative. IMPRESSION: Mild calcific tendinitis Electronically authenticated by: STEFANIA CARVER Date: 2021-09-28 17:13[facility]11-04-2021 Evaluation note* Encounter Date Diagnosis Assessment Notes Treatment Notes Treatment Clinical Notes Sep, Cervical radiculopathy (ICD-10 - M54.12) Due to complexity of complaints, we will proceed with x-rays and MRI of thoracic spine and cervical spine With complaints of pain running down the arm and some degree of numbness into the hand we need to determine if this is a cervical or thoracic spine problem Sep, Thoracic spine pain (ICD-10 - M54.6) Due to complexity of complaints, we will proceed with x-rays and MRI of thoracic spine and cervical spine Sep, Acute pain of left shoulder (ICD-10 - M25.512) Trigger point injection performed into tender point under sterile technique, patient tolerated well [facility] Other 07-30-2014 History general Narrative - Reported* Type Description Date Medical History hx of migraines Medical History 06-23-14 colonoscopy Medical History 06-23-14 EGD Surgical History colonoscopy Surgical History breast biopsy Surgical History DNC Surgical History ablasion Surgical History endometriosis Surgical History gall bladder Hospitalization History childbirth Hospitalization History see above [facility] Other 07-30-2014 History general Narrative - Reported* Type Description Date Medical History hx of migraines Medical History 06-23-14 colonoscopy Medical History 06-23-14 EGD Medical History Hypertension Medical History Type II bipolar disorder (per ch art) Surgical History colonoscopy Surgical History breast biopsy Surgical History DNC Surgical History ablasion Surgical History endometriosis Surgical History gall bladder Hospitalization History childbirth Hospitalization History see above [facility] Other Chief complaint Narrative - ReportedCochlear implant [id number] Work Phone: Evaluation noteNo assessment information available [facility] Work Phone: Evaluation note* Diagnosis Radiculopathy, cervical region Brachial neuritis or radiculitis nos documented in this encounter [facility] Work Phone: Evaluation note* Diagnosis Radiculopathy, cervical region Brachial neuritis or radiculitis nos documented in this encounter [facility] Work Phone: Evaluation note* Diagnosis Left arm pain- Primary Pain in soft tissues of limb documented in this encounter [facility] Work Phone: Evaluation note* Diagnosis Cervical disc disorder with radiculopathy- Primary Other and unspecified disc disorder of cervical region Cervical radiculopathy Brachial neuritis or radiculitis nos Cervical disc disorder with radiculopathy Other and unspecified disc disorder of cervical region Gastroesophageal reflux disease Esophageal reflux Awareness under anesthesia Anxiety Anxiety state, unspecified Bipolar disorder ([facility]) Bipolar disorder, unspecified FRANCISCO (obstructive sleep apnea) Obstructive sleep apnea (adult) (pediatric) HTN (hypertension) Unspecified essential hypertension Depression Depressive disorder, not elsewhere classified Cervical radiculopathy Brachial neuritis or radiculitis nos documented in this encounter [facility] Work Phone: Evaluation note* Diagnosis Cervical disc disorder with radiculopathy- Primary Other and unspecified disc disorder of cervical region documented in this encounter [facility] Work Phone: Evaluation note* Diagnosis Sensorineural hearing loss (SNHL) of left ear with unrestricted hearing of right ear- Primary Cochlear implant in place documented in this encounter [facility] Work Phone: Evaluation note* Diagnosis Chronic pain of right ankle- Primary Mucositis Stomatitis and mucositis, unspecified Gastroesophageal reflux disease without esophagitis Esophageal reflux Tongue pain Glossodynia [facility] Diagnosis Chronic pain of right ankle- Primary [facility] Diagnosis Chronic pain of right ankle- Primary History of fracture of right ankle [facility] Diagnosis Chronic pain of right ankle- Primary History of fracture of right ankle [facility] Diagnosis Chronic pain of right ankle- Primary History of fracture of right ankle [facility] Diagnosis Chronic pain of right ankle- Primary History of fracture of right ankle [facility] Diagnosis Chronic pain of right ankle- Primary History of fracture of right ankle Chronic pain of right ankle [facility] Diagnosis Posterior tibial tendinitis of right lower extremity- Primary Chronic pain of right ankle Valgus deformity, not elsewhere classified, right ankle Instability of right ankle joint Difficulty walking Difficulty in walking [facility] Diagnosis Chronic pain of right ankle- Primary History of fracture of right ankle [facility] Diagnosis Chronic pain of right ankle- Primary History of fracture of right ankle [facility] Diagnosis Gastroesophageal reflux disease without esophagitis Esophageal reflux [facility]* Diagnosis Valgus deformity, not elsewhere classified, right ankle- Primary Posterior tibial tendinitis of right lower extremity [facility]* Diagnosis Viral upper respiratory infection- Primary Acute upper respiratory infections of unspecified site Sore throat Acute pharyngitis Cough, unspecified type [facility]* Diagnosis Chronic pain of right ankle- Primary History of fracture of right ankle [facility] Diagnosis Irritable bowel syndrome with diarrhea- Primary Irritable bowel syndrome [facility] Diagnosis Chronic pain of right ankle- Primary History of fracture of right ankle [facility] Diagnosis History of neck surgery- Primary Chronic left shoulder pain Pain in joint, shoulder region Muscle spasm Spasm of muscle Screening for deficiency anemia Screening for other and unspecified deficiency anemia Screening for diabetes mellitus (DM) Screening for diabetes mellitus Screening for cardiovascular condition Screening for other and unspecified cardiovascular conditions Dysfunction of both eustachian tubes [facility]* Diagnosis Encounter for gynecological examination without abnormal finding Encounter for Papanicolaou smear of vagina Breast cancer screening by mammogram [facility]* Diagnosis Primary osteoarthritis of both knees- Primary Obesity, morbid, BMI 40.0-49.9 ([facility]) Pre-diabetes Other abnormal glucose [facility]* Diagnosis Routine medical exam- Primary Routine general medical examination at a health care facility Pre-diabetes Other abnormal glucose Obesity, morbid, BMI 40.0-49.9 ([facility]) Primary hypertension Unspecified essential hypertension [facility]* Diagnosis Spasm of thoracic back muscle- Primary [facility]* Diagnosis Right elbow pain- Primary Pain in joint, upper arm Lateral epicondylitis of right elbow Left upper quadrant abdominal pain [facility]* Diagnosis Gastroesophageal reflux disease without esophagitis- Primary Esophageal reflux Left upper quadrant abdominal pain Difficulty swallowing solids Dysphagia, unspecified [facility]* Diagnosis Gastroesophageal reflux disease without esophagitis- Primary Esophageal reflux Dysphagia, unspecified type [facility]* Diagnosis Upper abdominal pain- Primary Heartburn [facility] filedocumented in this encounter [facility]Reason for referral (narrative)* Consultation (Routine) - Pending Review Specialty Diagnoses / Procedures Referred By Opal branham Referred To Contact Podiatry Diagnoses Chronic pain of right ankle Procedures ID OFFICE/OUTPATIENT NEW [facility] MDM 60 MINUTES Mateo Ibarra, PA [address] [place] [address] Harjit Sweet, DPM [address] [place] [address] Referral ID Status Reason Start Date Expiration Date Visits Requested Visits Authorized [id number] Pending Review Specialty Services Required 08/25/2024 02/21/2025 1 1 [facility] for visit Narrative* Rehabilitation - Outpatient (Routine) - Authorized Specialty Diagnoses / Procedures Referred By Contac t Referred To Contact Physical Therapy Diagnoses Chronic pain of right ankle History of fracture of right ankle Procedures ID OFFICE/OUTPATIENT NEW [facility] MDM 60 MINUTES Mateo Ibarra PA [address] [place] [address] Phone: tel: fax: [facility] [address] [facility] [address] [place] [address] Phone: tel: fax: Referral ID Status Reason Start Date Expiration Date Visits Requested Visits Authorized [id number] Authorized Specialty Services Required 08/11/2024 02/07/2025 40 40 [facility] Healthcare[facility] for visit Narrative* Rehabilitation - Outpatient (Routine) - Closed Specialty Diagnoses / Procedures Referred By Contac t Referred To Contact Physical Therapy Diagnoses Chronic pain of right ankle History of fracture of right ankle Procedures ID OFFICE/OUTPATIENT NEW [facility] MDM 60 MINUTES Mateo Ibarra PA [address] [place] [address] Phone: tel: fax: [facility] [address] [facility] [address] [place] [address] Phone: tel: fax: Referral ID Status Reason Start Date Expiration Date V isits Requested Visits Authorized [id number] Closed Specialty Services Required 08/11/2024 02/07/2025 40 40 [facility] Summary Purpose Family History No Family History Records Found Relationship Condition Age at Onset Recorded Date/T vini mother Diabetes mellitus Unknown Advance Directives No Advanced Directives Records Found Advance Directive Response Recorded Date/ Time Advance Directives No December 12:27pm Advance Directive Response Recorded Date/ Time Advance Directives No December 11:27am Latest Code Status on File Code Status Date Activated Date Inactivated Comments Full Code 01/16/2024 4:32 PM Question Answer Comments Plan of Care: Code Status Discussion Completed Decision Maker: Patient Latest Code Status on File Code Status Date Activated Date Inactivated Comments Full Code 01/16/2024 4:32 PM Question Answer Comments Plan of Care: Code Status Discussion Completed Decision Maker: Patient Date Activated Date Inactivated Comments 01/16/2024 4:32 PM Question Answer Comments Plan of Care: Code Status Discussion Completed Decision Maker: Patient Chief Complaint and Reason for Visit Chief Complaint k06.9 Chief Complaint z01.812 Chief Complaint Obstructive sleep ap ceciel Chief Complaint Obstructive sleep ap cecile Unspecified sleep apnea Chief Complaint Z12.31 Chief Complaint K58.0 Chief Complaint postoperative visitCochlear implant - second stimulationCochlear implant - third stimulationleft cochlear implant managementleft cochlear implant management Cochlear implant - fourth stimulation Reason for Referral Specialty Diagnoses / Procedures Referred By Opal branham Referred To Contact Radiology Diagnoses Radiculopathy, cervical region Procedures MR cervical spine wo IV contrast Tiarra Muller, DO [address] [place] [address] Referral ID Status Reason Start Date Expiration Date Visits Requested Visits Authorized [id number] Authorized Perform Procedure 09/25/2023 09/24/2024 1 1 Additional Source Comments INFORMATION SOURCE (unrecogn ized section and content) DATE CREATED AUTHOR 11/05/2021 [facility] DATE CREATED AUTHOR AUTHOR'S ORGANIZ ATION 07/09/2022 [facility] dical Specialist DATE CREATED AUTHOR AUTHOR'S ORGANIZ ATION 07/19/2023 [employer] DATE CREATED AUTHOR AUTHOR'S ORGANIZ ATION 07/26/2023 [facility] DATE CREATED AUTHOR AUTHOR'S ORGANIZ ATION 08/12/2023 [facility] DATE CREATED AUTHOR AUTHOR'S ORGANIZ ATION 10/16/2023 [facility] dical Specialists [facility] DATE CREATED AUTHOR AUTHOR'S ORGANIZ ATION 04/22/2024 [facility] DATE CREATED AUTHOR AUTHOR'S ORGANIZ ATION 08/07/2024 [facility] DATE CREATED AUTHOR AUTHOR'S ORGANIZ ATION 12/10/2024 [facility] DATE CREATED AUTHOR AUTHOR'S ORGANIZ ATION 08/06/2025 [facility] dical Specialists [facility] DATE CREATED AUTHOR AUTHOR'S ORGANIZ ATION 08/07/2025 [facility] DATE CREATED AUTHOR AUTHOR'S ORGANIZ ATION 08/30/2025 [facility] DATE CREATED AUTHOR AUTHOR'S ORGANIZ ATION 09/03/2025 [facility] REASON FOR VISIT (unrecogniz ed section and content) Specialty Diagnoses / Procedures Referred By Opal branham Referred To Contact Radiology Diagnoses Radiculopathy, cervical region Procedures MR cervical spine wo IV contrast Tiarra Muller, DO [address] [place] [address] Referral ID Status Reason Start Date Expiration Date Visits Requested Visits Authorized [id number] Authorized Perform Procedure 09/25/2023 09/24/2024 1 1 Reason Comments Extremity Weakness Specialty Diagnoses / Procedures Referred By Opal branham Referred To Contact Diagnoses Cervical disc disorder with radiculopathy Cervical disc disorder with radiculopathy [M50.10] Procedures ID ROBERTSON FACETECTOMY & FORAMOTOMY 1 VRT SGM [place] [address] [facility] Department [place] [address] [facility] [place] [address] [place] [address] Referral ID Status Reason Start Date Expiration Date Visits Re quested Visits Authorized [id number] 1 1 Reason Comments Post-op Reason Comments Pain Pt presents for tong ue pain. Pt notes that since last Saturday she has been having pain and burning on her tongue. Pt notes that the only new anything is Meloxicam. She states that she does not take this everyday. Pt also notes that she does have a hx of dry mouth. Specialty Diagnoses / Procedures Referred By Opal branham Referred To Contact Physical Therapy Diagnoses Chronic pain of right ankle History of fracture of right ankle Procedures ID OFFICE/OUTPATIENT [facility] 60 MINUTES Mateo Ibarra, PA [address] [place] [address] [facility] [address] [facility] [address] [place] [address] Referral ID Status Reason Start Date Expiration Date Visits Requested Visits Authorized [id number] Authorized Specialty Services Required 08/11/2024 02/07/2025 40 40 Reason Comments Ankle Pain Darvin Chaves 49yo Ne w patient presents with referral Landy Ibarra for Right Ankle pain. Pain started about 6 months ago, NKI. Patient was wearing OTC Copper fit compression brace. Discomfort when stepping up curbs. [employer] feet store inserts. Xrays, Physical therapy 1 month, 2x weekly, meloxicam. Slight improvement SS9.5 Specialty Diagnoses / Procedures Referred By Opal branham Referred To Contact Podiatry Diagnoses Chronic pain of right ankle Procedures ID OFFICE/OUTPATIENT [facility] 60 MINUTES Mateo Ibarra PA [address] [facility] [address] [place] [address] Phone: tel: fax: Harjit Sweet, DP [address] [place] [address] Phone: tel: fax: Referral ID Status Reason Start Date Expiration Date V isits Requested Visits Authorized [id number] Closed Specialty Services Required 08/25/2024 02/21/2025 1 1 Reason Comments FUV Darvin Chaves is a 49 y.o. female who presents for 1 month FUV Right Ankle Pain. Patient relates improvement.Patient continues to wear ASO and daily meloxicam for the ankle prescribed by PCP. SS9.5 Reason Comments URI Pt presents for poss ible strep. S/s sore throat, pain with swallowing, chest congestion, cough, nasal congestion, left jaw pain. No COVID testing. OTC tea, Mucinex. Onset Saturday. Reason Comments Ankle Pain Pt c/o right ankle p ain that has been going on for abour 6 months. Pt states that the ankle brace does not seem to be helping anymore. Reason Comments 1st po - colonoscopy Reason Comments Shoulder Pain Pt notes she has bee n having pain in her left shoulder/breast area. Pt notes that this has been going on for a few months. Earache Pt notes some pain i n her left ear along with her jaw. Over a month and a half. Leg Pain Pt also notes pain a nd fatigue in her legs. She notes that has become difficult to go up and down stairs recently. Reason Comments Gynecologic Exam LMP: TLH 2018, BS 20 15HRT: NoneLast pap 05-04-24 neg.Last mammogram 01-08-25 [facility].Denies breast, urinary, or bowel concerns.Dad Saturday. Reason Comments Leg Pain Reason Comments Back Pain Reason Comments Abdominal Pain Arm Pain Reason Comments Heartburn GERD, dysphagia, ref erred by MARIA VICTORIA Teague Specialty Diagnoses / Procedures Referred By Opal branham Referred To Contact General Surgery Diagnoses Gastroesophageal reflux disease without esophagitis Dysphagia, unspecified type Procedures ID OFFICE OUTPATIENT VISIT 60-[address] [facility] [facility] [id number] (SNOMED CT) - AMB REFERRAL TO GASTROENTEROLOGY Mateo Ibarra PA-C [address] [facility] [address] [place] [address] Phone: tel: fax: Denilson Green DO [address] [place] [id number] Phone: tel: fax: Referral ID Status Reason Start Date Expiration Date Visits Re quested Visits Authorized [id number] Closed 08/09/2025 02/05/2026 1 1 Care Teams (unrecognized sec tion and content) Team Status: Inactive Member Role Status Dates Cornelio Ku DO Primary Care Provider, Attending Prov ider Active Team Status: Active Member Role Status Dates Cornelio Ku DO Primary Care Provider Active Team Status: Inactive Member Role Status Dates Cornelio Ku DO Primary Care Provider Active Mateo Ibarra PA-C Attending Provider Active Team Status: Inactive Member Role Status Dates Stefania Bartlett MD Attending Provider Active Cornelio Ku DO Primary Care Provider Active Team Status: Inactive Member Role Status Dates Cornelio Ku DO Primary Care Provider Active Stefania Bartlett MD Attending Provider Active Stonework Supervisor Relationship Specialty Start Date End Date Cornelio Ku DO [address] [place] [address] PCP - General 10/30/22 Stonework Supervisor Relationship Specialty Start Date End Date Cornelio Ku DO [address] [place] [address] PCP - General 10/30/22 Stonework Supervisor Relationship Specialty Start Date End Date Cornelio Ku DO [address] [place] [address] PCP - General 10/30/22 Team Status: Inactive Member Role Status Dates Cornelio Ku DO Primary Care Provider Active St art: December 19, 2023 End: December 19, 2023 Richie Ku DO Attending Provider Active Start: December 19, 2023 End: December 19, 2023 Stonework Supervisor Relationship Specialty Start Date End Date Cornelio Ku DO [address] [place] [address] PCP - General Family Medicine 04/29/23 Mateo Ibarra PA [address] [place] [address] PCP - Medical [place] [employer] 04/25/23 Stonework Supervisor Relationship Specialty Start Date End Date Cornelio Ku DO [address] [place] [address] PCP - General 10/30/22 Stonework Supervisor Relationship Specialty Start Date End Date Cornelio Ku DO [address] [place] [address] PCP - General 10/30/22 Stonework Supervisor Relationship Specialty Start Date End Date Cornelio Ku DO [address] [place] [address] PCP - General 10/30/22 Stonework Supervisor Relationship Specialty Start Date End Date Cornelio Ku DO [address] [place] [address] PCP - General 10/30/22 Adrienne Lerma, GERRY Registered Nurse Otolaryngology 04/21/24 Team Status: Inactive Member Role Status Dates Cornelio Ku DO Primary Care Provider Active St art: July 23, 2024 End: July 23, 2024 Cornelio Ivy DO Attending Provider Active Start : July 23, 2024 End: July 23, 2024 Stonework Supervisor Relationship Specialty Start Date End Date Cornelio Ku DO [address] [place] [address] PCP - General Family Medicine 04/29/23 Cornelio Ku DO [address] [place] [address] PCP - Medical [place] [employer] 11/25/14 11/24/99 Stonework Supervisor Relationship Specialty Start Date End Date Cornelio Ku DO [address] [place] [address] PCP - General Family Medicine 04/29/23 Cornelio Ku DO [address] [place] [address] PCP - Medical [place] [employer] 11/25/14 11/24/99 Stonework Supervisor Relationship Specialty Start Date End Date Cornelio Ku DO [address] [place] [address] PCP - General Family Medicine 04/29/23 Cornelio Ku, DO [address] [place] [address] PCP - Medical [place] [employer] 11/25/14 11/24/99 Stonework Supervisor Relationship Specialty Start Date End Date Cornelio Ku, [address] [place] [address] PCP - General Family Medicine 04/29/23 Cornelio Ku, DO [address] [place] [address] PCP - Medical [place] [employer] 11/25/14 11/24/99 Stonework Supervisor Relationship Specialty Start Date End Date Cornelio Ku, [address] [place] [address] PCP - General Family Medicine 04/29/23 Cornelio Ku, DO [address] [place] [address] PCP - Medical [place] [employer] 11/25/14 11/24/99 Stonework Supervisor Relationship Specialty Start Date End Date Cornelio Ku, [address] [place] [address] PCP - General Family Medicine 04/29/23 Cornelio Ku, [address] [place] [address] PCP - Medical [place] [employer] 11/25/14 11/24/99 Stonework Supervisor Relationship Specialty Start Date End Date Cornelio Ku, [address] [place] [address] PCP - General Family Medicine 04/29/23 Cornelio Ku, DO [address] [place] [address] PCP - Medical [place] [employer] 11/25/14 11/24/99 Stonework Supervisor Relationship Specialty Start Date End Date Cornelio Ku, [address] [place] [address] PCP - General Family Medicine 04/29/23 Cornelio Ku, DO [address] [place] [address] PCP - Medical [place] [employer] 11/25/14 11/24/99 Stonework Supervisor Relationship Specialty Start Date End Date Cornelio Ku, DO [address] [place] [address] PCP - General Family Medicine 04/29/23 Cornelio Ku, DO [address] [place] [address] PCP - Medical [place] [employer] 11/25/14 11/24/99 Stonework Supervisor Relationship Specialty Start Date End Date Cornelio Ku, DO [address] [place] [address] PCP - General Family Medicine 04/29/23 Cornelio Ku, DO [address] [place] [address] PCP - Medical [place] [employer] 11/25/14 11/24/99 Stonework Supervisor Relationship Specialty Start Date End Date Cornelio Ku, [address] [place] [address] PCP - General Family Medicine 04/29/23 Cornelio Ku, DO [address] [place] [address] PCP - Medical [place] [employer] 11/25/14 11/24/99 Stonework Supervisor Relationship Specialty Start Date End Date Cornelio Ku, DO [address] [place] [address] PCP - General Family Medicine 04/29/23 Cornelio Ku, DO [address] [place] [address] PCP - Medical [place] [employer] 11/25/14 11/24/99 Stonework Supervisor Relationship Specialty Start Date End Date Cornelio Ku, DO [address] [place] [address] PCP - General Family Medicine 04/29/23 Cornelio Ku, DO [address] [place] [address] PCP - Medical [place] [employer] 11/25/14 11/24/99 Stonework Supervisor Relationship Specialty Start Date End Date Cornelio Ku, DO [address] [place] [address] PCP - General Family Medicine 04/29/23 Cornelio Ku, DO [address] [place] [address] PCP - Medical [place] [employer] 11/25/14 11/24/99 Stonework Supervisor Relationship Specialty Start Date End Date Cornelio Ku, DO [address] [place] [address] PCP - General Family Medicine 04/29/23 Cornelio Ku, DO [address] [place] [address] PCP - Medical [place] [employer] 11/25/14 11/24/99 Stonework Supervisor Relationship Specialty Start Date End Date Cornelio Ku, DO [address] [place] [address] PCP - General Family Medicine 04/29/23 Edwardo Nielsen, DO [address] [place] [address] PCP - Medical [place] [employer] 11/25/14 11/24/99 Stonework Supervisor Relationship Specialty Start Date End Date Cornelio Ku, DO [address] [place] [address] PCP - General Family Medicine 04/29/23 Edwardo Nielsen, DO [address] [place] [address] PCP - Medical [place] [employer] 11/25/14 11/24/99 Stonework Supervisor Relationship Specialty Start Date End Date Cornelio Ku, DO [address] [place] [address] PCP - General Family Medicine 04/29/23 Cornelio Ku, DO [address] [place] [address] PCP - Medical [place] [employer] 11/25/14 11/24/99 Stonework Supervisor Relationship Specialty Start Date End Date Cornelio Ku, DO [address] [place] [address] PCP - General Family Medicine 04/29/23 Cornelio Ku, DO [address] [place] [address] PCP - Medical [place] [employer] 11/25/14 11/24/99 Stonework Supervisor Relationship Specialty Start Date End Date Cornelio Ku, DO [address] [place] [address] PCP - General Family Medicine 04/29/23 Edwardo Nielsen, DO [address] [place] [address] PCP - Medical [place] [employer] 11/25/14 11/24/99 Stonework Supervisor Relationship Specialty Start Date End Date Cornelio Ku, DO [address] [place] [address] PCP - General Family Medicine 04/29/23 Edwardo Nielsen, DO [address] [place] [address] PCP - Medical [place] [employer] 11/25/14 11/24/99 Stonework Supervisor Relationship Specialty Start Date End Date Cornelio Ku, DO [address] [place] [address] PCP - General Family Medicine 04/29/23 Cornelio Ku, DO [address] [place] [address] PCP - Medical [place] [employer] 11/25/14 11/24/99 Stonework Supervisor Relationship Specialty Start Date End Date Cornelio Ku, DO [address] [place] [address] PCP - General Family Medicine 04/29/23 Cornelio Ku, DO [address] [place] [address] PCP - Medical [place] [employer] 11/25/14 11/24/99 Stonework Supervisor Relationship Specialty Start Date End Date Cornelio Ku, DO [address] [place] [address] PCP - General Family Medicine 04/29/23 Cornelio Ku, DO [address] [place] [address] PCP - Medical [place] [employer] 11/25/14 11/24/99 Stonework Supervisor Relationship Specialty Start Date End Date Cornelio Ku, DO [address] [place] [address] PCP - General Family Medicine 04/29/23 Cornelio Ku, DO [address] [place] [address] PCP - Medical [place] [employer] 11/25/14 11/24/99 Stonework Supervisor Relationship Specialty Start Date End Date Cornelio Ku, DO [address] [place] [address] PCP - General Family Medicine 04/29/23 Cornelio Ku, DO [address] [place] [address] PCP - Medical [place] [employer] 11/25/14 11/24/99 Stonework Supervisor Relationship Specialty Start Date End Date Cornelio Ku, DO [address] [place] [address] PCP - General Family Medicine 04/29/23 Cornelio Ku, DO [address] [place] [address] PCP - Medical [place] [employer] 11/25/14 11/24/99 Stonework Supervisor Relationship Specialty Start Date End Date Cornelio Ku, DO [address] [place] [address] PCP - General Family Medicine 09/07/21 Goals (unrecognized section and content) Goals may be documented in a n alternate section Scheduled Active and Recently Administ ered Medications (unrecognized section and content) Medication Order 12/06/2023 12/07/2023 12/08/2023 acetaminophen (Tylenol) tablet 650 mg (COMPLETED) 650 mg, oral, Once, On 12/07/23 at 1550, For 1 dose, If ordered PRN for pain, nurse is permitted to administer this medication for higher pain scores based on patient preference? Yes 1614 (Given - Provider: Mireya Segovia RN) acetaminophen (Tylenol) tablet 650 mg (COMPLETED) 650 mg, oral, Once, On 12/07/23 at 2220, For 1 dose, If ordered PRN for pain, nurse is permitted to administer this medication for higher pain scores based on patient preference? Yes 222 (Given - Provider: Felicia Aceves RN) cyclobenzaprine (Flexeril) tablet 10 mg (COMPLETED) 10 mg, oral, Once, On 12/07/23 at 1820, For 1 dose 1858 (Given - Provider: Mireya Segovia RN) cyclobenzaprine (Flexeril) tablet 10 mg 10 mg, oral, Once, On 12/07/23 at 2210, For 1 dose 2210 (Not Given - Provider: Felicia Aceves RN - Reason: Other - Comment: Patient is discharged) lidocaine 4 % patch 1 patch 1 patch, transdermal, Administer over 12 Hours, Daily, First dose on Sat12/07/23 at 1550, Apply to L arm. Patch will remain on for 12 hours, then removed for [address] patch directly over any surgical incisions or wounds. 1614 (Medication Applied - Provider: Mireya Segovia RN) 0414 (Due: Medication Removed - Provider: Mireya Segovia RN)0900 (Due) Scheduled Medication Order 01/15/2024 01/16/2024 01/17/2024 acetaminophen (Tylenol) tablet 650 mg 650 mg, oral, Every 6 hours, First dose on Bernice 01/16/24 at 1700, Phase II/On Unit, If ordered PRN for pain, nurse is permitted to administer this medication for higher pain scores based on patient preference? Yes 1741 (Given - Provider: Nicho Salter RN)2322 (Given - Provider: Dania Hammer RN) 0550 (Given - Provider: Dania Hammer RN)1200 (Due - Provider: Good ResendezD)1800 (Due - Provider: Good ResendezD) citalopram (CeleXA) tablet 40 mg 40 mg, oral, Daily, First dose on Bernice 01/16/24 at 1700, Phase II/On Unit 1741 (Not Given - Provider: Nicho Salter RN - Reason: Other - Comment: took at home) 0855 (Given - Provider: Claudia Young RN) heparin (porcine) injection 5,000 Units 5,000 Units, subcutaneous, Every 8 hours scheduled, First dose on Sat01/17/24 at 0600, Phase II/On Unit 0550 (Given - Provid er: Dania Hammer RN)1400 (Due)2200 (Due) hydroCHLOROthiazide (HYDRODiuril) tablet 12.5 mg 12.5 mg, oral, Daily, First dose on Sat01/17/24 at 0900, Phase II /on unit 0855 (Given - Provid er: Claudia Young RN) lamoTRIgine (LaMICtal) tablet 200 mg 200 mg, oral, Daily, First dose on Bernice 01/16/24 at 1700, Phase II/On Unit 1700 (Not Given - Provider: Nicho Salter RN - Reason: Other - Comment: 0took at home) 0855 (Given - Provider: Claudia Young RN) lidocaine 4 % patch 1 patch 1 patch, transdermal, Administer over 12 Hours, Daily, First dose on Bernice 01/16/24 at 1700, Phase II/On Unit, Apply to posterior neck. Patch will remain on for 12 hours, then removed for [address] patch directly over any surgical incisions or wounds. 1999 (Medication Applied - Provider: Dania Hammer RN) 08 (Medication Removed - Provider: Claudia Young RN)0855 (Medication Applied - Provider: Claudia Young RN - Comment: post neck)2054 (Due: Medication Removed - Provider: Claudia Young RN) loratadine (Claritin) tablet 10 mg 10 mg, oral, Daily, First dose on Bernice 01/16/24 at 1700, Phase II/On Unit 1740 (Given - Provider: Nicho Salter RN) 0855 (Given - Provider: Claudia Young RN) losartan (Cozaar) tablet 100 mg 100 mg, oral, Daily, First dose on Sat01/17/24 at 0900, Phase II /on unit 0855 (Given - Provid er: Claudia Young RN) oxybutynin (Ditropan) tablet 5 mg 5 mg, oral, 2 times daily, First dose on Bernice 01/16/24 at 2100, Phase II/On Unit 2000 (Given - Provider: Dania Hammer RN) 0855 (Given - Provider: Claudia Young RN)2099 (Due) pantoprazole (ProtoNix) EC tablet 20 mg 20 mg, oral, Daily before breakfast, First dose on Sat01/17/24 at 0700, Phase II/On Unit, Do not crush, chew, or split. 0550 (Given - Provid er: Dania Hammer RN) polyethylene glycol (Glycolax, Miralax) packet 17 g 17 g, oral, 2 times daily, First dose on Bernice 01/16/24 at 2100, Phase II/On Unit, Bowel Regimen - for prevention of constipation. 2099 (Not Given - Provider: Dania Hammer RN - Reason: Patient/family refused) 0900 (Not Given - Provider: Claudia Young RN - Reason: Patient/family refused)2100 (Due) sennosides-docusate sodium (Hawa-Colace) 8.6-50 mg per tablet 2 tablet 2 tablet, oral, 2 times daily, First dose on Bernice 01/16/24 at 2100, Phase II/On Unit, Bowel Regimen - for prevention of constipation Hold for loose stools 2100 (Not Given - Provider: Dania Hammer RN - Reason: Patient/family refused) 0855 (Given - Provider: Claudia Young RN)2100 (Due) Continuous Medication Order 01/15/2024 01/16/2024 01/17/2024 lactated Ringer's infusion (CANCELED) 100 mL/hr, intravenous, Continuous, Starting on Bernice 01/16/24 at 1415, Recovery (only) 1415 (New Bag - Provider: Isabel Gaytan RN)1500 (Rate/Dose Verify - Provider: Isabel Gaytan RN)1600 (Rate/Dose Verify - Provider: Isabel Gaytan RN)1715 (Stopped - Provider: Nicho Salter RN) sodium chloride 0.9% infusion 75 mL/hr, intravenous, Continuous, Starting on Bernice 01/16/24 at 1700, For 12 hours, Phase II/On Unit, Convert IV to saline lock when taking oral fluids. 1742 (New Bag - Provider: Nicho Salter RN) 0500 (Stopped - Provider: Dania Hammer RN) PRN Medication Order 01/15/2024 01/16/2024 01/17/2024 bacitracin ointment (CANCELED) As needed, Starting on Bernice 01/16/24 at 1358, Intraprocedure 1358 (Given - Provider: Deidra Enciso MD - Comment: opsite) benzocaine-menthol (Cepastat Sore Throat) 15-3.6 mg lozenge 1 lozenge 1 lozenge, Mouth/Throat, Every 2 hour PRN, sore throat, Starting on Bernice 01/16/24 at 1632, Phase II/On Unit cyclobenzaprine (Flexeril) tablet 10 mg 10 mg, oral, 3 times daily PRN, muscle spasms, Starting on Bernice 01/16/24 at 1632, Phase II/On Unit, Indications: muscle spasm 1741 (Given - Provider: Nicho Salter RN) dextrose 10 % in water (D10W) infusion 0.3 g/kg/hr 112 kg (336 mL/hr), intravenous, Once as needed, For blood glucose less than 70 mg/dL after 30 minutes of intervention. Discontinue once blood glucose reaches 100 mg/dL., Starting on Bernice 01/16/24 at 1632, For 1 dose, Phase II/On Unit, Discontinue once blood glucose reaches 100 mg/dL. dextrose 50 % injection 25 g 25 g, intravenous, Every 15 min PRN, For blood glucose less than or equal to 40 mg/dL, Starting on Bernice 01/16/24 at 1632, Phase II/On Unit, May repeat until blood glucose level reaches 100 mg/dL or greater. Push 2 - 3 mL/minute if patient has secure IV access. glucagon (Glucagen) injection 1 mg 1 mg, intramuscular, Every 15 min PRN, low blood sugar - see comments, For blood glucose less than or equal to 70 mg/dL and no IV access, Starting on Bernice 01/16/24 at 1632, Phase II/On Unit, Give until blood glucose is 100 mg/dL or greater. If patient DOES NOT HAVE secure IV access & patient is unconscious, NPO or is unable to eat or drink. HYDROmorphone (Dilaudid) injection 0.2 mg 0.2 mg, intravenous, Every 4 hours PRN, pain breakthrough, use oral first and only use IV if oral is ineffective or cannot take oral. Use as first line if no PO med ordered., Starting on Bernice 01/16/24 at 1632, Phase II/On Unit HYDROmorphone (Dilaudid) injection 0.5 mg (CANCELED) 0.5 mg, intravenous, Every 5 min PRN, pain severe (7-10), first line, Starting on Bernice 01/16/24 at 1354, Recovery (only), Max total of 4 mg regardless of dose. 1428 (Given - Provider: Isabel Gaytan RN)1435 (Given - Provider: Isabel Gaytan RN) lidocaine-epinephrine PF (Xylocaine W/EPI) 1 %-1:200,000 injection (CANCELED) As needed, Starting on Bernice 01/16/24 at 1313, Intraprocedure 1313 (Given - Provider: Deidra Enciso MD - Comment: OPSITE) naloxone (Narcan) injection 0.2 mg 0.2 mg, intravenous, Every 5 min PRN, respiratory depression, Starting on Bernice 01/16/24 at 1632, Phase II/On Unit, If respiratory rate is less than 8 breaths/minute or patient is difficult to arouse stop any narcotics and contact physician. Administer slow IV push. Repeat as ordered until patient's respiratory rate is greater than 12 breaths/minute. ondansetron (Zofran) injection 4 mg(Linked Group 1) 4 mg, intravenous, Every 8 hours PRN, nausea/vomiting, first line, Starting on Bernice 01/16/24 at 1632, Phase II/On Unit, 1st Line. Give IV if patient is unable to take orally. If inadequate response within 60 minutes, proceed to next-line agent for same PRN reason or contact provider if no further options ordered. When administering via IV Push, administer over 3-5 minutes. ondansetron (Zofran) tablet 4 mg(Linked Group 1) 4 mg, oral, Every 8 hours PRN, nausea/vomiting, first line, Starting on Bernice 01/16/24 at 1632, Phase II/On Unit, 1st Line. Use oral route first, if possible. If inadequate response within 60 minutes, proceed to next-line agent for same PRN reason or contact provider if no further options ordered. oxyCODONE (Roxicodone) immediate release tablet 10 mg 10 mg, oral, Every 4 hours PRN, pain severe (7-10), first line, Starting on Bernice 01/16/24 at 1632, Phase II/On Unit, If ordered PRN for pain, nurse is permitted to administer this medication for higher pain scores based on patient preference? Yes 2000 (Given - Provider: Dania Hammer RN) oxyCODONE (Roxicodone) immediate release tablet 2.5 mg 2.5 mg, oral, Every 4 hours PRN, pain mild (1-3), first line, Starting on Bernice 01/16/24 at 1632, Phase II/On Unit, If ordered PRN for pain, nurse is permitted to administer this medication for higher pain scores based on patient preference? Yes oxyCODONE (Roxicodone) immediate release tablet 5 mg (CANCELED) 5 mg, oral, Every 4 hours PRN, pain mild (1-3), first line, Starting on Bernice 01/16/24 at 1354, Recovery (only), When able to take oral medications., If ordered PRN for pain, nurse is permitted to administer this medication for higher pain scores based on patient preference? Yes 1443 (Given - Provider: Isabel Gaytan RN) oxyCODONE (Roxicodone) immediate release tablet 5 mg 5 mg, oral, Every 4 hours PRN, pain moderate (4-6), first line, Starting on Bernice 01/16/24 at 1632, Phase II/On Unit, If ordered PRN for pain, nurse is permitted to administer this medication for higher pain scores based on patient preference? Yes 0854 (Given - Provid er: Claudia Young RN) oxygen (O2) therapy inhalation, Continuous PRN - O2/gases, other, Starting on Bernice 01/16/24 at 1632, Phase II/On Unit, Titrate supplemental oxygen to maintain SpO2 greater than or equal to 92, Device: Nasal Cannula, Rate in liters per minute: 2 LPM, Keep O2 Sat Above: 92% polymyxin B 500,000 Units in sodium chloride 0.9 % 1,000 mL irrigation (CANCELED) As needed, Starting on Bernice 01/16/24 at 1314, Intraprocedure 1314 (Given - Provider: Deidra Enciso MD) promethazine (Phenergan) suppository 25 mg(Linked Group 2) 25 mg, rectal, Every 12 hours PRN, nausea/vomiting, second line, Starting on Bernice 01/16/24 at 1632, Phase II/On Unit, 2nd Line. Give ID if patient is unable to take orally. If inadequate response within 60 minutes, proceed to next-line agent for same PRN reason or contact provider if no further options ordered. promethazine (Phenergan) tablet 25 mg(Linked Group 2) 25 mg, oral, Every 6 hours PRN, nausea/vomiting, second line, Starting on Bernice 01/16/24 at 1632, Phase II/On Unit, 2nd Line. If inadequate response within 60 minutes, proceed to next-line agent for same PRN reason or contact provider if no further options ordered. Linked Groups Order Group 1: ondansetron (Zofran) tablet 4 mgJump to med 4 mg, oral, Every 8 hours PRN, nausea/vomiting, first line, Starting on Bernice 01/16/24 at 1632, Phase II/On Unit
1st Line. Use oral route first, if possible. If inadequate response within 60 minutes, proceed to next-line agent for same PRN reason or contact provider if no further options ordered.
Or ondansetron (Zofran) injection 4 mgJump to med 4 mg, intravenous, Every 8 hours PRN, nausea/vomiting, first line, Starting on Bernice 01/16/24 at 1632, Phase II/On Unit
1st Line. Give IV if patient is unable to take orally. If inadequate response within 60 minutes, proceed to next-line agent for same PRN reason or contact provider if no further options ordered. When administering via IV Push, administer over 3-5 minutes.
Group 2: promethazine (Phenergan) tablet 25 mgJump to med 25 mg, oral, Every 6 hours PRN, nausea/vomiting, second line, Starting on Bernice 01/16/24 at 1632, Phase II/On Unit
2nd Line. If inadequate response within 60 minutes, proceed to next-line agent for same PRN reason or contact provider if no further options ordered.
Or promethazine (Phenergan) suppository 25 mgJump to med 25 mg, rectal, Every 12 hours PRN, nausea/vomiting, second line, Starting on Bernice 01/16/24 at 1632, Phase II/On Unit
2nd Line. Give ID if patient is unable to take orally. If inadequate response within 60 minutes, proceed to next-line agent for same PRN reason or contact provider if no further options ordered.
FOR RECORDS PERTAINING TO PATIENTS WHO ARE OR HAVE BEEN ENROLLED IN A CHEMICAL DEPENDENCY/SUBSTANCEABUSE PROGRAM, SOME INFORMATION MAY BE OMITTED. This clinical summary was aggregated from multiple sources. Caution should be exercised in using it in the provision of clinical care. This summary normalizes information from multiple sources, and as a consequence, information in this document may materially change the coding, format and clinical context of patient data. In addition, data may be omitted in some cases. CLINICAL DECISIONS SHOULD BE BASED ON THE PRIMARY CLINICAL RECORDS. [facility] [employer] [facility]. provides no warranty or guarantee of the accuracy or completeness of information in this document.
[2025-09-04 00:14] LABS: Glucose Urine UA NEGATIVE (NEGATIVE)
[2025-09-04 00:14] LABS: Hematocrit 34.5 % (36.0-48.0); Hemoglobin 11.6 g/dL (12.0-16.0); Immature Granulocytes Abs Auto 0.07 10^3/uL (0.00-0.03); Immature Granulocytes Pct Auto 0.6 % (0.0-0.5); Lymphocytes Absolute Auto 4.2 10^3/uL (1.2-3.8); Mean Corpuscular HGB Conc 33.6 g/dL (29.9-35.2); Mean Corpuscular Hemoglobin 29.0 pg (26.7-34.0); Mean Corpuscular Volume 86.3 fL (81.0-99.0); Platelet Count 270 10^3/uL (150-450); Red Blood Count 4.00 10^6/uL (4.20-5.40); White Blood Count 12.5 10^3/uL (4.0-11.0)
[2025-09-04] MEDS: FAMOTIDINE/PF 20 MG/2 ML VIAL IV (00:16)
[2025-09-04] MEDS: MORPHINE SULFATE 4 MG/ML VIAL IV (00:16)
[2025-09-04 00:19] LABS: Cast Seen? NONE SEEN #/LPF (NONE SEEN); Crystals Seen? None Seen #/HPF (None Seen); Urine Culture Indicated NO
[2025-09-04 00:28] LABS: Alanine Aminotransferase 36 U/L (14-59); Albumin Globulin Ratio 0.9; Albumin Level 3.2 g/dL (3.4-5.0); Alkaline Phosphatase 126 U/L (46-116); Anion Gap 14.6; Aspartate Amino Transferase 14 U/L (15-37); Blood Urea Nitrogen 13.0 mg/dL (7.0-18.0); Calcium 8.9 mg/dL (8.5-10.1); Carbon Dioxide 27.0 mmol/L (21.0-32.0); Chloride 102 mmol/L (98-107); Estimated GFR (African America >60 (>=60 mL/min/1.73m^2); Estimated GFR (Non-African Ame >60 (>=60 mL/min/1.73m^2); Globulin 3.7 g/dL; Glucose 163 mg/dL (74-106); Lipase 16.0 U/L (16.0-77.0); Potassium 3.6 mmol/L (3.5-5.1); Sodium 140 mmol/L (136-145); Total Protein 6.9 g/dL (6.4-8.2)
--- NOTE | 2025-09-04 05:22 | ED_ITS ---
HPI HPI - General Adult General Chief complaint: Abdominal Pain Stated complaint: abd pain Time Seen by Provider: 09/03/25 23:28 Source: patient Mode of arrival: walk-in Limitations: no limitations History of Present Illness HPI narrative: Patient is a 50-year-old female presenting to the emergency department for evaluation of epigastric pain. Patient states she has been dealing with epi gastric pain for approximately 2 months. She states her symptoms have gotten progressively worse. She states she is actually scheduled to get an EGD in 6 days. Other than pain in the epigastrium, which radiates to her back, she has no other systemic symptoms. She denies fevers or chills. She has had no vomiting or nausea. No constipation or diarrhea. No chest pain or shortness of breath. She has a history of cholecystectomy, but no other known intra- abdominal pathologies/surgeries other than GERD. She does not drink alcohol. Related Data Home Medications ?Medication ?Instructions ?Recorded ?Confirmed citalopram 40 mg tablet mg 09/03/25 hydroxyzine HCl 25 mg tablet mg 09/03/25 lamotrigine 200 mg tablet mg 09/03/25 losartan 100 tab 09/03/25 mg-hydrochlorothiazide 12.5 mg tablet metformin 750 mg tablet,extended mg PO 09/03/25 release 24 hr omeprazole 40 mg capsule,delayed mg 09/03/25 release Allergies Allergy/AdvReac Type Severity Reaction Status Date / Time azithromycin (From Zithromax) Allergy Unknown Unknown Verified 09/03/25 23:34 diclofenac Allergy Unknown Unknown Verified 09/03/25 23:34 Sulfa (Sulfonamide Allergy Unknown Unknown Verified 09/03/25 23:34 Antibiotics) Opioid HPI Opioid Management Most Recent Opioid Data: Last Pain Scale 9 09/03/25, 23:27 Review of Systems ROS Status of ROS 10 or more systems reviewed and unremark able except as noted in history and below PFSH PFSH Social History Little interest or pleasure in doing things: not at all Feeling down, depressed, or hopeless: not at all Exam Narrative Exam Narrative: CONSTITUTIONAL: Appears uncomfortable but nontoxic, answering questions and following commands appropriately SKIN: Was warm and dry. EYES: No scleral icterus. EARS, NOSE, THROAT: Moist oral mucosa. RESPIRATORY: Clear to auscultation bilaterally, no wheezes, crackles, or stridor, no use of accessory muscles CARDIOVASCULAR: Normal rate and regular rhythm. There is no S3, S4, murmur, rub. GASTROINTESTINAL: There is tenderness to palpation in the epigastrium without rebound tenderness or guarding. Nondistended. No right upper quadrant tenderness. MUSCULOSKELETAL: No peripheral edema. NEUROLOGIC: Patient is awake and alert. Facies were symmetrical. Constitutional Vital Signs, click to edit/add: Last Vital Signs Temp 98.2 F 09/03/25 23:27 Pulse 82 09/03/25 23:27 Resp 18 09/03/25 23:27 BP 167/80 H 09/03/25 23:27 Pulse Ox 98 09/03/25 23:27 O2 Del Method Room Air 09/03/25 23:27 Course Vital Signs Vital signs: Vital Signs Temperature 98.2 F 09/03/25 23:27 Pulse Rate 82 09/03/25 23:27 Respiratory Rate 18 09/03/25 23:27 Blood Pressure 167/80 H 09/03/25 23:27 Pulse Oximetry 98 09/03/25 23:27 Oxygen Delivery Method Room Air 09/03/25 23:27 Temperature 98.2 F 09/03/25 23:27 Pulse Rate 82 09/03/25 23:27 Respiratory Rate 18 09/03/25 23:27 Blood Pressure 167/80 H 09/03/25 23:27 Pulse Oximetry 98 09/03/25 23:27 Oxygen Delivery Method Room Air 09/03/25 23:27 Medical Decision Making MDM Narrative Medical decision making narrative: Patient is a 50-year-old female presenting to the emergency department with a 2- month history of worsening epigastric pain. She is scheduled to undergo an EGD next week. Her vital signs on arrival are significant for hypertension, otherwise were within normal limits. She is afebrile and hemodynamically stable. Examination as noted above. Differential diagnosis includes pancreatitis, gastritis, GERD, peptic ulcer disease, UTI, or other electrolyte/metabolic derangement. IV was established and laboratory studies were obtained. CT abdomen/pelvis with IV contrast was ordered. She was treated symptomatically with IV morphine, IV famotidine, IV Zofran. Laboratory studies were unremarkable. No significant electrolyte or metabolic derangement. No evidence of acute kidney injury. No anemia, mild leukocytosis, and no thrombocytopenia. No transaminitis or hyperbilirubinemia. Alk phos mildly elevated. Troponin nonelevated. Lipase nonelevated. Urinalysis negative. CT abdomen/pelvis independently reviewed and interpreted by myself and radiology demonstrated diffuse inflammatory changes adjacent to the pancreas concerning for acute pancreatitis. Dilation of the left mid to distal pancreatic duct with 2 cm cystic lesion adjacent to the pancreatic tail. Findings are not fully characterized differential diagnosis includes pseudocyst, abscess, cystic neoplasm. I did consult and discussed the patient with on-call GI physician, Dr. Gonzalez, who recommended that the patient obtains an urgent outpatient endoscopic ultrasound to further delineate the pancreatic lesion. The patient's information was provided, and she will be set up for an outpatient appointment with her colleague, Dr. Beryl Reese, at the [facility]. I do believe the patient is stable for discharge. She feels improved on reevaluation after analgesics. She was instructed to follow up with Dr. Beryl Reese as soon as possible for EUS. I did discuss at length the findings of her CT scan, and she is agreeable with the plan for outpatient EUS. She was given information for the GI clinic to make an appointment as well. Return precautions were given including any new or worsening symptoms. Patient understands and agrees to the plan. FINAL IMPRESSION: #Acute cystic lesion of the pancreatic tail #Acute epigastric pain, improved DISPOSITION: Discharged home CONDITION: Fair Lab Data Lab results reviewed: Yes I reviewed the patient's lab results Labs: Lab Results 09/03/25 09/04/25 Range/Units 23:55 00:03 WBC 12.5 H (4.0-11.0) 10^3/uL RBC 4.00 L (4.20-5.40) 10^6/uL Hgb 11.6 L (12.0-16.0) g/dL Hct 34.5 L (36.0-48.0) % MCV 86.3 (81.0-99.0) fL MCH 29.0 (26.7-34.0) pg MCHC 33.6 (29.9-35.2) g/dL RDW 14.0 (11.0-15.0) % Plt Count 270 (150-450) 10^3/uL MPV 10.3 (9.5-13.5) fL Neut % (Auto) 59.6 (43.0-75.0) % Lymph % (Auto) 34.1 (20.5-60.0) % Mcclain % (Auto) 3.5 (1.7-12.0) % Eos % (Auto) 2.0 (0.9-7.0) % Baso % (Auto) 0.2 (0.2-2.0) % Neut # (Auto) 7.4 H (1.4-6.5) 10^3/uL Lymph # (Auto) 4.2 H (1.2-3.8) 10^3/uL Mcclain # (Auto) 0.4 (0.3-0.8) 10^3/uL Eos # (Auto) 0.3 (0.0-0.7) 10^3/uL Baso # (Auto) 0.0 (0.0-0.1) 10^3/uL Abs Immat Gran (auto) 0.07 H (0.00-0.03) 10^3/uL Imm/Tot Granulo (auto) 0.6 H (0.0-0.5) % Sodium 140 (136-145) mmol/L Potassium 3.6 (3.5-5.1) mmol/L Chloride 102 (98-107) mmol/L Carbon Dioxide 27.0 (21.0-32.0) mmol/L Anion Gap 14.6 BUN 13.0 (7.0-18.0) mg/dL Creatinine 0.66 (0.55-1.02) mg/dL Est GFR ( Amer) >60 (>=60 mL/min/1.73m^2) Est GFR (Non-Af Amer) >60 (>=60 mL/min/1.73m^2) BUN/Creatinine Ratio 19.7 Glucose 163 H (74-106) mg/dL Calcium 8.9 (8.5-10.1) mg/dL Total Bilirubin 0.2 (0.2-1.0) mg/dL AST 14 L (15-37) U/L ALT 36 (14-59) U/L Alkaline Phosphatase 126 H (46-116) U/L Troponin I High Sens 6.0 (4.0-51.3) pg/mL Total Protein 6.9 (6.4-8.2) g/dL Albumin 3.2 L (3.4-5.0) g/dL Globulin 3.7 g/dL Albumin/Globulin Ratio 0.9 Lipase 16.0 (16.0-77.0) U/L Urine Color Lt. yellow (YELLOW) Urine Clarity Clear (CLEAR) Urine pH 6.0 (5.0-9.0) Ur Specific Maribel 1.015 (1.005-1.025) Urine Protein Negative (NEG/TRACE) mg/dL Urine Glucose (UA) Negative (NEGATIVE) mg/dL Urine Ketones Negative (NEGATIVE) mg/dL Urine Occult Blood Negative (NEGATIVE) Urine Nitrite Negative (NEGATIVE) Urine Bilirubin Negative (NEGATIVE) Urine Urobilinogen 0.2 (0.2-1.0) EU/dL Ur Leukocyte Esterase Trace A (NEGATIVE) Urine RBC None seen (0-2) #/HPF Urine WBC 0-2 A (NONE SEEN) #/HPF Ur Squamous Epith Cells Moderate A (NONE/RARE) #/LPF Urine Crystals None seen (None Seen) #/HPF Urine Bacteria Trace A (NONE SEEN) #/HPF Urine Casts None seen (NONE SEEN) #/LPF Urine Mucus None seen (NONE SEEN) Ur Culture Indicated? No Imaging Data CT scan - abdomen: Attestation: I personally reviewed and interpreted this imaging study as follows: Discharge Plan Discharge Chief Complaint: Abdominal Pain Clinical Impression: Pancreas cyst Patient Disposition: Home, Self-Care Time of Disposition Decision: 01:20 Condition: Fair Mode of Transportation: Private Vehicle Prescriptions / Home Meds: No Action lamotrigine 200 mg tablet citalopram 40 mg tablet omeprazole 40 mg capsule,delayed release(DR/EC) hydroxyzine HCl 25 mg tablet metformin 750 mg tablet extended release 24 hr PO losartan-hydrochlorothiazide 100-12.5 mg tablet Print Language: Tristanian Instructions: Pancreatic Pseudocyst (DC) Referrals: Beryl Reese [Other, Gastroenterology] - As soon as possible Referral Note: Patient requires urgent endoscopic ultrasound for pancreatic mass/cyst Clinical Impression: Pancreas cyst ERLIN DANIELLE [Primary Care Provider, Family Practice] - 1 week Discharge Date/Time: 09/04/25 01:55
[2025-09-05 07:07] LABS: CA 19-9 102 U/mL (0-35)
== END 2025-09-04 01:55 | disposition home or self-care (01) ==
PROVIDERS: Emergency Provider Student in an Organized Health Care Education/Training Program; PCP Family Medicine
DX: K86.2 Cyst of pancreas (principal); Z90.49 Acquired absence of other specified parts of digestive tract; K21.9 Gastro-esophageal reflux disease without esophagitis
CPT/HCPCS: 36415; 74177; 80053; 81001; 83690; 84484; 85025; 86301; 96374; 96375; 99284; J2270; J2405; J3490; Q9967